=== PATIENT | female | born 1935 | race Caucasian/White ===

== ENCOUNTER → 2018-10-22 | Outpatient (CLI) | payer MEDICARE, BC ==
[2018-10-22 13:26] LABS: HCT 37.3 % (34.0-46.0); HGB 12.5 gm/dL (11.4-16.0); MCHC 33.6 g/dL (31.0-37.0); MCV 95.1 fL (80.0-100.0); Mean Platelet Volume 6.7; Platelet Count 203 k/uL (150-450); RBC 3.92 m/uL (3.80-5.40); WBC 6.9 k/uL (3.8-10.6)
[2018-10-22 13:37] LABS: ALT 19 U/L (9-52); AST 34 U/L (14-36); Albumin 4.6 g/dL (3.5-5.0); Alkaline Phosphatase 78 U/L (38-126); Anion Gap 6 mmol/L; Blood Urea Nitrogen 10 mg/dL (7-17); Calcium 9.9 mg/dL (8.4-10.2); Carbon Dioxide 32 mmol/L (22-30); Chloride 100 mmol/L (98-107); Cholesterol 166 mg/dL (<200); Creatine Kinase 56 U/L (30-135); Glucose 96 mg/dL (74-99); HDL Cholesterol 90 mg/dL (40-60); LDL Cholesterol,Calculated 54 mg/dL (0-99); Magnesium 1.9 mg/dL (1.6-2.3); Potassium 4.3 mmol/L (3.5-5.1); Sodium 138 mmol/L (137-145); Total Bilirubin 0.6 mg/dL (0.2-1.3); Total Protein 7.7 g/dL (6.3-8.2); Triglycerides 112 mg/dL (<150)
--- NOTE | 2018-10-22 15:09 | CT ---
EXAMINATION TYPE: CT abdomen pelvis wo con DATE OF EXAM: 10/22/2018 COMPARISON: None HISTORY: flank pain CT DLP: 291.9 mGycm Examination of the solid and hollow viscera is limited given the lack of contrast. FINDINGS: LUNG BASES: No evidence for nodule. No evidence for infiltrate. LIVER/GB: The gallbladder is unremarkable. No space-occupying hepatic lesion. PANCREAS: No pancreatic mass identified. No inflammatory process seen. SPLEEN: No evidence for splenomegaly. No intrasplenic lesions seen. ADRENALS: No adrenal nodules identified. No evidence for thickening. KIDNEYS: Low-lying right kidney. No evidence for renal mass. No nephrolithiasis. No hydronephrosis. BOWEL: The appendix is poorly visualized. No evidence of bowel obstruction. No inflammatory process. Sigmoid diverticulosis without diverticulitis. Small hiatal hernia. Lymph nodes: No evidence for adenopathy greater than 1 cm. Abdominal aorta: Atheromatous changes seen. No evidence for aneurysm. Genital organs: No significant abnormality. Other: Severe compression fracture involving L1 with bony retropulsion noted measuring 6 mm. There is a moderate compression fracture involving T10. No retropulsion is identified at this level. Paraspin al hematoma suggest acute process. Right inguinal hernia which contains a segment of small bowel. No evidence for incarceration or obstr uction. IMPRESSION: 1. Compression fractures of L1 and T10 with paraspinal hematoma suggesting acute component. Retropuls ion noted at L1. Consider dedicated evaluation of the thoracolumbar spine. 2. Sigmoid diverticulosis without diverticulitis. 3. Low-lying right kidney. No trever hydronephrosis or obstructing nephrolithiasis.
[2018-10-22 19:07] LABS: Vitamin D 25 Hydroxy 42.5 ng/mL (30.0-100.0)
[2018-10-22 19:11] LABS: Folate, Serum 22.5 ng/mL
== END | disposition home or self-care (01) ==
LOC: RADCTMAIN 12:34
PROVIDERS: ATTEND Family Medicine
DX: K57.30 Diverticulosis of large intestine without perforation or abscess without bleeding (principal); N28.89 Other specified disorders of kidney and ureter; R10.9 Unspecified abdominal pain; M81.0 Age-related osteoporosis without current pathological fracture; N39.0 Urinary tract infection, site not specified; R20.2 Paresthesia of skin; Z79.899 Other long term (current) drug therapy
CPT/HCPCS: 74176; 80053; 80061; 82306; 82550; 82607; 82746; 83735; 84436; 84443; 85027; 87086

== ENCOUNTER → 2018-12-03 | Outpatient (CLI) | payer MEDICARE, BC ==
--- NOTE | 2018-12-04 11:19 | BD ---
EXAMINATION TYPE: Axial Bone Density DATE OF EXAM: 12/03/2018 COMPARISON: DEXA bone scan January 30, 2016 CLINICAL HISTORY: Age-related osteoporosis per order. Height: 61 Weight: 121.0 FRAX RISK QUESTIONS: Alcohol (3 or more units per day): no Family History (Parent hip fracture): no Glucocorticoids (More than 3mos): no (Ex: prednisone, prednisolone, methylprednisolone, dexamethasone, and hydrocortisone). History of Fracture in Adulthood: yes Secondary Osteoporosis: 1. Type 1 Diabetes: no 2. Hyperthyroidism: no 3. Menopause before 45: no 4. Malnutrition: no 5. Chronic liver disease: no Rheumatoid Arthritis: no Current Tobacco Use: no RISK FACTORS HISTORY OF: Hip Fracture (Right/Left): right When: 2016 Spine Fracture: l-1 When: 2018 Surgery to Spine/Hip(right/left)/Wrist (right/left): right hip/ 2016 Family History of Osteoporosis: yes Active: sometimes Diet low in dairy products/other sources of calcium: no Lost more than 2 inches in height since high school: yes MEDICATIONS: Osteoporosis Medications: fosamax How Long: off and on for a few years Additional History: EXAM MEASUREMENTS: Bone mineral densitometry was performed using the [employer]wic[employer] System. Bone mineral density about the L hip (g/cm2): 0.595 T Score values are as follows: -----L Neck: -3.2 -----L Total: -3.2 Bone mineral density has: decreased -10.4 % since study of: 3.7.2015 Bone mineral density about the L Wrist (g/cm2): 0.295 T Score values are as follows: -----Dist. R+U: -6.2 -----Prox. R+U: -5.1 -----Radius total: -6.3 Bone mineral density : baseline IMPRESSION: Osteoporosis (T Score less than -2.5) redemonstrated. There remains increased fracture risk and therapy is usually indicated based on age. Re-Screen 1-2 years. NOTE: T-SCORE=SD OF THE YOUNG ADULT MEAN.
--- NOTE | 2018-12-07 12:41 | MM ---
Reason for exam: screening (asymptomatic). Last mammogram was performed 2 years and 10 months ago. History: Patient is postmenopausal. Family history of breast cancer in aunt at age 80 and breast cancer in grandmother at age 80. MG 3D Screening Mammo W/Cad Bilateral CC and MLO view(s) were taken. Prior study comparison: January 30, 2016, bilateral MG screening mammo w CAD. July 28, 2014, bilateral MG screening mammo w CAD. The breast tissue is heterogeneously dense. This may lower the sensitivity of mammography. No significant changes when compared with prior studies. ASSESSMENT: Negative, BI-RAD 1 RECOMMENDATION: Routine screening mammogram of both breasts in 1 year.
== END | disposition home or self-care (01) ==
LOC: RADMAMWWP 14:49
PROVIDERS: ATTEND Family Medicine
DX: Z12.31 Encounter for screening mammogram for malignant neoplasm of breast (principal); M81.0 Age-related osteoporosis without current pathological fracture
CPT/HCPCS: 77063; 77067; 77080

== ENCOUNTER → 2019-09-02 | Outpatient (CLI) | payer MEDICARE, BC ==
[2019-09-02 12:27] LABS: HCT 37.8 % (34.0-46.0); HGB 12.6 gm/dL (11.4-16.0); MCH 32.2 pg (25.0-35.0); MCHC 33.2 g/dL (31.0-37.0); MCV 96.9 fL (80.0-100.0); Mean Platelet Volume 5.8; Platelet Count 200 k/uL (150-450); RDW 12.7 % (11.5-15.5); WBC 6.3 k/uL (3.8-10.6)
--- NOTE | 2019-09-02 14:55 | XR ---
Thoracic spine and lumbar spine HISTORY: Chronic pain, osteoporosis 3 views of the thoracic spine and 5 views of the lumbosacral spine correlated to CT 10/22/2018 There is a scoliotic curvature present. Bone mineralization is reduced. There is a compression deform ity at L1 with loss of height of approximately 75%. Minimal retrolisthesis grade 1 at T12-L1, L1-L2. Mild superior endplate loss of height at L3, L2. There is multilevel spondylosis. Loss of disc height at intervertebral levels especially at L3-4, L4-5 and L5-S1. Sclerosis in the posterior elements is compatible with facet arthropathy. Is multilevel spondylosis. T10 also shows loss of vertebral body height of approximately 50%. Multilevel thoracic spondylosis is present. Degenerative disc changes are also noted in the visualized cervical spine. Thoracic vertebr al bodies show preserved alignment. IMPRESSION: Osteoporotic compression fractures at L1, T10. Degenerative disc disease, facet arthropat hy, scoliosis, low bone mineralization.
--- NOTE | 2019-09-02 14:57 | XR ---
EXAMINATION TYPE: XR chest 2V DATE OF EXAM: 09/02/2019 COMPARISON: Prior chest x-ray 01/30/2016 HISTORY: Wheezing, abnormal breath sounds, chronic pain TECHNIQUE: Frontal and lateral views of the chest are obtained. FINDINGS: There is no focal air space opacity, pleural effusion, or pneumothorax seen. The cardiac silhouette size is stable and within normal limits. The osseous structures are markedly for scoliot ic curvature, compression fractures T10 and L1. Prominent lung volumes are compatible with underlying COPD.. IMPRESSION: No acute cardiopulmonary process.
[2019-09-02 19:41] LABS: African American GFR (CKD) 95.7 (60.0-200.0); Albumin 4.8 g/dL (3.80-4.90); Anion Gap 7.4 mmol/L (4.00-12.00); Calcium 9.8 mg/dL (8.7-10.3); Carbon Dioxide 28.6 mmol/L (21.6-31.8); Chol/HDL Ratio 2.03; Globulin 2.4 g/dL (1.6-3.3); Potassium 4.4 mmol/L (3.5-5.5); Total Bilirubin 0.6 mg/dL (0.3-1.2); Total Protein 7.2 g/dL (6.2-8.2)
[2019-09-02 21:55] LABS: Hemoglobin A1C 5.6 % (4.0-6.0)
== END | disposition home or self-care (01) ==
LOC: LABWHC1 11:09
PROVIDERS: ATTEND Family Medicine
DX: M51.36 Other intervertebral disc degeneration, lumbar region (principal); R06.2 Wheezing; M80.08XA Age-related osteoporosis with current pathological fracture, vertebra(e), initial encounter for fracture; M46.96 Unspecified inflammatory spondylopathy, lumbar region; M41.86 Other forms of scoliosis, lumbar region; E78.5 Hyperlipidemia, unspecified; Z79.899 Other long term (current) drug therapy
CPT/HCPCS: 36415; 71046; 72070; 72110; 80053; 80061; 82306; 83036; 83735; 84443; 85027

== ENCOUNTER 2019-11-05 13:44 | Emergency (ER) | payer MEDICARE, BC ==
[2019-11-05 15:04] LABS: Basophils % (A) 0 %; Eosinophils # (A) 0.1 k/uL (0-0.7); Eosinophils % (A) 1 %; HCT 37.1 % (34.0-46.0); HGB 12.3 gm/dL (11.4-16.0); Lymphocytes # (A) 0.8 k/uL (1.0-4.8); Lymphocytes % (A) 12 %; MCHC 33.2 g/dL (31.0-37.0); MCV 93.4 fL (80.0-100.0); Mean Platelet Volume 7.4; Monocytes # (A) 0.4 k/uL (0-1.0); Monocytes % (A) 6 %; Neutrophils # (A) 5.2 k/uL (1.3-7.7); Neutrophils % (A) 79 %; Platelet Count 244 k/uL (150-450); RBC 3.97 m/uL (3.80-5.40); RDW 12.5 % (11.5-15.5); WBC 6.6 k/uL (3.8-10.6)
--- NOTE | 2019-11-05 15:05 | XR ---
EXAMINATION TYPE: XR KUB DATE OF EXAM: 11/05/2019 COMPARISON: NONE HISTORY: Pain TECHNIQUE: Single supine KUB image of the abdomen is obtained FINDINGS: Small bowel demonstrates no evidence for dilatation or air fluid levels. Gas and fecal material is seen in non-distended colon. No convincing evidence for pneumoperitoneum. No unusual calcifications. The lung bases are clear. The osseous structures are intact. IMPRESSION: 1. Overall nonobstructive bowel gas pattern.
[2019-11-05] MEDS: SODIUM CHLORIDE 0.9% 500 ML 500 ML IV STA (15:07)
--- NOTE | 2019-11-05 15:09 | ED ---
General Adult HPI - General Chief complaint: Weakness Stated complaint: weakness Time Seen by Provider: 11/05/19 13:50 Source: family, RN notes reviewed, old records reviewed Mode of arrival: ambulatory Limitations: no limitations - History of Present Illness Initial comments: This is a 84-year-old female presents emergency Department complaining of right upper quadrant abdominal pain this morning at 5:30 it lasted for 2 hours and since it is been resolved. Patient states she was recently diagnosed with a L3 compression fracture and put on tramadol. Patient states since she's been tramadol also been very constipated and only recently and she started have some bowel movements. Patient states she has not been eating or drinking well either. Patient denies any fever chills per patient denies any symptoms currently. Patient denies any chest pain difficulty breathing or shortness of breath. Patient denies any dysuria hematuria urinary frequency. - Related Data Home Medications Medication Instructions Recorded Confirmed Alfredo/D3/Mag11/Zinc/Canning Machine Operator/Randolph/Bor 1 tab PO DAILY 09/05/16 09/05/16 [Caltrate 600+D Plus Tablet] Glucosam/Patricio-Msm1/C/Randolph/Bosw 1 tab PO DAILY 09/05/16 09/05/16 [Glucosamine-Chondroitin Tablet] Multivitamins, Thera [Multivitamin 1 tab PO DAILY 09/05/16 09/05/16 (formulary)] Simvastatin 40 mg PO HS 09/05/16 09/05/16 Previous Rx's Medication Instructions Recorded Aspirin 325 mg PO BID #60 tab 09/10/16 Docusate [Colace] 100 mg PO BID #60 capsule 09/10/16 Ferrous Sulfate [Feosol] 325 mg PO BID #60 tab 09/10/16 HYDROcodone/APAP 5-325MG [Ecru 1 tab PO Q4HR PRN #60 tab 09/10/16 5-325] Allergies Allergy/AdvReac Type Severity Reaction Status Date / Time Sulfa (Sulfonamide Allergy Swelling Verified 11/05/19 13:49 Antibiotics) venom-honey bee Allergy Anaphylaxis Verified 11/05/19 13:49 [bee venom (honey bee)] Review of Systems ROS Statement: Those systems with pertinent positive or pertinent negative responses have been documented in the HPI. ROS Other: All systems not noted in ROS Statement are negative. Past Medical History Past Medical History: Hyperlipidemia Additional Past Medical History / Comment(s): Rheumatic fever age 10. History of Any Multi-Drug Resistant Organisms: None Reported Past Surgical History: Hysterectomy, Tonsillectomy Past Psychological History: No Psychological Hx Reported Smoking Status: Never smoker Past Alcohol Use History: Occasional Past Drug Use History: None Reported - Past Family History Mother Family Medical History: Myocardial Infarction ([place]) General Exam - General Exam Comments Initial Comments: GENERAL: Patient is well-developed and well-nourished. Patient is nontoxic and well- hydrated and is in no acute distress. ENT: Neck is soft and supple. No significant lymphadenopathy is noted. Oropharynx is clear. Moist mucous membranes. Neck has full range of motion without eliciting any pain. EYES: The sclera were anicteric and conjunctiva were pink and moist. Extraocular movements were intact and pupils were equal round and reactive to light. Eyelids were unremarkable. PULMONARY: Unlabored respirations. Good breath sounds bilaterally. No audible rales rhonchi or wheezing was noted. CARDIOVASCULAR: There is a regular rate and rhythm without any murmurs gallops or rubs. ABDOMEN: Soft and nontender with normal bowel sounds. No palpable organomegaly was noted. There is no palpable pulsatile mass. SKIN: Skin is clear with no lesions or rashes and otherwise unremarkable. NEUROLOGIC: Patient is alert and oriented x3. Cranial nerves II through XII are grossly intact. Motor and sensory are also intact. Normal speech, volume and content. Symmetrical smile. MUSCULOSKELETAL: Normal extremities with adequate strength and full range of motion. LYMPHATICS: No significant lymphadenopathy is noted PSYCHIATRIC: Normal psychiatric evaluation. Limitations: no limitations Course Vital Signs 11/05/19 11/05/19 13:46 15:00 Temperature 97.4 F L 98.0 F Pulse Rate 87 80 Respiratory 20 19 Rate Blood Pressure 190/92 167/91 O2 Sat by Pulse 94 L 97 Oximetry Medical Decision Making - Medical Decision Making EKG shows normal sinus rhythm at 82 bpm VA interval and 58 QRS is 78 QT interval 380 QTC is 443. Patient's EKG shows no ST segment elevation or depression. KUB shows no acute abnormality. I went back into the room and reevaluated the patient. Patient was feeling much better and felt as though she could go home. - Lab Data Result diagrams: 11/05/19 14:15 11/05/19 14:15 Lab Results 11/05/19 11/05/19 11/05/19 Range/Units 14:15 14:15 14:15 WBC 6.6 (3.8-10.6) k/uL RBC 3.97 (3.80-5.40) m/uL Hgb 12.3 (11.4-16.0) gm/dL Hct 37.1 (34.0-46.0) % MCV 93.4 (80.0-100.0) fL MCH 31.0 (25.0-35.0) pg MCHC 33.2 (31.0-37.0) g/dL RDW 12.5 (11.5-15.5) % Plt Count 244 (150-450) k/uL Neutrophils % 79 % Lymphocytes % 12 % Monocytes % 6 % Eosinophils % 1 % Basophils % 0 % Neutrophils # 5.2 (1.3-7.7) k/uL Lymphocytes # 0.8 L (1.0-4.8) k/uL Monocytes # 0.4 (0-1.0) k/uL Eosinophils # 0.1 (0-0.7) k/uL Basophils # 0.0 (0-0.2) k/uL PT (9.0-12.0) sec INR (<1.2) APTT (22.0-30.0) sec Sodium 134 L (137-145) mmol/L Potassium 4.3 (3.5-5.1) mmol/L Chloride 96 L (98-107) mmol/L Carbon Dioxide 29 (22-30) mmol/L Anion Gap 9 mmol/L BUN 8 (7-17) mg/dL Creatinine 0.48 L (0.52-1.04) mg/dL Est GFR (CKD-EPI)AfAm >90 (>60 ml/min/1.73 sqM) Est GFR (CKD-EPI)NonAf 89 (>60 ml/min/1.73 sqM) Glucose 110 H (74-99) mg/dL Plasma Lactic Acid [place] 1.0 (0.7-2.0) mmol/L Calcium 10.0 (8.4-10.2) mg/dL Magnesium 2.0 (1.6-2.3) mg/dL Total Bilirubin 0.5 (0.2-1.3) mg/dL AST 32 (14-36) U/L ALT 10 (4-34) U/L Alkaline Phosphatase 94 (38-126) U/L Troponin I (0.000-0.034) ng/mL Total Protein 7.7 (6.3-8.2) g/dL Albumin 4.6 (3.5-5.0) g/dL Urine Color Urine Appearance (Clear) Urine pH (5.0-8.0) Ur Specific [place] (1.001-1.035) Urine Protein (Negative) Urine Glucose (UA) (Negative) Urine Ketones (Negative) Urine Blood (Negative) Urine Nitrite (Negative) Urine Bilirubin (Negative) Urine Urobilinogen (<2.0) mg/dL Ur Leukocyte Esterase (Negative) Urine RBC (0-5) /hpf Urine WBC (0-5) /hpf 11/05/19 11/05/19 11/05/19 Range/Units 14:15 14:15 15:00 WBC (3.8-10.6) k/uL RBC (3.80-5.40) m/uL Hgb (11.4-16.0) gm/dL Hct (34.0-46.0) % MCV (80.0-100.0) fL MCH (25.0-35.0) pg MCHC (31.0-37.0) g/dL RDW (11.5-15.5) % Plt Count (150-450) k/uL Neutrophils % % Lymphocytes % % Monocytes % % Eosinophils % % Basophils % % Neutrophils # (1.3-7.7) k/uL Lymphocytes # (1.0-4.8) k/uL Monocytes # (0-1.0) k/uL Eosinophils # (0-0.7) k/uL Basophils # (0-0.2) k/uL PT 10.5 (9.0-12.0) sec INR 1.0 (<1.2) APTT 25.8 (22.0-30.0) sec Sodium (137-145) mmol/L Potassium (3.5-5.1) mmol/L Chloride (98-107) mmol/L Carbon Dioxide (22-30) mmol/L Anion Gap mmol/L BUN (7-17) mg/dL Creatinine (0.52-1.04) mg/dL Est GFR (CKD-EPI)AfAm (>60 ml/min/1.73 sqM) Est GFR (CKD-EPI)NonAf (>60 ml/min/1.73 sqM) Glucose (74-99) mg/dL Plasma Lactic Acid [place] (0.7-2.0) mmol/L Calcium (8.4-10.2) mg/dL Magnesium (1.6-2.3) mg/dL Total Bilirubin (0.2-1.3) mg/dL AST (14-36) U/L ALT (4-34) U/L Alkaline Phosphatase (38-126) U/L Troponin I <0.012 (0.000-0.034) ng/mL Total Protein (6.3-8.2) g/dL Albumin (3.5-5.0) g/dL Urine Color Colorless Urine Appearance Clear (Clear) Urine pH 7.5 (5.0-8.0) Ur Specific [place] 1.003 (1.001-1.035) Urine Protein Negative (Negative) Urine Glucose (UA) Negative (Negative) Urine Ketones Negative (Negative) Urine Blood Trace H (Negative) Urine Nitrite Negative (Negative) Urine Bilirubin Negative (Negative) Urine Urobilinogen <2.0 (<2.0) mg/dL Ur Leukocyte Esterase Negative (Negative) Urine RBC <1 (0-5) /hpf Urine WBC <1 (0-5) /hpf Disposition Clinical Impression: Abdominal pain Disposition: HOME SELF-CARE Condition: Good Instructions (If sedation given, give patient instructions): Abdominal Pain (ED) Is patient prescribed a controlled substance at d/c from ED?: No Referrals: Ann Seymour MD [Primary Care Provider] - 1-2 days Time of Disposition: 16:20
[2019-11-05 15:13] LABS: ALT 10 U/L (4-34); AST 32 U/L (14-36); African American GFR (CKD) >90 (>60 ml/min/1.73 sqM); Albumin 4.6 g/dL (3.5-5.0); Alkaline Phosphatase 94 U/L (38-126); Anion Gap 9 mmol/L; Blood Urea Nitrogen 8 mg/dL (7-17); Carbon Dioxide 29 mmol/L (22-30); Chloride 96 mmol/L (98-107); Glucose 110 mg/dL (74-99); Non-African American GFR(CKD) 89 (>60 ml/min/1.73 sqM); Potassium 4.3 mmol/L (3.5-5.1); Sodium 134 mmol/L (137-145); Total Bilirubin 0.5 mg/dL (0.2-1.3); Total Protein 7.7 g/dL (6.3-8.2)
[2019-11-05 15:20] LABS: Appearance,Urine Clear (Clear); Bilirubin,Urine Negative (Negative); Blood,Urine Trace (Negative); Color,Urine Colorless; Glucose,Urine (UA) Negative (Negative); Ketones,Urine Negative (Negative); Leukocyte Esterase,Urine Negative (Negative); Nitrite,Urine Negative (Negative); PH, Urine 7.5 (5.0-8.0); Protein,Urine Negative (Negative); RBC,Urine <1 /hpf (0-5); Specific Gravity,Urine 1.003 (1.001-1.035); Urobilinogen,Urine <2.0 mg/dL (<2.0)
[2019-11-05 15:28] LABS: Partial Thromboplastin Time 25.8 sec (22.0-30.0); Prothrombin Time 10.5 sec (9.0-12.0)
[2019-11-05] MEDS: KETOROLAC 30 MG/ML 1 ML VIAL IVP STA (15:58)
[2019-11-05] MEDS: ACETAMINOPHEN TAB 500 MG TAB PO STA (15:59)
[2019-11-05 17:28] VITALS: BP 143/71; PULSE 79; RESP 18; TEMP 97.5
== END 2019-11-05 17:29 | disposition home or self-care (01) ==
LOC: EC 13:44
DX: R10.11 Right upper quadrant pain (principal); M48.56XA Collapsed vertebra, not elsewhere classified, lumbar region, initial encounter for fracture; K59.00 Constipation, unspecified; E78.5 Hyperlipidemia, unspecified; Z88.2 Allergy status to sulfonamides; Z91.030 Bee allergy status; Z79.891 Long term (current) use of opiate analgesic; Z79.899 Other long term (current) drug therapy
CPT/HCPCS: 36415; 93005; 80053; 83605; 83735; 84484; 85025; 85610; 85730; 81001; 74018; 99285; 96374; 96361; J1885

== ENCOUNTER → 2019-11-05 | Outpatient (CLI) | payer MEDICARE, BC ==
--- NOTE | 2019-11-05 14:08 | US ---
EXAMINATION TYPE: US kidneys/renal and bladder DATE OF EXAM: 11/05/2019 COMPARISON: NONE CLINICAL HISTORY: N23 renal pain, R10.9 abd pain. Recent UTI, bilateral flank pain EXAM MEASUREMENTS: Right Kidney: 10.0 x 4.0 x 4.7 cm Left Kidney: 10.2 x 4.4 x 3.2 cm Right Kidney: dilated renal pelvis extending into calyces Left Kidney: dilated renal pelvis extending into calyces Bladder: wnl Bilateral Jets seen: no No nephrolithiasis is seen. No masses are identified. The urinary bladder is anechoic. Bilateral ureteral jets are seen. IMPRESSION: Bilateral hydronephrosis mild in degree.
== END | disposition home or self-care (01) ==
LOC: RADUSWWP 12:55
PROVIDERS: ATTEND Nurse Practitioner Family
DX: N13.30 Unspecified hydronephrosis (principal); N23 Unspecified renal colic
CPT/HCPCS: 76770

== ENCOUNTER 2019-11-09 15:42 | Inpatient (IN) | payer MEDICARE, BC ==
[2019-11-09] MEDS ORDERED: SODIUM CHLORIDE 0.9% 500 ML 500 ML IV STA (16:33)
[2019-11-09] MEDS ORDERED: SODIUM CHLORIDE 0.9% 1,000 ML IV STA (16:33)
--- NOTE | 2019-11-09 16:35 | ED ---
GI Bleed HPI - General Chief complaint: GI Bleed Stated complaint: GI bleed Time Seen by Provider: 11/09/19 15:53 Source: patient, RN notes reviewed, old records reviewed Mode of arrival: wheelchair Limitations: no limitations - History of Present Illness Initial comments: This is an 78 sexual female ER for evaluation of weakness decreased appetite and weight loss and inability family. All problems of stem from a hip surgery about 2 months ago. ER visit O week ago for abdominal pain. Patient wishes at least maybe some blood in her stool as of late with no nausea vomiting or diarrhea mild bowel pain currently no fevers. This increasing weakness decreased appetite with no recent change in medications. MD complaint: melena -: days(s) Radiation: none Severity scale (1-10): 3 Quality: painless Consistency: constant Improves with: none Worsens with: none Context: history of GI bleed Associated Symptoms: denies other symptoms - Related Data Home Medications Medication Instructions Recorded Confirmed Alfredo/D3/Mag11/Zinc/Cornice Upholsterer/Randolph/Bor 2 tab PO DAILY 09/05/16 11/09/19 [Caltrate 600+D Plus Tablet] Glucosam/Patricio-Msm1/C/Randolph/Bosw 2 tab PO DAILY 09/05/16 11/09/19 [Glucosamine-Chondroitin Tablet] Multivitamins, Thera [Multivitamin 1 tab PO DAILY 09/05/16 11/09/19 (formulary)] Simvastatin 40 mg PO HS 09/05/16 11/09/19 Acetaminophen Tab [Tylenol Tab] 325 mg PO Q4H PRN 11/09/19 11/09/19 Ascorbic Acid [Vitamin C] 500 mg PO DAILY 11/09/19 11/09/19 Aspirin EC [Ecotrin Low Dose] 81 mg PO DAILY 11/09/19 11/09/19 L.acidoph,Paracasei, B.lactis 1 cap PO DAILY 11/09/19 11/09/19 [Probiotic] Loratadine [Claritin] 10 mg PO DAILY 11/09/19 11/09/19 Montelukast [Singulair] 10 mg PO HS 11/09/19 11/09/19 Allergies Allergy/AdvReac Type Severity Reaction Status Date / Time Sulfa (Sulfonamide Allergy Swelling Verified 11/09/19 17:21 Antibiotics) venom-honey bee Allergy Anaphylaxis Verified 11/09/19 17:21 [bee venom (honey bee)] tramadol AdvReac Unknown Verified 11/09/19 17:21 Review of Systems ROS Statement: Those systems with pertinent positive or pertinent negative responses have been documented in the HPI. ROS Other: All systems not noted in ROS Statement are negative. Past Medical History Past Medical History: Hyperlipidemia Additional Past Medical History / Comment(s): Rheumatic fever age 10, osteoporosis, back fractures History of Any Multi-Drug Resistant Organisms: None Reported Past Surgical History: Hysterectomy, Orthopedic Surgery, Tonsillectomy Additional Past Surgical History / Comment(s): hip Past Psychological History: No Psychological Hx Reported Smoking Status: Never smoker Past Alcohol Use History: Occasional Past Drug Use History: None Reported - Past Family History Mother Family Medical History: Myocardial Infarction ([place]) General Exam Limitations: no limitations General appearance: alert, in no apparent distress, lethargic, cachectic Head exam: Present: atraumatic, normocephalic, normal inspection Eye exam: Present: normal appearance, PERRL, EOMI. Absent: scleral icterus, conjunctival injection, periorbital swelling ENT exam: Present: normal exam, mucous membranes moist Neck exam: Present: normal inspection. Absent: tenderness, meningismus, lymphadenopathy Respiratory exam: Present: normal lung sounds bilaterally. Absent: respiratory distress, wheezes, rales, rhonchi, stridor Cardiovascular Exam: Present: regular rate, normal rhythm, normal heart sounds. Absent: systolic murmur, diastolic murmur, rubs, gallop, clicks GI/Abdominal exam: Present: soft, normal bowel sounds. Absent: distended, tenderness, guarding, rebound, rigid Extremities exam: Present: normal inspection, full ROM, normal capillary refill. Absent: tenderness, pedal edema, joint swelling, calf tenderness Back exam: Present: normal inspection Neurological exam: Present: alert, oriented X3, CN II-XII intact Psychiatric exam: Present: normal affect, normal mood Skin exam: Present: warm, dry, intact, normal color. Absent: rash Course Vital Signs 11/09/19 11/09/19 11/09/19 16:01 16:18 17:03 Temperature 98.2 F 98.2 F 98.7 F Pulse Rate 85 83 78 Respiratory 18 16 17 Rate Blood Pressure 179/91 160/80 170/87 O2 Sat by Pulse 97 96 93 L Oximetry 11/09/19 18:00 Temperature 98.7 F Pulse Rate 73 Respiratory 18 Rate Blood Pressure 168/71 O2 Sat by Pulse 97 Oximetry - Reevaluation(s) Reevaluation #1: 11/09/19 19:25 Patient still very weak medical record is reviewed including prior ER visit Reevaluation #2: 11/09/19 19:25 With difficulty and waiting here in the ER Medical Decision Making - Medical Decision Making 84 female to evaluation weakness positive urinary tract infection we will admit this patient for IV antibiotics and PTOT - Lab Data Result diagrams: 11/09/19 16:20 11/09/19 16:20 Lab Results 11/09/19 11/09/19 11/09/19 Range/Units 16:20 16:20 16:20 WBC 5.8 (3.8-10.6) k/uL RBC 3.96 (3.80-5.40) m/uL Hgb 12.3 (11.4-16.0) gm/dL Hct 37.0 (34.0-46.0) % MCV 93.6 (80.0-100.0) fL MCH 31.1 (25.0-35.0) pg MCHC 33.2 (31.0-37.0) g/dL RDW 12.7 (11.5-15.5) % Plt Count 262 (150-450) k/uL Neutrophils % 70 % Lymphocytes % 19 % Monocytes % 7 % Eosinophils % 2 % Basophils % 0 % Neutrophils # 4.1 (1.3-7.7) k/uL Lymphocytes # 1.1 (1.0-4.8) k/uL Monocytes # 0.4 (0-1.0) k/uL Eosinophils # 0.1 (0-0.7) k/uL Basophils # 0.0 (0-0.2) k/uL PT 10.3 (9.0-12.0) sec INR 1.0 (<1.2) APTT 24.6 (22.0-30.0) sec Sodium 133 L (137-145) mmol/L Potassium 3.5 (3.5-5.1) mmol/L Chloride 96 L (98-107) mmol/L Carbon Dioxide 29 (22-30) mmol/L Anion Gap 8 mmol/L BUN 10 (7-17) mg/dL Creatinine 0.48 L (0.52-1.04) mg/dL Est GFR (CKD-EPI)AfAm >90 (>60 ml/min/1.73 sqM) Est GFR (CKD-EPI)NonAf 89 (>60 ml/min/1.73 sqM) Glucose 104 H (74-99) mg/dL Calcium 9.8 (8.4-10.2) mg/dL Magnesium 1.8 (1.6-2.3) mg/dL Total Bilirubin 0.6 (0.2-1.3) mg/dL AST 35 (14-36) U/L ALT 11 (4-34) U/L Alkaline Phosphatase 122 (38-126) U/L Troponin I (0.000-0.034) ng/mL Total Protein 7.6 (6.3-8.2) g/dL Albumin 4.4 (3.5-5.0) g/dL Urine Color Urine Appearance (Clear) Urine pH (5.0-8.0) Ur Specific [place] (1.001-1.035) Urine Protein (Negative) Urine Glucose (UA) (Negative) Urine Ketones (Negative) Urine Blood (Negative) Urine Nitrite (Negative) Urine Bilirubin (Negative) Urine Urobilinogen (<2.0) mg/dL Ur Leukocyte Esterase (Negative) Urine RBC (0-5) /hpf Urine WBC (0-5) /hpf Urine WBC Clumps (None) /hpf Ur Squamous Epith Cells (0-4) /hpf Calcium Oxalate Crystal (None) /hpf Amorphous Sediment (None) /hpf Urine Bacteria (None) /hpf Hyaline Casts (0-2) /lpf Urine Mucus (None) /hpf Stool Occult Blood (Negative) Blood Type Blood Type Recheck Bld Type Recheck Status Antibody Screen Spec Expiration Date 11/09/19 11/09/19 11/09/19 Range/Units 16:20 16:20 16:20 WBC (3.8-10.6) k/uL RBC (3.80-5.40) m/uL Hgb (11.4-16.0) gm/dL Hct (34.0-46.0) % MCV (80.0-100.0) fL MCH (25.0-35.0) pg MCHC (31.0-37.0) g/dL RDW (11.5-15.5) % Plt Count (150-450) k/uL Neutrophils % % Lymphocytes % % Monocytes % % Eosinophils % % Basophils % % Neutrophils # (1.3-7.7) k/uL Lymphocytes # (1.0-4.8) k/uL Monocytes # (0-1.0) k/uL Eosinophils # (0-0.7) k/uL Basophils # (0-0.2) k/uL PT (9.0-12.0) sec INR (<1.2) APTT (22.0-30.0) sec Sodium (137-145) mmol/L Potassium (3.5-5.1) mmol/L Chloride (98-107) mmol/L Carbon Dioxide (22-30) mmol/L Anion Gap mmol/L BUN (7-17) mg/dL Creatinine (0.52-1.04) mg/dL Est GFR (CKD-EPI)AfAm (>60 ml/min/1.73 sqM) Est GFR (CKD-EPI)NonAf (>60 ml/min/1.73 sqM) Glucose (74-99) mg/dL Calcium (8.4-10.2) mg/dL Magnesium (1.6-2.3) mg/dL Total Bilirubin (0.2-1.3) mg/dL AST (14-36) U/L ALT (4-34) U/L Alkaline Phosphatase (38-126) U/L Troponin I <0.012 (0.000-0.034) ng/mL Total Protein (6.3-8.2) g/dL Albumin (3.5-5.0) g/dL Urine Color Yellow Urine Appearance Cloudy H (Clear) Urine pH 5.5 (5.0-8.0) Ur Specific [place] 1.017 (1.001-1.035) Urine Protein Trace H (Negative) Urine Glucose (UA) Negative (Negative) Urine Ketones Negative (Negative) Urine Blood Small H (Negative) Urine Nitrite Positive H (Negative) Urine Bilirubin Negative (Negative) Urine Urobilinogen <2.0 (<2.0) mg/dL Ur Leukocyte Esterase Large H (Negative) Urine RBC 3 (0-5) /hpf Urine WBC 98 H (0-5) /hpf Urine WBC Clumps Many H (None) /hpf Ur Squamous Epith Cells <1 (0-4) /hpf Calcium Oxalate Crystal Moderate H (None) /hpf Amorphous Sediment Occasional H (None) /hpf Urine Bacteria Many H (None) /hpf Hyaline Casts 21 H (0-2) /lpf Urine Mucus Many H (None) /hpf Stool Occult Blood (Negative) Blood Type O Positive Blood Type Recheck O Pos Bld Type Recheck Status No Antibody Screen NEGATIVE Spec Expiration Date 11/12/2019231911/09/19 Range/Units 18:34 WBC (3.8-10.6) k/uL RBC (3.80-5.40) m/uL Hgb (11.4-16.0) gm/dL Hct (34.0-46.0) % MCV (80.0-100.0) fL MCH (25.0-35.0) pg MCHC (31.0-37.0) g/dL RDW (11.5-15.5) % Plt Count (150-450) k/uL Neutrophils % % Lymphocytes % % Monocytes % % Eosinophils % % Basophils % % Neutrophils # (1.3-7.7) k/uL Lymphocytes # (1.0-4.8) k/uL Monocytes # (0-1.0) k/uL Eosinophils # (0-0.7) k/uL Basophils # (0-0.2) k/uL PT (9.0-12.0) sec INR (<1.2) APTT (22.0-30.0) sec Sodium (137-145) mmol/L Potassium (3.5-5.1) mmol/L Chloride (98-107) mmol/L Carbon Dioxide (22-30) mmol/L Anion Gap mmol/L BUN (7-17) mg/dL Creatinine (0.52-1.04) mg/dL Est GFR (CKD-EPI)AfAm (>60 ml/min/1.73 sqM) Est GFR (CKD-EPI)NonAf (>60 ml/min/1.73 sqM) Glucose (74-99) mg/dL Calcium (8.4-10.2) mg/dL Magnesium (1.6-2.3) mg/dL Total Bilirubin (0.2-1.3) mg/dL AST (14-36) U/L ALT (4-34) U/L Alkaline Phosphatase (38-126) U/L Troponin I (0.000-0.034) ng/mL Total Protein (6.3-8.2) g/dL Albumin (3.5-5.0) g/dL Urine Color Urine Appearance (Clear) Urine pH (5.0-8.0) Ur Specific [place] (1.001-1.035) Urine Protein (Negative) Urine Glucose (UA) (Negative) Urine Ketones (Negative) Urine Blood (Negative) Urine Nitrite (Negative) Urine Bilirubin (Negative) Urine Urobilinogen (<2.0) mg/dL Ur Leukocyte Esterase (Negative) Urine RBC (0-5) /hpf Urine WBC (0-5) /hpf Urine WBC Clumps (None) /hpf Ur Squamous Epith Cells (0-4) /hpf Calcium Oxalate Crystal (None) /hpf Amorphous Sediment (None) /hpf Urine Bacteria (None) /hpf Hyaline Casts (0-2) /lpf Urine Mucus (None) /hpf Stool Occult Blood Negative (Negative) Blood Type Blood Type Recheck Bld Type Recheck Status Antibody Screen Spec Expiration Date - EKG Data -: EKG Interpreted by Me (EKG shows sinus rhythm rate of 76, NE 184, QRS 88, QTC 432) Disposition Clinical Impression: Abdominal pain, Weakness, UTI (urinary tract infection) Disposition: ADMITTED IP TO THIS [facility] Condition: Fair Is patient prescribed a controlled substance at d/c from ED?: No Referrals: Ann Seymour MD [Primary Care Provider] - 1-2 days
[2019-11-09 16:47] LABS: Basophils % (A) 0 %; Eosinophils # (A) 0.1 k/uL (0-0.7); Eosinophils % (A) 2 %; HGB 12.3 gm/dL (11.4-16.0); Lymphocytes # (A) 1.1 k/uL (1.0-4.8); Lymphocytes % (A) 19 %; MCH 31.1 pg (25.0-35.0); MCHC 33.2 g/dL (31.0-37.0); MCV 93.6 fL (80.0-100.0); Mean Platelet Volume 6.8; Monocytes # (A) 0.4 k/uL (0-1.0); Monocytes % (A) 7 %; Neutrophils # (A) 4.1 k/uL (1.3-7.7); Neutrophils % (A) 70 %; Platelet Count 262 k/uL (150-450); RBC 3.96 m/uL (3.80-5.40); RDW 12.7 % (11.5-15.5); WBC 5.8 k/uL (3.8-10.6)
[2019-11-09 16:58] LABS: ALT 11 U/L (4-34); AST 35 U/L (14-36); African American GFR (CKD) >90 (>60 ml/min/1.73 sqM); Albumin 4.4 g/dL (3.5-5.0); Alkaline Phosphatase 122 U/L (38-126); Anion Gap 8 mmol/L; Blood Urea Nitrogen 10 mg/dL (7-17); Calcium 9.8 mg/dL (8.4-10.2); Carbon Dioxide 29 mmol/L (22-30); Chloride 96 mmol/L (98-107); Glucose 104 mg/dL (74-99); Magnesium 1.8 mg/dL (1.6-2.3); Non-African American GFR(CKD) 89 (>60 ml/min/1.73 sqM); Potassium 3.5 mmol/L (3.5-5.1); Sodium 133 mmol/L (137-145); Total Bilirubin 0.6 mg/dL (0.2-1.3); Total Protein 7.6 g/dL (6.3-8.2)
[2019-11-09 17:18] LABS: Partial Thromboplastin Time 24.6 sec (22.0-30.0); Prothrombin Time 10.3 sec (9.0-12.0)
[2019-11-09 18:50] LABS: Amorphous Sediment,Urine Occasional /hpf; Appearance,Urine Cloudy (Clear); Bacteria,Urine Many /hpf; Bilirubin,Urine Negative (Negative); Blood,Urine Small (Negative); Calcium Oxalate Crystals,Urine Moderate /hpf; Color,Urine Yellow; Glucose,Urine (UA) Negative (Negative); Hyaline Casts,Urine 21 /lpf (0-2); Ketones,Urine Negative (Negative); Leukocyte Esterase,Urine Large (Negative); Mucus,Urine Many /hpf; Nitrite,Urine Positive (Negative); PH, Urine 5.5 (5.0-8.0); Protein,Urine Trace (Negative); RBC,Urine 3 /hpf (0-5); Specific Gravity,Urine 1.017 (1.001-1.035); Squamous Epithelial Cell,Urine <1 /hpf (0-4); Urobilinogen,Urine <2.0 mg/dL (<2.0); WBC,Urine 98 /hpf (0-5)
[2019-11-09] MEDS: ACETAMINOPHEN TAB 325 MG TAB PO PRN (21:53)
[2019-11-09] MEDS: MONTELUKAST 10 MG TAB PO SCH (21:53)
[2019-11-09] MEDS: ATORVASTATIN 20 MG TAB PO SCH (21:53)
[2019-11-09] MEDS: HEPARIN SODIUM,PORCINE 5,000 UNIT/ML 1 ML VIAL SQ SCH (21:53)
[2019-11-10] MEDS ORDERED: cloNIDine HCL 0.2 MG TAB PO PRN (01:51)
--- NOTE | 2019-11-10 02:42 | P.HPIM ---
History of Present Illness H&P Date: 11/09/19 Chief Complaint: generalized weakness, decreased apetite. 84-year-old female with history of hyperlipidemia Age and comes into the hospital due to generalized weakness and decreased appetite not feeling well. She reports that she was taking oral antibiotics for UTI as an outpatient finished a course a week ago. And then she also reported 2-3 week history of back pain due to compression fraction of L3 for which she was started on tramadol resulted in some constipation for which she started taking MiraLAX and then since the weekend she's been having diarrhea and decreased appetite she also reported episodes of black stool however in the ED her hemoglobin was normal and fecal occult blood test was negative. She also reports recurrence of her urinary symptoms with dysuria and frequency, denies any abdominal pain. She reports no fevers or chills no nausea or vomiti ng. She is alternating between diarrhea and constipation. Denies any chest pain or trouble breathing. In the ED blood work was unremarkable, urine analysis was positive. Blood pressure was elevated. An EKG showed no acute changes compared to before. Patient currently living with her daughter for the past 3 weeks and her daughter insisted on bringing her to the hospital today patient otherwise lives alone at baseline and independent living Review of Systems Pertinent positives as noted in HPI. All other systems were reviewed and are negative Past Medical History Past Medical History: Hyperlipidemia Additional Past Medical History / Comment(s): Rheumatic fever age 10, osteoporosis, back fractures History of Any Multi-Drug Resistant Organisms: None Reported Past Surgical History: Hysterectomy, Orthopedic Surgery, Tonsillectomy Additional Past Surgical History / Comment(s): hip Past Psychological History: No Psychological Hx Reported Smoking Status: Never smoker Past Alcohol Use History: Occasional Past Drug Use History: None Reported - Past Family History Mother Family Medical History: Myocardial Infarction ([place]) Medications and Allergies Home Medications Medication Instructions Recorded Confirmed Type Alfredo/D3/Mag11/Zinc/Tray Casting Machine Operator/Randolph/Bor 2 tab PO DAILY 09/05/16 11/09/19 History [Caltrate 600+D Plus Tablet] Glucosam/Patricio-Msm1/C/Randolph/Bosw 2 tab PO DAILY 09/05/16 11/09/19 History [Glucosamine-Chondroitin Tablet] Multivitamins, Thera [Multivitamin 1 tab PO DAILY 09/05/16 11/09/19 History (formulary)] Simvastatin 40 mg PO HS 09/05/16 11/09/19 History Acetaminophen Tab [Tylenol Tab] 325 mg PO Q4H PRN 11/09/19 11/09/19 History Ascorbic Acid [Vitamin C] 500 mg PO DAILY 11/09/19 11/09/19 History Aspirin EC [Ecotrin Low Dose] 81 mg PO DAILY 11/09/19 11/09/19 History L.acidoph,Paracasei, B.lactis 1 cap PO DAILY 11/09/19 11/09/19 History [Probiotic] Loratadine [Claritin] 10 mg PO DAILY 11/09/19 11/09/19 History Montelukast [Singulair] 10 mg PO HS 11/09/19 11/09/19 History Allergies Allergy/AdvReac Type Severity Reaction Status Date / Time Sulfa (Sulfonamide Allergy Swelling Verified 11/09/19 17:21 Antibiotics) venom-honey bee Allergy Anaphylaxis Verified 11/09/19 17:21 [bee venom (honey bee)] tramadol AdvReac Unknown Verified 11/09/19 17:21 Physical Exam Vitals: Vital Signs Temp Pulse Resp BP Pulse Ox 11/09/19 19:50 98.6 F 89 17 149/69 95 11/09/19 18:00 98.7 F 73 18 168/71 97 11/09/19 17:03 98.7 F 78 17 170/87 93 L 11/09/19 16:18 98.2 F 83 16 160/80 96 11/09/19 16:01 98.2 F 85 18 179/91 97 Intake and Output 11/09/19 11/09/19 11/09/19 06:59 14:59 22:59 Intake Total 1020 Balance 1020 Intake: IV 20 Invasive Line 1 20 Amount of Fluid Infused ( 1000 ml) Other: Weight 54.431 kg Constitutional: No acute distress, conversant, pleasant Eyes: Anicteric sclerae, moist conjunctiva, no lid-lag Pupils equal round reactive to light ENMT: NC/AT Oropharynx clear, no erythema, exudates Neck: Supple, FROM, no masses, or JVD No carotid bruits No thyromegaly Lungs: Clear to auscultation Clear to percussion Normal respiratory effort, no accessory muscle use Cardiovascular: Heart regular in rate and rhythm, No murmurs, gallops, or rubs No peripheral edema Abdominal: Soft Nontender, no guarding, rebound or rigidity Abdomen moving with respiration Normoactive bowel sounds No hepatomegaly, No splenomegaly No palpable mass No abdominal wall hernia noted Skin: Normal temperature, tone, texture, turgor No induration No subcutaneous nodules No rash, lesions No ulcers Extremities: No digital cyanosis No clubbing Pedal pulses intact and symmetrical Radial pulses intact and symmetrical No calf tenderness Psychiatric: Alert and oriented to person, place and time Appropriate affect fair judgment Neuro Muscles Strength 4/5 in all 4 extremities Sensation to light touch grossly present throughout Cranial nerves II-XII grossly intact No focal sensory deficits Lymphatics: no palpable cervical or supraclavicular , or inguinal lymph nodes Results CBC & Chem 7: 11/09/19 16:20 11/09/19 16:20 Labs: Abnormal Lab Results - Last 24 Hours (Table) 11/09/19 11/09/19 Range/Units 16:20 16:20 Sodium 133 L (137-145) mmol/L Chloride 96 L (98-107) mmol/L Creatinine 0.48 L (0.52-1.04) mg/dL Glucose 104 H (74-99) mg/dL Urine Appearance Cloudy H (Clear) Urine Protein Trace H (Negative) Urine Blood Small H (Negative) Urine Nitrite Positive H (Negative) Ur Leukocyte Esterase Large H (Negative) Urine WBC 98 H (0-5) /hpf Urine WBC Clumps Many H (None) /hpf Calcium Oxalate Crystal Moderate H (None) /hpf Amorphous Sediment Occasional H (None) /hpf Urine Bacteria Many H (None) /hpf Hyaline Casts 21 H (0-2) /lpf Urine Mucus Many H (None) /hpf Assessment and Plan Assessment: 84-year-old female with history of hyperlipidemia Patient comes in today with weakness and decreased appetite found to have urinary tract infection admitted as inpatient with anticipated length of stay more than 2 midnights Plan: acute UTI generalized weakness follow up cultures rocephine monitor vital signs monitor urine output PT/OT High blood pressure , without history of hypertension clonidine PRN for SBP>180 chronic conditions hyperlipidemia resume home meds CODE STATUS:full code DVT prophylaxis: heparin sc Discussed with: Patient, ER, RN Anticipated length of stay > than [address]: pending clinical course A total of 60 minutes was spent on the care of this complex patient more than 50% of the time was spent in counseling and care coordination.
[2019-11-10 07:59] LABS: Basophils % (A) 0 %; Eosinophils # (A) 0.2 k/uL (0-0.7); Eosinophils % (A) 3 %; HCT 35.8 % (34.0-46.0); HGB 11.9 gm/dL (11.4-16.0); Lymphocytes % (A) 17 %; MCH 31.9 pg (25.0-35.0); MCHC 33.2 g/dL (31.0-37.0); MCV 96.2 fL (80.0-100.0); Mean Platelet Volume 6.8; Monocytes # (A) 0.3 k/uL (0-1.0); Monocytes % (A) 5 %; Neutrophils # (A) 4.2 k/uL (1.3-7.7); Neutrophils % (A) 72 %; Platelet Count 272 k/uL (150-450); RBC 3.72 m/uL (3.80-5.40); RDW 12.8 % (11.5-15.5); WBC 5.8 k/uL (3.8-10.6)
[2019-11-10 08:07] LABS: African American GFR (CKD) >90 (>60 ml/min/1.73 sqM); Anion Gap 6 mmol/L; Blood Urea Nitrogen 7 mg/dL (7-17); Calcium 8.6 mg/dL (8.4-10.2); Carbon Dioxide 26 mmol/L (22-30); Chloride 104 mmol/L (98-107); Glucose 94 mg/dL (74-99); Non-African American GFR(CKD) >90 (>60 ml/min/1.73 sqM); Potassium 3.5 mmol/L (3.5-5.1); Sodium 136 mmol/L (137-145)
[2019-11-10] MEDS: ACETAMINOPHEN TAB 325 MG TAB PO PRN ×3 (08:40→22:21)
--- NOTE | 2019-11-10 09:13 | XR ---
EXAMINATION TYPE: XR chest 2V DATE OF EXAM: 11/10/2019 COMPARISON: Chest x-ray September 02, 2019. HISTORY: Weakness and cough. TECHNIQUE: Frontal and lateral views of the chest are obtained. FINDINGS: There is background chronic emphysematous changes redemonstrated with new tiny bilateral pl eural effusions seen best on lateral chest x-ray. There is no new suspicious focal air space opacity or pneumothorax seen bilaterally. The cardiac silhouette size is stable and enlarged with atheroscl erotic and slightly ectatic aorta. The osseous structures remain demineralized. Underlying scoliosi s is again seen. IMPRESSION: Chronic parenchymal changes and cardiomegaly with new small to tiny left greater than ri ght pleural effusions.
--- NOTE | 2019-11-10 09:33 | P.PN ---
Subjective Progress Note Date: 11/10/19 patient seen and examined at bedside, discussed with daughter Lily via phone patient's symptoms. Patient with a history of osteoporotic lumbar fractureand is seen Dr. Golden in the outpatient setting with conservative management recommended and was taking tramadol which apparently caused some issues with constipation and abdominal pain. Daughter reports the patient was living independently at home and was able to ambulate with a walker up until a week ago, over the last week the patient is being, increasingly weak and fatigued. Also has had a productive cough over the last 4 days. no acute events overnight Objective - Vital Signs Vital signs: Vital Signs Temp 98.0 F 11/10/19 05:55 Pulse 87 11/10/19 05:55 Resp 15 11/10/19 05:55 BP 143/77 11/10/19 05:55 Pulse Ox 97 11/10/19 05:55 Intake & Output 11/09/19 11/10/19 11/10/19 18:59 06:59 18:59 Intake Total 2019 Balance 2019 Weight 54.431 kg 51 kg Intake: IV 20 Invasive Line 1 20 Amount of Fluid Infused ( 1000 ml) Intake, IV Titration 900 Amount Sodium Chloride 0.9% 1, 900 000 ml @ 100 mls/hr IV . Q10H STA Rx#:[id number] Oral 120 Other: Voiding Method Toilet # Voids 2 - Exam Constitutional: No acute distress, conversant, pleasant Eyes: Anicteric sclerae, moist conjunctiva, no lid-lag, PERRLA ENMT: NC/AT,Oropharynx clear, no erythema, exudates Neck:Supple, FROM, no masses, or JVD, No carotid bruits; No thyromegaly Lungs: Clear to auscultation, diminished in the bases unlabored on room air Cardiovascular: Heart regular in rate and rhythm, No murmurs, gallops, or rubs no peripheral edema Abdominal: Soft Nontender, mildly distended, no guarding, no rebound or rigidity, Normoactive bowel sounds No hepatomegaly, No splenomegaly, No palpable mass No abdominal wall hernia noted Skin: Normal temperature, tone, texture, turgor, No induration No subcutaneous nodules, No rash, lesions, No ulcers Extremities:No digital cyanosis No clubbing, Pedal pulses intact and symmetrical Radial pulses intact and symmetrical Psychiatric: Alert and oriented to person, place and time, Appropriate affect Intact judgement Neuro: Muscles Strength 5/5 in all 4 extremities, Sensation to light touch grossly present throughout, Cranial nerves II-XII grossly intact. No focal sensory deficits - Labs CBC & Chem 7: 11/10/19 07:37 11/10/19 07:37 Labs: Abnormal Lab Results - Last 24 Hours (Table) 11/09/19 11/09/19 11/10/19 Range/Units 16:20 16:20 07:37 RBC 3.72 L (3.80-5.40) m/uL Sodium 133 L (137-145) mmol/L Chloride 96 L (98-107) mmol/L Creatinine 0.48 L (0.52-1.04) mg/dL Glucose 104 H (74-99) mg/dL Urine Appearance Cloudy H (Clear) Urine Protein Trace H (Negative) Urine Blood Small H (Negative) Urine Nitrite Positive H (Negative) Ur Leukocyte Esterase Large H (Negative) Urine WBC 98 H (0-5) /hpf Urine WBC Clumps Many H (None) /hpf Calcium Oxalate Crystal Moderate H (None) /hpf Amorphous Sediment Occasional H (None) /hpf Urine Bacteria Many H (None) /hpf Hyaline Casts 21 H (0-2) /lpf Urine Mucus Many H (None) /hpf 11/10/19 Range/Units 07:37 RBC (3.80-5.40) m/uL Sodium 136 L (137-145) mmol/L Chloride (98-107) mmol/L Creatinine 0.37 L (0.52-1.04) mg/dL Glucose (74-99) mg/dL Urine Appearance (Clear) Urine Protein (Negative) Urine Blood (Negative) Urine Nitrite (Negative) Ur Leukocyte Esterase (Negative) Urine WBC (0-5) /hpf Urine WBC Clumps (None) /hpf Calcium Oxalate Crystal (None) /hpf Amorphous Sediment (None) /hpf Urine Bacteria (None) /hpf Hyaline Casts (0-2) /lpf Urine Mucus (None) /hpf Microbiology - Last 24 Hours (Table) 11/09/19 16:20 Urine Culture - Preliminary Urine,Voided Assessment and Plan Assessment: UTI * previously failed outpatient therapy * urine cultures pending * Continue empiric treatment with Rocephin Generalized weakness * physical therapy consulted for evaluation Acute bronchitis * we'll order chest x-ray Osteoporotic lumbar fracture * previously seen by Dr. Golden recommended conservative management Hyponatremia * improving with hydration abdominal pain * We'll order CT abdomen and pelvis disposition * Await urine culture follow-up imaging studies
[2019-11-10] MEDS: HEPARIN SODIUM,PORCINE 5,000 UNIT/ML 1 ML VIAL SQ SCH ×3 (09:40→23:33)
[2019-11-10] MEDS: PANTOPRAZOLE 40 MG TABLET PO SCH (09:40)
[2019-11-10] MEDS: LORATADINE 10 MG TAB PO SCH (09:44)
[2019-11-10] MEDS: ASPIRIN 81 MG PO SCH (09:44)
[2019-11-10] MEDS ORDERED: Acetaminophen-Codeine 300-30mg TAB PO STA (10:07)
--- NOTE | 2019-11-10 13:17 | CT ---
EXAMINATION TYPE: CT abdomen pelvis wo con DATE OF EXAM: 11/10/2019 HISTORY: AAA unspecified abdominal pain. CT DLP: 600 mGycm. Automated Exposure Control for Dose Reduction was Utilized. TECHNIQUE: CT scan of the abdomen and pelvis is performed without oral or IV contrast. COMPARISON: Renal ultrasound [address] abdomen and pelvis October 22, 2018 FINDINGS: Within the limitations of a non-contrast study, the following observations are made. LUNG BASES: Central and posterior bibasilar linear scarring and/or atelectasis. Calcification at leve l of the mitral valve redemonstrated. LIVER/GB: Gallbladder has distended margins without surrounding inflammatory change. Dependent densit y may reflect gallbladder sludge. PANCREAS: No significant abnormality is seen. SPLEEN: No significant abnormality is seen. ADRENALS: No significant abnormality is seen. KIDNEYS: There is persistent mild bilateral pyelocaliectasis without significant change from prior CT without hydroureter or obstructing ureteral calculi. Low-lying right kidney redemonstrated. BOWEL: Evaluation bowel suboptimal secondary to lack of enteric contrast. Stomach is poorly distended and thus suboptimally evaluated. Moderate wall thickening in the distal body and antrum is thought p resent. Some fluid-filled small bowel loops are slightly more prominent in the left abdomen with smal l bowel feces sign. Fecal material is seen in nondistended colon. Scattered colonic diverticula are p resent. Redemonstration of small fat-containing left inguinal hernia stable. Redemonstration of small to moderate size right inguinal hernia containing fat and portions of bowel without significant suazo ge from prior. GENITAL ORGANS: Uterus is surgically absent or markedly atrophic. Scattered pelvic phleboliths redemo nstrated. LYMPH NODES: No greater than 1cm abdominal or pelvic lymph nodes are appreciated. OSSEOUS STRUCTURES: Osseous structures are demineralized. Surgical changes right proximal femur is pa rtially imaged. Narrowing and spurring of pubic symphysis again seen. Severe compression fracture L1 level redemonstrated. New mild height loss T12 vertebra and along superior L3 endplate without linear lucency to suggest acute fractures. OTHER: There is mild to moderate calcified plaque of the abdominal aorta with ectatic course but not greater than 3 cm aneurysmal change. IMPRESSION: 1. No greater than 3.0 cm AAA. 2. Overall nonspecific felt to be nonobstructive bowel gas pattern. Small bowel feces sign is present . Few small bowel loops are slightly more prominent particularly left lower quadrant at site of small bowel feces sign. Bowel containing right inguinal hernia is stable not causing focal obstruction at this point. Colonic diverticulosis without CT evidence for acute diverticulitis.
[2019-11-10] MEDS: ATORVASTATIN 20 MG TAB PO SCH (20:18)
[2019-11-10 21:11] VITALS: RESP 16
[2019-11-11] MEDS: ASPIRIN 81 MG PO SCH (08:32)
[2019-11-11] MEDS: PANTOPRAZOLE 40 MG TABLET PO SCH (08:32)
[2019-11-11] MEDS: LORATADINE 10 MG TAB PO SCH (08:33)
[2019-11-11] MEDS: HEPARIN SODIUM,PORCINE 5,000 UNIT/ML 1 ML VIAL SQ SCH ×2 (08:33→16:22)
[2019-11-11] MEDS: ACETAMINOPHEN TAB 325 MG TAB PO PRN ×4 (08:39→21:30)
[2019-11-11] MEDS ORDERED: BENZONATATE 100 MG CAP PO PRN (11:44)
--- NOTE | 2019-11-11 11:45 | P.PN ---
Subjective Progress Note Date: 11/11/19 patient seen and examined at bedside, doing well sitting up in bed reported her back pain is mild, unable to ambulate with physical therapy yesterday but reports that she has been up walking around the room with her walker. Patient was able to complete CT of abdomen and pelvis yesterday. Discussed findings with the patient. A urine culture proven recurrent back with gram-negative bacilli. chest x-ray showed chronic parenchymal changes and cardiomegaly with small tiny left greater than right pleural effusion. no acute events overnight Objective - Vital Signs Vital signs: Vital Signs Temp 98.0 F 11/11/19 05:00 Pulse 74 11/11/19 05:00 Resp 16 11/11/19 05:00 BP 122/74 11/11/19 05:00 Pulse Ox 96 11/11/19 05:00 Intake & Output 11/10/19 11/11/19 11/11/19 18:59 06:59 18:59 Intake Total 800 700 Balance 800 700 Intake: Intake, IV Titration 800 110 Amount Sodium Chloride 0.9% 1, 800 60 000 ml @ 100 mls/hr IV . Q10H STA Rx#:[id number] cefTRIAXone 1 gm In 50 Sodium Chloride 0.9% 50 ml @ 100 mls/hr IVPB Q12HR FARNAZ Rx#:[id number] Oral 590 Other: Voiding Method Toilet Toilet # Voids 4 3 - Exam Constitutional: No acute distress, conversant, pleasant Eyes: Anicteric sclerae, moist conjunctiva, no lid-lag, PERRLA ENMT: NC/AT,Oropharynx clear, no erythema, exudates Neck:Supple, FROM, no masses, or JVD, No carotid bruits; No thyromegaly Lungs: Clear to auscultation, diminished in the bases unlabored on room air Cardiovascular: Heart regular in rate and rhythm, No murmurs, gallops, or rubs no peripheral edema Abdominal: Soft Nontender, mildly distended, no guarding, no rebound or rigidity, Normoactive bowel sounds No hepatomegaly, No splenomegaly, No palpable mass No abdominal wall hernia noted Skin: Normal temperature, tone, texture, turgor, No induration No subcutaneous nodules, No rash, lesions, No ulcers Extremities:No digital cyanosis No clubbing, Pedal pulses intact and symmetrical Radial pulses intact and symmetrical Psychiatric: Alert and oriented to person, place and time, Appropriate affect Intact judgement Neuro: Muscles Strength 5/5 in all 4 extremities, Sensation to light touch grossly present throughout, Cranial nerves II-XII grossly intact. No focal sensory deficits - Labs CBC & Chem 7: 11/10/19 07:37 11/10/19 07:37 Labs: Microbiology - Last 24 Hours (Table) 11/09/19 16:20 Urine Culture - Preliminary Urine,Voided Gram Neg Bacilli Assessment and Plan Assessment: gram-negative UTI * previously failed outpatient therapy * urine cultures pending * Continue empiric treatment with Rocephin Generalized weakness * awaiting PTs evaluation today Acute bronchitis * likely virally mediated * Supportive management, initiate Tessalon Perles prn cough Osteoporotic lumbar fracture * previously seen by Dr. Golden recommended conservative management Hyponatremia * improving with hydration AAA * Approximately 3 cm * minimal risk factors for worsening at this time abdominal pain * possibly secondary to constipation * Initiate MiraLAX when necessary constipation patient had a bowel movement today * CT abdomen and pelvis indicating diverticulosis without acute diverticulitis, also right inguinal hernia stable without any obstruction disposition * Await final cultures which are likely be back tomorrow * We'll discharge home tomorrow
--- NOTE | 2019-11-11 12:13 | P.GSCN ---
History of Present Illness Consult date: 11/11/19 Reason for Consult: Recurrent urinary tract infections History of present illness: the patient is an 84-year-old female admitted through the emergency room on 11/09 for evaluation of weakness and back pain. She was felt to have a urinary tract infection at the time of admission and has been started on Rocephin. I was asked to see the patient as she has apparently been treated for urinary tract infections several times this year. The patient has a history of on L3 compression fracture which occurred in 2016 and says that several months ago she apparently had another lumbar compression fracture secondary to osteoporosis. She says she was complaining of back pain in early October and was seen on 10/26. A urinalysis suggested a urinary tract infection and she was treated with antibiotics for 7 days. Culture at that time grew Klebsiella pneumonia. She said she actually had no dysuria or urinary frequency and her only complaint at that time was back pain. She said the back pain was not improved with antibiotic treatment. Follow-up urine culture on 11/03 showed no growth. She says that she had been treated with tramadol due to her back pain and this resulted in constipation. She developed diarrhea late last week and says that she was drinking large amounts of Gatorade and soda because of the diarrhea. At the time of admission she says that she was voiding more frequently but attributed this to her increased oral intake. She specifically denied any dysuria, hematuria or chills. She says she normally voids every 3 hours during the day and 0-2 times at night. She does have some urgency when she wakes in the morning and wears pull-ups overnight says that they're usually dry. According to the hospital records the patient had an E. coli urinary tract infection on 09/01 and Enterococcus faecalis infection on 09/16 of this year. She says on both occasions she did have some dysuria. I had previously seen the patient due to asymptomatic microscopic hematuria in 2014. No further evaluation was recommended at that time. Patient had a computed tomography scan of the abdomen and pelvis without IV contrast yesterday day that showed mild bilateral caliectasis which was unchanged from a previous computed tomography scan from 09/2018. Review of Systems - Constitutional Reports chronic pain, Reports fatigue, Denies chills, Denies fever - Gastrointestinal Denies abdominal pain - Genitourinary Genitourinary: Reports as per HPI Past Medical History Past Medical History: Hyperlipidemia Additional Past Medical History / Comment(s): Rheumatic fever age 10, osteoporosis, back fractures History of Any Multi-Drug Resistant Organisms: None Reported Past Surgical History: Hysterectomy, Orthopedic Surgery (right total hip arthroplasty 2016), Tonsillectomy Additional Past Surgical History / Comment(s): hip Past Anesthesia/Blood Transfusion Reactions: No Reported Reaction Past Psychological History: No Psychological Hx Reported Smoking Status: Never smoker Past Alcohol Use History: Occasional Past Drug Use History: None Reported - Past Family History Mother Family Medical History: Myocardial Infarction ([place]) Medications and Allergies Home Medications Medication Instructions Recorded Confirmed Type Alfredo/D3/Mag11/Zinc/Hydraulic Pile Hammer Operator/Randolph/Bor 2 tab PO DAILY 09/05/16 11/09/19 History [Caltrate 600+D Plus Tablet] Glucosam/Patricio-Msm1/C/Randolph/Bosw 2 tab PO DAILY 09/05/16 11/09/19 History [Glucosamine-Chondroitin Tablet] Multivitamins, Thera [Multivitamin 1 tab PO DAILY 09/05/16 11/09/19 History (formulary)] Simvastatin 40 mg PO HS 09/05/16 11/09/19 History Acetaminophen Tab [Tylenol Tab] 325 mg PO Q4H PRN 11/09/19 11/09/19 History Ascorbic Acid [Vitamin C] 500 mg PO DAILY 11/09/19 11/09/19 History Aspirin EC [Ecotrin Low Dose] 81 mg PO DAILY 11/09/19 11/09/19 History L.acidoph,Paracasei, B.lactis 1 cap PO DAILY 11/09/19 11/09/19 History [Probiotic] Loratadine [Claritin] 10 mg PO DAILY 11/09/19 11/09/19 History Montelukast [Singulair] 10 mg PO HS 11/09/19 11/09/19 History Allergies Allergy/AdvReac Type Severity Reaction Status Date / Time Sulfa (Sulfonamide Allergy Swelling Verified 11/09/19 17:21 Antibiotics) venom-honey bee Allergy Anaphylaxis Verified 11/09/19 17:21 [bee venom (honey bee)] tramadol AdvReac Unknown Verified 11/09/19 17:21 Surgical - Exam Vital Signs Temp Pulse Resp BP Pulse Ox 98.2 F 85 18 179/91 97 11/09/19 16:01 11/09/19 16:01 11/09/19 16:01 11/09/19 16:01 11/09/19 16:01 - General well developed, well nourished, no distress - ENT no hearing loss - Neck no masses, no lymphadectomy - Respiratory normal respiratory effort - Abdomen Abdomen: soft, non tender, no organomegaly Results - Labs 11/10/19 07:37 11/10/19 07:37 Microbiology - Last 24 Hours (Table) 11/09/19 16:20 Urine Culture - Preliminary Urine,Voided Gram Neg Bacilli Assessment and Plan (1) Asymptomatic bacteriuria Narrative/Plan: At the time of admission the patient had no symptoms of a urinary tract infection. She does have back pain which is located in the lumbar region but this is chronic and most likely related to her previous compression fractures. Her urinary frequency at the time of admission appeared to be related to increase oral fluids. Current recommendations are to not treat asymptomatic urinary tract infections and I'm not sure that the patient needs further antibiotic treatment at this point. In the future if she has symptomatic infection she should be treated for 3 days to reduce the likelihood of antibiotic resistance. I do not feel that any further urologic evaluation is necessary. Current Visit: Yes Status: Acute Code(s): R82.71 - BACTERIURIA SNOMED Code(s): 015905477
[2019-11-11] MEDS: MONTELUKAST 10 MG TAB PO SCH (21:30)
[2019-11-11] MEDS: ATORVASTATIN 20 MG TAB PO SCH (21:30)
[2019-11-12] MEDS: HEPARIN SODIUM,PORCINE 5,000 UNIT/ML 1 ML VIAL SQ SCH ×2 (03:27→08:50)
[2019-11-12] MEDS: ACETAMINOPHEN TAB 325 MG TAB PO PRN ×2 (03:52→08:54)
[2019-11-12 04:55] VITALS: BP 154/72; PULSE 77; TEMP 97.6
[2019-11-12] MEDS: PANTOPRAZOLE 40 MG TABLET PO SCH (08:50)
[2019-11-12] MEDS: ASPIRIN 81 MG PO SCH (08:50)
[2019-11-12] MEDS: LORATADINE 10 MG TAB PO SCH (08:50)
[2019-11-12] MEDS ORDERED: SIMETHICONE 80 MG CHEWABLE PO SCH (09:00)
[2019-11-12] MEDS ORDERED: POLYETHYLENE GLYCOL 3350 17 GM POWD.PACK PO SCH (09:00)
--- NOTE | 2019-11-12 15:01 | P.DS ---
Providers Date of admission: 11/10/19 09:33 Expected date of discharge: 11/12/19 Attending physician: Brodie Ray MD Consults: 11/11/19 08:14 Consult Physician Routine Consulting Provider: Brian De La Rosa Consult Reason/Comments: recurrent uti Do you want consulting provider notified?: Yes Primary care physician: Ann Seymour Hospital Course: discharge diagnosis Klebsiella pneumonia UTI Generalized weakness Viral bronchitis Hyponatremia Osteoporotic lumbar fracture AAA abdominal pain Constipation Hospital course The patient is a 84 her old female that was admitted with generalized weakness and found secondary to a Klebsiella pneumonia UTI after she presented here with her family. The patient's urinalysis was suggestive of a UTI and she was started on empiric IV antibiotics with Rocephin along with IV fluids. The patient had been having ongoing bouts of abdominal pain a CT abdomen and pelvis was ordered, was negative for any acute iintra-abdominal pathology, that showed a nonspecific bowel gas pattern and some small cc, there is a right inguinal hernia not causing focal obstruction, there was colonic diverticulosis without diverticulitis, there is a AAA no greater than 3 cm. with hydration the patient's hyponatremia corrected. She was treated supportively with Tessalon Perles for cough due to a viral bronchitis his chest x-ray was negative for any pneumonias or infiltrates. The patient appears to be seen in clinic by Dr. Goldenfor the osteoporotic lumbar fracture and his recommendations of conservative management were continued. The patient was seen by physical and occupational therapy and ambulated well. Given her history of recurrent UTIs urology was consulted appreciated recommendations by Dr. Camargo. 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 This discharge process took approximately 35 minutes Focused exam Abdomen: Soft nontender nondistended normoactive bowel sounds in all 4 quadrants, no tenderness or guarding nonacute abdomen Patient Condition at Discharge: Good Plan - Discharge Summary New Discharge Prescriptions: New Polyethylene Glycol 3350 [Miralax] 17 gm PO DAILY PRN #30 powd.pack PRN Reason: Constipation Simethicone Chew [Mylicon Chew] 80 mg PO QID PRN #60 chew PRN Reason: gas pains Benzonatate [Tessalon Perles] 100 mg PO TID PRN #15 capsule PRN Reason: Cough Continue Simvastatin 40 mg PO HS Multivitamins, Thera [Multivitamin (formulary)] 1 tab PO DAILY Glucosam/Patricio-Msm1/C/Randolph/Bosw [Glucosamine-Chondroitin Tablet] 2 tab PO DAILY Alfredo/D3/Mag11/Zinc/Aircraft Electrician/Randolph/Bor [Caltrate 600+D Plus Tablet] 2 tab PO DAILY Aspirin EC [Ecotrin Low Dose] 81 mg PO DAILY Loratadine [Claritin] 10 mg PO DAILY L.acidoph,Paracasei, B.lactis [Probiotic] 1 cap PO DAILY Ascorbic Acid [Vitamin C] 500 mg PO DAILY Acetaminophen Tab [Tylenol] 325 mg PO Q4H PRN PRN Reason: Pain Montelukast [Singulair] 10 mg PO HS Discharge Medication List Alfredo/D3/Mag11/Zinc/Aircraft Electrician/Randolph/Bor [Caltrate 600+D Plus Tablet] 2 tab PO DAILY 09/05/16 [History] Glucosam/Patricio-Msm1/C/Randolph/Bosw [Glucosamine-Chondroitin Tablet] 2 tab PO DAILY 09/05/16 [History] Multivitamins, Thera [Multivitamin (formulary)] 1 tab PO DAILY 09/05/16 [History] Simvastatin 40 mg PO HS 09/05/16 [History] Acetaminophen Tab [Tylenol] 325 mg PO Q4H PRN 11/09/19 [History] Ascorbic Acid [Vitamin C] 500 mg PO DAILY 11/09/19 [History] Aspirin EC [Ecotrin Low Dose] 81 mg PO DAILY 11/09/19 [History] L.acidoph,Paracasei, B.lactis [Probiotic] 1 cap PO DAILY 11/09/19 [History] Loratadine [Claritin] 10 mg PO DAILY 11/09/19 [History] Montelukast [Singulair] 10 mg PO HS 11/09/19 [History] Benzonatate [Tessalon Perles] 100 mg PO TID PRN #15 capsule 11/12/19 [Rx] Polyethylene Glycol 3350 [Miralax] 17 gm PO DAILY PRN #30 powd.pack 11/12/19 [Rx] Simethicone Chew [Mylicon Chew] 80 mg PO QID PRN #60 chew 11/12/19 [Rx] Follow up Appointment(s)/Referral(s): Ann Seymour MD [Primary Care Provider] - 11/19/19 11:00 am Activity/Diet/Wound Care/Special Instructions: [facility] care - Discharge Disposition: HOME WITH HOME HEALTH SERVICES
== END 2019-11-12 12:30 | disposition home health service (06) | DRG 690 ==
LOC: EC 15:42 → 5NMEDONC 19:23 → OBSVTOIN 11-10 09:33
PROVIDERS: ADMIT Internal Medicine; ATTEND Internal Medicine
DX: N39.0 Urinary tract infection, site not specified (principal); M80.08XA Age-related osteoporosis with current pathological fracture, vertebra(e), initial encounter for fracture; E87.1 Hypo-osmolality and hyponatremia; E78.5 Hyperlipidemia, unspecified; Z96.641 Presence of right artificial hip joint; I71.4 Abdominal aortic aneurysm, without rupture; K59.00 Constipation, unspecified; J20.8 Acute bronchitis due to other specified organisms; B96.1 Klebsiella pneumoniae [K. pneumoniae] as the cause of diseases classified elsewhere; I51.7 Cardiomegaly; K57.90 Diverticulosis of intestine, part unspecified, without perforation or abscess without bleeding; Z79.899 Other long term (current) drug therapy; Z79.82 Long term (current) use of aspirin; Z88.2 Allergy status to sulfonamides; Z88.6 Allergy status to analgesic agent; Z91.030 Bee allergy status; Z82.49 Family history of ischemic heart disease and other diseases of the circulatory system; Z90.710 Acquired absence of both cervix and uterus; Z90.89 Acquired absence of other organs; Z98.890 Other specified postprocedural states; Z87.440 Personal history of urinary (tract) infections
CPT/HCPCS: 36415; 71046; 74176; 80048; 80053; 81001; 82272; 83735; 84484; 85025; 85610; 85730; 86850; 86900; 86901; 87077; 87086; 87186; 93005; 96361; 96365; 99285

== ENCOUNTER 2020-04-01 04:08 | Inpatient (IN) | payer MEDICARE, BC ==
--- NOTE | 2020-04-01 04:09 | ED ---
Back Pain HPI <John Gabriel - Last Filed: 04/01/20 09:15> - General Source: RN notes reviewed, old records reviewed, Caregiver (Daughter is at bedside) Limitations: no limitations, physical limitation (Mildly limited by age) - History of Present Illness MD Complaint: back pain, other (Abdominal pain) -: days(s) Similar Symptoms Previously: Yes Place: home Radiation: abdomen, flank (Right) Severity: moderate Severity scale (1-10): 6 Quality: sharp, aching Consistency: constant Improves With: none Worsens With: none Associated Symptoms: abdominal pain, loss of appetite <John Melchor - Last Filed: 04/01/20 22:37> - General Stated Complaint: back pain Time Seen by Provider: 04/01/20 04:09 - History of Present Illness Initial Comments: This is an 84-year-old female DF for evaluation of abdominal pain and back pain. Complains of worsening pain throughout her entire body left sided right-sided epigastric, mild nausea no vomiting pain is significantly worse than it ever has been before for her. Patient taking care of herself under social distancing she was by herself and daughter is at bedside states patient been doing well but called last night for severe increase in pain. Patient missed a bowel movement this morning without difficulty no nausea and vomiting. Denying any fevers. She has had a hysterectomy but no other abdominal surgery. (John Melchor) - Related Data Home Medications Medication Instructions Recorded Confirmed Alfredo/D3/Mag11/Zinc/Cullet Washer/Randolph/Bor 2 tab PO DAILY 09/05/16 04/01/20 [Caltrate 600+D Plus Tablet] Glucosam/Patricio-Msm1/C/Randolph/Bosw 2 tab PO DAILY 09/05/16 04/01/20 [Glucosamine-Chondroitin Tablet] Multivitamins, Thera [Multivitamin 1 tab PO DAILY 09/05/16 04/01/20 (formulary)] Simvastatin 40 mg PO HS 09/05/16 04/01/20 Acetaminophen Tab [Tylenol] 325 mg PO Q4H PRN 11/09/19 04/01/20 Ascorbic Acid [Vitamin C] 500 mg PO DAILY 11/09/19 04/01/20 Aspirin EC [Ecotrin Low Dose] 81 mg PO DAILY 11/09/19 04/01/20 L.acidoph,Paracasei, B.lactis 1 cap PO DAILY 11/09/19 04/01/20 [Probiotic] Loratadine [Claritin] 10 mg PO DAILY 11/09/19 04/01/20 Previous Rx's Medication Instructions Recorded Simethicone Chew [Mylicon Chew] 80 mg PO QID PRN #60 chew 11/12/19 Allergies Allergy/AdvReac Type Severity Reaction Status Date / Time Sulfa (Sulfonamide Allergy Swelling Verified 04/01/20 10:02 Antibiotics) venom-honey bee Allergy Anaphylaxis Verified 04/01/20 10:02 [bee venom (honey bee)] tramadol AdvReac Unknown Verified 04/01/20 10:02 Review of Systems ROS Other: All systems not noted in ROS Statement are negative. <John Gabriel - Last Filed: 04/01/20 09:15> ROS Other: All systems not noted in ROS Statement are negative. <John Melchor - Last Filed: 04/01/20 22:37> ROS Statement: Those systems with pertinent positive or pertinent negative responses have been documented in the HPI. Past Medical History Past Medical History: Hyperlipidemia Additional Past Medical History / Comment(s): Rheumatic fever age 10, osteoporosis, back fractures History of Any Multi-Drug Resistant Organisms: None Reported Past Surgical History: Hysterectomy, Orthopedic Surgery (right total hip arthroplasty 2016), Tonsillectomy Additional Past Surgical History / Comment(s): hip Past Anesthesia/Blood Transfusion Reactions: No Reported Reaction Past Psychological History: No Psychological Hx Reported Smoking Status: Never smoker Past Alcohol Use History: Occasional Past Drug Use History: None Reported - Past Family History Mother Family Medical History: Myocardial Infarction ([place]) <John Melchor - Last Filed: 04/01/20 22:37> General Exam General appearance: alert, in no apparent distress Head exam: Present: atraumatic, normocephalic, normal inspection Eye exam: Present: normal appearance, PERRL, EOMI. Absent: scleral icterus, conjunctival injection, periorbital swelling ENT exam: Present: normal exam, mucous membranes moist Neck exam: Present: normal inspection. Absent: tenderness, meningismus, lymphadenopathy Respiratory exam: Present: normal lung sounds bilaterally. Absent: respiratory distress, wheezes, rales, rhonchi, stridor Cardiovascular Exam: Present: regular rate, normal rhythm, normal heart sounds. Absent: systolic murmur, diastolic murmur, rubs, gallop, clicks GI/Abdominal exam: Present: soft, tenderness (Right lower quadrant and periumbilical), normal bowel sounds. Absent: distended, guarding, rebound, rigid Extremities exam: Present: normal inspection, full ROM, normal capillary refill. Absent: tenderness, pedal edema, joint swelling, calf tenderness Back exam: Present: normal inspection Neurological exam: Present: alert, oriented X3, CN II-XII intact Psychiatric exam: Present: normal affect, normal mood Skin exam: Present: warm, dry, intact, normal color. Absent: rash <John Melchor - Last Filed: 04/01/20 22:37> Course <John Melchor - Last Filed: 04/01/20 22:37> Vital Signs 04/01/20 04/01/20 04/01/20 04:18 06:24 09:21 Temperature 98.6 F 98.3 F Pulse Rate 73 73 68 Respiratory 16 16 18 Rate Blood Pressure 152/62 161/71 153/72 O2 Sat by Pulse 96 97 96 Oximetry 04/01/20 11:26 Temperature Pulse Rate 62 Respiratory 16 Rate Blood Pressure 142/67 O2 Sat by Pulse 97 Oximetry - Reevaluation(s) Reevaluation #1: 04/01/20 06:17 Medical record is reviewed (John Melchor) Medical Decision Making - Lab Data Result diagrams: 04/01/20 05:08 04/01/20 05:08 <John Gabriel - Last Filed: 04/01/20 09:15> - Lab Data Result diagrams: 04/01/20 05:08 04/01/20 05:08 - Radiology Data Radiology results: report reviewed (CT abdomen and pelvis may be suggestive for cholecystitis, US shows likely Ac cholecystitis), image reviewed <John Melchor - Last Filed: 04/01/20 22:37> - Medical Decision Making Ultrasound shows probable acute cholecystitis. I spoke with Dr. Bryant and he agreed to admit the patient admitted the patient remaining orders. (John Gabriel) 84 female DF for evaluation of abdominal pain worsening of bowel pain and bloating, patient does have likely acute cholecystitis will admit for antibiotics IV fluids nothing by mouth and surgical evaluation (John Melchor) - Lab Data Lab Results 04/01/20 04/01/20 04/01/20 Range/Units 05:08 05:08 05:08 WBC 13.9 H (3.8-10.6) k/uL RBC 3.78 L (3.80-5.40) m/uL Hgb 12.6 (11.4-16.0) gm/dL Hct 37.1 (34.0-46.0) % MCV 97.9 (80.0-100.0) fL MCH 33.2 (25.0-35.0) pg MCHC 33.9 (31.0-37.0) g/dL RDW 12.5 (11.5-15.5) % Plt Count 197 (150-450) k/uL Neutrophils % 88 % Lymphocytes % 6 % Monocytes % 4 % Eosinophils % 1 % Basophils % 0 % Neutrophils # 12.3 H (1.3-7.7) k/uL Lymphocytes # 0.8 L (1.0-4.8) k/uL Monocytes # 0.5 (0-1.0) k/uL Eosinophils # 0.1 (0-0.7) k/uL Basophils # 0.0 (0-0.2) k/uL Sodium 130 L (137-145) mmol/L Potassium 4.6 (3.5-5.1) mmol/L Chloride 93 L (98-107) mmol/L Carbon Dioxide 28 (22-30) mmol/L Anion Gap 9 mmol/L BUN 17 (7-17) mg/dL Creatinine 0.48 L (0.52-1.04) mg/dL Est GFR (CKD-EPI)AfAm >90 (>60 ml/min/1.73 sqM) Est GFR (CKD-EPI)NonAf 89 (>60 ml/min/1.73 sqM) Glucose 164 H (74-99) mg/dL Calcium 10.2 (8.4-10.2) mg/dL Phosphorus 3.8 (2.5-4.5) mg/dL Magnesium 1.7 1.7 (1.6-2.3) mg/dL Total Bilirubin 0.7 (0.2-1.3) mg/dL AST 39 H (14-36) U/L ALT 12 (4-34) U/L Alkaline Phosphatase 66 (38-126) U/L Total Protein 8.3 H (6.3-8.2) g/dL Albumin 4.9 (3.5-5.0) g/dL Amylase 72 (30-110) U/L Lipase 147 (23-300) U/L Urine Color Urine Appearance (Clear) Urine pH (5.0-8.0) Ur Specific [place] (1.001-1.035) Urine Protein (Negative) Urine Glucose (UA) (Negative) Urine Ketones (Negative) Urine Blood (Negative) Urine Nitrite (Negative) Urine Bilirubin (Negative) Urine Urobilinogen (<2.0) mg/dL Ur Leukocyte Esterase (Negative) Coronavirus (PCR) (Not Detectd) 04/01/20 04/01/20 Range/Units 07:46 08:55 WBC (3.8-10.6) k/uL RBC (3.80-5.40) m/uL Hgb (11.4-16.0) gm/dL Hct (34.0-46.0) % MCV (80.0-100.0) fL MCH (25.0-35.0) pg MCHC (31.0-37.0) g/dL RDW (11.5-15.5) % Plt Count (150-450) k/uL Neutrophils % % Lymphocytes % % Monocytes % % Eosinophils % % Basophils % % Neutrophils # (1.3-7.7) k/uL Lymphocytes # (1.0-4.8) k/uL Monocytes # (0-1.0) k/uL Eosinophils # (0-0.7) k/uL Basophils # (0-0.2) k/uL Sodium (137-145) mmol/L Potassium (3.5-5.1) mmol/L Chloride (98-107) mmol/L Carbon Dioxide (22-30) mmol/L Anion Gap mmol/L BUN (7-17) mg/dL Creatinine (0.52-1.04) mg/dL Est GFR (CKD-EPI)AfAm (>60 ml/min/1.73 sqM) Est GFR (CKD-EPI)NonAf (>60 ml/min/1.73 sqM) Glucose (74-99) mg/dL Calcium (8.4-10.2) mg/dL Phosphorus (2.5-4.5) mg/dL Magnesium (1.6-2.3) mg/dL Total Bilirubin (0.2-1.3) mg/dL AST (14-36) U/L ALT (4-34) U/L Alkaline Phosphatase (38-126) U/L Total Protein (6.3-8.2) g/dL Albumin (3.5-5.0) g/dL Amylase (30-110) U/L Lipase (23-300) U/L Urine Color Light Yellow Urine Appearance Clear (Clear) Urine pH 6.5 (5.0-8.0) Ur Specific [place] 1.050 H (1.001-1.035) Urine Protein Negative (Negative) Urine Glucose (UA) Negative (Negative) Urine Ketones Negative (Negative) Urine Blood Negative (Negative) Urine Nitrite Negative (Negative) Urine Bilirubin Negative (Negative) Urine Urobilinogen <2.0 (<2.0) mg/dL Ur Leukocyte Esterase Negative (Negative) Coronavirus (PCR) Not Detected (Not Detectd) Disposition Time of Disposition: 09:16 <John Gabriel - Last Filed: 04/01/20 09:15> <John Melchor - Last Filed: 04/01/20 22:37> Clinical Impression: Acute cholecystitis Disposition: ADMITTED IP TO THIS HOSP
[2020-04-01] MEDS ORDERED: MORPHINE SULFATE 4 MG/ML SYRINGE IV STA (04:43)
[2020-04-01] MEDS ORDERED: SODIUM CHLORIDE 0.9% 1,000 ML IV STA (04:43)
[2020-04-01] MEDS ORDERED: ONDANSETRON 4 MG/2 ML VIAL IVP STA (05:03)
[2020-04-01 05:14] LABS: Basophils % (A) 0 %; Eosinophils # (A) 0.1 k/uL (0-0.7); Eosinophils % (A) 1 %; HCT 37.1 % (34.0-46.0); HGB 12.6 gm/dL (11.4-16.0); Lymphocytes # (A) 0.8 k/uL (1.0-4.8); Lymphocytes % (A) 6 %; MCH 33.2 pg (25.0-35.0); MCHC 33.9 g/dL (31.0-37.0); MCV 97.9 fL (80.0-100.0); Monocytes # (A) 0.5 k/uL (0-1.0); Monocytes % (A) 4 %; Neutrophils # (A) 12.3 k/uL (1.3-7.7); Neutrophils % (A) 88 %; Platelet Count 197 k/uL (150-450); RBC 3.78 m/uL (3.80-5.40); RDW 12.5 % (11.5-15.5); WBC 13.9 k/uL (3.8-10.6)
[2020-04-01 05:25] LABS: ALT 12 U/L (4-34); AST 39 U/L (14-36); African American GFR (CKD) >90 (>60 ml/min/1.73 sqM); Albumin 4.9 g/dL (3.5-5.0); Alkaline Phosphatase 66 U/L (38-126); Amylase 72 U/L (30-110); Anion Gap 9 mmol/L; Blood Urea Nitrogen 17 mg/dL (7-17); Calcium 10.2 mg/dL (8.4-10.2); Carbon Dioxide 28 mmol/L (22-30); Chloride 93 mmol/L (98-107); Glucose 164 mg/dL (74-99); Magnesium 1.7 mg/dL (1.6-2.3); Non-African American GFR(CKD) 89 (>60 ml/min/1.73 sqM); Phosphorus 3.8 mg/dL (2.5-4.5); Potassium 4.6 mmol/L (3.5-5.1); Sodium 130 mmol/L (137-145); Total Bilirubin 0.7 mg/dL (0.2-1.3); Total Protein 8.3 g/dL (6.3-8.2)
--- NOTE | 2020-04-01 06:05 | CT ---
EXAMINATION TYPE: CT abdomen pelvis w con DATE OF EXAM: 04/01/2020 COMPARISON: 11/10/2019 HISTORY: pain CT DLP: 598.9 mGycm Automated exposure control for dose reduction was used. CONTRAST: Performed with IV Contrast, patient injected with 100 mL of Isovue 300. There is mild subsegmental atelectasis at the lung bases. Heart is slightly enlarged. There is no per icardial effusion. There is no pleural effusion. Liver shows no focal defect. Spleen is intact. Stomach appears intact. There is no evidence of pancre atic mass. There is dilated gallbladder that measures 4.6 x 9 cm. There is minimal ectasia of the int rahepatic bile ducts. There is no adrenal mass. Kidneys show satisfactory contrast opacification. There is no hydronephrosi s. There are left-sided renal parapelvic cysts. Delayed images show normal renal excretion. Abdominal aorta is atheromatous. Ureters are not dilated. Bladder distends smoothly. There is right hip nailin g. The bony pelvis is intact. There is broad-based right-sided inguinal hernia containing bowel. No i ncarceration. There is no mesenteric edema. There is no ascites or free air. There is no sign of a mary wel obstruction. Appendix is not seen. There is no sign of thickened appendix. There is compression fracture of L1 and T12 vertebra up to 75%. There is T10 compression fracture 35% . IMPRESSION: Dilated gallbladder appears increased in size compared to old exam and suggestive of cholecystitis. M inimal ectasia of the biliary tree. Common bile duct not dilated. This is consistent with gallbladder dysfunction. Minimal atelectasis at the lung bases appears increased compared to old exam. Mild cardiomegaly. Right inguinal hernia without evidence of obstruction. Unchanged. Compression fractures unchanged.
[2020-04-01] MEDS ORDERED: MORPHINE SULFATE 4 MG/ML SYRINGE IVP PRN (06:21)
[2020-04-01] MEDS ORDERED: AMPICILLIN-SULBACTAM 3 GM in SODIUM CHLORIDE 0.9% 100 ML IVPB STA (06:21)
[2020-04-01] MEDS ORDERED: MORPHINE SULFATE 4 MG/ML SYRINGE IVP STA (06:26)
--- NOTE | 2020-04-01 07:48 | US ---
EXAMINATION TYPE: US gallbladder DATE OF EXAM: 04/01/2020 COMPARISON: CT 2019 CLINICAL HISTORY: pain. RUQ Pain EXAM MEASUREMENTS: Liver Length: 12.8 cm Gallbladder Wall: 1.7 cm CBD: 0.6 cm Right Kidney: 10.2 x 5.4 x 4.2 cm Pancreas: Heterogenous. Main pancreatic duct= 3.2 mm Liver: Appears coarse and slightly heterogenous. Gallbladder: Focal wall thickening = 1.7 cm. Irregularity of the gallbladder heredia with trace perich olecystic fluid. Evidence for sonographic Peterson's sign: neg CBD: wnl Right Kidney: lower pole cystic appearing lesion in renal sinus = 1.3 x 1.1 x 1.0 cm IMPRESSION: 1. Abnormal appearance of the gallbladder. Irregular wall thickening and pericholecystic fluid are se en. Acute cholecystitis is of primary concern although less likely, gallbladder neoplasm is possible given the eccentricity of the gallbladder wall thickening. If clinical evaluation is equivocal HIDA s can could be performed. 2. Coarsened and heterogenous hepatic echotexture. Correlate with liver function tests for hepatic st eatosis or other hepatocellular disease. Mild intrahepatic biliary ductal dilatation. 3. Minimally dilated main pancreatic duct nonemergent follow-up MRCP could be considered.
[2020-04-01 08:32] LABS: Appearance,Urine Clear (Clear); Bilirubin,Urine Negative (Negative); Blood,Urine Negative (Negative); Color,Urine Light Yellow; Glucose,Urine (UA) Negative (Negative); Ketones,Urine Negative (Negative); Leukocyte Esterase,Urine Negative (Negative); Nitrite,Urine Negative (Negative); PH, Urine 6.5 (5.0-8.0); Protein,Urine Negative (Negative); Urobilinogen,Urine <2.0 mg/dL (<2.0)
[2020-04-01] MEDS ORDERED: SODIUM CHLORIDE 0.9% 1,000 ML IV ONE (09:16)
[2020-04-01] MEDS: PANTOPRAZOLE 40 MG/10 ML VIAL IVP SCH (09:19)
[2020-04-01] MEDS ORDERED: HYDROmorphone 0.5 MG/0.5 ML SYRINGE IVP STA (09:24)
--- NOTE | 2020-04-01 12:48 | P.HPIM ---
History of Present Illness H&P Date: 04/01/20 Chief Complaint: Abdominal pain This is a 84-year-old female with past medical history significant for chronic arthritis and hyperlipidemia who presented to the emergency room with abdominal pain and nausea. Patient said that she always has chronic pain in her back and right hip. Over the past few days she is having progressive pain in addition to severe pain in her abdomen mostly in the right upper quadrant. This morning, patient was feeling very nauseated and sick to her stomach but did not vomit. She denies any fevers or chills. She said that she is having regular bowel movement. She was brought in to the emergency room she had extensive workup including computed tomography scan of the abdomen and pelvis as well as abdominal ultrasound showed evidence of acute cholecystitis. Patient is admitted to the hospital for further management. Patient said that her pain at worst was 10 out of 10 but she is feeling a lot more comfortable now after getting IV pain medication. She denies any nausea at this time. Review of Systems Review of system: 14 points review of systems were obtained and were negative except to what were mentioned in the HPI. Past Medical History Past Medical History: Hyperlipidemia Additional Past Medical History / Comment(s): Rheumatic fever age 10, osteoporosis, back fractures History of Any Multi-Drug Resistant Organisms: None Reported Past Surgical History: Hysterectomy, Orthopedic Surgery (right total hip arthroplasty 2016), Tonsillectomy Additional Past Surgical History / Comment(s): hip Past Anesthesia/Blood Transfusion Reactions: No Reported Reaction Past Psychological History: No Psychological Hx Reported Smoking Status: Never smoker Past Alcohol Use History: Occasional Past Drug Use History: None Reported - Past Family History Mother Family Medical History: Myocardial Infarction ([place]) Medications and Allergies Home Medications Medication Instructions Recorded Confirmed Type Alfredo/D3/Mag11/Zinc/Automation Software Engineer/Randolph/Bor 2 tab PO DAILY 09/05/16 04/01/20 History [Caltrate 600+D Plus Tablet] Glucosam/Patricio-Msm1/C/Randolph/Bosw 2 tab PO DAILY 09/05/16 04/01/20 History [Glucosamine-Chondroitin Tablet] Multivitamins, Thera [Multivitamin 1 tab PO DAILY 09/05/16 04/01/20 History (formulary)] Simvastatin 40 mg PO HS 09/05/16 04/01/20 History Acetaminophen Tab [Tylenol] 325 mg PO Q4H PRN 11/09/19 04/01/20 History Ascorbic Acid [Vitamin C] 500 mg PO DAILY 11/09/19 04/01/20 History Aspirin EC [Ecotrin Low Dose] 81 mg PO DAILY 11/09/19 04/01/20 History L.acidoph,Paracasei, B.lactis 1 cap PO DAILY 11/09/19 04/01/20 History [Probiotic] Loratadine [Claritin] 10 mg PO DAILY 11/09/19 04/01/20 History Simethicone Chew [Mylicon Chew] 80 mg PO QID PRN #60 chew 11/12/19 04/01/20 Rx Allergies Allergy/AdvReac Type Severity Reaction Status Date / Time Sulfa (Sulfonamide Allergy Swelling Verified 04/01/20 10:02 Antibiotics) venom-honey bee Allergy Anaphylaxis Verified 04/01/20 10:02 [bee venom (honey bee)] tramadol AdvReac Unknown Verified 04/01/20 10:02 Physical Exam Vitals: Vital Signs Temp Pulse Resp BP Pulse Ox 04/01/20 11:26 62 16 142/67 97 04/01/20 09:21 98.3 F 68 18 153/72 96 04/01/20 06:24 73 16 161/71 97 04/01/20 04:18 98.6 F 73 16 152/62 96 Intake and Output 03/31/20 04/01/20 04/01/20 22:59 06:59 14:59 Other: Weight 111 kg General: The patient is awake and alert, in no distress Eye: there is normal conjunctiva bilaterally. Neck: The neck is supple, there is no JVD. Cardiovascular: Normal S1-S2, no S3-S4, no murmurs. Respiratory: Lungs clear to auscultation bilaterally Gastrointestinal: Abdomen is soft, there is moderate to severe tenderness to palpation worse in the right upper quadrant Musculoskeletal: There is no pedal edema. Neurological:. Speech is normal. Skin: Skin is warm and dry Results CBC & Chem 7: 04/01/20 05:08 04/01/20 05:08 Labs: Abnormal Lab Results - Last 24 Hours (Table) 04/01/20 04/01/20 04/01/20 Range/Units 05:08 05:08 07:46 WBC 13.9 H (3.8-10.6) k/uL RBC 3.78 L (3.80-5.40) m/uL Neutrophils # 12.3 H (1.3-7.7) k/uL Lymphocytes # 0.8 L (1.0-4.8) k/uL Sodium 130 L (137-145) mmol/L Chloride 93 L (98-107) mmol/L Creatinine 0.48 L (0.52-1.04) mg/dL Glucose 164 H (74-99) mg/dL AST 39 H (14-36) U/L Total Protein 8.3 H (6.3-8.2) g/dL Ur Specific [place] 1.050 H (1.001-1.035) Assessment and Plan Assessment: 1. Acute cholecystitis, I will consult general surgery for further evaluation. Continue IV Unasyn. Nothing by mouth for now. IV fluid hydration with normal saline at 75 mL per hour. Pain control and antibiotic as needed. 2. Hypovolemic hyponatremia, we will continue IV fluid hydration and recheck BMP in the morning 3. Hyperlipidemia 4. DVT prophylaxis with subcu heparin
[2020-04-01] MEDS: AMPICILLIN-SULBACTAM 3 GM in SODIUM CHLORIDE 0.9% 100 ML IVPB SCH ×3 (14:21→23:57)
[2020-04-01] MEDS ORDERED: PIPERACILLIN-TAZOBACTAM 3.375 GM in SODIUM CHLORIDE 0.9% 100 ML IVPB SCH (16:00)
[2020-04-01] MEDS: MORPHINE SULFATE 2 MG/ML SYRINGE IVP PRN ×2 (17:16→21:13)
[2020-04-01] MEDS: HEPARIN SODIUM,PORCINE 5,000 UNIT/ML 1 ML VIAL SQ SCH (21:08)
[2020-04-02] MEDS: MORPHINE SULFATE 2 MG/ML SYRINGE IVP PRN ×5 (01:20→17:14)
[2020-04-02] MEDS: AMPICILLIN-SULBACTAM 3 GM in SODIUM CHLORIDE 0.9% 100 ML IVPB SCH ×4 (05:21→23:26)
[2020-04-02 08:23] LABS: African American GFR (CKD) >90 (>60 ml/min/1.73 sqM); Anion Gap 4 mmol/L; Blood Urea Nitrogen 10 mg/dL (7-17); Calcium 8.5 mg/dL (8.4-10.2); Carbon Dioxide 30 mmol/L (22-30); Chloride 100 mmol/L (98-107); Glucose 101 mg/dL (74-99); Non-African American GFR(CKD) >90 (>60 ml/min/1.73 sqM); Potassium 3.8 mmol/L (3.5-5.1); Sodium 134 mmol/L (137-145)
[2020-04-02 08:39] LABS: Basophils % (A) 0 %; Eosinophils % (A) 0 %; HCT 33.5 % (34.0-46.0); HGB 10.7 gm/dL (11.4-16.0); Lymphocytes # (A) 0.7 k/uL (1.0-4.8); Lymphocytes % (A) 7 %; MCH 32.2 pg (25.0-35.0); MCHC 32.1 g/dL (31.0-37.0); MCV 100.2 fL (80.0-100.0); Mean Platelet Volume 7.2; Monocytes # (A) 0.7 k/uL (0-1.0); Monocytes % (A) 8 %; Neutrophils # (A) 8.1 k/uL (1.3-7.7); Neutrophils % (A) 84 %; Platelet Count 142 k/uL (150-450); RBC 3.34 m/uL (3.80-5.40); RDW 12.7 % (11.5-15.5); WBC 9.6 k/uL (3.8-10.6)
[2020-04-02] MEDS: PANTOPRAZOLE 40 MG/10 ML VIAL IVP SCH (08:59)
[2020-04-02] MEDS: HEPARIN SODIUM,PORCINE 5,000 UNIT/ML 1 ML VIAL SQ SCH ×2 (08:59→23:26)
--- NOTE | 2020-04-02 10:25 | P.PN ---
Subjective Progress Note Date: 04/02/20 Principal diagnosis: Acute Cholecystitis Patient seen and examined at chair side. Patient continues to have right upper quadrant pain. General surgery has been consulted. Ultrasound of gallbladder revealed irregular wall thickening and pericholecystic fluid, cholecystitis is evident. Patient denies chest pain, shortness of breath, fever, or chills at this time. Leukocytosis has decreased from 13.9 to 9.6 . This is a 84-year-old female with past medical history significant for chronic arthritis and hyperlipidemia who presented to the emergency room with abdominal pain and nausea. Patient said that she always has chronic pain in her back and right hip. Over the past few days she is having progressive pain in addition to severe pain in her abdomen mostly in the right upper quadrant. This morning, patient was feeling very nauseated and sick to her stomach but did not vomit. She denies any fevers or chills. She said that she is having regular bowel movement. She was brought in to the emergency room she had extensive workup including computed tomography scan of the abdomen and pelvis as well as abdominal ultrasound showed evidence of acute cholecystitis. Patient is admitted to the hospital for further management. Objective - Vital Signs Vital signs: Vital Signs Temp 98.8 F 04/02/20 07:00 Pulse 94 04/02/20 07:35 Resp 15 04/02/20 07:35 BP 158/82 04/02/20 07:00 Pulse Ox 93 L 04/02/20 07:00 Intake & Output 04/01/20 04/02/20 04/02/20 18:59 06:59 18:59 Intake Total 325 600 Balance 325 600 Weight 111 kg Intake: Intake, IV Titration 325 600 Amount Ampicillin-Sulbactam 3 gm 100 In Sodium Chloride 0.9% 100 ml @ 200 mls/hr IVPB Q6HR [facility] Rx#:[id number] Sodium Chloride 0.9% 1, 225 600 000 ml @ 75 mls/hr IV . [id number] Rx#:[id number] Other: Voiding Method Bedside Commode Bedside Commode # Voids 2 1 - Exam General: [non toxic], [no distress], [appears at stated age] Derm: [warm], [dry] Head: [atraumatic], [normocephalic], [symmetric] Eyes: [EOMI], [no lid lag], [anicteric sclera] Mouth: [no lip lesion], [mucus membranes moist] Cardiovascular: [S1S2 reg], [no murmur], [positive posterior tibial pulse bilateral], Lungs: [CTA bilateral], [no rhonchi, no rales] , [no accessory muscle use] Abdominal: [soft], [ right upper quadrant tenderness with palpation positive rebound no guarding positive bowel sounds 4], [no guarding], [no appreciable organomegaly] Ext: [no gross muscle atrophy], [no edema], [no contractures] Neuro: [ CN II-XI grossly intact], [no focal neuro deficits] Psych: [Alert], [oriented], [appropriate affect] - Labs CBC & Chem 7: 04/02/20 07:32 04/02/20 07:32 Labs: Abnormal Lab Results - Last 24 Hours (Table) 04/02/20 04/02/20 Range/Units 07:32 07:32 RBC 3.34 L (3.80-5.40) m/uL Hgb 10.7 L (11.4-16.0) gm/dL Hct 33.5 L (34.0-46.0) % MCV 100.2 H (80.0-100.0) fL Plt Count 142 L (150-450) k/uL Neutrophils # 8.1 H (1.3-7.7) k/uL Lymphocytes # 0.7 L (1.0-4.8) k/uL Sodium 134 L (137-145) mmol/L Creatinine 0.42 L (0.52-1.04) mg/dL Glucose 101 H (74-99) mg/dL Assessment and Plan Assessment: 1. Acute cholecystitis, -general surgery recommendations appreciated. -Continue IV Unasyn. -Nothing by mouth for now. -IV fluid hydration with normal saline at 75 mL per hour. -Pain control and anti-emetics as needed. 2. Hypovolemic hyponatremia improving -we will continue IV fluid hydration 3. Macrocytic anemia -Check iron studies folic acid and vitamin B12 level -Monitor CBC 4. Hx of Hyperlipidemia 5. GI and DVT prophylaxis protonix and subcu heparin 30 minutes spent coordinating care and counseling patient.
--- NOTE | 2020-04-02 12:20 | P.GSCN ---
History of Present Illness Consult date: 04/02/20 Reason for Consult: Cholecystitis History of present illness: This is a 84-year-old female who is admitted to the hospital with complaints of right upper quadrant pain. Her ultrasound and CAT scan show evidence of acute cholecystitis with thickened gallbladder wall. Patient states that she has had several day history of pain. Past Medical History Past Medical History: Hyperlipidemia Additional Past Medical History / Comment(s): Rheumatic fever age 10, osteoporosis, back fractures History of Any Multi-Drug Resistant Organisms: None Reported Past Surgical History: Hysterectomy, Orthopedic Surgery (right total hip arthrop lasty 2015), Tonsillectomy Additional Past Surgical History / Comment(s): hip Past Anesthesia/Blood Transfusion Reactions: No Reported Reaction Past Psychological History: No Psychological Hx Reported Smoking Status: Never smoker Past Alcohol Use History: Occasional Past Drug Use History: None Reported - Past Family History Mother Family Medical History: Myocardial Infarction ([place]) Medications and Allergies Home Medications Medication Instructions Recorded Confirmed Type Alfredo/D3/Mag11/Zinc/Senior Outside Sales Representative/Randolph/Bor 2 tab PO DAILY 09/05/16 04/01/20 History [Caltrate 600+D Plus Tablet] Glucosam/Patricio-Msm1/C/Randolph/Bosw 2 tab PO DAILY 09/05/16 04/01/20 History [Glucosamine-Chondroitin Tablet] Multivitamins, Thera [Multivitamin 1 tab PO DAILY 09/05/16 04/01/20 History (formulary)] Simvastatin 40 mg PO HS 09/05/16 04/01/20 History Acetaminophen Tab [Tylenol] 325 mg PO Q4H PRN 11/09/19 04/01/20 History Ascorbic Acid [Vitamin C] 500 mg PO DAILY 11/09/19 04/01/20 History Aspirin EC [Ecotrin Low Dose] 81 mg PO DAILY 11/09/19 04/01/20 History L.acidoph,Paracasei, B.lactis 1 cap PO DAILY 11/09/19 04/01/20 History [Probiotic] Loratadine [Claritin] 10 mg PO DAILY 11/09/19 04/01/20 History Simethicone Chew [Mylicon Chew] 80 mg PO QID PRN #60 chew 11/12/19 04/01/20 Rx Allergies Allergy/AdvReac Type Severity Reaction Status Date / Time Sulfa (Sulfonamide Allergy Swelling Verified 04/01/20 10:02 Antibiotics) venom-honey bee Allergy Anaphylaxis Verified 04/01/20 10:02 [bee venom (honey bee)] tramadol AdvReac Unknown Verified 04/01/20 10:02 Surgical - Exam Vital Signs Temp Pulse Resp BP Pulse Ox 98.6 F 73 16 152/62 96 04/01/20 04:18 04/01/20 04:18 04/01/20 04:18 04/01/20 04:18 04/01/20 04:18 - General well developed, moderate distress - Eyes PERRL - Neck no masses - Cardiovascular Rhythm: regular - Abdomen Mild right upper quadrant pain Abdomen: soft Results - Labs 04/02/20 07:32 04/02/20 07:32 Abnormal Lab Results - Last 24 Hours (Table) 04/02/20 04/02/20 Range/Units 07:32 07:32 RBC 3.34 L (3.80-5.40) m/uL Hgb 10.7 L (11.4-16.0) gm/dL Hct 33.5 L (34.0-46.0) % MCV 100.2 H (80.0-100.0) fL Plt Count 142 L (150-450) k/uL Neutrophils # 8.1 H (1.3-7.7) k/uL Lymphocytes # 0.7 L (1.0-4.8) k/uL Sodium 134 L (137-145) mmol/L Creatinine 0.42 L (0.52-1.04) mg/dL Glucose 101 H (74-99) mg/dL Diabetes panel 04/02/20 Range/Units 07:32 Sodium 134 L (137-145) mmol/L Potassium 3.8 (3.5-5.1) mmol/L Chloride 100 (98-107) mmol/L Carbon Dioxide 30 (22-30) mmol/L BUN 10 (7-17) mg/dL Creatinine 0.42 L (0.52-1.04) mg/dL Glucose 101 H (74-99) mg/dL Calcium 8.5 (8.4-10.2) mg/dL Calcium panel 04/02/20 Range/Units 07:32 Calcium 8.5 (8.4-10.2) mg/dL Pituitary panel 04/02/20 Range/Units 07:32 Sodium 134 L (137-145) mmol/L Potassium 3.8 (3.5-5.1) mmol/L Chloride 100 (98-107) mmol/L Carbon Dioxide 30 (22-30) mmol/L BUN 10 (7-17) mg/dL Creatinine 0.42 L (0.52-1.04) mg/dL Glucose 101 H (74-99) mg/dL Calcium 8.5 (8.4-10.2) mg/dL Adrenal panel 04/02/20 Range/Units 07:32 Sodium 134 L (137-145) mmol/L Potassium 3.8 (3.5-5.1) mmol/L Chloride 100 (98-107) mmol/L Carbon Dioxide 30 (22-30) mmol/L BUN 10 (7-17) mg/dL Creatinine 0.42 L (0.52-1.04) mg/dL Glucose 101 H (74-99) mg/dL Calcium 8.5 (8.4-10.2) mg/dL - Imaging CT scan - abdomen: report reviewed (Dilated thickened gallbladder wall. Right inguinal hernia containing small bowel) Assessment and Plan Assessment: Acute cholecystitis. Patient will undergo laparoscopic ostectomy in the a.m. I discussed these findings with the patient's daughter.
--- NOTE | 2020-04-02 22:18 | P.CONS ---
History of Present Illness - Reason for Consult Consult date: 04/02/20 acute cholecystitis Requesting physician: Gerardo Whiting - Chief Complaint right upper abd pain x 1 week - History of Present Illness Patient is 84-year female presenting to the ER at [facility] day before yesterday with chief complaints of abdominal pain in this patient apparently did have a chronic pain to the right upper quadrant area however that has been progressively getting worse over the last 1 week patient describes the pain to be sharp almost 8-10 out of 10 in severity when present patient has pain radiating across the back has felt nauseated but no vomiting denies having any diarrhea did have some chills did not recall any fever at home with the symptom the patient presented to hospital on arrival to the ER the patient has been afebrile patient did have a white count of 13.[address] a [address] of abdominal pelvis which did show dilated gallbladder appears increased in size compared to old exam suggestive of cholecystitis and minimal ectasia of the biliary tree patient also have a gallbladder ultrasound which did shows evidence of apical wall thickening and pericholecystic fluid acute concern this is the primary concern patient was initially started on Zosyn that has been transitioned to Unasyn surgery has been consulted time for surgery was consulted for further management of antibiotic therapy. Review of Systems Positive point has been mentioned in HPI rest of the systems are negative Past Medical History Past Medical History: Hyperlipidemia Additional Past Medical History / Comment(s): Rheumatic fever age 10, osteo porosis, back fractures History of Any Multi-Drug Resistant Organisms: None Reported Past Surgical History: Hysterectomy, Orthopedic Surgery (right total hip arthroplasty 2016), Tonsillectomy Additional Past Surgical History / Comment(s): hip Past Anesthesia/Blood Transfusion Reactions: No Reported Reaction Past Psychological History: No Psychological Hx Reported Smoking Status: Never smoker Past Alcohol Use History: Occasional Past Drug Use History: None Reported - Past Family History Mother Family Medical History: Myocardial Infarction ([place]) Medications and Allergies Home Medications Medication Instructions Recorded Confirmed Type Alfredo/D3/Mag11/Zinc/Charge Account Identification Clerk/Randolph/Bor 2 tab PO DAILY 09/05/16 04/01/20 History [Caltrate 600+D Plus Tablet] Glucosam/Patricio-Msm1/C/Randolph/Bosw 2 tab PO DAILY 09/05/16 04/01/20 History [Glucosamine-Chondroitin Tablet] Multivitamins, Thera [Multivitamin 1 tab PO DAILY 09/05/16 04/01/20 History (formulary)] Simvastatin 40 mg PO HS 09/05/16 04/01/20 History Acetaminophen Tab [Tylenol] 325 mg PO Q4H PRN 11/09/19 04/01/20 History Ascorbic Acid [Vitamin C] 500 mg PO DAILY 11/09/19 04/01/20 History Aspirin EC [Ecotrin Low Dose] 81 mg PO DAILY 11/09/19 04/01/20 History L.acidoph,Paracasei, B.lactis 1 cap PO DAILY 11/09/19 04/01/20 History [Probiotic] Loratadine [Claritin] 10 mg PO DAILY 11/09/19 04/01/20 History Simethicone Chew [Mylicon Chew] 80 mg PO QID PRN #60 chew 11/12/19 04/01/20 Rx Allergies Allergy/AdvReac Type Severity Reaction Status Date / Time Sulfa (Sulfonamide Allergy Swelling Verified 04/01/20 10:02 Antibiotics) venom-honey bee Allergy Anaphylaxis Verified 04/01/20 10:02 [bee venom (honey bee)] tramadol AdvReac Unknown Verified 04/01/20 10:02 Physical Exam Vitals: Vital Signs Temp Pulse Resp BP Pulse Ox 04/02/20 15:00 98.0 F 91 16 167/73 92 L 04/02/20 07:35 94 15 04/02/20 07:00 98.8 F 95 14 158/82 93 L 04/02/20 03:10 14 04/02/20 02:29 98.2 F 94 16 150/79 92 L 04/01/20 23:43 14 04/01/20 19:42 98.2 F 96 18 157/70 94 L Intake and Output 04/02/20 04/02/20 04/02/20 06:59 14:59 22:59 Intake Total 600 Balance 600 Intake: Intake, IV Titration 600 Amount Sodium Chloride 0.9% 1, 600 000 ml @ 75 mls/hr IV . [id number] ONE Rx#:[id number] Other: Voiding Method Bedside Commode # Voids 2 5 GENERAL DESCRIPTION: Elderly female up in the chair, no distress. No tachypnea or accessory muscle of respiration use. HEENT: Shows Pallor , no scleral icterus. Oral mucous membrane is dry. NECK: Trachea central, no thyromegaly. LUNGS: Unlabored breathing. Clear to auscultation anteriorly. No wheeze or crackle. HEART: S1, S2, regular rate and rhythm. ABDOMEN: Soft, right upper quadrant tenderness , no guarding or rigidity EXTREMITIES: No edema of feet. SKIN: No rash, no masses palpable. NEUROLOGICAL: The patient is awake, alert, oriented x3, mood and affect normal. Results CBC & Chem 7: 04/02/20 07:32 04/02/20 07:32 Labs: Abnormal Lab Results - Last 24 Hours (Table) 04/02/20 04/02/20 Range/Units 07:32 07:32 RBC 3.34 L (3.80-5.40) m/uL Hgb 10.7 L (11.4-16.0) gm/dL Hct 33.5 L (34.0-46.0) % MCV 100.2 H (80.0-100.0) fL Plt Count 142 L (150-450) k/uL Neutrophils # 8.1 H (1.3-7.7) k/uL Lymphocytes # 0.7 L (1.0-4.8) k/uL Sodium 134 L (137-145) mmol/L Creatinine 0.42 L (0.52-1.04) mg/dL Glucose 101 H (74-99) mg/dL Assessment and Plan Assessment: -patient presented hospital with right upper quadrant pain nausea in this patient who did have elevated white count with evidence of right upper quadrant tenderness both CT and ultrasound has been suggestive of acute cholecystitis and will need to cover for enteric gram-negative both aerobes and anaerobes in this patient has not been on antibiotic in recent past could be sensitive pathogen such as E. coli (1) Acute cholecystitis Current Visit: Yes Status: Acute Code(s): K81.0 - ACUTE CHOLECYSTITIS SNOMED Code(s): 06006330 Plan: 1-patient is scheduled for cholecystectomy in a.m. per surgery if any evidence of gangrenous changes or perforation will request cultures 2-Unasyn 3 g every 6 hours We will follow on clinical condition and cultures to further adjust medication if needed Thank you for this consultation we will follow the patient along with you Time with Patient: Greater than 30
[2020-04-03] MEDS: AMPICILLIN-SULBACTAM 3 GM in SODIUM CHLORIDE 0.9% 100 ML IVPB SCH ×3 (05:19→18:55)
[2020-04-03] MEDS: MORPHINE SULFATE 2 MG/ML SYRINGE IVP PRN ×2 (05:22→20:33)
[2020-04-03 08:54] LABS: Basophils % (A) 0 %; Eosinophils # (A) 0.1 k/uL (0-0.7); Eosinophils % (A) 1 %; HCT 34.2 % (34.0-46.0); Lymphocytes # (A) 0.8 k/uL (1.0-4.8); Lymphocytes % (A) 7 %; MCH 32.1 pg (25.0-35.0); MCHC 32.1 g/dL (31.0-37.0); Mean Platelet Volume 7.2; Monocytes # (A) 0.7 k/uL (0-1.0); Monocytes % (A) 7 %; Neutrophils # (A) 9.4 k/uL (1.3-7.7); Neutrophils % (A) 83 %; Platelet Count 167 k/uL (150-450); RBC 3.42 m/uL (3.80-5.40); RDW 12.5 % (11.5-15.5); WBC 11.3 k/uL (3.8-10.6)
[2020-04-03 09:02] LABS: African American GFR (CKD) >90 (>60 ml/min/1.73 sqM); Anion Gap 8 mmol/L; Blood Urea Nitrogen 7 mg/dL (7-17); Calcium 8.3 mg/dL (8.4-10.2); Carbon Dioxide 26 mmol/L (22-30); Chloride 98 mmol/L (98-107); Glucose 89 mg/dL (74-99); Non-African American GFR(CKD) >90 (>60 ml/min/1.73 sqM); Potassium 3.3 mmol/L (3.5-5.1); Sodium 132 mmol/L (137-145)
[2020-04-03] MEDS ORDERED: IV FLUID CONTINUATION 1,000 ML IV ONE ×2 (09:27)
[2020-04-03] MEDS ORDERED: BUPIVACAIN-EPI 0.25%-1:200,000 30 ML VIAL SQ ONE ×2 (09:28→09:51)
[2020-04-03] MEDS ORDERED: LIDOCAINE 1% INJ 10MG/ML (20 ML MDV) ONE (09:29)
[2020-04-03] MEDS ORDERED: fentaNYL (PF) 50 MCG/ML 2 ML AMP ONE (09:29)
[2020-04-03] MEDS ORDERED: HEPARIN SODIUM,PORCINE 5,000 UNIT/ML 1 ML VIAL ONE (09:29)
[2020-04-03] MEDS ORDERED: PROPOFOL 10 MG/ML 20 ML VIAL IV ONE (09:29)
[2020-04-03] MEDS ORDERED: GLYCOPYRROLATE 0.2 MG/ML 2 ML VIAL ONE (09:29)
[2020-04-03] MEDS ORDERED: ROCURONIUM BROMIDE 10 MG/ML 5 ML VIAL IV ONE (09:29)
[2020-04-03] MEDS ORDERED: SUCCINYLCHOLINE CHLORIDE 100 MG/5 ML SYR IV ONE (09:29)
[2020-04-03] MEDS ORDERED: NEOSTIGMINE 1 MG/ML 10 ML VIAL ONE (09:29)
[2020-04-03] MEDS: PANTOPRAZOLE 40 MG/10 ML VIAL IVP SCH (09:42)
[2020-04-03] MEDS: HEPARIN SODIUM,PORCINE 5,000 UNIT/ML 1 ML VIAL SQ SCH ×2 (09:42→20:25)
--- NOTE | 2020-04-03 10:44 | P.OP ---
Date of Procedure: 04/03/20 Preoperative Diagnosis: Cholecystitis Postoperative Diagnosis: Acute gangrenous cholecystitis Procedure(s) Performed: Diagnostic laparoscopy Open cholecystectomy Anesthesia: DENIZ Surgeon: Messi España Estimated Blood Loss (ml): 10 Pathology: other (Gallbladder) Condition: stable Disposition: PACU Description of Procedure: The patient's placed on the operative table in the supine position. She received IV sedation and then general anesthesia. Her abdomen was prepped and d raped in sterile fashion. The patient was quite kyphotic from her chronic back fractures. An infraumbilical skin incision was made and then using careful clamps the fascia was grasped and the Veress needle was placed into the pleural cavity. Position of the Veress needle was confirmed with positive drop test. The abdomen was insufflated. After this was done a 5 mm optical trocar is placed in the right mid abdomen position. The laparoscope was placed into this position. The gallbladder is visualized and appeared to be black in color. It was obviously gangrenous. At this point the procedure was converted to an open procedure. The trochars withdrawn. A standard right subcostal skin incision was made and then using left cautery the abdominal wall was divided. A Bookwalter retractors placed a wound. The gallbladder was brought up in the wound. The gallbladder was quite enlarged thickened and appeared to have transmural necrosis of the gallbladder wall. The gallbladder was followed down to the level cystic duct. The cystic duct was then bluntly dissected. The cystic duct was then ligated next to the neck of the gallbladder. It was ligated with 2-0 silk ties. And then transected with cautery. Cystic artery was then ligated with 2-0 silk ties and then divided with left cautery. The gallbladder was removed liver bed using cautery. The gallbladder sent to pathology. Liver bed was inspected for hemostasis resolving seen. A ELTON drains placed in the gallbladder fossa and brought through a separate status post right abdomen. The abdomen was irrigated resolving seen. The fascia was closed with looped #1 PDS suture. Skin was closed adrianna. Patient top procedure well she was sent to the recovery room in stable condition
[2020-04-03] MEDS ORDERED: NALOXONE 0.4 MG/ML 1 ML VIAL IV PRN (10:45)
[2020-04-03] MEDS ORDERED: ACETAMINOPHEN TAB 325 MG TAB PO PRN (10:45)
[2020-04-03] MEDS ORDERED: LACTATED RINGERS 1,000 ML IV ONE ×2 (10:45→11:50)
[2020-04-03] MEDS ORDERED: HYDROmorphone 0.5 MG/0.5 ML SYRINGE IVP PRN (10:45)
[2020-04-03] MEDS: HYDROmorphone 0.5 MG/0.5 ML SYRINGE IVP ONE ×3 (10:50→11:40)
[2020-04-03] MEDS: HYDROmorphone 1 MG/ML 1 ML SYRINGE IVP ONE ×2 (11:00→11:05)
[2020-04-03] MEDS: fentaNYL (PF) 50 MCG/ML 2 ML AMP IVP ONE ×2 (11:07→11:10)
[2020-04-03] MEDS: ONDANSETRON 4 MG/2 ML VIAL IVP PRN ×2 (12:21→20:45)
[2020-04-03 12:36] LABS: Glucose,Whole Blood 103 mg/dL (75-99)
[2020-04-03 13:53] LABS: African American GFR (CKD) >90 (>60 ml/min/1.73 sqM); Anion Gap 7 mmol/L; Blood Urea Nitrogen 9 mg/dL (7-17); Calcium 7.8 mg/dL (8.4-10.2); Carbon Dioxide 25 mmol/L (22-30); Chloride 100 mmol/L (98-107); Glucose 102 mg/dL (74-99); Non-African American GFR(CKD) >90 (>60 ml/min/1.73 sqM); Potassium 3.3 mmol/L (3.5-5.1); Sodium 132 mmol/L (137-145)
[2020-04-03] MEDS ORDERED: Potassium Replacement Protocol 1 EACH MISC MISCELLANE PRN (14:39)
[2020-04-03] MEDS: POTASSIUM CHLORIDE 10 MEQ in WATER FOR INJECTION 1 100ML.BAG IVPB SCH ×4 (15:01→19:36)
--- NOTE | 2020-04-03 15:36 | P.PN ---
Subjective Progress Note Date: 04/03/20 Principal diagnosis: Acute Cholecystitis Patient seen and examined bedside. Patient is resting comfortably and is slightly drowsy after her surgical procedure. Patient underwent a diagnostic laparoscopy which turned into an open cholecystectomy. Acute gangrenous cholecystitis was identified. Patient is post-op day zero. Pain is well- controlled. Patient denies chest pain shortness of breath nausea vomiting fevers or chills. Hypokalemia with a potassium of 3.3 identified and laboratory data today. This will be replenished This is a 84-year-old female with past medical history significant for chronic arthritis and hyperlipidemia who presented to the emergency room with abdominal pain and nausea. Patient said that she always has chronic pain in her back and right hip. Over the past few days she is having progressive pain in addition to severe pain in her abdomen mostly in the right upper quadrant. This morning, patient was feeling very nauseated and sick to her stomach but did not vomit. She denies any fevers or chills. She said that she is having regular bowel movement. She was brought in to the emergency room she had extensive workup including computed tomography scan of the abdomen and pelvis as well as abdominal ultrasound showed evidence of acute cholecystitis. Patient is admitted to the hospital for further management. Objective - Vital Signs Vital signs: Vital Signs Temp 97.7 F 04/03/20 12:30 Pulse 80 04/03/20 15:00 Resp 13 04/03/20 15:00 BP 112/57 04/03/20 15:00 Pulse Ox 95 04/03/20 15:00 Intake & Output 04/02/20 04/03/20 04/03/20 18:59 06:59 18:59 Intake Total 1100 Output Total 400 20 Balance -400 1080 Intake: IV 1100 Lactated Ringers 1,000 ml 100 @ 100 mls/hr IV .Q10H ONE Rx#:[id number] Output: Urine 400 Estimated Blood Loss 20 Other: Voiding Method Bedside Commode Bedside Commode # Voids 5 - Exam General: [non toxic], [no distress], [appears at stated age] Derm: [warm], [dry] Head: [atraumatic], [normocephalic], [symmetric] Eyes: [EOMI], [no lid lag], [anicteric sclera] Mouth: [no lip lesion], [mucus membranes moist] Cardiovascular: [S1S2 reg], [no murmur], [positive posterior tibial pulse bilate ral], Lungs: [CTA bilateral], [no rhonchi, no rales] , [no accessory muscle use] Abdominal: [soft], [ tender to palpation, dressing present], [no guarding], [no appreciable organomegaly] Ext: [no gross muscle atrophy], [no edema], [no contractures] Neuro: [ CN II-XI grossly intact], [no focal neuro deficits] Psych: [Alert], [oriented], [appropriate affect] - Labs CBC & Chem 7: 04/03/20 08:05 04/03/20 13:22 Labs: Abnormal Lab Results - Last 24 Hours (Table) 04/03/20 04/03/20 04/03/20 Range/Units 08:05 08:05 12:34 WBC 11.3 H (3.8-10.6) k/uL RBC 3.42 L (3.80-5.40) m/uL Hgb 11.0 L (11.4-16.0) gm/dL Neutrophils # 9.4 H (1.3-7.7) k/uL Lymphocytes # 0.8 L (1.0-4.8) k/uL Sodium 132 L (137-145) mmol/L Potassium 3.3 L (3.5-5.1) mmol/L Creatinine 0.33 L (0.52-1.04) mg/dL Glucose (74-99) mg/dL POC Glucose (mg/dL) 103 H (75-99) mg/dL Calcium 8.3 L (8.4-10.2) mg/dL 04/03/20 Range/Units 13:22 WBC (3.8-10.6) k/uL RBC (3.80-5.40) m/uL Hgb (11.4-16.0) gm/dL Neutrophils # (1.3-7.7) k/uL Lymphocytes # (1.0-4.8) k/uL Sodium 132 L (137-145) mmol/L Potassium 3.3 L (3.5-5.1) mmol/L Creatinine 0.36 L (0.52-1.04) mg/dL Glucose 102 H (74-99) mg/dL POC Glucose (mg/dL) (75-99) mg/dL Calcium 7.8 L (8.4-10.2) mg/dL Assessment and Plan Assessment: 1. Status post cholecystectomy Postop day zero secondary to Acute gangrenous cholecystitis, -general surgery recommendations appreciated. -Continue IV Unasyn. -IV fluid hydration with normal saline at 75 mL per hour. -Pain control and anti-emetics as needed. 2. Hypovolemic hyponatremia stable -we will continue IV fluid hydration 3. Hypokalemia - KCl replacement provided 4. Macrocytic anemia -Check iron studies folic acid and vitamin B12 level -Monitor CBC 5. Hx of Hyperlipidemia 6. GI and DVT prophylaxis protonix and subcu heparin 7. Am labs 30 minutes spent coordinating care and counseling patient.
--- NOTE | 2020-04-03 15:37 | CONS ---
CONSULTATION PULMONARY/CRITICAL CARE CONSULTATION: REASON FOR CONSULTATION: ICU management, status post open cholecystectomy. This is a patient who apparently was admitted through the emergency department on April 01. The patient was taken to the operating room today for an open cholecystectomy by Dr. España. Initially, Dr. España thought the patient would come back on the ventilator. The patient was extubated in the recovery area. The patient has multiple comorbidities and is 84 [address] as well and Dr. España asked me if we could watch the patient in the ICU and of course I agreed. The patient is currently just out of the operating room. She is on 3 L nasal cannula and receiving lactated Ringer's at 100 mL an hour. She is awake and alert. She apparently presented to the emergency room with complaints of abdominal pain and back pain. I did ask the nurses to make sure that an incentive spirometer was put in the room. MEDICATIONS: Reviewed. She is on Caltrate with D, glucosamine/chondroitin, multivitamin, simvastatin, Tylenol, vitamin C, Ecotrin, lactobacillus acidophilus, Claritin, simethicone tablets. ALLERGIES: SULFA ANTIBIOTICS, HONEY BEE VENOM and TRAMADOL. MEDICAL HISTORY: Primarily hyperlipidemia. She also has a history of rheumatic fever at age 10, osteoporosis, and multiple back fractures. SURGICAL HISTORY: Includes hysterectomy, orthopedic surgeries including right total hip arthroplasty in 2016 and tonsillectomy. SOCIAL HISTORY: Negative for tobacco use. No illicit drug use. She drinks occasionally. FAMILY HISTORY: Positive for mother with myocardial infarction. REVIEW OF SYSTEMS: Review of systems is difficult to obtain from this patient as she is a bit sleepy. She appears to not have any major issues other than for pain at the surgical site. She denies other issues such as chest discomfort, shortness of breath, difficulty breathing, cough, wheezing, or phlegm production. PHYSICAL EXAMINATION: Current vital signs are reviewed. Her temperature is 100.8, heart rate 105, respiratory rate 16, blood pressure 145/68, saturations on 3 L of 100%. Appears in no acute distress. HEENT: Examination is grossly unremarkable. Nasal O2 noted. NECK: Supple. Full range of motion. No adenopathy, thyromegaly or neck vein distention. CARDIOVASCULAR: Examination reveals regular rhythm rate. Heart rate about 100 beats per minute. It appears to be sinus. No murmur. LUNGS: Relatively clear. Breath sounds equal. ABDOMEN is tender to touch. No bowel sounds. EXTREMITIES are intact. No cyanosis, clubbing, or edema. SKIN: Without rash. NEUROLOGIC: Examination is difficult to assess as she is still quite sleepy. She does move all 4 extremities. She does respond appropriately when verbalized to. LABS: Reviewed. White count 11.3, hemoglobin 11, hematocrit 34.2, platelet count 167,000. Sodium 132, potassium 3.3, chloride 98, CO2 is 26, anion gap is 8. BUN and creatinine were 7 and 0.33. Urine is negative. COVID testing was negative. The patient had an ultrasound of the gallbladder. It was done 2 days ago. It showed abnormal appearance of the gallbladder, with a regular wall thickening and pericholecystic fluid. Acute cholecystitis was a primary concern. An abdominal/pelvic CT scan was done. It showed dilated gallbladder appears increased in size compared to old exam and suggestive of cholecystitis. There was minimal ectasia of the biliary tree and common bile duct not dilated. ASSESSMENT: 1. Postoperative day #0, status post open cholecystectomy. 2. History of hyperlipidemia. 3. History of vertebral compression fractures. 4. Osteoporosis. PLAN: The patient is doing well. She is on lactated Ringer's at 100 mL an hour. She is on nasal O2 at 3 L. We will get an incentive spirometer in the room. Will ask her to do it every hour while awake. We will also recommend deep breathing, coughing and clearing of secretions. The nurses will call me if there are any issues. MMODL / IJN: [id number] /
[2020-04-03] MEDS: FAMOTIDINE 20 MG TAB PO SCH (20:25)
[2020-04-03] MEDS: DOCUSATE 100 MG CAP PO SCH (20:25)
--- NOTE | 2020-04-03 23:08 | PN ---
PROGRESS NOTE DATE OF SERVICE: 04/03/2020 REASON FOR FOLLOWUP: Acute gangrenous cholecystitis. INTERVAL HISTORY: The patient is currently afebrile. The patient was taken to the OR. The patient is status post open cholecystectomy for a gangrenous gallbladder. The patient subsequently has been transferred to the ICU for close monitoring. The patient is currently hemodynamically stable not on any pressor support per the RN. The patient denies having any chest pain or shortness of breath or cough. No nausea, vomiting, or abdominal pain. PHYSICAL EXAMINATION: Blood pressure 112/57, pulse of 80, temperature is 97.7, T-max 100.8. She is 95% on 3 L nasal cannula. General description is an elderly female lying in bed in no distress. RESPIRATORY SYSTEM: Unlabored breathing, clear to auscultation anteriorly. HEART: S1, S2. Regular rate and rhythm. ABDOMEN: Soft, mildly distended. No guarding or rigidity. LABS: White count 11.3 with a creatinine 0.36. Blood culture has not been done. DIAGNOSTIC IMPRESSION AND PLAN: Patient with acute gangrenous cholecystitis. The patient is status post open cholecystectomy. Keep the patient on Unasyn and monitor clinical course closely. Continue supportive care. MMODL / IJN: [id number] /
[2020-04-04] MEDS: AMPICILLIN-SULBACTAM 3 GM in SODIUM CHLORIDE 0.9% 100 ML IVPB SCH ×4 (00:39→17:06)
[2020-04-04] MEDS: MORPHINE SULFATE 2 MG/ML SYRINGE IVP PRN ×3 (03:55→14:25)
[2020-04-04 04:35] LABS: Basophils % (A) 0 %; Eosinophils # (A) 0.1 k/uL (0-0.7); Eosinophils % (A) 0 %; Lymphocytes # (A) 1.3 k/uL (1.0-4.8); Lymphocytes % (A) 9 %; MCH 33.4 pg (25.0-35.0); MCHC 33.2 g/dL (31.0-37.0); MCV 100.8 fL (80.0-100.0); Mean Platelet Volume 8.4; Monocytes # (A) 1.3 k/uL (0-1.0); Monocytes % (A) 9 %; Neutrophils # (A) 12.1 k/uL (1.3-7.7); Neutrophils % (A) 80 %; Platelet Count 192 k/uL (150-450); RBC 3.57 m/uL (3.80-5.40); RDW 12.8 % (11.5-15.5); WBC 15.2 k/uL (3.8-10.6)
[2020-04-04 04:46] LABS: ALT 12 U/L (4-34); AST 48 U/L (14-36); African American GFR (CKD) >90 (>60 ml/min/1.73 sqM); Albumin 2.8 g/dL (3.5-5.0); Alkaline Phosphatase 53 U/L (38-126); Anion Gap 13 mmol/L; Blood Urea Nitrogen 14 mg/dL (7-17); Calcium 8.2 mg/dL (8.4-10.2); Carbon Dioxide 18 mmol/L (22-30); Chloride 101 mmol/L (98-107); Glucose 82 mg/dL (74-99); Magnesium 1.7 mg/dL (1.6-2.3); Non-African American GFR(CKD) 81 (>60 ml/min/1.73 sqM); Potassium 4.3 mmol/L (3.5-5.1); Sodium 132 mmol/L (137-145); Total Bilirubin 0.8 mg/dL (0.2-1.3); Total Protein 5.5 g/dL (6.3-8.2)
[2020-04-04] MEDS ORDERED: Magnesium Replacement Protocol 1 EACH MISC MISCELLANE PRN (07:15)
[2020-04-04] MEDS ORDERED: DEXTROSE 5% IN WATER 1,000 ML with SODIUM BICARB (1 MEQ/ML) 150 ML IV ONE (07:37)
[2020-04-04] MEDS: HYDROcodone/APAP 5-325MG 1 EACH TAB PO PRN ×3 (08:42→21:21)
[2020-04-04] MEDS: FAMOTIDINE 20 MG TAB PO SCH ×2 (08:42→21:22)
[2020-04-04] MEDS: DOCUSATE 100 MG CAP PO SCH ×2 (08:43→21:22)
[2020-04-04] MEDS: HEPARIN SODIUM,PORCINE 5,000 UNIT/ML 1 ML VIAL SQ SCH ×2 (08:43→21:21)
[2020-04-04] MEDS: MAGNESIUM SULFATE-D5W PMX 1 GM in DEXTROSE/WATER 1 100ML.BAG IVPB SCH ×2 (08:43→09:58)
[2020-04-04 10:07] LABS: % Iron Saturation 3.99 (12.00-45.00); Iron 11 ug/dL (50-170); Total Iron Binding Capacity 276 ug/dL (228-460)
[2020-04-04 10:27] VITALS: BMI 23.8
--- NOTE | 2020-04-04 10:44 | P.PN ---
Subjective Progress Note Date: 04/04/20 CHIEF COMPLAINT: Cholecystitis HISTORY OF PRESENT ILLNESS: Patient is status post open cholecystectomy secondary to acute gangrenous cholecystitis. Postop day #1. Patient examined in the intensive care unit with Dr. España. Patient states her pain is tolerable at this time. She is tolerating clear liquid diet. Denies nausea or vomiting. WBC 15.2. PHYSICAL EXAM: VITAL SIGNS: Reviewed. GENERAL: Well-developed in no acute distress. HEENT: No sclera icterus. Extraocular movements grossly intact. Moist buccal mucosa. Head is atraumatic, normocephalic. ABDOMEN: Soft. Nondistended. Dressing clean dry and intact. ELTON drain se rosanguineous. NEUROLOGIC: Alert and oriented. Cranial nerves II through XII grossly intact. ASSESSMENT: 1. Acute gangrenous cholecystitis PLAN: -Continue clear liquid diet for today -Monitor ELTON drain output -Activity as tolerated -Incentive spirometer -Continue antibiotics. Monitor WBC -May transfer to general medical floor with tele Nurse practitioner note has been reviewed by physician. Signing provider agrees with the documented findings, assessment, and plan of care. Objective - Vital Signs Vital signs: Vital Signs Temp 98.5 F 04/04/20 04:00 Pulse 82 04/04/20 07:00 Resp 14 04/04/20 07:00 BP 139/59 04/04/20 07:00 Pulse Ox 99 04/04/20 07:00 Intake & Output 04/03/20 04/04/20 04/04/20 18:59 06:59 18:59 Intake Total 2100 1800 100 Output Total 170 600 100 Balance 1930 1200 0 Weight 64.8 kg 64.8 kg Intake: IV 1700 1500 100 Ampicillin-Sulbactam 3 gm 200 In Sodium Chloride 0.9% 100 ml @ 200 mls/hr IVPB Q6HR [facility] Rx#:[id number] Lactated Ringers 1,000 ml 700 1200 100 @ 100 mls/hr IV .Q10H ONE Rx#:[id number] Potassium Chloride 10 meq 100 In Water For Injection 1 100ml.bag @ 100 mls/hr IVPB Q1HR [facility] Rx#: [id number] Intake, IV Titration 400 100 Amount Ampicillin-Sulbactam 3 gm 100 100 In Sodium Chloride 0.9% 100 ml @ 200 mls/hr IVPB Q6HR [facility] Rx#:[id number] Potassium Chloride 10 meq 300 In Water For Injection 1 100ml.bag @ 100 mls/hr IVPB Q1HR [facility] Rx#: [id number] Oral 200 Output: Drainage 100 100 100 Abdomen 100 100 100 Urine 50 500 Estimated Blood Loss 20 Other: Voiding Method Bedside Commode Bedside Commode - Labs CBC & Chem 7: 04/04/20 03:42 04/04/20 03:42 Labs: Abnormal Lab Results - Last 24 Hours (Table) 04/03/20 04/03/20 04/03/20 Range/Units 08:05 12:34 13:22 WBC (3.8-10.6) k/uL RBC (3.80-5.40) m/uL MCV (80.0-100.0) fL Neutrophils # (1.3-7.7) k/uL Monocytes # (0-1.0) k/uL Sodium 132 L (137-145) mmol/L Potassium 3.3 L (3.5-5.1) mmol/L Carbon Dioxide (22-30) mmol/L Creatinine 0.36 L (0.52-1.04) mg/dL Glucose 102 H (74-99) mg/dL POC Glucose (mg/dL) 103 H (75-99) mg/dL Calcium 7.8 L (8.4-10.2) mg/dL Iron 11 L (50-170) ug/dL % Saturation 3.99 L (12.00-45.00) AST (14-36) U/L Total Protein (6.3-8.2) g/dL Albumin (3.5-5.0) g/dL Vitamin B12 1249.0 H (200.0-944.0) pg/mL 04/04/20 04/04/20 Range/Units 03:42 03:42 WBC 15.2 H (3.8-10.6) k/uL RBC 3.57 L (3.80-5.40) m/uL MCV 100.8 H (80.0-100.0) fL Neutrophils # 12.1 H (1.3-7.7) k/uL Monocytes # 1.3 H (0-1.0) k/uL Sodium 132 L (137-145) mmol/L Potassium (3.5-5.1) mmol/L Carbon Dioxide 18 L (22-30) mmol/L Creatinine (0.52-1.04) mg/dL Glucose (74-99) mg/dL POC Glucose (mg/dL) (75-99) mg/dL Calcium 8.2 L (8.4-10.2) mg/dL Iron (50-170) ug/dL % Saturation (12.00-45.00) AST 48 H (14-36) U/L Total Protein 5.5 L (6.3-8.2) g/dL Albumin 2.8 L (3.5-5.0) g/dL Vitamin B12 (200.0-944.0) pg/mL
--- NOTE | 2020-04-04 11:16 | P.PN ---
Subjective Progress Note Date: 04/04/20 This is an 84-year-old female patient admitted through emergency department on 04/01/2020 and the patient was taken to the operating room for an open cholecystectomy and this was done and completed and following that the patient was kept on a mechanical ventilator and was extubated in the recovery area. The patient came in to the ICU for further monitoring. Was seen in consultation yesterday. She has osteoporosis and compression fracture of the vertebral spine and history of hyperlipidemia. She was receiving lactated Ringer at the rate of 100 mL an hour and she was in oxygen at 3 L per minute nasal cannula. The patient is producing adequate amount of urine output. Pain is under adequate control for now. The white cell count was nonelevated. The liver function tests are all within normal limits. Amylase and lipase also within normal limits. The patient is currently receiving IV Unasyn as an empiric antibiotic coverage. On today's evaluation of 04/04/2020, the patient is calm and co mfortable and the patient has no specific complaints. She has an adequate reading at the rate of 100 mL an hour. ELTON drain has drained approximately 150 serosanguineous material. Incision is dry clean and intact. She is awake and alert and she is communicating. No other significant events overnight. Objective - Vital Signs Vital signs: Vital Signs Temp 99.4 F 04/04/20 08:00 Pulse 103 H 04/04/20 10:00 Resp 22 04/04/20 10:00 BP 136/71 04/04/20 10:00 Pulse Ox 95 04/04/20 10:00 Intake & Output 04/03/20 04/04/20 04/04/20 18:59 06:59 18:59 Intake Total 2100 1800 100 Output Total 170 600 100 Balance 1930 1200 0 Weight 64.8 kg 64.8 kg Intake: IV 1700 1500 100 Ampicillin-Sulbactam 3 gm 200 In Sodium Chloride 0.9% 100 ml @ 200 mls/hr IVPB Q6HR [facility] Rx#:[id number] Lactated Ringers 1,000 ml 700 1200 100 @ 100 mls/hr IV .Q10H [facility] Rx#:[id number] Potassium Chloride 10 meq 100 In Water For Injection 1 100ml.bag @ 100 mls/hr IVPB Q1HR [facility] Rx#: [id number] Intake, IV Titration 400 100 Amount Ampicillin-Sulbactam 3 gm 100 100 In Sodium Chloride 0.9% 100 ml @ 200 mls/hr IVPB Q6HR [facility] Rx#:[id number] Potassium Chloride 10 meq 300 In Water For Injection 1 100ml.bag @ 100 mls/hr IVPB Q1HR [facility] Rx#: [id number] Oral 200 Output: Drainage 100 100 100 Abdomen 100 100 100 Urine 50 500 Estimated Blood Loss 20 Other: Voiding Method Bedside Commode Bedside Commode Diaper - Exam The patient appeared well nourished and normally developed. Vital signs as documented. Head exam is unremarkable. No scleral icterus or corneal arcus noted. Neck is without jugular venous distension, thyromegaly, or carotid bruits. Carotid upstrokes are brisk bilaterally. Lungs are clear to auscultation and percussion. Cardiac exam reveals the PMI to be normally sized and situated. Rhythm is regular. First and second heart sounds normal. No murmurs, rubs or gallops. Abdominal exam reveals normal bowel sounds, no masses, no organomegaly and no aortic enlargement. Extremities are nonedematous and both femoral and pedal pulses are normal.Examination of the skin revealed no evidence of significant rashes, suspicious appearing nevi or other concerning lesions.euro logically the patient is awake and alert and there is no focal neurological deficit at this point in time. the patient was a bit sleepy and drowsy. No focal neurological deficits. Examination of the skinshows a intact dry surgical wound site in the right upper quadrant area. - Labs CBC & Chem 7: 04/04/20 03:42 04/04/20 03:42 Labs: Abnormal Lab Results - Last 24 Hours (Table) 04/03/20 04/03/20 04/03/20 Range/Units 08:05 12:34 13:22 WBC (3.8-10.6) k/uL RBC (3.80-5.40) m/uL MCV (80.0-100.0) fL Neutrophils # (1.3-7.7) k/uL Monocytes # (0-1.0) k/uL Sodium 132 L (137-145) mmol/L Potassium 3.3 L (3.5-5.1) mmol/L Carbon Dioxide (22-30) mmol/L Creatinine 0.36 L (0.52-1.04) mg/dL Glucose 102 H (74-99) mg/dL POC Glucose (mg/dL) 103 H (75-99) mg/dL Calcium 7.8 L (8.4-10.2) mg/dL Iron 11 L (50-170) ug/dL % Saturation 3.99 L (12.00-45.00) AST (14-36) U/L Total Protein (6.3-8.2) g/dL Albumin (3.5-5.0) g/dL Vitamin B12 1249.0 H (200.0-944.0) pg/mL 04/04/20 04/04/20 Range/Units 03:42 03:42 WBC 15.2 H (3.8-10.6) k/uL RBC 3.57 L (3.80-5.40) m/uL MCV 100.8 H (80.0-100.0) fL Neutrophils # 12.1 H (1.3-7.7) k/uL Monocytes # 1.3 H (0-1.0) k/uL Sodium 132 L (137-145) mmol/L Potassium (3.5-5.1) mmol/L Carbon Dioxide 18 L (22-30) mmol/L Creatinine (0.52-1.04) mg/dL Glucose (74-99) mg/dL POC Glucose (mg/dL) (75-99) mg/dL Calcium 8.2 L (8.4-10.2) mg/dL Iron (50-170) ug/dL % Saturation (12.00-45.00) AST 48 H (14-36) U/L Total Protein 5.5 L (6.3-8.2) g/dL Albumin 2.8 L (3.5-5.0) g/dL Vitamin B12 (200.0-944.0) pg/mL Assessment and Plan Plan: 1 acute gangrenous cholecystitis. The patient is post open cholecystectomy. Patient is postop day #3. Hemodynamically stable currently on IV Unasyn. 2 osteoporosis and previous history of compression fracture of the spine 3 chronic degenerative arthritis 4 remote history of rheumatic fever 5 hyperlipidemia 6 non-anion gap metabolic acidosis Plan Continue IV fluids, stop the lactated Ringer and switch this patient to D5 with 3 ampules of sodium bicarb at the rate of 75 mL an hour and monitor the serum bicarb level is Continue IV Unasyn Advance diet as tolerated dilaudid 0.5 mg every 3 hours for pain control in addition to Pitcher one tablet every 6 hours, when necessary IV Protonix Subcu heparin for DVT prophylaxis The patient can be transferred to a medical surgical floor. Repeat elective lites in a.m. Continue using incentive spirometer.
--- NOTE | 2020-04-04 14:27 | P.PN ---
Subjective Progress Note Date: 04/04/20 (delayed cahrting seen at 1045) Principal diagnosis: abdominal pain Patient is an 84 yo CF with HLD, osteoprosis, and back fractures who presented to the emergancy department [facility] abdominal pain and nausea. In the emergency department she underwent an extensive evaluation. She was found to have a wbd 13.9, sodium of 130, ast/alt were normal. She underwent a CT abdomen and pelvis which showed a dilated gallbladder consistent with cholecystitis. Gallbladder ultrasound showed abnormal appearance of the gallbladder and course hepatic echotexture with mildly dilated pancreatic duct. She was admitted for further monitoring. She was started on ABX, antiemetics, and pain medications. Surgery was consulted and she underwent a diagnostic laproscopy which was converted to an open maury with ELTON drain placement on 04/03/2020. She tolerated the procedure well. Infectious disease was consulted and recommended unasyn. Patient seen and examined at bedside. Still having some abdominal pain, worst with movement, no nuasea, vomiting, diarrhea, no chest pain or shortness of breath. Objective - Vital Signs Vital signs: Vital Signs Temp 99.4 F 04/04/20 08:00 Pulse 103 H 04/04/20 10:00 Resp 22 04/04/20 10:00 BP 136/71 04/04/20 10:00 Pulse Ox 95 04/04/20 10:00 Intake & Output 04/03/20 04/04/20 04/04/20 18:59 06:59 18:59 Intake Total 2100 1800 100 Output Total 170 600 100 Balance 1930 1200 0 Weight 64.8 kg 64.8 kg Intake: IV 1700 1500 100 Ampicillin-Sulbactam 3 gm 200 In Sodium Chloride 0.9% 100 ml @ 200 mls/hr IVPB Q6HR [facility] Rx#:[id number] Lactated Ringers 1,000 ml 700 1200 100 @ 100 mls/hr IV .Q10H [facility] Rx#:[id number] Potassium Chloride 10 meq 100 In Water For Injection 1 100ml.bag @ 100 mls/hr IVPB Q1HR [facility] Rx#: [id number] Intake, IV Titration 400 100 Amount Ampicillin-Sulbactam 3 gm 100 100 In Sodium Chloride 0.9% 100 ml @ 200 mls/hr IVPB Q6HR [facility] Rx#:[id number] Potassium Chloride 10 meq 300 In Water For Injection 1 100ml.bag @ 100 mls/hr IVPB Q1HR [facility] Rx#: [id number] Oral 200 Output: Drainage 100 100 100 Abdomen 100 100 100 Urine 50 500 Estimated Blood Loss 20 Other: Voiding Method Bedside Commode Bedside Commode Diaper - Exam General: ill appearing, mild distress due to pain, appears at stated age Derm: warm, dry Head: atraumatic, normocephalic, symmetric Eyes: EOMI, no lid lag, anicteric sclera Mouth: no lip lesion, mucus membranes dry Cardiovascular: S1S2 reg, no murmur, positive posterior tibial pulse bilateral, Lungs: Decreased bs bilateral, no rhonchi, no rales , no accessory muscle use Abdominal: soft, +tender to palpation diffusely, no guarding, no appreciable organomegaly, ELTON drain in place with serosangenous fluid Ext: no gross muscle atrophy, no edema, no contractures Neuro: CN II-XI grossly intact, no focal neuro deficits Psych: Alert, oriented, appropriate affect - Labs CBC & Chem 7: 04/04/20 03:42 04/04/20 03:42 Labs: Abnormal Lab Results - Last 24 Hours (Table) 04/03/20 04/04/20 04/04/20 Range/Units 08:05 03:42 03:42 WBC 15.2 H (3.8-10.6) k/uL RBC 3.57 L (3.80-5.40) m/uL MCV 100.8 H (80.0-100.0) fL Neutrophils # 12.1 H (1.3-7.7) k/uL Monocytes # 1.3 H (0-1.0) k/uL Sodium 132 L (137-145) mmol/L Carbon Dioxide 18 L (22-30) mmol/L Calcium 8.2 L (8.4-10.2) mg/dL Iron 11 L (50-170) ug/dL % Saturation 3.99 L (12.00-45.00) AST 48 H (14-36) U/L Total Protein 5.5 L (6.3-8.2) g/dL Albumin 2.8 L (3.5-5.0) g/dL Vitamin B12 1249.0 H (200.0-944.0) pg/mL Assessment and Plan Assessment: Acute cholecystitis s/p Open maury on 04/03/2020 - Unasyn - surgery recs - Clear liquid diet - ID recs - pain control - antiemetics Acidosis, suspect metabolic and non anion gap - Follow BMP - Transitioned from LR to D5W with 3 amps of bicarb Hyponatremia - likely hypovolemia - IVF fluids - repeat in AM Macrocytic anemia - B12 elevated - Folate pending - Follow CBC HLD - stain on hold - plan on resume on discharge Osteoprosis with hx of compression fractures - pain control Hypokalemia, resolved DVT prophylaxis: Heparin Discussed with: patient, nursing Anticipated discharge: 3-[address]: home health vs SNF A total of 35 minutes was spent on the care of this complex patient more than 50% of the time was spent in counseling and care coordination.
--- NOTE | 2020-04-04 17:48 | PN ---
PROGRESS NOTE DATE OF SERVICE: 04/04/2020 REASON FOR FOLLOWUP: Acute gangrenous cholecystitis. INTERVAL HISTORY: The patient is currently afebrile. She has been breathing comfortably. She has been complaining of pain to the right upper quadrant area. No chest pain or cough. PHYSICAL EXAMINATION: Blood pressure 156/71 with a pulse of 103, temperature 99.4. She is 95% on 2 L nasal cannula. General description is an elderly female up in the chair in no distress. RESPIRATORY SYSTEM: Unlabored breathing. Clear to auscultation anteriorly. HEART: S1, S2. Regular rate and rhythm. ABDOMEN: Soft. Mildly tender. No guarding or rigidity. LABS: Hemoglobin is 12 with a white count of 15.2, BUN of 14, creatinine 0.63. DIAGNOSTIC IMPRESSION AND PLAN: Patient with acute gangrenous cholecystitis in this patient who is status post cholecystectomy. The patient's white count slightly jumped up. That will be monitored closely. Currently on Unasyn; to continue and continue supportive care. MMODL / IJN: [id number] /
[2020-04-05] MEDS: AMPICILLIN-SULBACTAM 3 GM in SODIUM CHLORIDE 0.9% 100 ML IVPB SCH ×4 (00:20→17:22)
[2020-04-05] MEDS: HYDROcodone/APAP 5-325MG 1 EACH TAB PO PRN ×4 (04:10→21:19)
[2020-04-05] MEDS: MORPHINE SULFATE 2 MG/ML SYRINGE IVP PRN (05:44)
[2020-04-05 07:37] LABS: ALT 12 U/L (4-34); AST 39 U/L (14-36); African American GFR (CKD) >90 (>60 ml/min/1.73 sqM); Albumin 2.6 g/dL (3.5-5.0); Alkaline Phosphatase 58 U/L (38-126); Anion Gap 4 mmol/L; Blood Urea Nitrogen 9 mg/dL (7-17); Calcium 7.6 mg/dL (8.4-10.2); Carbon Dioxide 34 mmol/L (22-30); Chloride 93 mmol/L (98-107); Glucose 119 mg/dL (74-99); Magnesium 1.9 mg/dL (1.6-2.3); Non-African American GFR(CKD) >90 (>60 ml/min/1.73 sqM); Potassium 3.4 mmol/L (3.5-5.1); Sodium 131 mmol/L (137-145); Total Bilirubin 0.4 mg/dL (0.2-1.3); Total Protein 5.1 g/dL (6.3-8.2)
[2020-04-05 07:39] LABS: Basophils % (A) 0 %; Eosinophils # (A) 0.2 k/uL (0-0.7); Eosinophils % (A) 3 %; HCT 29.6 % (34.0-46.0); Lymphocytes # (A) 0.5 k/uL (1.0-4.8); Lymphocytes % (A) 6 %; MCH 31.7 pg (25.0-35.0); MCHC 31.9 g/dL (31.0-37.0); MCV 99.4 fL (80.0-100.0); Mean Platelet Volume 7.2; Monocytes # (A) 0.6 k/uL (0-1.0); Monocytes % (A) 8 %; Neutrophils # (A) 6.6 k/uL (1.3-7.7); Neutrophils % (A) 82 %; Platelet Count 235 k/uL (150-450); RBC 2.98 m/uL (3.80-5.40); RDW 12.6 % (11.5-15.5)
[2020-04-05 07:50] LABS: HGB 9.4 gm/dL (11.4-16.0)
[2020-04-05] MEDS: HEPARIN SODIUM,PORCINE 5,000 UNIT/ML 1 ML VIAL SQ SCH ×2 (07:58→21:13)
[2020-04-05] MEDS: DOCUSATE 100 MG CAP PO SCH ×2 (07:58→21:13)
[2020-04-05] MEDS: FAMOTIDINE 20 MG TAB PO SCH ×2 (07:58→21:13)
[2020-04-05] MEDS ORDERED: Potassium Replacement Protocol 1 EACH MISC MISCELLANE PRN (09:18)
[2020-04-05] MEDS: POTASSIUM CHLORIDE ER 20 MEQ TAB.ER PO SCH ×3 (09:29→16:08)
--- NOTE | 2020-04-05 13:44 | P.PN ---
Subjective Progress Note Date: 04/05/20 CHIEF COMPLAINT: Cholecystitis HISTORY OF PRESENT ILLNESS: Patient is status post open cholecystectomy secondary to acute gangrenous cholecystitis. Postop day #2. Patient examined at the bedside with Dr. España. Patient states her pain is tolerable at this time. She is tolerating clear liquid diet. Denies nausea or vomiting. WBC 8.0. PHYSICAL EXAM: VITAL SIGNS: Reviewed. GENERAL: Well-developed in no acute distress. HEENT: No sclera icterus. Extraocular movements grossly intact. Moist buccal mucosa. Head is atraumatic, normocephalic. ABDOMEN: Soft. Nondistended. Dressing clean dry and intact. ELTON drain serosanguineous. NEUROLOGIC: Alert and oriented. Cranial nerves II through XII grossly intact. ASSESSMENT: 1. Acute gangrenous cholecystitis PLAN: -Advance diet to full liquids -Monitor ELTON drain output -Activity as tolerated -Incentive spirometer -Continue antibiotics. Monitor WBC Nurse practitioner note has been reviewed by physician. Signing provider agrees with the documented findings, assessment, and plan of care. Objective - Vital Signs Vital signs: Vital Signs Temp 98.0 F 04/05/20 07:00 Pulse 97 04/05/20 07:00 Resp 18 04/05/20 07:00 BP 138/75 04/05/20 07:00 Pulse Ox 96 04/05/20 07:00 Intake & Output 04/04/20 04/05/20 04/05/20 18:59 06:59 18:59 Intake Total 2150 500 Output Total 400 450 50 Balance 1750 -450 450 Weight 64.8 kg Intake: IV 200 Lactated Ringers 1,000 ml 200 @ 100 mls/hr IV .Q10H [facility] Rx#:[id number] Intake, IV Titration 950 Amount Dextrose 5% in Water 1, 750 000 ml @ 75 mls/hr IV . [id number] [facility] with Sodium Bicarb (1 Meq/ml) 150 ml Rx#:[id number] Magnesium Sulfate-D5w Pmx 200 1 gm In Dextrose/Water 1 100ml.bag @ 100 mls/hr IVPB Q1H [facility] Rx#: [id number] Oral 1000 500 Output: Drainage 100 50 50 Abdomen 100 50 50 Urine 300 400 Other: Voiding Method Diaper Diaper # Voids 1 1 3 - Labs CBC & Chem 7: 04/05/20 06:50 04/05/20 06:50 Labs: Abnormal Lab Results - Last 24 Hours (Table) 04/03/20 04/05/20 04/05/20 Range/Units 08:05 06:50 06:50 RBC 2.98 L (3.80-5.40) m/uL Hgb 9.4 L D (11.4-16.0) gm/dL Hct 29.6 L (34.0-46.0) % Lymphocytes # 0.5 L (1.0-4.8) k/uL Sodium 131 L (137-145) mmol/L Potassium 3.4 L (3.5-5.1) mmol/L Chloride 93 L (98-107) mmol/L Carbon Dioxide 34 H (22-30) mmol/L Creatinine 0.36 L (0.52-1.04) mg/dL Glucose 119 H (74-99) mg/dL Calcium 7.6 L (8.4-10.2) mg/dL AST 39 H (14-36) U/L Total Protein 5.1 L (6.3-8.2) g/dL Albumin 2.6 L (3.5-5.0) g/dL RBC Folate 1,056 H (280 - 791) ng/mL
--- NOTE | 2020-04-05 14:23 | P.PN ---
Subjective Progress Note Date: 04/05/20 Principal diagnosis: Acute cholecystitis This is an 84-year-old female patient admitted through emergency department on 04/01/2020 and the patient was taken to the operating room for an open cholecystectomy and this was done and completed and following that the patient was kept on a mechanical ventilator and was extubated in the recovery area. The patient came in to the ICU for further monitoring. Was seen in consultation yesterday. She has osteoporosis and compression fracture of the vertebral spine and history of hyperlipidemia. She was receiving lactated Ringer at the rate of 100 mL an hour and she was in oxygen at 3 L per minute nasal cannula. The patient is producing adequate amount of urine output. Pain is under adequate control for now. The white cell count was nonelevated. The liver function tests are all within normal limits. Amylase and lipase also within normal limits. The patient is currently receiving IV Unasyn as an empiric antibiotic coverage. On today's evaluation of 04/04/2020, the patient is calm and comfortable and the patient has no specific complaints. She has an adequate reading at the rate of 100 mL an hour. ELTON drain has drained approximately 150 serosanguineous material. Incision is dry clean and intact. She is awake and alert and she is communicating. No other significant events overnight. The patient is seen today 04/05/2020 in follow-up on the regular medical floor. She is currently resting comfortably in bed. Awake and alert in no acute distress. She is maintaining O2 saturations in the 90s on 2 L/m per nasal cannula. She's been afebrile. Hemodynamically stable. White count 8.0. Hemoglobin 9.4. Sodium 131. Potassium 3.4. Creatinine 0.36. She remains on Unasyn. Heparin for DVT prophylaxis. Abdominal dressing dry and intact. ELTON drain remains in place. Tolerating her diet. Needs increased encouragement regarding the use of the incentive spirometer. Objective - Vital Signs Vital signs: Vital Signs Temp 98.0 F 04/05/20 07:00 Pulse 97 04/05/20 07:00 Resp 18 04/05/20 07:00 BP 138/75 04/05/20 07:00 Pulse Ox 96 04/05/20 07:00 Intake & Output 04/04/20 04/05/20 04/05/20 18:59 06:59 18:59 Intake Total 2150 500 Output Total 400 450 50 Balance 1750 -450 450 Weight 64.8 kg Intake: IV 200 Lactated Ringers 1,000 ml 200 @ 100 mls/hr IV .Q10H [facility] Rx#:[id number] Intake, IV Titration 950 Amount Dextrose 5% in Water 1, 750 000 ml @ 75 mls/hr IV . [id number] [facility] with Sodium Bicarb (1 Meq/ml) 150 ml Rx#:[id number] Magnesium Sulfate-D5w Pmx 200 1 gm In Dextrose/Water 1 100ml.bag @ 100 mls/hr IVPB Q1H [facility] Rx#: [id number] Oral 1000 500 Output: Drainage 100 50 50 Abdomen 100 50 50 Urine 300 400 Other: Voiding Method Diaper Diaper # Voids 1 1 3 - Exam The patient appeared well nourished and normally developed. Vital signs as documented. Head exam is unremarkable. No scleral icterus or corneal arcus noted. Neck is without jugular venous distension, thyromegaly, or carotid bruits. Carotid upstrokes are brisk bilaterally. Lungs are clear to auscultation and percussion. Cardiac exam reveals the PMI to be normally sized and situated. Rhythm is regular. First and second heart sounds normal. No murmurs, rubs or gallops. Abdominal exam reveals normal bowel sounds, no masses, no organomegaly and no aortic enlargement. Extremities are nonedematous and both femoral and pedal pulses are normal.Examination of the skin revealed no evidence of significant rashes, suspicious appearing nevi or other concerning lesions. Neurologically the patient is awake and alert and there is no focal neurological deficit at this point in time. Examination of the skin shows a intact dry surgical wound site, ELTON drain in place in the right upper quadrant area. - Labs CBC & Chem 7: 04/05/20 06:50 04/05/20 06:50 Labs: Abnormal Lab Results - Last 24 Hours (Table) 04/03/20 04/05/20 04/05/20 Range/Units 08:05 06:50 06:50 RBC 2.98 L (3.80-5.40) m/uL Hgb 9.4 L D (11.4-16.0) gm/dL Hct 29.6 L (34.0-46.0) % Lymphocytes # 0.5 L (1.0-4.8) k/uL Sodium 131 L (137-145) mmol/L Potassium 3.4 L (3.5-5.1) mmol/L Chloride 93 L (98-107) mmol/L Carbon Dioxide 34 H (22-30) mmol/L Creatinine 0.36 L (0.52-1.04) mg/dL Glucose 119 H (74-99) mg/dL Calcium 7.6 L (8.4-10.2) mg/dL AST 39 H (14-36) U/L Total Protein 5.1 L (6.3-8.2) g/dL Albumin 2.6 L (3.5-5.0) g/dL RBC Folate 1,056 H (280 - 791) ng/mL Assessment and Plan Assessment: 1 acute gangrenous cholecystitis. The patient is post open cholecystectomy. Patient is postop day #2. Hemodynamically stable currently on IV Unasyn. 2 osteoporosis and previous history of compression fracture of the spine 3 chronic degenerative arthritis 4 remote history of rheumatic fever 5 hyperlipidemia 6 non-anion gap metabolic acidosis Plan The patient was seen and evaluated by Dr. Guthrie She is currently stable from the pulmonary standpoint Encouraged regarding increased use the incentive spirometer and cough and deep breathing exercises Increase her activity as tolerated Remains on Unasyn We'll continue to follow I, the cosigning physician, performed a history & physical examination of the patient. Lungs sounds are clear. Maintaining good O2 saturations in the 90s on room air. I discussed the assessment and plan of care with my nurse practitioner, Tracy Moffett. I attest to the above note as dictated by her.
--- NOTE | 2020-04-05 15:50 | P.PN ---
Subjective Progress Note Date: 04/05/20 (delayed charting seen at 0930) Principal diagnosis: abdominal pain Patient is an 84 yo CF with HLD, osteoprosis, and back fractures who presented to the emergancy department wt abdominal pain and nausea. In the emergency department she underwent an extensive evaluation. She was found to have a wbd 13.9, sodium of 130, ast/alt were normal. She underwent a CT abdomen and pelvis which showed a dilated gallbladder consistent with cholecystitis. Gallbladder ultrasound showed abnormal appearance of the gallbladder and course hepatic echotexture with mildly dilated pancreatic duct. She was admitted for further monitoring. She was started on ABX, antiemetics, and pain medications. Surgery was consulted and she underwent a diagnostic laproscopy which was converted to an open maury with ELTON drain placement on 04/03/2020. She tolerated the procedure well. Infectious disease was consulted and recommended unasyn. She continued to progress well. She was passing flatus on 04/05. Patient seen and examined at bedside. She is complaining of back pain while sitting up in the chair. She denies any chest pain or shortness of breath. She isn't passing lots of gas today. She is tolerating her clear liquid diet that is sick of soups and ensure. She was able to work with therapy today and did fairly well. Objective - Vital Signs Vital signs: Vital Signs Temp 98.0 F 04/05/20 07:00 Pulse 97 04/05/20 07:00 Resp 18 04/05/20 07:00 BP 138/75 04/05/20 07:00 Pulse Ox 96 04/05/20 07:00 Intake & Output 04/04/20 04/05/20 04/05/20 18:59 06:59 18:59 Intake Total 2150 500 Output Total 400 450 50 Balance 1750 -450 450 Weight 64.8 kg Intake: IV 200 Lactated Ringers 1,000 ml 200 @ 100 mls/hr IV .Q10H ONE Rx#:[id number] Intake, IV Titration 950 Amount Dextrose 5% in Water 1, 750 000 ml @ 75 mls/hr IV . [id number] ONE with Sodium Bicarb (1 Meq/ml) 150 ml Rx#:[id number] Magnesium Sulfate-D5w Pmx 200 1 gm In Dextrose/Water 1 100ml.bag @ 100 mls/hr IVPB Q1H FARNAZ Rx#: [id number] Oral 1000 500 Output: Drainage 100 50 50 Abdomen 100 50 50 Urine 300 400 Other: Voiding Method Diaper Diaper # Voids 1 1 3 - Exam General: ill appearing, no distress, appears at stated age Derm: warm, dry Head: atraumatic, normocephalic, symmetric Eyes: EOMI, no lid lag, anicteric sclera Mouth: no lip lesion, mucus membranes moist Cardiovascular: S1S2 reg, no murmur, positive posterior tibial pulse bilateral, Lungs: Decreased bs bilateral, no rhonchi, no rales , no accessory muscle use Abdominal: soft, +tender to palpation diffusely, no guarding, no appreciable organomegaly, ELTON drain in place with serosangenous fluid Ext: no gross muscle atrophy, no edema, no contractures Neuro: CN II-XI grossly intact, no focal neuro deficits Psych: Alert, oriented, appropriate affect - Labs CBC & Chem 7: 04/05/20 06:50 04/05/20 06:50 Labs: Abnormal Lab Results - Last 24 Hours (Table) 04/05/20 04/05/20 Range/Units 06:50 06:50 RBC 2.98 L (3.80-5.40) m/uL Hgb 9.4 L D (11.4-16.0) gm/dL Hct 29.6 L (34.0-46.0) % Lymphocytes # 0.5 L (1.0-4.8) k/uL Sodium 131 L (137-145) mmol/L Potassium 3.4 L (3.5-5.1) mmol/L Chloride 93 L (98-107) mmol/L Carbon Dioxide 34 H (22-30) mmol/L Creatinine 0.36 L (0.52-1.04) mg/dL Glucose 119 H (74-99) mg/dL Calcium 7.6 L (8.4-10.2) mg/dL AST 39 H (14-36) U/L Total Protein 5.1 L (6.3-8.2) g/dL Albumin 2.6 L (3.5-5.0) g/dL Assessment and Plan Assessment: Acute cholecystitis s/p Open maury on 04/03/2020 - Unasyn - surgery recs -Advance to full liquid diet 04/05 - ID recs: Unasyn - pain control - antiemetics - Pathology with necrotic gallbladder Hyponatremia, stable and appears chronicwith baseline 133 - IVF fluids completed - repeat in AM Acute blood loss anemia - due to surgical procedure and anticipated - B12 elevated - Folate elevated - Follow CBC HLD - stain on hold - plan on resume on discharge Osteoprosis with hx of compression fractures - pain control Hypokalemia, resolved Acidosis, suspect metabolic and non anion gap, resolved Daughter updated over phone. DVT prophylaxis: Heparin Discussed with: patient, nursing Anticipated discharge: 2-[address]: home health A total of 35 minutes was spent on the care of this complex patient more than 50% of the time was spent in counseling and care coordination.
[2020-04-05] MEDS: ONDANSETRON 4 MG/2 ML VIAL IVP PRN (16:07)
--- NOTE | 2020-04-05 17:12 | PN ---
PROGRESS NOTE DATE OF SERVICE: 04/05/2020 REASON FOR FOLLOWUP: Acute gangrenous cholecystitis. INTERVAL HISTORY: The patient is currently afebrile. She has been transferred out of the ICU, complaining of pain to the upper abdominal area, but no nausea, vomiting. No chest pain or shortness of breath or cough. PHYSICAL EXAMINATION: Blood pressure 142/75 with a pulse of 94, temperature is 97.3. She is 96% on 2 L nasal cannula. General description is an elderly female, up in the chair in no distress. RESPIRATORY SYSTEM: Unlabored breathing, clear to auscultation anteriorly. HEART: S1, S2. Regular rate and rhythm. ABDOMEN: Soft. Mild tenderness. LABS: Hemoglobin 9.4, white count 8.0, BUN of 9, creatinine 0.36. DIAGNOSTIC IMPRESSION AND PLAN: Patient acute gangrenous cholecystitis in this patient who is status post open cholecystectomy because of venous changes. Patient is on Unasyn to continue and will monitor clinical course closely. MMODL / IJN: [id number] /
[2020-04-06] MEDS: ONDANSETRON 4 MG/2 ML VIAL IVP PRN ×4 (03:17→21:45)
[2020-04-06] MEDS: AMPICILLIN-SULBACTAM 3 GM in SODIUM CHLORIDE 0.9% 100 ML IVPB SCH ×6 (05:24→23:29)
[2020-04-06] MEDS: MORPHINE SULFATE 2 MG/ML SYRINGE IVP PRN ×4 (05:32→21:45)
[2020-04-06] MEDS: DOCUSATE 100 MG CAP PO SCH ×2 (07:41→20:16)
[2020-04-06] MEDS: FAMOTIDINE 20 MG TAB PO SCH ×2 (07:41→20:16)
[2020-04-06] MEDS ORDERED: METOCLOPRAMIDE 5 MG/ML 2 ML VIAL IVP PRN (07:54)
[2020-04-06] MEDS: HEPARIN SODIUM,PORCINE 5,000 UNIT/ML 1 ML VIAL SQ SCH ×2 (08:05→20:16)
[2020-04-06 08:39] LABS: HGB 10.5 gm/dL (11.4-16.0); MCH 32.2 pg (25.0-35.0); MCV 100.7 fL (80.0-100.0); Mean Platelet Volume 7.2; Platelet Count 263 k/uL (150-450); RBC 3.27 m/uL (3.80-5.40); RDW 12.4 % (11.5-15.5); WBC 8.8 k/uL (3.8-10.6)
[2020-04-06 08:52] LABS: ALT 13 U/L (4-34); AST 42 U/L (14-36); African American GFR (CKD) >90 (>60 ml/min/1.73 sqM); Alkaline Phosphatase 57 U/L (38-126); Anion Gap 6 mmol/L; Blood Urea Nitrogen 11 mg/dL (7-17); Calcium 8.3 mg/dL (8.4-10.2); Carbon Dioxide 34 mmol/L (22-30); Chloride 92 mmol/L (98-107); Glucose 117 mg/dL (74-99); Magnesium 1.9 mg/dL (1.6-2.3); Non-African American GFR(CKD) >90 (>60 ml/min/1.73 sqM); Potassium 4.1 mmol/L (3.5-5.1); Sodium 132 mmol/L (137-145); Total Bilirubin 0.5 mg/dL (0.2-1.3); Total Protein 5.8 g/dL (6.3-8.2)
--- NOTE | 2020-04-06 09:29 | P.PN ---
Subjective Progress Note Date: 04/06/20 Principal diagnosis: abdominal pain Patient is an 84 yo CF with HLD, osteoprosis, and back fractures who presented to the emergancy department [facility] abdominal pain and nausea. In the emergency department she underwent an extensive evaluation. She was found to have a wbd 13.9, sodium of 130, ast/alt were normal. She underwent a CT abdomen and pelvis which showed a dilated gallbladder consistent with cholecystitis. Gallbladder ultrasound showed abnormal appearance of the gallbladder and course hepatic echotexture with mildly dilated pancreatic duct. She was admitted for further monitoring. She was started on ABX, antiemetics, and pain medications. Surgery was consulted and she underwent a diagnostic laproscopy which was converted to an open maury with ELTON drain placement on 04/03/2020. She tolerated the procedure well. Infectious disease was consulted and recommended unasyn. She continued to progress well. She was passing flatus on 04/05. On the morning of 04/06 her flatus had decreased and she was having nausea and vomiting. She was started on reglan and her diet was decreased to ice chips. Patient seen and examined at bedside. She is feeling very nauseated today. No longer passing gas, abdominal pain is controlled, not hungry, no chest pain or shortness of breath, no dizziness. Objective - Vital Signs Vital signs: Vital Signs Temp 97.9 F 04/06/20 07:00 Pulse 99 04/06/20 07:00 Resp 17 04/06/20 07:00 BP 178/101 04/06/20 07:00 Pulse Ox 93 L 04/06/20 07:00 Intake & Output 04/05/20 04/06/20 04/06/20 18:59 06:59 18:59 Intake Total 500 50 100 Output Total 50 175 70 Balance 450 -125 30 Intake: Oral 500 50 100 Output: Drainage 50 95 70 Abdomen 50 95 70 Emesis 80 Other: Voiding Method Diaper # Voids 3 1 # Emeses 2 - Exam General: ill appearing, mild distress due to nausea, appears at stated age Derm: warm, dry Head: atraumatic, normocephalic, symmetric Eyes: EOMI, no lid lag, anicteric sclera Mouth: no lip lesion, mucus membranes moist Cardiovascular: S1S2 tachy, no murmur, positive posterior tibial pulse bilateral, Lungs: Decreased bs bilateral, no rhonchi, no rales , no accessory muscle use Abdominal: soft, +tender to palpation diffusely, no guarding, no appreciable organomegaly, ELTON drain in place with serous fluid Ext: no gross muscle atrophy, no edema, no contractures Neuro: CN II-XI grossly intact, no focal neuro deficits Psych: Alert, oriented, appropriate affect - Labs CBC & Chem 7: 04/06/20 08:21 04/06/20 08:19 Labs: Abnormal Lab Results - Last 24 Hours (Table) 04/06/20 04/06/20 Range/Units 08:19 08:21 RBC 3.27 L (3.80-5.40) m/uL Hgb 10.5 L (11.4-16.0) gm/dL Hct 33.0 L (34.0-46.0) % MCV 100.7 H (80.0-100.0) fL Sodium 132 L (137-145) mmol/L Chloride 92 L (98-107) mmol/L Carbon Dioxide 34 H (22-30) mmol/L Creatinine 0.38 L (0.52-1.04) mg/dL Glucose 117 H (74-99) mg/dL Calcium 8.3 L (8.4-10.2) mg/dL AST 42 H (14-36) U/L Total Protein 5.8 L (6.3-8.2) g/dL Albumin 3.0 L (3.5-5.0) g/dL Assessment and Plan Assessment: Acute cholecystitis s/p Open maury on 04/03/2020 - Unasyn - surgery recs - back to ice chips on 04/06 - ID recs: Unasyn - pain control - antiemetics, regaln started 04/06 - Pathology with necrotic gallbladder Intractable nausea and vomiting - resume NS at 125 - back on ice chips - zofran and reglan started - consider acute abdominal series if no improvement with reglan. Hyponatremia, stable and appears chronicwith baseline 133 - IVF fluids - repeat in AM Acute blood loss anemia - due to surgical procedure and anticipated - B12 elevated - Folate elevated - Follow CBC HLD - stain on hold - plan on resume on discharge Osteoprosis with hx of compression fractures - pain control Hypokalemia, resolved Acidosis, suspect metabolic and non anion gap, resolved Daughter updated over phone. DVT prophylaxis: Heparin Discussed with: patient, nursing Anticipated discharge: 2-[address]: home health A total of 35 minutes was spent on the care of this complex patient more than 50% of the time was spent in counseling and care coordination.
[2020-04-06] MEDS: SODIUM CHLORIDE 0.9% 1,000 ML IV SCH ×2 (09:36→15:14)
--- NOTE | 2020-04-06 10:59 | XR ---
EXAMINATION TYPE: XR abdomen 1V DATE OF EXAM: 04/06/2020 COMPARISON: 11/05/2019 HISTORY: Pain TECHNIQUE: Single supine KUB image of the abdomen is obtained FINDINGS: Distended small bowel with air-fluid level seen may reflect postoperative ileus. Correlate clinically and progress studies are advised. Right upper quadrant surgical drain and skin adrianna noted. Gas and fecal material is seen in non-distended colon. No convincing evidence for pneumoperitoneum. No unusual calcifications. The lung bases are clear. The osseous structures are intact. IMPRESSION: 1. Distended small bowel with air-fluid level seen may reflect postoperative ileus. Correlate clinic ally and progress studies are advised.
[2020-04-06] MEDS ORDERED: METOCLOPRAMIDE 5 MG/ML 2 ML VIAL IVP SCH (12:00)
[2020-04-06] MEDS: METOCLOPRAMIDE 5 MG/ML 2 ML VIAL IVP SCH ×3 (12:45→23:30)
--- NOTE | 2020-04-06 13:27 | P.PN ---
Subjective Progress Note Date: 04/06/20 CHIEF COMPLAINT: Cholecystitis HISTORY OF PRESENT ILLNESS: Patient is status post open cholecystectomy secondary to acute gangrenous cholecystitis. Postop day #3. Patient examined at the bedside with Dr. España. Patient states her pain is tolerable at this time. Patient with nausea and a couple episodes of bilious emesis today. PHYSICAL EXAM: VITAL SIGNS: Reviewed. GENERAL: Well-developed in no acute distress. HEENT: No sclera icterus. Extraocular movements grossly intact. Moist buccal mucosa. Head is atraumatic, normocephalic. ABDOMEN: Soft. Nondistended. Dressing clean dry and intact. ELTON drain serosanguineous. NEUROLOGIC: Alert and oriented. Cranial nerves II through XII grossly intact. ASSESSMENT: 1. Acute gangrenous cholecystitis 2. Postoperative ileus PLAN: -Monitor ELTON drain output -Activity as tolerated -Incentive spirometer -Continue antibiotics. Monitor WBC -Downgrade diet to ice chips, popsicles, and sips of clear liquids -Begin Reglan 10mg IV Q6 hours -No NG tube at this time Nurse practitioner note has been reviewed by physician. Signing provider agrees with the documented findings, assessment, and plan of care. Objective - Vital Signs Vital signs: Vital Signs Temp 97.9 F 04/06/20 07:00 Pulse 99 04/06/20 07:00 Resp 17 04/06/20 07:00 BP 178/101 04/06/20 07:00 Pulse Ox 93 L 04/06/20 07:00 Intake & Output 04/05/20 04/06/20 04/06/20 18:59 06:59 18:59 Intake Total 500 50 100 Output Total 50 175 100 Balance 450 -125 0 Weight 64.8 kg Intake: Oral 500 50 100 Output: Drainage 50 95 100 Abdomen 50 95 100 Emesis 80 Other: Voiding Method Diaper # Voids 3 3 # Emeses 2 - Labs CBC & Chem 7: 04/06/20 08:21 04/06/20 08:19 Labs: Abnormal Lab Results - Last 24 Hours (Table) 04/06/20 04/06/20 Range/Units 08:19 08:21 RBC 3.27 L (3.80-5.40) m/uL Hgb 10.5 L (11.4-16.0) gm/dL Hct 33.0 L (34.0-46.0) % MCV 100.7 H (80.0-100.0) fL Sodium 132 L (137-145) mmol/L Chloride 92 L (98-107) mmol/L Carbon Dioxide 34 H (22-30) mmol/L Creatinine 0.38 L (0.52-1.04) mg/dL Glucose 117 H (74-99) mg/dL Calcium 8.3 L (8.4-10.2) mg/dL AST 42 H (14-36) U/L Total Protein 5.8 L (6.3-8.2) g/dL Albumin 3.0 L (3.5-5.0) g/dL
--- NOTE | 2020-04-06 13:52 | P.PN ---
Subjective Progress Note Date: 04/06/20 Principal diagnosis: Acute cholecystitis This is an 84-year-old female patient admitted through emergency department on 04/01/2020 and the patient was taken to the operating room for an open cholecystectomy and this was done and completed and following that the patient was kept on a mechanical ventilator and was extubated in the recovery area. The patient came in to the ICU for further monitoring. Was seen in consultation yesterday. She has osteoporosis and compression fracture of the vertebral spine and history of hyperlipidemia. She was receiving lactated Ringer at the rate of 100 mL an hour and she was in oxygen at 3 L per minute nasal cannula. The patient is producing adequate amount of urine output. Pain is under adequate control for now. The white cell count was nonelevated. The liver function tests are all within normal limits. Amylase and lipase also within normal limits. The patient is currently receiving IV Unasyn as an empiric antibiotic coverage. On today's evaluation of 04/04/2020, the patient is calm and comfortable and the patient has no specific complaints. She has an adequate reading at the rate of 100 mL an hour. ELTON drain has drained approximately 150 serosanguineous material. Incision is dry clean and intact. She is awake and alert and she is communicating. No other significant events overnight. The patient is seen today 04/05/2020 in follow-up on the regular medical floor. She is currently resting comfortably in bed. Awake and alert in no acute distress. She is maintaining O2 saturations in the 90s on 2 L/m per nasal cannula. She's been afebrile. Hemodynamically stable. White count 8.0. Hemoglobin 9.4. Sodium 131. Potassium 3.4. Creatinine 0.36. She remains on Unasyn. Heparin for DVT prophylaxis. Abdominal dressing dry and intact. ELTON drain remains in place. Tolerating her diet. Needs increased encouragement regarding the use of the incentive spirometer. On 04/06/2020 patient is seen in follow-up on general medical floor. She is sitting up in the chair, has an emesis basin in her lab, she has been nauseous and she has vomited a few times. Her abdomen is slightly more distended on today's exam, it is soft, nontender but hypoactive bowel sounds are present. Incisions are clean dry and intact, ELTON drain with small amount of serous output, no fever or chills, denies any pulmonary complaints, no shortness of breath, lung sounds are clear, she has been receiving ice chips only. We obtained a KUB of the abdomen, which showed distended small bowel with air-fluid levels seen which may reflect postoperative ileus. We ordered the NG tube to be inserted to low intermittent suction. Maintain nothing by mouth status for now. Services are following, patient is on Reglan. Has not passed any gas yet. Objective - Vital Signs Vital signs: Vital Signs Temp 97.9 F 04/06/20 07:00 Pulse 99 04/06/20 07:00 Resp 17 04/06/20 07:00 BP 178/101 04/06/20 07:00 Pulse Ox 93 L 04/06/20 07:00 Intake & Output 04/05/20 04/06/20 04/06/20 18:59 06:59 18:59 Intake Total 500 50 100 Output Total 50 175 100 Balance 450 -125 0 Weight 64.8 kg Intake: Oral 500 50 100 Output: Drainage 50 95 100 Abdomen 50 95 100 Emesis 80 Other: Voiding Method Diaper # Voids 3 3 # Emeses 2 - Exam GENERAL EXAM: Alert, very pleasant, 84-year-old white female on 2 L of oxygen with a pulse ox of 93-96%, sitting up in the recliner, in mild to moderate amount of distress from nausea and vomiting, patient has a emesis basin in her l ap comfortable in no apparent distress. HEAD: Normocephalic/atraumatic. EYES: Normal reaction of pupils, equal size. Conjunctiva pink, sclera white. NOSE: Clear with pink turbinates. THROAT: No erythema or exudates. NECK: No masses, no JVD, no thyroid enlargement, no adenopathy. CHEST: No chest wall deformity. Symmetrical expansion. LUNGS: Equal air entry with no crackles, wheeze, rhonchi or dullness. CVS: Regular rate and rhythm, normal S1 and S2, no gallops, no murmurs, no rubs ABDOMEN: Soft, somewhat distended but nontender. No hepatosplenomegaly, no guarding or rigidity. Hypoactive bowel sounds present. Abdominal incisions are clean dry and intact, covered with surgical dressings, right abdominal ELTON drain is compressed and draining with small amount of serous drainage EXTREMITIES: No clubbing, no edema, no cyanosis, 2+ pulses and upper and lower extremities. MUSCULOSKELETAL: Muscle strength and tone normal. SPINE: No scoliosis or deformity SKIN: No rashes CENTRAL NERVOUS SYSTEM: Alert and oriented -3. No focal deficits, tone is normal in all 4 extremities. PSYCHIATRIC: Alert and oriented -3. Appropriate affect. Intact judgment and insight. - Labs CBC & Chem 7: 04/06/20 08:21 04/06/20 08:19 Labs: Abnormal Lab Results - Last 24 Hours (Table) 04/06/20 04/06/20 Range/Units 08:19 08:21 RBC 3.27 L (3.80-5.40) m/uL Hgb 10.5 L (11.4-16.0) gm/dL Hct 33.0 L (34.0-46.0) % MCV 100.7 H (80.0-100.0) fL Sodium 132 L (137-145) mmol/L Chloride 92 L (98-107) mmol/L Carbon Dioxide 34 H (22-30) mmol/L Creatinine 0.38 L (0.52-1.04) mg/dL Glucose 117 H (74-99) mg/dL Calcium 8.3 L (8.4-10.2) mg/dL AST 42 H (14-36) U/L Total Protein 5.8 L (6.3-8.2) g/dL Albumin 3.0 L (3.5-5.0) g/dL Assessment and Plan Plan: Assessment: #1. Acute gangrenous cholecystitis, status post open cholecystectomy, postoperative day 3 #2. Nausea and vomiting, related to acute ileus #3. Mild hyponatremia, likely hypovolemic #4. Chronic degenerative arthritis #5. History of osteoporosis Plan: KUB of the abdomen has been reviewed, NG tube will be inserted to low intermittent suction. Encourage deep breathing and coughing, maintain pain control, we'll continue to follow along with surgical services, no worsening dyspnea, encourage incentive spirometry use. We'll continue to follow I performed a history & physical examination of the patient and discussed their management with my nurse practitioner, Geetha Wheatley. I reviewed the nurse practitioner's note and agree with the documented findings and plan of care. Lung sounds are positive for clear breath sounds. The findings and the impression was discussed with the patient. I attest to the documentation by the nurse practitioner. Time with Patient: Less than 30
--- NOTE | 2020-04-06 17:03 | PN ---
PROGRESS NOTE DATE OF SERVICE: 04/06/2020 REASON FOR FOLLOWUP VISIT: Acute cholecystitis gangrene. INTERVAL HISTORY: The patient is currently afebrile, she is breathing comfortably. She is complaining of pain in the right upper quadrant area, but no worsening. No nausea, no vomiting. He has been tolerating her diet. No chest pain, shortness of breath or cough. PHYSICAL EXAMINATION: On examination, her blood pressure is 157/77, pulse of 97, temperature 97.8. She is 93% on 2 L nasal cannula. General description is an elderly female, up in the bed in no distress. RESPIRATORY SYSTEM: Unlabored breathing, clear to auscultation anteriorly. HEART: S1, S2. Regular rate and rhythm. ABDOMEN: Soft, mildly distended. No guarding or rigidity. LABS: Hemoglobin is 10.5, white count 8.8. BUN of 11, creatinine 0.38. DIAGNOSTIC IMPRESSION AND PLAN: Patient with acute gangrenous cholecystitis status post open cholecystectomy. Abdominal x-ray with distended small bowel and ileus. Patient to continue with Zosyn, Unasyn until the ileus resolves before switching to p.o. Continue supportive care. MMODL / IJN: [id number] /
[2020-04-07] MEDS: SODIUM CHLORIDE 0.9% 1,000 ML IV SCH ×3 (01:58→17:11)
[2020-04-07] MEDS: METOCLOPRAMIDE 5 MG/ML 2 ML VIAL IVP SCH ×4 (05:58→23:36)
[2020-04-07] MEDS: AMPICILLIN-SULBACTAM 3 GM in SODIUM CHLORIDE 0.9% 100 ML IVPB SCH ×4 (05:58→23:35)
[2020-04-07] MEDS: FAMOTIDINE 20 MG TAB PO SCH ×2 (08:08→20:05)
[2020-04-07] MEDS: DOCUSATE 100 MG CAP PO SCH ×2 (08:08→20:05)
[2020-04-07] MEDS: HEPARIN SODIUM,PORCINE 5,000 UNIT/ML 1 ML VIAL SQ SCH ×2 (08:08→20:04)
[2020-04-07 09:11] LABS: HCT 32.2 % (34.0-46.0); HGB 10.3 gm/dL (11.4-16.0); Hypochromasia Slight; MCH 32.3 pg (25.0-35.0); MCHC 32.2 g/dL (31.0-37.0); MCV 100.6 fL (80.0-100.0); Mean Platelet Volume 7.1; Platelet Count 330 k/uL (150-450); RDW 12.4 % (11.5-15.5); WBC 7.8 k/uL (3.8-10.6)
[2020-04-07 09:18] LABS: ALT 14 U/L (4-34); AST 44 U/L (14-36); African American GFR (CKD) >90 (>60 ml/min/1.73 sqM); Albumin 2.8 g/dL (3.5-5.0); Alkaline Phosphatase 60 U/L (38-126); Anion Gap 6 mmol/L; Blood Urea Nitrogen 8 mg/dL (7-17); Calcium 7.9 mg/dL (8.4-10.2); Carbon Dioxide 30 mmol/L (22-30); Chloride 96 mmol/L (98-107); Glucose 86 mg/dL (74-99); Non-African American GFR(CKD) >90 (>60 ml/min/1.73 sqM); Potassium 3.9 mmol/L (3.5-5.1); Sodium 132 mmol/L (137-145); Total Bilirubin 0.5 mg/dL (0.2-1.3); Total Protein 5.6 g/dL (6.3-8.2)
[2020-04-07] MEDS: MORPHINE SULFATE 2 MG/ML SYRINGE IVP PRN (09:23)
[2020-04-07] MEDS: LORATADINE 10 MG TAB PO SCH (10:56)
--- NOTE | 2020-04-07 11:30 | P.PN ---
Subjective Progress Note Date: 04/07/20 (delayed charting seen at 0930) Principal diagnosis: abdominal pain Patient is an 84 yo CF with HLD, osteoprosis, and back fractures who presented to the emergancy department [facility] abdominal pain and nausea. In the emergency department she underwent an extensive evaluation. She was found to have a wbd 13.9, sodium of 130, ast/alt were normal. She underwent a CT abdomen and pelvis which showed a dilated gallbladder consistent with cholecystitis. Gallbladder ultrasound showed abnormal appearance of the gallbladder and course hepatic echotexture with mildly dilated pancreatic duct. She was admitted for further monitoring. She was started on ABX, antiemetics, and pain medications. Surgery was consulted and she underwent a diagnostic laproscopy which was converted to an open maury with ELTON drain placement on 04/03/2020. She tolerated the procedure well. Infectious disease was consulted and recommended unasyn. She continued to progress well. She was passing flatus on 04/05. On the morning of 04/06 her flatus had decreased and she was having nausea and vomiting. She was started on reglan and her diet was decreased to ice chips. x-ray confirmed post-op ileus. Patient seen and examined at bedside. Coughing more today and able to cough of dark colored sputum, was having some nausea with coughing but none at baseline, no additional vomiting overnight. Abdominal pain is well controlled but she is complaining of some pain on her left side. She is still not passing any gas and has not had a bowel movement. We will stop her external catheter today, I have encouraged her to get up to go to the bathroom continue to move to help with her ileus. She does not want to get out of bed. I told her that if she wants to go home with home health and not to rehab she will need to work with therapy and get out of bed multiple times a day. Objective - Vital Signs Vital signs: Vital Signs Temp 97.9 F 04/07/20 07:05 Pulse 101 H 04/07/20 07:05 Resp 16 04/07/20 07:05 BP 166/80 04/07/20 07:05 Pulse Ox 95 04/07/20 07:05 Intake & Output 04/06/20 04/07/20 04/07/20 18:59 06:59 18:59 Intake Total 100 450 Output Total 100 400 330 Balance 0 50 -330 Weight 64.8 kg Intake: Intake, IV Titration 250 Amount Sodium Chloride 0.9% 1, 250 000 ml @ 125 mls/hr IV . Q8H [facility] Rx#:[id number] Oral 100 200 Output: Drainage 100 50 30 Abdomen 100 50 30 Urine 350 300 Other: Voiding Method Diaper # Voids 3 1 # Emeses 2 - Exam General: ill appearing, mild distress due to nausea, appears at stated age Derm: warm, dry Head: atraumatic, normocephalic, symmetric Eyes: EOMI, no lid lag, anicteric sclera Mouth: lips crusted and dry, mucus membranes dry Cardiovascular: S1S2 tachy, no murmur, positive posterior tibial pulse bilateral, Lungs: Decreased bs bilateral, no rhonchi, no rales , no accessory muscle use Abdominal: soft, +tender to palpation diffusely, no guarding, no appreciable organomegaly Ext: no gross muscle atrophy, no edema, no contractures Neuro: CN II-XI grossly intact, no focal neuro deficits Psych: Alert, oriented, appropriate affect - Labs CBC & Chem 7: 04/07/20 08:15 04/07/20 08:15 Labs: Abnormal Lab Results - Last 24 Hours (Table) 04/07/20 04/07/20 Range/Units 08:15 08:15 RBC 3.20 L (3.80-5.40) m/uL Hgb 10.3 L (11.4-16.0) gm/dL Hct 32.2 L (34.0-46.0) % MCV 100.6 H (80.0-100.0) fL Sodium 132 L (137-145) mmol/L Chloride 96 L (98-107) mmol/L Creatinine 0.36 L (0.52-1.04) mg/dL Calcium 7.9 L (8.4-10.2) mg/dL AST 44 H (14-36) U/L Total Protein 5.6 L (6.3-8.2) g/dL Albumin 2.8 L (3.5-5.0) g/dL Assessment and Plan Assessment: Acute gangrenous cholecystitis s/p Open maury on 04/03/2020 - Unasyn - surgery recs appreciated - back to ice chips on 04/06 - ID recs: Unasyn, orals once ileus resolved - pain control - antiemetics, reglan started 04/06 - Pathology with necrotic gallbladder Post op ileus - patient with hx of chronic constipation - NS at 125 - ice chips - zofran and reglan Hyponatremia, stable and appears chronicwith baseline 133, improved - IVF fluids - repeat in AM Acute blood loss anemia - due to surgical procedure and anticipated - now improving - will no longer follow unless clinical change - B12 and folate elevated HLD - stain on hold - plan on resume on discharge Osteoprosis with hx of compression fractures - pain control Hypokalemia, resolved Acidosis, suspect metabolic and non anion gap, resolved DVT prophylaxis: Heparin Discussed with: patient, nursing Anticipated discharge: 2-[address]: home health A total of 25 minutes was spent on the care of this complex patient more than 50% of the time was spent in counseling and care coordination.
[2020-04-07] MEDS: HYDROcodone/APAP 5-325MG 1 EACH TAB PO PRN ×3 (12:47→21:19)
--- NOTE | 2020-04-07 12:58 | P.PN ---
Subjective Progress Note Date: 04/07/20 Principal diagnosis: Acute cholecystitis This is an 84-year-old female patient admitted through emergency department on 04/01/2020 and the patient was taken to the operating room for an open cholecystectomy and this was done and completed and following that the patient was kept on a mechanical ventilator and was extubated in the recovery area. The patient came in to the ICU for further monitoring. Was seen in consultation yesterday. She has osteoporosis and compression fracture of the vertebral spine and history of hyperlipidemia. She was receiving lactated Ringer at the rate of 100 mL an hour and she was in oxygen at 3 L per minute nasal cannula. The patient is producing adequate amount of urine output. Pain is under adequate control for now. The white cell count was nonelevated. The liver function tests are all within normal limits. Amylase and lipase also within normal limits. The patient is currently receiving IV Unasyn as an empiric antibiotic coverage. On today's evaluation of 04/04/2020, the patient is calm and comfortable and the patient has no specific complaints. She has an adequate reading at the rate of 100 mL an hour. ELTON drain has drained approximately 150 serosanguineous material. Incision is dry clean and intact. She is awake and alert and she is communicating. No other significant events overnight. The patient is seen today 04/05/2020 in follow-up on the regular medical floor. She is currently resting comfortably in bed. Awake and alert in no acute distress. She is maintaining O2 saturations in the 90s on 2 L/m per nasal cannula. She's been afebrile. Hemodynamically stable. White count 8.0. Hemoglobin 9.4. Sodium 131. Potassium 3.4. Creatinine 0.36. She remains on Unasyn. Heparin for DVT prophylaxis. Abdominal dressing dry and intact. ELTON drain remains in place. Tolerating her diet. Needs increased encouragement regarding the use of the incentive spirometer. On 04/06/2020 patient is seen in follow-up on general medical floor. She is sitting up in the chair, has an emesis basin in her lab, she has been nauseous and she has vomited a few times. Her abdomen is slightly more distended on today's exam, it is soft, nontender but hypoactive bowel sounds are present. Incisions are clean dry and intact, ELTON drain with small amount of serous output, no fever or chills, denies any pulmonary complaints, no shortness of breath, lung sounds are clear, she has been receiving ice chips only. We obtained a KUB of the abdomen, which showed distended small bowel with air-fluid levels seen which may reflect postoperative ileus. We ordered the NG tube to be inserted to low intermittent suction. Maintain nothing by mouth status for now. Services are following, patient is on Reglan. Has not passed any gas yet. On 04/07/2020 patient is seen on general medical floor, she is sitting up in the chair, she never required NG tube placement yesterday as her nausea did improve with IV Reglan, today she states she has not passed any gas, but her bowel sounds are more active on today's exam, her abdomen is nontender, surgical incisions clean dry and intact, ELTON drain on the right side of the abdomen is but not minimal amount of seros output. Patient remains on ice chips and popsicles only at this time. Denies any difficulty breathing, lung sounds are clear to auscultation, she is trying to work with her incentive spirometer. Overall patient is generally weak, and possibly will require rehab placement after discharge. Objective - Vital Signs Vital signs: Vital Signs Temp 97.9 F 04/07/20 07:05 Pulse 101 H 04/07/20 07:05 Resp 16 04/07/20 07:05 BP 166/80 04/07/20 07:05 Pulse Ox 95 04/07/20 07:05 Intake & Output 04/06/20 04/07/20 04/07/20 18:59 06:59 18:59 Intake Total 100 450 Output Total 100 400 330 Balance 0 50 -330 Weight 64.8 kg Intake: Intake, IV Titration 250 Amount Sodium Chloride 0.9% 1, 250 000 ml @ 125 mls/hr IV . Q8H [facility] Rx#:[id number] Oral 100 200 Output: Drainage 100 50 30 Abdomen 100 50 30 Urine 350 300 Other: Voiding Method Diaper # Voids 3 1 # Emeses 2 - Exam GENERAL EXAM: Alert, very pleasant, 84-year-old white female on 2 L of oxygen with a pulse ox of 93-96%, sitting up in the recliner, denies any nausea or vomiting on today's exam comfortable in no apparent distress. HEAD: Normocephalic/atraumatic. EYES: Normal reaction of pupils, equal size. Conjunctiva pink, sclera white. NOSE: Clear with pink turbinates. THROAT: No erythema or exudates. NECK: No masses, no JVD, no thyroid enlargement, no adenopathy. CHEST: No chest wall deformity. Symmetrical expansion. LUNGS: Equal air entry with no crackles, wheeze, rhonchi or dullness. CVS: Regular rate and rhythm, normal S1 and S2, no gallops, no murmurs, no rubs ABDOMEN: Soft, somewhat distended but nontender. No hepatosplenomegaly, no guarding or rigidity. More active bowel sounds present on today's exam. Abdominal incisions are clean dry and intact, covered with surgical dressings, right abdominal ELTON drain is compressed and draining with small amount of serous drainage EXTREMITIES: No clubbing, no edema, no cyanosis, 2+ pulses and upper and lower extremities. MUSCULOSKELETAL: Muscle strength and tone normal. SPINE: No scoliosis or deformity SKIN: No rashes CENTRAL NERVOUS SYSTEM: Alert and oriented -3. No focal deficits, tone is normal in all 4 extremities. PSYCHIATRIC: Alert and oriented -3. Appropriate affect. Intact judgment and insight. - Labs CBC & Chem 7: 04/07/20 08:15 04/07/20 08:15 Labs: Abnormal Lab Results - Last 24 Hours (Table) 04/07/20 04/07/20 Range/Units 08:15 08:15 RBC 3.20 L (3.80-5.40) m/uL Hgb 10.3 L (11.4-16.0) gm/dL Hct 32.2 L (34.0-46.0) % MCV 100.6 H (80.0-100.0) fL Sodium 132 L (137-145) mmol/L Chloride 96 L (98-107) mmol/L Creatinine 0.36 L (0.52-1.04) mg/dL Calcium 7.9 L (8.4-10.2) mg/dL AST 44 H (14-36) U/L Total Protein 5.6 L (6.3-8.2) g/dL Albumin 2.8 L (3.5-5.0) g/dL Assessment and Plan Plan: Assessment: #1. Acute gangrenous cholecystitis, status post open cholecystectomy, postoperative day 4 #2. Nausea and vomiting, related to acute ileus, improved with conservative treatment, IV Reglan, patient did not require NG tube placement #3. Mild hyponatremia, likely hypovolemic #4. Chronic degenerative arthritis #5. History of osteoporosis Plan: Continue current medical treatment, nausea and vomiting have improved, no difficulty breathing, encouraging deep breathing and coughing, surgery recommendations for diet. Vital signs are stable, no acute events overnight. I performed a history & physical examination of the patient and discussed their management with my nurse practitioner, Geetha Wheatley. I reviewed the nurse practitioner's note and agree with the documented findings and plan of care. Lung sounds are positive for clear breath sounds. The findings and the impression was discussed with the patient. I attest to the documentation by the nurse practitioner. Time with Patient: Less than 30
[2020-04-07] MEDS ORDERED: NA PHOS,M-B/NA PHOS,DI-BA 133 ML ENEMA RECTAL STA (13:14)
--- NOTE | 2020-04-07 15:08 | P.PN ---
Subjective Progress Note Date: 04/07/20 CHIEF COMPLAINT: Cholecystitis HISTORY OF PRESENT ILLNESS: Patient is status post open cholecystectomy secondary to acute gangrenous cholecystitis. Postop day #4. Patient examined at the bedside with Dr. España. Patient states her pain is tolerable at this time. Patient without nausea today or further episodes of vomiting. She denies passing flatus. PHYSICAL EXAM: VITAL SIGNS: Reviewed. GENERAL: Well-developed in no acute distress. HEENT: No sclera icterus. Extraocular movements grossly intact. Moist buccal mucosa. Head is atraumatic, normocephalic. ABDOMEN: Soft. Nondistended. Dressing clean dry and intact. ELTON drain s erosanguineous. NEUROLOGIC: Alert and oriented. Cranial nerves II through XII grossly intact. ASSESSMENT: 1. Acute gangrenous cholecystitis 2. Postoperative ileus PLAN: -Monitor ELTON drain output -Activity as tolerated -Incentive spirometer -Continue antibiotics. Monitor WBC -Begin clear liquid diet. Await bowel function before advancing diet further. -Continue Reglan -Dr. España reports patient had moderate stool burden noted in OR. Fleets enema x 1 now Nurse practitioner note has been reviewed by physician. Signing provider agrees with the documented findings, assessment, and plan of care. Objective - Vital Signs Vital signs: Vital Signs Temp 97.9 F 04/07/20 07:05 Pulse 101 H 04/07/20 07:05 Resp 16 04/07/20 07:05 BP 166/80 04/07/20 07:05 Pulse Ox 95 04/07/20 07:05 Intake & Output 04/06/20 04/07/20 04/07/20 18:59 06:59 18:59 Intake Total 100 450 Output Total 100 400 330 Balance 0 50 -330 Weight 64.8 kg Intake: Intake, IV Titration 250 Amount Sodium Chloride 0.9% 1, 250 000 ml @ 125 mls/hr IV . Q8H [facility] Rx#:[id number] Oral 100 200 Output: Drainage 100 50 30 Abdomen 100 50 30 Urine 350 300 Other: Voiding Method Diaper # Voids 3 1 # Emeses 2 - Labs CBC & Chem 7: 04/07/20 08:15 04/07/20 08:15 Labs: Abnormal Lab Results - Last 24 Hours (Table) 04/07/20 04/07/20 Range/Units 08:15 08:15 RBC 3.20 L (3.80-5.40) m/uL Hgb 10.3 L (11.4-16.0) gm/dL Hct 32.2 L (34.0-46.0) % MCV 100.6 H (80.0-100.0) fL Sodium 132 L (137-145) mmol/L Chloride 96 L (98-107) mmol/L Creatinine 0.36 L (0.52-1.04) mg/dL Calcium 7.9 L (8.4-10.2) mg/dL AST 44 H (14-36) U/L Total Protein 5.6 L (6.3-8.2) g/dL Albumin 2.8 L (3.5-5.0) g/dL
--- NOTE | 2020-04-07 16:28 | CDI ---
Documentation Clarification Form Date: 04/07/2020 03:47:06 PM From: Mariann Griffin RN CCDS Admit Date: 04/01/2020 09:16:00 AM Patient Name: Tonja Greenberg Visit Number: [id number] Discharge Date: ATTENTION: The Clinical Documentation Specialists (CDI) and [facility] Coding Staff appreciate your assistance in clarifying documentation. Please respond to the clarification below the line at the bottom and electronically sign. The CDI & [facility] Coding staff will review the response and follow-up if needed. Please note: Queries are made part of the Legal Health Record. If you have any questions, please contact the author of this message via ITS. Dr. Messi España Postoperative Ileus is documented in the Surgical Progress Note 04/06 Patients Admitting Diagnosis: Cholecystitis Post-Operative Diagnosis: Acute gangrenous cholecystitis Procedure performed: Diagnostic Laparoscopy converted to open Cholecystectomy. History/Risk Factors:84-year-old female presents to the ED with abdominal and back pain. Medical History HLD, Back fractures, Clinical Indicators: Surgical Progress Note: 04/06 Patient with nausea and a couple episodes of bilious emesis today. Abd Pelvis 04/06: Distended small bowel with air-fluid level seen may reflect postoperative ileus. Treatment: 04/06 downgrade diet to ice chips, popsicles, and sips of clear liquids, Reglan Iv Q 6 hours. In order to accurately reflect this patients severity of illness, please clarify if the Ileus: -is a complication of surgical procedure -is an expected outcome of the surgical procedure -is related to co-morbid condition(s) of -Other please specify -Unable to determine (Last Revision: December 2019) MTDD
--- NOTE | 2020-04-07 18:01 | PN ---
PROGRESS NOTE DATE OF SERVICE: 04/07/2020 REASON FOR FOLLOWUP: Acute gangrenous cholecystitis. INTERVAL HISTORY: The patient is currently afebrile. The patient is breathing comfortably. Still complaining of some discomfort in the right upper quadrant area, but no worsening. No chest pain, shortness of breath or cough. PHYSICAL EXAMINATION: Blood pressure 115/70 with a pulse 100, temperature 98.3. She is 94% on 2 L nasal cannula. General description is an elderly female up in the chair in no distress. RESPIRATORY SYSTEM: Unlabored breathing. Clear to auscultation anteriorly. HEART: S1, S2. Regular rate and rhythm. ABDOMEN: Soft. Mildly distended. No guarding or rigidity. LABS: Hemoglobin is 10.3, white count 7.8, creatinine 0.36. DIAGNOSTIC IMPRESSION AND PLAN: Patient with acute gangrenous cholecystitis, status post open cholecystectomy. Patient is covered with Unasyn; to continue. Finish therapy with oral Augmentin on discharge. Continue with supportive care. MMODL / IJN: [id number] /
[2020-04-08] MEDS: HYDROcodone/APAP 5-325MG 1 EACH TAB PO PRN ×5 (02:20→21:49)
[2020-04-08] MEDS: METOCLOPRAMIDE 5 MG/ML 2 ML VIAL IVP SCH ×3 (05:43→17:21)
[2020-04-08] MEDS: AMPICILLIN-SULBACTAM 3 GM in SODIUM CHLORIDE 0.9% 100 ML IVPB SCH ×3 (05:43→17:21)
[2020-04-08] MEDS: SODIUM CHLORIDE 0.9% 1,000 ML IV SCH ×3 (05:56→20:27)
[2020-04-08] MEDS: FAMOTIDINE 20 MG TAB PO SCH ×2 (08:21→20:24)
[2020-04-08] MEDS: DOCUSATE 100 MG CAP PO SCH ×2 (08:21→20:24)
[2020-04-08] MEDS: HEPARIN SODIUM,PORCINE 5,000 UNIT/ML 1 ML VIAL SQ SCH ×2 (08:21→20:24)
[2020-04-08] MEDS: LORATADINE 10 MG TAB PO SCH (08:21)
[2020-04-08 09:54] LABS: African American GFR (CKD) >90 (>60 ml/min/1.73 sqM); Anion Gap 6 mmol/L; Blood Urea Nitrogen 4 mg/dL (7-17); Carbon Dioxide 30 mmol/L (22-30); Chloride 98 mmol/L (98-107); Glucose 123 mg/dL (74-99); Non-African American GFR(CKD) >90 (>60 ml/min/1.73 sqM); Potassium 3.5 mmol/L (3.5-5.1); Sodium 134 mmol/L (137-145)
--- NOTE | 2020-04-08 11:34 | P.PN ---
Subjective Progress Note Date: 04/08/20 Principal diagnosis: Acute cholecystitis This is an 84-year-old female patient admitted through emergency department on 04/01/2020 and the patient was taken to the operating room for an open cholecystectomy and this was done and completed and following that the patient was kept on a mechanical ventilator and was extubated in the recovery area. The patient came in to the ICU for further monitoring. Was seen in consultation yesterday. She has osteoporosis and compression fracture of the vertebral spine and history of hyperlipidemia. She was receiving lactated Ringer at the rate of 100 mL an hour and she was in oxygen at 3 L per minute nasal cannula. The patient is producing adequate amount of urine output. Pain is under adequate control for now. The white cell count was nonelevated. The liver function tests are all within normal limits. Amylase and lipase also within normal limits. The patient is currently receiving IV Unasyn as an empiric antibiotic coverage. On today's evaluation of 04/04/2020, the patient is calm and comfortable and the patient has no specific complaints. She has an adequate reading at the rate of 100 mL an hour. ELTON drain has drained approximately 150 serosanguineous material. Incision is dry clean and intact. She is awake and alert and she is communicating. No other significant events overnight. The patient is seen today 04/05/2020 in follow-up on the regular medical floor. She is currently resting comfortably in bed. Awake and alert in no acute distress. She is maintaining O2 saturations in the 90s on 2 L/m per nasal cannula. She's been afebrile. Hemodynamically stable. White count 8.0. Hemoglobin 9.4. Sodium 131. Potassium 3.4. Creatinine 0.36. She remains on Unasyn. Heparin for DVT prophylaxis. Abdominal dressing dry and intact. ELTON drain remains in place. Tolerating her diet. Needs increased encouragement regarding the use of the incentive spirometer. On 04/06/2020 patient is seen in follow-up on general medical floor. She is sitting up in the chair, has an emesis basin in her lab, she has been nauseous and she has vomited a few times. Her abdomen is slightly more distended on today's exam, it is soft, nontender but hypoactive bowel sounds are present. Incisions are clean dry and intact, ELTON drain with small amount of serous output, no fever or chills, denies any pulmonary complaints, no shortness of breath, lung sounds are clear, she has been receiving ice chips only. We obtained a KUB of the abdomen, which showed distended small bowel with air-fluid levels seen which may reflect postoperative ileus. We ordered the NG tube to be inserted to low intermittent suction. Maintain nothing by mouth status for now. Services are following, patient is on Reglan. Has not passed any gas yet. On 04/07/2020 patient is seen on general medical floor, she is sitting up in the chair, she never required NG tube placement yesterday as her nausea did improve with IV Reglan, today she states she has not passed any gas, but her bowel sounds are more active on today's exam, her abdomen is nontender, surgical incisions clean dry and intact, ELTON drain on the right side of the abdomen is but not minimal amount of seros output. Patient remains on ice chips and popsicles only at this time. Denies any difficulty breathing, lung sounds are clear to auscultation, she is trying to work with her incentive spirometer. Overall patient is generally weak, and possibly will require rehab placement after discharge. The patient is seen today 04/08/2020 in follow-up on the regular medical floor. She is currently sitting up in a chair at the bedside. Awake and alert in no acute distress. Maintaining good O2 saturation in the mid 90s on 2 L/m per nasal cannula. She's been afebrile. Sodium 134. Potassium 3.5. Chloride 98. Bicarb 30. Creatinine 0.32. She remains on Unasyn. Continued on Reglan. She did have a bowel movement. Surgical site rover tender. ELTON drain remains in place. Dressing dry and intact. Remains on a clear liquid diet. Objective - Vital Signs Vital signs: Vital Signs Temp 98.3 F 04/08/20 07:00 Pulse 101 H 04/08/20 08:00 Resp 18 04/08/20 08:00 BP 151/77 04/08/20 07:00 Pulse Ox 95 04/08/20 07:00 Intake & Output 04/07/20 04/08/20 04/08/20 18:59 06:59 18:59 Intake Total 100 Output Total 370 360 410 Balance -370 -360 -310 Intake: Oral 100 Output: Drainage 70 60 110 Abdomen 70 60 110 Urine 300 300 300 Other: Voiding Method Diaper Diaper # Voids 1 3 1 # Bowel Movements 1 1 - Exam Very pleasant 84-year-old female patient, on 2 L nasal cannula, appeared well nourished and normally developed. Vital signs as documented. Head exam is unremarkable. No scleral icterus or corneal arcus noted. Neck is without jugular venous distension, thyromegaly, or carotid bruits. Carotid upstrokes are brisk bilaterally. Lungs are clear to auscultation and percussion. Cardiac exam reveals the PMI to be normally sized and situated. Rhythm is regular. First and second heart sounds normal. No murmurs, rubs or gallops. Abdominal exam reveals normal bowel sounds, no masses, no organomegaly and no aortic enlargement. Examination of the skin shows a intact dry surgical wound site, ELTON drain in place in the right upper quadrant area. Extremities are nonedematous and both femoral and pedal pulses are normal.Examination of the skin revealed no evidence of significant rashes, suspicious appearing nevi or other concerning lesions. Neurologically the patient is awake and alert and there is no focal neurological deficit at this point in time. - Labs CBC & Chem 7: 04/07/20 08:15 04/08/20 08:38 Labs: Abnormal Lab Results - Last 24 Hours (Table) 04/08/20 Range/Units 08:38 Sodium 134 L (137-145) mmol/L BUN 4 L (7-17) mg/dL Creatinine 0.32 L (0.52-1.04) mg/dL Glucose 123 H (74-99) mg/dL Calcium 8.0 L (8.4-10.2) mg/dL Assessment and Plan Assessment: 1 acute gangrenous cholecystitis. The patient is post open cholecystectomy. H emodynamically stable, currently on IV Unasyn. ELTON drain remains in place. 2 osteoporosis and previous history of compression fracture of the spine 3 chronic degenerative arthritis 4 remote history of rheumatic fever 5 hyperlipidemia 6 non-anion gap metabolic acidosis Plan The patient was seen and evaluated by Dr. Guthrie Encouraged regarding increased use the incentive spirometer and cough and deep breathing exercises Increase her activity as tolerated Tolerating a clear liquid diet Remains on Unasyn We'll continue to follow I, the cosigning physician, performed a history & physical examination of the patient. Lungs sounds are clear. Maintaining good O2 saturations in the 90s on 2 L/m per nasal cannula. I discussed the assessment and plan of care with my nurse practitioner, Tracy Moffett. I attest to the above note as dictated by her.
--- NOTE | 2020-04-08 13:19 | P.PN ---
Subjective Progress Note Date: 04/08/20 Principal diagnosis: Gangrenous cholecystitis postcholecystectomy Patient was seen and examined. No acute events overnight. Tolerating clear liquid diet well. She denies any nausea. She does complain of chronic lower back pain, attributes that to sitting in a chair for prolonged period of time. She denies any chest pain, shortness of breath or palpitations. No fever or c hills. Abdominal pain well-controlled. ELTON drain output 75 mL serosanguineous fluid. Patient reports bowel movements yesterday after enema, passing gas currently, small bowel movement this morning. Objective - Vital Signs Vital signs: Vital Signs Temp 98.3 F 04/08/20 07:00 Pulse 101 H 04/08/20 08:00 Resp 18 04/08/20 08:00 BP 151/77 04/08/20 07:00 Pulse Ox 95 04/08/20 07:00 Intake & Output 04/07/20 04/08/20 04/08/20 18:59 06:59 18:59 Intake Total 200 Output Total 370 360 410 Balance -370 -360 -210 Intake: Oral 200 Output: Drainage 70 60 110 Abdomen 70 60 110 Urine 300 300 300 Other: Voiding Method Diaper Diaper # Voids 1 3 1 # Bowel Movements 1 1 - Exam General: [Ill-appearing], [no distress], [appears at stated age] Derm: [warm], [dry] Head: [atraumatic], [normocephalic], [symmetric] Eyes: [EOMI], [no lid lag], [anicteric sclera] Mouth: [no lip lesion], [mucus membranes moist] Cardiovascular: [S1S2 reg], [no murmur], [positive posterior tibial pulse bilateral], Lungs: [Decreased breath sounds bilateral], [no rhonchi, no rales] , [no accessory muscle use] Abdominal: [soft], [mild tenderness to palpation without rebound in all 4 quadrants], [no guarding], [no appreciable organomegaly], [ELTON drain intact with abdominal binder] Ext: [no gross muscle atrophy], [no edema], [no contractures] Neuro: [no focal neuro deficits] Psych: [Alert], [oriented], [appropriate affect] - Labs CBC & Chem 7: 04/07/20 08:15 04/08/20 08:38 Labs: Abnormal Lab Results - Last 24 Hours (Table) 04/08/20 Range/Units 08:38 Sodium 134 L (137-145) mmol/L BUN 4 L (7-17) mg/dL Creatinine 0.32 L (0.52-1.04) mg/dL Glucose 123 H (74-99) mg/dL Calcium 8.0 L (8.4-10.2) mg/dL Assessment and Plan Assessment: Acute gangrenous cholecystitis s/p Open maury on 04/03/2020 - Unasyn - surgery recs appreciated - Tolerating CLD on 04/08, plans to transition to full liquid diet tonight, discussed with surgery team - ID recs: Unasyn, orals once ileus resolved - pain control - antiemetics, reglan started 04/06 - Pathology with necrotic gallbladder Post op ileus - patient with hx of chronic constipation - NS at 125 - ice chips - zofran and reglan Hyponatremia, stable and appears chronicwith baseline 133, improved - IVF fluids - repeat in AM Acute blood loss anemia - due to surgical procedure and anticipated - now improving - will no longer follow unless clinical change - B12 and folate elevated HLD - stain on hold - plan on resume on discharge Osteoprosis with hx of compression fractures - pain control Hypokalemia, resolved Acidosis, suspect metabolic and non anion gap, resolved [She is POD 5. Passing gas now. No more vomiting. Pain better controlled. Plans to transition from clear liquid to full liquid diet. Discussed with surgery, continue to monitor progression, plans for DC Saturday or Saturday.]
--- NOTE | 2020-04-08 14:20 | P.PN ---
Subjective Progress Note Date: 04/08/20 CHIEF COMPLAINT: Cholecystitis HISTORY OF PRESENT ILLNESS: Patient is status post open cholecystectomy secondary to acute gangrenous cholecystitis. Postop day #5. Patient examined at the bedside with Dr. España. Patient states her pain is tolerable at this time. Patient is tolerating clear liquid diet. Denies nausea or vomiting. She is passing flatus reports a small bowel movement. PHYSICAL EXAM: VITAL SIGNS: Reviewed. GENERAL: Well-developed in no acute distress. HEENT: No sclera icterus. Extraocular movements grossly intact. Moist buccal mucosa. Head is atraumatic, normocephalic. ABDOMEN: Soft. Nondistended. Dressing clean dry and intact. ELTON drain serosanguineous. NEUROLOGIC: Alert and oriented. Cranial nerves II through XII grossly intact. ASSESSMENT: 1. Acute gangrenous cholecystitis 2. Postoperative ileus, resolving PLAN: -Monitor ELTON drain output -Activity as tolerated -Incentive spirometer -Continue antibiotics. Monitor WBC -Advance diet to full liquids -Continue Reglan Nurse practitioner note has been reviewed by physician. Signing provider agrees with the documented findings, assessment, and plan of care. Objective - Vital Signs Vital signs: Vital Signs Temp 98.3 F 04/08/20 07:00 Pulse 101 H 04/08/20 08:00 Resp 18 04/08/20 08:00 BP 151/77 04/08/20 07:00 Pulse Ox 95 04/08/20 07:00 Intake & Output 04/07/20 04/08/20 04/08/20 18:59 06:59 18:59 Intake Total 200 Output Total 370 360 410 Balance -370 -360 -210 Weight 64.8 kg Intake: Oral 200 Output: Drainage 70 60 110 Abdomen 70 60 110 Urine 300 300 300 Other: Voiding Method Diaper Diaper # Voids 1 3 1 # Bowel Movements 1 1 - Labs CBC & Chem 7: 04/07/20 08:15 04/08/20 08:38 Labs: Abnormal Lab Results - Last 24 Hours (Table) 04/08/20 Range/Units 08:38 Sodium 134 L (137-145) mmol/L BUN 4 L (7-17) mg/dL Creatinine 0.32 L (0.52-1.04) mg/dL Glucose 123 H (74-99) mg/dL Calcium 8.0 L (8.4-10.2) mg/dL
[2020-04-08] MEDS: POTASSIUM CHLORIDE ER 20 MEQ TAB.ER PO SCH ×2 (15:42→16:48)
--- NOTE | 2020-04-08 23:12 | PN ---
PROGRESS NOTE DATE OF SERVICE: 04/08/2020 REASON FOR FOLLOWUP: Acute gangrenous cholecystitis. INTERVAL HISTORY: The patient is currently afebrile, breathing comfortably. Denies having any chest pain or shortness of breath or cough. Right upper quadrant pain is improved. Tolerating her diet. No vomiting and no diarrhea. PHYSICAL EXAMINATION: Blood pressure is 133/75 with a pulse of 90, temperature of 98.2. She is 97% on 2 L nasal cannula. General description is an elderly female lying in bed in no distress. RESPIRATORY SYSTEM: Unlabored breathing. Clear to auscultation anteriorly. HEART: S1, S2. Regular rate and rhythm. ABDOMEN: Soft. No tenderness. LABS: BUN of 4, creatinine 0.32. DIAGNOSTIC IMPRESSION AND PLAN: Patient with acute gangrenous cholecystitis. Patient is covered with Unasyn; to continue and monitor clinical course closely. Finish therapy with oral antibiotics. Continue supportive care. MMODL / IJN: [id number] /
[2020-04-09] MEDS: AMPICILLIN-SULBACTAM 3 GM in SODIUM CHLORIDE 0.9% 100 ML IVPB SCH ×4 (00:12→17:21)
[2020-04-09] MEDS: METOCLOPRAMIDE 5 MG/ML 2 ML VIAL IVP SCH ×4 (00:13→16:43)
[2020-04-09] MEDS: POTASSIUM CHLORIDE ER 20 MEQ TAB.ER PO SCH ×2 (03:20→04:40)
[2020-04-09] MEDS: SODIUM CHLORIDE 0.9% 1,000 ML IV SCH (05:48)
[2020-04-09 08:14] LABS: Basophils % (A) 0 %; Eosinophils # (A) 0.2 k/uL (0-0.7); Eosinophils % (A) 3 %; HCT 30.2 % (34.0-46.0); HGB 9.4 gm/dL (11.4-16.0); Lymphocytes # (A) 0.8 k/uL (1.0-4.8); Lymphocytes % (A) 11 %; MCH 31.4 pg (25.0-35.0); MCHC 31.1 g/dL (31.0-37.0); MCV 100.9 fL (80.0-100.0); Mean Platelet Volume 6.9; Monocytes # (A) 0.6 k/uL (0-1.0); Monocytes % (A) 8 %; Neutrophils # (A) 5.5 k/uL (1.3-7.7); Neutrophils % (A) 76 %; Platelet Count 304 k/uL (150-450); RBC 2.99 m/uL (3.80-5.40); RDW 12.7 % (11.5-15.5); WBC 7.2 k/uL (3.8-10.6)
[2020-04-09 08:41] LABS: ALT 18 U/L (4-34); AST 52 U/L (14-36); African American GFR (CKD) >90 (>60 ml/min/1.73 sqM); Albumin 2.4 g/dL (3.5-5.0); Alkaline Phosphatase 49 U/L (38-126); Anion Gap 4 mmol/L; Blood Urea Nitrogen 4 mg/dL (7-17); Calcium 7.8 mg/dL (8.4-10.2); Carbon Dioxide 32 mmol/L (22-30); Chloride 98 mmol/L (98-107); Glucose 81 mg/dL (74-99); Non-African American GFR(CKD) >90 (>60 ml/min/1.73 sqM); Sodium 134 mmol/L (137-145); Total Bilirubin 0.3 mg/dL (0.2-1.3); Total Protein 4.7 g/dL (6.3-8.2)
[2020-04-09] MEDS: LORATADINE 10 MG TAB PO SCH (08:46)
[2020-04-09] MEDS: DOCUSATE 100 MG CAP PO SCH ×2 (08:46→21:36)
[2020-04-09] MEDS: HEPARIN SODIUM,PORCINE 5,000 UNIT/ML 1 ML VIAL SQ SCH ×2 (08:46→21:36)
[2020-04-09] MEDS: FAMOTIDINE 20 MG TAB PO SCH ×2 (08:46→21:36)
[2020-04-09] MEDS: HYDROcodone/APAP 5-325MG 1 EACH TAB PO PRN ×4 (08:47→22:48)
--- NOTE | 2020-04-09 10:59 | P.PN ---
Subjective Progress Note Date: 04/09/20 Principal diagnosis: Acute cholecystitis This is an 84-year-old female patient admitted through emergency department on 04/01/2020 and the patient was taken to the operating room for an open cholecystectomy and this was done and completed and following that the patient was kept on a mechanical ventilator and was extubated in the recovery area. The patient came in to the ICU for further monitoring. Was seen in consultation yesterday. She has osteoporosis and compression fracture of the vertebral spine and history of hyperlipidemia. She was receiving lactated Ringer at the rate of 100 mL an hour and she was in oxygen at 3 L per minute nasal cannula. The patient is producing adequate amount of urine output. Pain is under adequate control for now. The white cell count was nonelevated. The liver function tests are all within normal limits. Amylase and lipase also within normal limits. The patient is currently receiving IV Unasyn as an empiric antibiotic coverage. On today's evaluation of 04/04/2020, the patient is calm and comfortable and the patient has no specific complaints. She has an adequate reading at the rate of 100 mL an hour. ELTON drain has drained approximately 150 serosanguineous material. Incision is dry clean and intact. She is awake and alert and she is communicating. No other significant events overnight. The patient is seen today 04/05/2020 in follow-up on the regular medical floor. She is currently resting comfortably in bed. Awake and alert in no acute distress. She is maintaining O2 saturations in the 90s on 2 L/m per nasal cannula. She's been afebrile. Hemodynamically stable. White count 8.0. Hemoglobin 9.4. Sodium 131. Potassium 3.4. Creatinine 0.36. She remains on Unasyn. Heparin for DVT prophylaxis. Abdominal dressing dry and intact. ELTON drain remains in place. Tolerating her diet. Needs increased encouragement regarding the use of the incentive spirometer. On 04/06/2020 patient is seen in follow-up on general medical floor. She is sitting up in the chair, has an emesis basin in her lab, she has been nauseous and she has vomited a few times. Her abdomen is slightly more distended on today's exam, it is soft, nontender but hypoactive bowel sounds are present. Incisions are clean dry and intact, ELTON drain with small amount of serous output, no fever or chills, denies any pulmonary complaints, no shortness of breath, lung sounds are clear, she has been receiving ice chips only. We obtained a KUB of the abdomen, which showed distended small bowel with air-fluid levels seen which may reflect postoperative ileus. We ordered the NG tube to be inserted to low intermittent suction. Maintain nothing by mouth status for now. Services are following, patient is on Reglan. Has not passed any gas yet. On 04/07/2020 patient is seen on general medical floor, she is sitting up in the chair, she never required NG tube placement yesterday as her nausea did improve with IV Reglan, today she states she has not passed any gas, but her bowel sounds are more active on today's exam, her abdomen is nontender, surgical incisions clean dry and intact, ELTON drain on the right side of the abdomen is but not minimal amount of seros output. Patient remains on ice chips and popsicles only at this time. Denies any difficulty breathing, lung sounds are clear to auscultation, she is trying to work with her incentive spirometer. Overall patient is generally weak, and possibly will require rehab placement after discharge. The patient is seen today 04/08/2020 in follow-up on the regular medical floor. She is currently sitting up in a chair at the bedside. Awake and alert in no acute distress. Maintaining good O2 saturation in the mid 90s on 2 L/m per nasal cannula. She's been afebrile. Sodium 134. Potassium 3.5. Chloride 98. Bicarb 30. Creatinine 0.32. She remains on Unasyn. Continued on Reglan. She did have a bowel movement. 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 ELTON drain remains in place. Dressing dry and intact. Remains on a clear liquid diet. The patient is seen today 04/09/2020 in follow-up on the regular medical floor. She is currently sitting up in bed. Awake and alert in no acute distress. Maintaining O2 saturations in the 90s on 2 L/m per nasal cannula. She's been afebrile. Tolerating her diet. Abdominal discomfort improving. ELTON drain remains. Dressing dry and intact. White count 7.2. Hemoglobin 9.4. Sodium 134. Potassium 4.0. Creatinine 0.36. She remains on Unasyn. Objective - Vital Signs Vital signs: Vital Signs Temp 98.3 F 04/09/20 07:30 Pulse 99 04/09/20 07:30 Resp 16 04/09/20 07:30 BP 173/95 04/09/20 07:30 Pulse Ox 93 L 04/09/20 07:30 Intake & Output 04/08/20 04/09/20 04/09/20 18:59 06:59 18:59 Intake Total 200 1000 Output Total 410 280 Balance -210 720 Weight 64.8 kg Intake: IV 200 Ampicillin-Sulbactam 3 gm 200 In Sodium Chloride 0.9% 100 ml @ 200 mls/hr IVPB Q6HR [facility] Rx#:[id number] Intake, IV Titration 600 Amount Sodium Chloride 0.9% 1, 600 000 ml @ 75 mls/hr IV . [id number] [facility] Rx#:[id number] Oral 200 200 Output: Drainage 110 280 Abdomen 110 280 Urine 300 Stool 0 Other: Voiding Method Diaper # Voids 3 0 # Bowel Movements 1 0 - Exam Very pleasant 84-year-old female patient, on 2 L nasal cannula, appeared well nourished and normally developed. Vital signs as documented. Head exam is unremarkable. No scleral icterus or corneal arcus noted. Neck is without jugular venous distension, thyromegaly, or carotid bruits. Carotid upstrokes are brisk bilaterally. Lungs are clear to auscultation and percussion. Cardiac exam reveals the PMI to be normally sized and situated. Rhythm is regular. First and second heart sounds normal. No murmurs, rubs or gallops. Abdominal exam reveals normal bowel sounds, no masses, no organomegaly and no aortic enlargement. Examination of the skin shows a intact dry surgical wound site, ELTON drain in place in the right upper quadrant area. Extremities are nonedematous and both femoral and pedal pulses are normal.Examination of the skin revealed no evidence of significant rashes, suspicious appearing nevi or other concerning lesions. Neurologically the patient is awake and alert and there is no focal neurological deficit at this point in time. - Labs CBC & Chem 7: 04/09/20 08:05 04/09/20 07:30 Labs: Abnormal Lab Results - Last 24 Hours (Table) 04/08/20 04/09/20 04/09/20 Range/Units 19:03 07:30 08:05 RBC 2.99 L (3.80-5.40) m/uL Hgb 9.4 L (11.4-16.0) gm/dL Hct 30.2 L (34.0-46.0) % MCV 100.9 H (80.0-100.0) fL Lymphocytes # 0.8 L (1.0-4.8) k/uL Sodium 134 L (137-145) mmol/L Potassium 3.3 L (3.5-5.1) mmol/L Carbon Dioxide 32 H (22-30) mmol/L BUN 4 L (7-17) mg/dL Creatinine 0.36 L (0.52-1.04) mg/dL Calcium 7.8 L (8.4-10.2) mg/dL AST 52 H (14-36) U/L Total Protein 4.7 L (6.3-8.2) g/dL Albumin 2.4 L (3.5-5.0) g/dL Assessment and Plan Assessment: 1 acute gangrenous cholecystitis. The patient is status post open cholecystectomy. Currently on IV Unasyn. ELTON drain remains in place. 2 osteoporosis and previous history of compression fracture of the spine 3 chronic degenerative arthritis 4 remote history of rheumatic fever 5 hyperlipidemia 6 non-anion gap metabolic acidosis Plan The patient was seen and evaluated by Dr. Guthrie Increase her activity as tolerated Advance diet per surgical services Remains on Unasyn Continue incentive spirometer hourly while awake We'll continue to follow I, the cosigning physician, performed a history & physical examination of the patient. Lungs sounds are clear. Maintaining good O2 saturations in the 90s on 2 L/m per nasal cannula. I discussed the assessment and plan of care with my nurse practitioner, Tracy Moffett. I attest to the above note as dictated by her.
[2020-04-09] MEDS ORDERED: POTASSIUM CHLORIDE ER 10 MEQ TAB.ER.PRT PO ONE (12:09)
--- NOTE | 2020-04-09 12:22 | P.PN ---
Subjective Progress Note Date: 04/09/20 CHIEF COMPLAINT: Acute cholecystitis HISTORY OF PRESENT ILLNESS: The patient is a 84-year-old female status post cholecystectomy. She is tolerating diet. She complains mostly of back pain as she is sitting up in the chair. No nausea or vomiting. She is tolerating liquid diet. She is pending physical therapy. No bowel movement today. ROS: No reports of nausea and vomiting. No bowel movements. No fevers or chills. No new chest pain. No productive sputum PHYSICAL EXAM: VITAL SIGNS: Reviewed CONSTITUTIONAL: Well developed and in no acute distress. EYES: Conjuctivae without sclera icterus. Extraocular movements grossly intact. HEAD, EARS, NOSE, THROAT: Moist buccal mucosa. Head is atraumatic, normocephalic. Hears conversational speech. No nasal drainage. NECK: Supple. No thyroidomegaly. RESPIRATORY: Non-labored respirations and equal bilateral excursions. CARDIOVASCULAR: Palpable 2+ radial pulses. ABDOMEN: Incisions clean dry and intact. Soft. No peritonitis. MUSCULOSKELETAL: No gross deformity of the lower extremities noted. No clubbing. No cyanosis. SKIN: Good skin turgor. Well perfused. NEUROLOGIC: Cranial nerves II through XII grossly intact. No focal or later alizing signs. PSYCH: Appropriate affect. Alert and oriented to person, place and time. CLINICAL LABS: White blood cell count normal, 7.2. Hgb down from 10.3 to 9.4. Total bilirubin normal 0.3. ASSESSMENT: 1. Acute cholecystitis PLAN: 1. Physical therapy assessment recommended. 2. May need rehab 3. May need bowel regimen Objective - Vital Signs Vital signs: Vital Signs Temp 98.3 F 04/09/20 07:30 Pulse 99 04/09/20 07:30 Resp 18 04/09/20 08:00 BP 173/95 04/09/20 07:30 Pulse Ox 93 L 04/09/20 07:30 Intake & Output 04/08/20 04/09/20 04/09/20 18:59 06:59 18:59 Intake Total 200 1000 Output Total 410 280 30 Balance -210 720 -30 Weight 64.8 kg Intake: IV 200 Ampicillin-Sulbactam 3 gm 200 In Sodium Chloride 0.9% 100 ml @ 200 mls/hr IVPB Q6HR [facility] Rx#:[id number] Intake, IV Titration 600 Amount Sodium Chloride 0.9% 1, 600 000 ml @ 75 mls/hr IV . [id number] [facility] Rx#:[id number] Oral 200 200 Output: Drainage 110 280 30 Abdomen 110 280 30 Urine 300 Stool 0 Other: Voiding Method Diaper Bedside Commode # Voids 3 0 # Bowel Movements 1 0 - Labs CBC & Chem 7: 04/09/20 08:05 04/09/20 07:30 Labs: Abnormal Lab Results - Last 24 Hours (Table) 04/08/20 04/09/20 04/09/20 Range/Units 19:03 07:30 08:05 RBC 2.99 L (3.80-5.40) m/uL Hgb 9.4 L (11.4-16.0) gm/dL Hct 30.2 L (34.0-46.0) % MCV 100.9 H (80.0-100.0) fL Lymphocytes # 0.8 L (1.0-4.8) k/uL Sodium 134 L (137-145) mmol/L Potassium 3.3 L (3.5-5.1) mmol/L Carbon Dioxide 32 H (22-30) mmol/L BUN 4 L (7-17) mg/dL Creatinine 0.36 L (0.52-1.04) mg/dL Calcium 7.8 L (8.4-10.2) mg/dL AST 52 H (14-36) U/L Total Protein 4.7 L (6.3-8.2) g/dL Albumin 2.4 L (3.5-5.0) g/dL Assessment and Plan (1) Acute cholecystitis Current Visit: Yes Status: Acute Code(s): K81.0 - ACUTE CHOLECYSTITIS SNOMED Code(s): 83368790
[2020-04-09] MEDS ORDERED: POTASSIUM CHLORIDE ER 20 MEQ TAB.ER PO STA (15:29)
--- NOTE | 2020-04-09 15:30 | P.PN ---
Subjective Progress Note Date: 04/09/20 Principal diagnosis: Gangrenous cholecystitis postcholecystectomy Patient was seen and examined. No acute events overnight. Tolerating full liquid diet well. She denies any nausea. She does complain of chronic lower back pain, attributes that to sitting in a chair for prolonged period of time, requesting to be moved around. She denies any chest pain, shortness of breath o r palpitations. No fever or chills. Abdominal pain well-controlled as compared to the last couple of days. ELTON drain output 75 mL serosanguineous fluid. Patient reports passing gas. Objective - Vital Signs Vital signs: Vital Signs Temp 98.3 F 04/09/20 07:30 Pulse 99 04/09/20 07:30 Resp 18 04/09/20 08:00 BP 173/95 04/09/20 07:30 Pulse Ox 93 L 04/09/20 07:30 Intake & Output 04/08/20 04/09/20 04/09/20 18:59 06:59 18:59 Intake Total 200 1000 Output Total 410 280 60 Balance -210 720 -60 Weight 64.8 kg Intake: IV 200 Ampicillin-Sulbactam 3 gm 200 In Sodium Chloride 0.9% 100 ml @ 200 mls/hr IVPB Q6HR [facility] Rx#:[id number] Intake, IV Titration 600 Amount Sodium Chloride 0.9% 1, 600 000 ml @ 75 mls/hr IV . [id number] [facility] Rx#:[id number] Oral 200 200 Output: Drainage 110 280 60 Abdomen 110 280 60 Urine 300 Stool 0 Other: Voiding Method Diaper Bedside Commode # Voids 3 0 2 # Bowel Movements 1 0 - Exam General: [Ill-appearing], [no distress], [appears at stated age] Derm: [warm], [dry] Head: [atraumatic], [normocephalic], [symmetric] Eyes: [EOMI], [no lid lag], [anicteric sclera] Mouth: [no lip lesion], [mucus membranes moist] Cardiovascular: [S1S2 reg], [no murmur], [positive posterior tibial pulse bilate ral], Lungs: [Decreased breath sounds bilateral], [no rhonchi, no rales] , [no accessory muscle use] Abdominal: [soft], [mild tenderness to palpation without rebound in all 4 quadrants], [no guarding], [no appreciable organomegaly], [ELTON drain intact with abdominal binder] Ext: [no gross muscle atrophy], [no edema], [no contractures] Neuro: [no focal neuro deficits] Psych: [Alert], [oriented], [appropriate affect] - Labs CBC & Chem 7: 04/09/20 08:05 04/09/20 07:30 Labs: Abnormal Lab Results - Last 24 Hours (Table) 04/08/20 04/09/20 04/09/20 Range/Units 19:03 07:30 08:05 RBC 2.99 L (3.80-5.40) m/uL Hgb 9.4 L (11.4-16.0) gm/dL Hct 30.2 L (34.0-46.0) % MCV 100.9 H (80.0-100.0) fL Lymphocytes # 0.8 L (1.0-4.8) k/uL Sodium 134 L (137-145) mmol/L Potassium 3.3 L (3.5-5.1) mmol/L Carbon Dioxide 32 H (22-30) mmol/L BUN 4 L (7-17) mg/dL Creatinine 0.36 L (0.52-1.04) mg/dL Calcium 7.8 L (8.4-10.2) mg/dL AST 52 H (14-36) U/L Total Protein 4.7 L (6.3-8.2) g/dL Albumin 2.4 L (3.5-5.0) g/dL Assessment and Plan Assessment: Acute gangrenous cholecystitis s/p Open [facility]ury on 04/03/2020 - Unasyn - surgery recs appreciated - Tolerating full liquid diet on 04/09 - ID recs: Unasyn, orals once ileus resolved - pain control - antiemetics, reglan started 04/06 - Pathology with necrotic gallbladder Post op ileus - Resolving with enema - Decrease NS to 75 cc/h - ice chips - zofran and reglan Hyponatremia, stable and appears chronicwith baseline 133, improved - IVF fluids - repeat in AM Acute blood loss anemia - due to surgical procedure and anticipated - now improving - will no longer follow unless clinical change - B12 and folate elevated HLD - stain on hold - plan on resume on discharge Osteoprosis with hx of compression fractures - pain control Hypokalemia, resolved Acidosis, suspect metabolic and non anion gap, resolved [She is POD 6. Passing gas now. No more vomiting. Pain better controlled. Plans to continue full liquid diet. Plans for DC Saturday or Saturday. Will Discuss with daughter Lily.]
--- NOTE | 2020-04-09 21:19 | PN ---
PROGRESS NOTE DATE OF SERVICE: 04/09/2020 REASON FOR FOLLOWUP: Acute gangrenous cholecystitis. INTERVAL HISTORY: The patient is currently afebrile. The patient is breathing comfortably. The patient denies having any chest pain. No shortness of breath or cough. Tolerating her diet. Some discomfort right upper quadrant but improved. PHYSICAL EXAMINATION: Blood pressure 119/59 with a pulse of 87, temperature 98.3. She is 95% on 2 L nasal cannula. GENERAL DESCRIPTION: Elderly female up in the bed in no distress. RESPIRATORY SYSTEM: Unlabored breathing, clear to auscultation anteriorly. HEART S1, S2. Regular rate and rhythm. ABDOMEN: Soft, mildly tender in right upper quadrant area. LABS: White count 7.2. DIAGNOSTIC IMPRESSION AND PLAN: Patient with acute gangrenous cholecystitis. Patient is covered with Unasyn to be continued, transition to oral Augmentin on discharge for a short course once stable from surgical standpoint. Continue supportive care. MMODL / IJN: [id number] /
[2020-04-10] MEDS: AMPICILLIN-SULBACTAM 3 GM in SODIUM CHLORIDE 0.9% 100 ML IVPB SCH ×4 (00:41→17:33)
[2020-04-10] MEDS: METOCLOPRAMIDE 5 MG/ML 2 ML VIAL IVP SCH ×4 (00:43→17:34)
[2020-04-10] MEDS: SODIUM CHLORIDE 0.9% 1,000 ML IV SCH ×2 (00:43→10:09)
[2020-04-10] MEDS: HYDROcodone/APAP 5-325MG 1 EACH TAB PO PRN ×5 (02:51→21:32)
[2020-04-10] MEDS: ONDANSETRON 4 MG/2 ML VIAL IVP PRN (08:03)
[2020-04-10] MEDS: LORATADINE 10 MG TAB PO SCH (08:03)
[2020-04-10] MEDS: HEPARIN SODIUM,PORCINE 5,000 UNIT/ML 1 ML VIAL SQ SCH ×2 (08:03→21:32)
[2020-04-10] MEDS: FAMOTIDINE 20 MG TAB PO SCH ×2 (08:03→21:32)
[2020-04-10] MEDS: DOCUSATE 100 MG CAP PO SCH ×2 (08:03→21:32)
--- NOTE | 2020-04-10 11:14 | P.PN ---
Subjective Progress Note Date: 04/10/20 Principal diagnosis: Acute cholecystitis This is an 84-year-old female patient admitted through emergency department on 04/01/2020 and the patient was taken to the operating room for an open cholecystectomy and this was done and completed and following that the patient was kept on a mechanical ventilator and was extubated in the recovery area. The patient came in to the ICU for further monitoring. Was seen in consultation yesterday. She has osteoporosis and compression fracture of the vertebral spine and history of hyperlipidemia. She was receiving lactated Ringer at the rate of 100 mL an hour and she was in oxygen at 3 L per minute nasal cannula. The patient is producing adequate amount of urine output. Pain is under adequate control for now. The white cell count was nonelevated. The liver function tests are all within normal limits. Amylase and lipase also within normal limits. The patient is currently receiving IV Unasyn as an empiric antibiotic coverage. On today's evaluation of 04/04/2020, the patient is calm and comfortable and the patient has no specific complaints. She has an adequate reading at the rate of 100 mL an hour. ELTON drain has drained approximately 150 serosanguineous material. Incision is dry clean and intact. She is awake and alert and she is communicating. No other significant events overnight. The patient is seen today 04/05/2020 in follow-up on the regular medical floor. She is currently resting comfortably in bed. Awake and alert in no acute distress. She is maintaining O2 saturations in the 90s on 2 L/m per nasal cannula. She's been afebrile. Hemodynamically stable. White count 8.0. Hemoglobin 9.4. Sodium 131. Potassium 3.4. Creatinine 0.36. She remains on Unasyn. Heparin for DVT prophylaxis. Abdominal dressing dry and intact. ELTON drain remains in place. Tolerating her diet. Needs increased encouragement regarding the use of the incentive spirometer. On 04/06/2020 patient is seen in follow-up on general medical floor. She is sitting up in the chair, has an emesis basin in her lab, she has been nauseous and she has vomited a few times. Her abdomen is slightly more distended on today's exam, it is soft, nontender but hypoactive bowel sounds are present. Incisions are clean dry and intact, ELTON drain with small amount of serous output, no fever or chills, denies any pulmonary complaints, no shortness of breath, lung sounds are clear, she has been receiving ice chips only. We obtained a KUB of the abdomen, which showed distended small bowel with air-fluid levels seen which may reflect postoperative ileus. We ordered the NG tube to be inserted to low intermittent suction. Maintain nothing by mouth status for now. Services are following, patient is on Reglan. Has not passed any gas yet. On 04/07/2020 patient is seen on general medical floor, she is sitting up in the chair, she never required NG tube placement yesterday as her nausea did improve with IV Reglan, today she states she has not passed any gas, but her bowel sounds are more active on today's exam, her abdomen is nontender, surgical incisions clean dry and intact, ELTON drain on the right side of the abdomen is but not minimal amount of seros output. Patient remains on ice chips and popsicles only at this time. Denies any difficulty breathing, lung sounds are clear to auscultation, she is trying to work with her incentive spirometer. Overall patient is generally weak, and possibly will require rehab placement after discharge. The patient is seen today 04/08/2020 in follow-up on the regular medical floor. She is currently sitting up in a chair at the bedside. Awake and alert in no acute distress. Maintaining good O2 saturation in the mid 90s on 2 L/m per nasal cannula. She's been afebrile. Sodium 134. Potassium 3.5. Chloride 98. Bicarb 30. Creatinine 0.32. She remains on Unasyn. Continued on Reglan. She did have a bowel movement. 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 ELTON drain remains in place. Dressing dry and intact. Remains on a clear liquid diet. The patient is seen today 04/09/2020 in follow-up on the regular medical floor. She is currently sitting up in bed. Awake and alert in no acute distress. Maintaining O2 saturations in the 90s on 2 L/m per nasal cannula. She's been afebrile. Tolerating her diet. Abdominal discomfort improving. ELTON drain remains. Dressing dry and intact. White count 7.2. Hemoglobin 9.4. Sodium 134. Potassium 4.0. Creatinine 0.36. She remains on Unasyn. The patient is seen today 04/10/2020 in follow-up on the regular medical floor. She is currently resting comfortably in bed. Awake and alert in no acute distress. She is maintaining O2 saturations in the 90s on room air. She's been afebrile. Slightly hypertensive. Needs increased encouragement regarding use of the incentive spirometer and cough and deep breathing exercises. Abdominal incision is clean dry well approximated. ELTON drain remains in place with serosanguineous drainage. Potassium level 4.3. Currently on Unasyn. Heparin for DVT prophylaxis. 0.9 normal saline at 75 mL per hour. Appetite fair. Objective - Vital Signs Vital signs: Vital Signs Temp 98.1 F 04/10/20 07:00 Pulse 94 04/10/20 07:00 Resp 16 04/10/20 07:00 BP 167/92 04/10/20 07:00 Pulse Ox 91 L 04/10/20 07:00 Intake & Output 04/09/20 04/10/20 04/10/20 18:59 06:59 18:59 Output Total 120 140 Balance -120 -140 Output: Drainage 120 140 Abdomen 120 140 Stool 0 Other: Voiding Method Bedside Commode Bedside Commode # Voids 2 0 # Bowel Movements 0 - Exam Very pleasant 84-year-old female patient, on room air with O2 saturation of 91%, appeared well nourished and normally developed. Vital signs as documented. Head exam is unremarkable. No scleral icterus or corneal arcus noted. Neck is without jugular venous distension, thyromegaly, or carotid bruits. Carotid upstrokes are brisk bilaterally. Lungs are clear to auscultation and percussion. Cardiac exam reveals the PMI to be normally sized and situated. Rhythm is regular. First and second heart sounds normal. No murmurs, rubs or gallops. Abdominal exam reveals normal bowel sounds, no masses, no organomegaly and no aortic enlargement. Examination of the skin shows a intact dry surgical wound site, ELTON drain in place in the right upper quadrant area. Extremities are nonedematous and both femoral and pedal pulses are normal.Examination of the skin revealed no evidence of significant rashes, suspicious appearing nevi or other concerning lesions. Neurologically the patient is awake and alert and there is no focal neurological deficit at this point in time. - Labs CBC & Chem 7: 04/09/20 08:05 04/10/20 07:37 Assessment and Plan Assessment: 1 acute gangrenous cholecystitis. The patient is status post open cholecystectomy. Currently on IV Unasyn. ELTON drain remains in place. 2 osteoporosis and previous history of compression fracture of the spine 3 chronic degenerative arthritis 4 remote history of rheumatic fever 5 hyperlipidemia 6 non-anion gap metabolic acidosis Plan The patient was seen and evaluated by Dr. Guthrie Remains on Unasyn, to be transitioned to Augmentin prior to discharge Continue to encourage the increased use of the incentive spirometer hourly while awake Obtain a chest x-ray Increase her activity as tolerated We'll continue to follow I, the cosigning physician, performed a history & physical examination of the patient. Lungs sounds are clear. Maintaining good O2 saturations in the 90s on room air. I discussed the assessment and plan of care with my nurse practitioner, Tracy Moffett. I attest to the above note as dictated by her.
--- NOTE | 2020-04-10 12:32 | XR ---
EXAMINATION TYPE: XR chest 1V portable DATE OF EXAM: 04/10/2020 HISTORY: Hypoxemia. REFERENCE: Previous study dated 11/10/2019. FINDINGS: Lung volumes are prominent. The heart is enlarged. There are bilateral effusions. There is bilateral airspace disease. IMPRESSION: 1. COPD. 2. MILD CARDIOMEGALY. 3. BILATERAL EFFUSIONS. 4. BIBASILAR AIRSPACE DISEASE.
--- NOTE | 2020-04-10 12:32 | P.PN ---
Subjective Progress Note Date: 04/10/20 CHIEF COMPLAINT: Acute cholecystitis HISTORY OF PRESENT ILLNESS: The patient is a 84-year-old female status post cholecystectomy. She is on liquid diet and having mulitple bowel movements. No reports of abdominal pain. ROS: No reports of nausea and vomiting. Has bowel movements. No fevers or chills. No new chest pain. No productive sputum PHYSICAL EXAM: VITAL SIGNS: Reviewed CONSTITUTIONAL: Well developed and in no acute distress. EYES: Conjuctivae without sclera icterus. Extraocular movements grossly intact. HEAD, EARS, NOSE, THROAT: Moist buccal mucosa. Head is atraumatic, normocep halic. Hears conversational speech. No nasal drainage. NECK: Supple. No thyroidomegaly. RESPIRATORY: Non-labored respirations and equal bilateral excursions. CARDIOVASCULAR: Palpable 2+ radial pulses. ABDOMEN: Incisions clean dry and intact. Soft. No peritonitis. ELTON serosanguinos MUSCULOSKELETAL: No gross deformity of the lower extremities noted. No clubbing. No cyanosis. SKIN: Good skin turgor. Well perfused. NEUROLOGIC: Cranial nerves II through XII grossly intact. No focal or lat eralizing signs. PSYCH: Appropriate affect. Alert and oriented to person, place and time. CLINICAL LABS: No new labs. ASSESSMENT: 1. Acute cholecystitis PLAN: 1. Advance diet to regular 2. Continue to physical therapy Objective - Vital Signs Vital signs: Vital Signs Temp 98.1 F 04/10/20 07:00 Pulse 94 04/10/20 07:00 Resp 16 04/10/20 07:00 BP 167/92 04/10/20 07:00 Pulse Ox 91 L 04/10/20 07:00 Intake & Output 04/09/20 04/10/20 04/10/20 18:59 06:59 18:59 Intake Total 800 Output Total 120 140 102 Balance -120 -140 698 Intake: IV 200 Ampicillin-Sulbactam 3 gm 200 In Sodium Chloride 0.9% 100 ml @ 200 mls/hr IVPB Q6HR FARNAZ Rx#:[id number] Intake, IV Titration 600 Amount Sodium Chloride 0.9% 1, 600 000 ml @ 75 mls/hr IV . [id number] FARNAZ Rx#:[id number] Output: Drainage 120 140 100 Abdomen 120 140 100 Stool 0 Urine/Stool Mix 2 Other: Voiding Method Bedside Commode Bedside Commode # Voids 2 0 # Bowel Movements 0 2 - Labs CBC & Chem 7: 04/09/20 08:05 04/10/20 07:37 Assessment and Plan (1) Acute cholecystitis Current Visit: Yes Status: Acute Code(s): K81.0 - ACUTE CHOLECYSTITIS SNOMED Code(s): 49310305
[2020-04-10] MEDS ORDERED: FUROSEMIDE 10 MG/ML 4 ML VIAL IV STA (12:56)
--- NOTE | 2020-04-10 13:24 | P.PN ---
Subjective Progress Note Date: 04/10/20 Principal diagnosis: Gangrenous cholecystitis postcholecystectomy Patient was seen and examined. No acute events overnight. Tolerating full liquid diet well. She denies any nausea. She reports some mild abdominal discomfort that resolved after bowel movement today. She denies any chest pain, shortness of breath or palpitations. No fever or chills. ELTON drain output total 100 mL serosanguineous fluid. Objective - Vital Signs Vital signs: Vital Signs Temp 98.1 F 04/10/20 07:00 Pulse 94 04/10/20 07:00 Resp 16 04/10/20 07:00 BP 167/92 04/10/20 07:00 Pulse Ox 91 L 04/10/20 07:00 Intake & Output 04/09/20 04/10/20 04/10/20 18:59 06:59 18:59 Intake Total 800 Output Total 120 140 102 Balance -120 -140 698 Intake: IV 200 Ampicillin-Sulbactam 3 gm 200 In Sodium Chloride 0.9% 100 ml @ 200 mls/hr IVPB Q6HR FARNAZ Rx#:[id number] Intake, IV Titration 600 Amount Sodium Chloride 0.9% 1, 600 000 ml @ 75 mls/hr IV . [id number] FARNAZ Rx#:[id number] Output: Drainage 120 140 100 Abdomen 120 140 100 Stool 0 Urine/Stool Mix 2 Other: Voiding Method Bedside Commode Bedside Commode # Voids 2 0 # Bowel Movements 0 2 - Exam General: [Ill-appearing], [no distress], [appears at stated age] Derm: [warm], [dry] Head: [atraumatic], [normocephalic], [symmetric] Eyes: [EOMI], [no lid lag], [anicteric sclera] Mouth: [no lip lesion], [mucus membranes moist] Cardiovascular: [S1S2 reg], [tachycardia], [positive posterior tibial pulse bilateral], Lungs: [Decreased breath sounds bilateral], [no rhonchi, no rales] , [no accessory muscle use] Abdominal: [soft], [mild tenderness to palpation without rebound in all 4 quadrants], [no guarding], [no appreciable organomegaly], [ELTON drain intact with abdominal binder] Ext: [no gross muscle atrophy], [no edema], [no contractures] Neuro: [no focal neuro deficits] Psych: [Alert], [oriented], [appropriate affect] - Labs CBC & Chem 7: 04/09/20 08:05 04/10/20 07:37 Assessment and Plan Assessment: Acute gangrenous cholecystitis s/p Open maury on 04/03/2020 - Unasyn - surgery recs appreciated -Transitioned to regular diet today. - ID recs: Unasyn, orals once ileus resolved - pain control - antiemetics, reglan started 04/06 - Pathology with necrotic gallbladder Pleural effusion -Likely from surgery and infused IVF -As seen on chest x-ray -1 dose of Lasix 40 mg IV -Maintain O2 saturation greater than 92%. Post op ileus - Resolving with enema - Encourage hydration by mouth - ice chips - zofran and reglan Hyponatremia, stable and appears chronicwith baseline 133, improved - IVF fluids - repeat in AM Acute blood loss anemia - due to surgical procedure and anticipated - now improving - will no longer follow unless clinical change - B12 and folate elevated HLD - stain on hold - plan on resume on discharge Osteoprosis with hx of compression fractures - pain control Hypokalemia, resolved Acidosis, suspect metabolic and non anion gap, resolved [She is POD 7. Plans to transition to regular diet today. Plans for DC Saturday if patient continues to progress well. Discussed the case with her daughter Lily.]
[2020-04-11] MEDS: METOCLOPRAMIDE 5 MG/ML 2 ML VIAL IVP SCH ×4 (01:56→18:11)
[2020-04-11] MEDS: HYDROcodone/APAP 5-325MG 1 EACH TAB PO PRN ×2 (01:56→18:13)
[2020-04-11] MEDS: AMPICILLIN-SULBACTAM 3 GM in SODIUM CHLORIDE 0.9% 100 ML IVPB SCH ×3 (01:56→12:58)
--- NOTE | 2020-04-11 02:39 | PN ---
PROGRESS NOTE DATE OF SERVICE: 04/10/2020 REASON FOR FOLLOWUP: Acute gangrenous cholecystitis. INTERVAL HISTORY: The patient is currently afebrile. The patient is breathing comfortably. Denies having any chest pain. No shortness of breath or cough. Mild discomfort to the right upper quadrant area. No nausea, vomiting or diarrhea. PHYSICAL EXAMINATION: Blood pressure 150/78 with a pulse of 94, temperature 98.5. She is 93% on room air. General description is an elderly female lying in bed in no distress. RESPIRATORY SYSTEM: Unlabored breathing, clear to auscultation anteriorly. HEART: S1, S2. Regular rate and rhythm. ABDOMEN: Soft, no tenderness. LABS: Hemoglobin 9.4, white count 7.2, BUN of 4, creatinine 0.36. DIAGNOSTIC IMPRESSION AND PLAN: Patient with acute gangrenous cholecystitis, status post cholecystectomy. The patient is covered with Unasyn. Will give a short course of oral Augmentin on discharge. Continue with supportive care. MMODL / IJN: [id number] /
--- NOTE | 2020-04-11 08:11 | CDI ---
Documentation Clarification Form Date: 04/07/2020 03:47:06 PM From: Mariann Griffin RN CCDS Admit Date: 04/01/2020 09:16:00 AM Patient Name: Tonja Greenberg Visit Number: [id number] Discharge Date: ATTENTION: The Clinical Documentation Specialists (CDI) and [facility] Coding Staff appreciate your assistance in clarifying documentation. Please respond to the clarification below the line at the bottom and electronically sign. The CDI & [facility] Coding staff will review the response and follow-up if needed. Please note: Queries are made part of the Legal Health Record. If you have any questions, please contact the author of this message via ITS. Dr. Messi España Postoperative Ileus is documented in the Surgical Progress Note 04/06 Patients Admitting Diagnosis: Cholecystitis Post-Operative Diagnosis: Acute gangrenous cholecystitis Procedure performed: Diagnostic Laparoscopy converted to open Cholecystectomy. History/Risk Factors:84-year-old female presents to the ED with abdominal and back pain. Medical History HLD, Back fractures, Clinical Indicators: Surgical Progress Note: 04/06 Patient with nausea and a couple episodes of bilious emesis today. Abd Pelvis 04/06: Distended small bowel with air-fluid level seen may reflect postoperative ileus. Treatment: 04/06 downgrade diet to ice chips, popsicles, and sips of clear liquids, Reglan Iv Q 6 hours. In order to accurately reflect this patients severity of illness, please clarify if the Ileus: -is a complication of surgical procedure -is an expected outcome of the surgical procedure -is related to co-morbid condition(s) of -Other please specify -Unable to determine (Last Revision: December 2019) Expected outcome of comorbidity conditions MTDD
[2020-04-11] MEDS: LORATADINE 10 MG TAB PO SCH (08:21)
[2020-04-11] MEDS: FAMOTIDINE 20 MG TAB PO SCH ×2 (08:21→22:14)
[2020-04-11] MEDS: DOCUSATE 100 MG CAP PO SCH ×2 (08:21→22:14)
[2020-04-11] MEDS: HEPARIN SODIUM,PORCINE 5,000 UNIT/ML 1 ML VIAL SQ SCH ×2 (08:21→22:13)
[2020-04-11 08:50] LABS: ALT 22 U/L (4-34); AST 54 U/L (14-36); African American GFR (CKD) >90 (>60 ml/min/1.73 sqM); Albumin 2.8 g/dL (3.5-5.0); Alkaline Phosphatase 60 U/L (38-126); Anion Gap 7 mmol/L; Blood Urea Nitrogen 7 mg/dL (7-17); Calcium 8.3 mg/dL (8.4-10.2); Carbon Dioxide 34 mmol/L (22-30); Chloride 94 mmol/L (98-107); Glucose 101 mg/dL (74-99); Non-African American GFR(CKD) >90 (>60 ml/min/1.73 sqM); Potassium 3.8 mmol/L (3.5-5.1); Sodium 135 mmol/L (137-145); Total Bilirubin 0.3 mg/dL (0.2-1.3); Total Protein 5.6 g/dL (6.3-8.2)
[2020-04-11 08:52] LABS: Basophils % (A) 0 %; Eosinophils # (A) 0.1 k/uL (0-0.7); Eosinophils % (A) 2 %; HCT 32.6 % (34.0-46.0); HGB 10.1 gm/dL (11.4-16.0); Hypochromasia Slight; Lymphocytes # (A) 0.8 k/uL (1.0-4.8); Lymphocytes % (A) 10 %; MCHC 31.1 g/dL (31.0-37.0); MCV 99.5 fL (80.0-100.0); Mean Platelet Volume 6.9; Monocytes # (A) 0.5 k/uL (0-1.0); Monocytes % (A) 6 %; Neutrophils # (A) 6.3 k/uL (1.3-7.7); Neutrophils % (A) 81 %; Platelet Count 416 k/uL (150-450); RBC 3.27 m/uL (3.80-5.40); RDW 12.9 % (11.5-15.5); WBC 7.8 k/uL (3.8-10.6)
[2020-04-11] MEDS: MORPHINE SULFATE 2 MG/ML SYRINGE IVP PRN (09:58)
[2020-04-11] MEDS: ONDANSETRON 4 MG/2 ML VIAL IVP PRN (10:02)
[2020-04-11] MEDS ORDERED: FUROSEMIDE 10 MG/ML 4 ML VIAL IV STA (10:20)
--- NOTE | 2020-04-11 11:10 | XR ---
EXAMINATION TYPE: XR KUB portable DATE OF EXAM: 04/11/2020 10:59 AM CLINICAL HISTORY: Recent gallbladder removal, nausea, vomiting, surgical drain in place, constipatio n. TECHNIQUE: Single supine image of the abdomen is obtained. COMPARISON: 11/05/2019. FINDINGS: Surgical adrianna overlie the right upper quadrant and right mid abdomen. There are dilated loops of small bowel stacking upon one another in the left mid abdomen and left lower quadrant measur ing up to 4.3 cm. Trace bilateral pleural effusions are seen. Evaluation for pneumoperitoneum is angel edly limited by the supine only projection. S-shaped scoliosis of the thoracic spine and multilevel c ompression deformities with severe degenerative disc disease and osseous demineralization are redemon strated. Postsurgical change of the right hip. Surgical drain across the abdomen terminates in the le ft mid abdomen laterally. IMPRESSION: Multiple loops of dilated small bowel are likely on the basis of postoperative ileus give n the recent surgical intervention. Short-term follow-up progress exams are recommended.
--- NOTE | 2020-04-11 11:37 | P.PN ---
Subjective Progress Note Date: 04/11/20 CHIEF COMPLAINT: Cholecystitis HISTORY OF PRESENT ILLNESS: Patient is status post open cholecystectomy secondary to acute gangrenous cholecystitis. Patient examined at the bedside with Dr. España. Patient was tolerating regular diet over the weekend and had a bowel movement yesterday. However patient had 2 episodes of emesis this morning. PHYSICAL EXAM: VITAL SIGNS: Reviewed. GENERAL: Well-developed in no acute distress. HEENT: No sclera icterus. Extraocular movements grossly intact. Moist buccal mucosa. Head is atraumatic, normocephalic. ABDOMEN: Soft. Nondistended. Dressing clean dry and intact. ELTON drain with serous drainage. NEUROLOGIC: Alert and oriented. Cranial nerves II through XII grossly intact. ASSESSMENT: 1. Acute gangrenous cholecystitis 2. Postoperative ileus PLAN: -Monitor ELTON drain output -Activity as tolerated -Incentive spirometer -Continue antibiotics. Monitor WBC -Downgrade diet to clear liquids -Continue Reglan Nurse practitioner note has been reviewed by physician. Signing provider agrees with the documented findings, assessment, and plan of care. Objective - Vital Signs Vital signs: Vital Signs Temp 98.3 F 04/11/20 07:00 Pulse 104 H 04/11/20 07:00 Resp 16 04/11/20 07:00 BP 173/90 04/11/20 07:00 Pulse Ox 92 L 04/11/20 07:00 Intake & Output 04/10/20 04/11/20 04/11/20 18:59 06:59 18:59 Intake Total 800 Output Total 102 1092 Balance 698 -1092 Intake: IV 200 Ampicillin-Sulbactam 3 gm 200 In Sodium Chloride 0.9% 100 ml @ 200 mls/hr IVPB Q6HR FARNAZ Rx#:[id number] Intake, IV Titration 600 Amount Sodium Chloride 0.9% 1, 600 000 ml @ 75 mls/hr IV . [id number] FARNAZ Rx#:[id number] Output: Drainage 100 140 Abdomen 100 140 Urine 900 Stool 0 Urine/Stool Mix 2 Emesis 52 Other: # Voids 4 2 # Bowel Movements 2 2 1 # Emeses 2 - Labs CBC & Chem 7: 04/11/20 07:36 04/11/20 07:36 Labs: Abnormal Lab Results - Last 24 Hours (Table) 05/18/20 05/18/20 Range/Units 07:36 07:36 RBC 3.27 L (3.80-5.40) m/uL Hgb 10.1 L (11.4-16.0) gm/dL Hct 32.6 L (34.0-46.0) % Lymphocytes # 0.8 L (1.0-4.8) k/uL Sodium 135 L (137-145) mmol/L Chloride 94 L (98-107) mmol/L Carbon Dioxide 34 H (22-30) mmol/L Creatinine 0.41 L (0.52-1.04) mg/dL Glucose 101 H (74-99) mg/dL Calcium 8.3 L (8.4-10.2) mg/dL AST 54 H (14-36) U/L Total Protein 5.6 L (6.3-8.2) g/dL Albumin 2.8 L (3.5-5.0) g/dL
--- NOTE | 2020-04-11 14:29 | P.PN ---
Subjective Progress Note Date: 04/11/20 Principal diagnosis: Acute cholecystitis This is an 84-year-old female patient admitted through emergency department on 04/01/2020 and the patient was taken to the operating room for an open cholecystectomy and this was done and completed and following that the patient was kept on a mechanical ventilator and was extubated in the recovery area. The patient came in to the ICU for further monitoring. Was seen in consultation yesterday. She has osteoporosis and compression fracture of the vertebral spine and history of hyperlipidemia. She was receiving lactated Ringer at the rate of 100 mL an hour and she was in oxygen at 3 L per minute nasal cannula. The patient is producing adequate amount of urine output. Pain is under adequate control for now. The white cell count was nonelevated. The liver function tests are all within normal limits. Amylase and lipase also within normal limits. The patient is currently receiving IV Unasyn as an empiric antibiotic coverage. On today's evaluation of 04/04/2020, the patient is calm and comfortable and the patient has no specific complaints. She has an adequate reading at the rate of 100 mL an hour. ELTON drain has drained approximately 150 serosanguineous material. Incision is dry clean and intact. She is awake and alert and she is communicating. No other significant events overnight. The patient is seen today 04/05/2020 in follow-up on the regular medical floor. She is currently resting comfortably in bed. Awake and alert in no acute distress. She is maintaining O2 saturations in the 90s on 2 L/m per nasal cannula. She's been afebrile. Hemodynamically stable. White count 8.0. Hemoglobin 9.4. Sodium 131. Potassium 3.4. Creatinine 0.36. She remains on Unasyn. Heparin for DVT prophylaxis. Abdominal dressing dry and intact. ELTON drain remains in place. Tolerating her diet. Needs increased encouragement regarding the use of the incentive spirometer. On 04/06/2020 patient is seen in follow-up on general medical floor. She is sitting up in the chair, has an emesis basin in her lab, she has been nauseous and she has vomited a few times. Her abdomen is slightly more distended on today's exam, it is soft, nontender but hypoactive bowel sounds are present. Incisions are clean dry and intact, ELTON drain with small amount of serous output, no fever or chills, denies any pulmonary complaints, no shortness of breath, lung sounds are clear, she has been receiving ice chips only. We obtained a KUB of the abdomen, which showed distended small bowel with air-fluid levels seen which may reflect postoperative ileus. We ordered the NG tube to be inserted to low intermittent suction. Maintain nothing by mouth status for now. Services are following, patient is on Reglan. Has not passed any gas yet. On 04/07/2020 patient is seen on general medical floor, she is sitting up in the chair, she never required NG tube placement yesterday as her nausea did improve with IV Reglan, today she states she has not passed any gas, but her bowel sounds are more active on today's exam, her abdomen is nontender, surgical incisions clean dry and intact, ELTON drain on the right side of the abdomen is but not minimal amount of seros output. Patient remains on ice chips and popsicles only at this time. Denies any difficulty breathing, lung sounds are clear to auscultation, she is trying to work with her incentive spirometer. Overall patient is generally weak, and possibly will require rehab placement after discharge. The patient is seen today 04/08/2020 in follow-up on the regular medical floor. She is currently sitting up in a chair at the bedside. Awake and alert in no acute distress. Maintaining good O2 saturation in the mid 90s on 2 L/m per nasal cannula. She's been afebrile. Sodium 134. Potassium 3.5. Chloride 98. Bicarb 30. Creatinine 0.32. She remains on Unasyn. Continued on Reglan. She did have a bowel movement. Surgical site granulator tender. ELTON drain remains in place. Dressing dry and intact. Remains on a clear liquid diet. The patient is seen today 04/09/2020 in follow-up on the regular medical floor. She is currently sitting up in bed. Awake and alert in no acute distress. Maintaining O2 saturations in the 90s on 2 L/m per nasal cannula. She's been afebrile. Tolerating her diet. Abdominal discomfort improving. ELTON drain remains. Dressing dry and intact. White count 7.2. Hemoglobin 9.4. Sodium 134. Potassium 4.0. Creatinine 0.36. She remains on Unasyn. The patient is seen today 04/10/2020 in follow-up on the regular medical floor. She is currently resting comfortably in bed. Awake and alert in no acute distress. She is maintaining O2 saturations in the 90s on room air. She's been afebrile. Slightly hypertensive. Needs increased encouragement regarding use of the incentive spirometer and cough and deep breathing exercises. Abdominal incision is clean dry well approximated. ELTON drain remains in place with serosanguineous drainage. Potassium level 4.3. Currently on Unasyn. Heparin for DVT prophylaxis. 0.9 normal saline at 75 mL per hour. Appetite fair. Patient is seen today 04/11/2020 in follow-up on the regular medical floor. She is currently sitting up in a chair at the bedside. Awake and alert in no acute distress. She denies any worsening shortness of breath, cough or congestion. Chest x-ray reveals evidence of chronic obstructive pulmonary disease, mild cardiomegaly and mild small bilateral effusions, bibasilar airspace disease. She needs increased encouragement regarding use the incentive spirometer and cough and deep breathing exercises. She is maintaining O2 saturations in the 90s on room air. She's been afebrile. She had been tolerating a regular diet over the weekend however this morning she developed episodes of nausea and emesis 2. She had 1 bowel movement yesterday. Abdominal x-ray reveals multiple loops of dilated small bowel likely on the basis of postoperative ileus. Diet was downgraded to clear liquids for now per surgical services. White count 7.8. Hemoglobin 10.1. Sodium 135. Potassium 3.8. Creatinine 0.41. Objective - Vital Signs Vital signs: Vital Signs Temp 98.3 F 04/11/20 07:00 Pulse 104 H 04/11/20 07:00 Resp 16 04/11/20 07:00 BP 173/90 04/11/20 07:00 Pulse Ox 92 L 04/11/20 07:00 Intake & Output 04/10/20 04/11/20 04/11/20 18:59 06:59 18:59 Intake Total 800 Output Total 102 1092 50 Balance 698 -1092 -50 Weight 64.8 kg Intake: IV 200 Ampicillin-Sulbactam 3 gm 200 In Sodium Chloride 0.9% 100 ml @ 200 mls/hr IVPB Q6HR [facility] Rx#:[id number] Intake, IV Titration 600 Amount Sodium Chloride 0.9% 1, 600 000 ml @ 75 mls/hr IV . [id number] [facility] Rx#:[id number] Output: Drainage 100 140 50 Abdomen 100 140 50 Urine 900 Stool 0 Urine/Stool Mix 2 Emesis 52 Other: Voiding Method Toilet Bedside Commode # Voids 4 2 # Bowel Movements 2 2 1 # Emeses 2 - Exam Very pleasant 84-year-old female patient, on room air with O2 saturation of 92%, appeared well nourished and normally developed. Vital signs as documented. Head exam is unremarkable. No scleral icterus or corneal arcus noted. Neck is without jugular venous distension, thyromegaly, or carotid bruits. Carotid upstrokes are brisk bilaterally. Lungs faint crackles in the posterior bases. Cardiac exam reveals the PMI to be normally sized and situated. Rhythm is regular. First and second heart sounds normal. No murmurs, rubs or gallops. Abdominal exam reveals normal bowel sounds, no masses, no organomegaly and no aortic enlargement. Examination of the skin shows a intact dry surgical wound site, ELTON drain in place in the right upper quadrant area. Extremities are slightly edematous, pedal pulses are normal.Examination of the skin revealed no evidence of significant rashes, suspicious appearing nevi or other concerning lesions. Neurologically the patient is awake and alert and there is no focal neurological deficit at this point in time. - Labs CBC & Chem 7: 04/11/20 07:36 04/11/20 07:36 Labs: Abnormal Lab Results - Last 24 Hours (Table) 04/11/20 04/11/20 Range/Units 07:36 07:36 RBC 3.27 L (3.80-5.40) m/uL Hgb 10.1 L (11.4-16.0) gm/dL Hct 32.6 L (34.0-46.0) % Lymphocytes # 0.8 L (1.0-4.8) k/uL Sodium 135 L (137-145) mmol/L Chloride 94 L (98-107) mmol/L Carbon Dioxide 34 H (22-30) mmol/L Creatinine 0.41 L (0.52-1.04) mg/dL Glucose 101 H (74-99) mg/dL Calcium 8.3 L (8.4-10.2) mg/dL AST 54 H (14-36) U/L Total Protein 5.6 L (6.3-8.2) g/dL Albumin 2.8 L (3.5-5.0) g/dL Assessment and Plan Assessment: 1 acute gangrenous cholecystitis. The patient is status post open cholecystectomy. Currently on IV Unasyn. ELTON drain remains in place. On 04/11/2020 the patient developed episodes of nausea with emesis 2. Abdominal x-ray reveals multiple loops of dilated small bowel likely on the basis of postoperative ileus. Diet downgraded to clear liquids. 2 small bilateral effusions with areas of atelectasis as an expected outcome of abdominal surgery 3 osteoporosis and previous history of compression fracture of the spine 4 chronic degenerative arthritis 5 remote history of rheumatic fever 6 hyperlipidemia 7 non-anion gap metabolic acidosis Plan The patient was seen and evaluated by Dr. Cortez Chest x-ray, abdominal x-ray and labs reviewed Diet downgraded to clear liquids per surgical services Lasix 40 mg IVP 1 today Remains on Unasyn, to be transitioned to Augmentin prior to discharge Continue to encourage the increased use of the incentive spirometer hourly while awake Increase her activity as tolerated We'll continue to follow I, the cosigning physician, performed a history & physical examination of the patient. Lungs sounds with faint crackles in the bilateral bases. Maintaining good O2 saturations in the 90s on room air. I discussed the assessment and plan of care with my nurse practitioner, Tracy Moffett. I attest to the above note as dictated by her.
--- NOTE | 2020-04-11 17:27 | P.PN ---
Subjective Progress Note Date: 04/11/20 Principal diagnosis: Gangrenous cholecystitis postcholecystectomy Patient was seen and examined. No acute events overnight. Transitioned to regular diet yesterday. Patient reports feeling nauseous and throwing up after eating dinner. She reports increased discomfort in her right-sided abdomen. She denies any chest pain, shortness of breath or palpitations. No fever or ch ills. ELTON drain 25 mL serosanguineous fluid overnight. Patient continues to pass gas and is having regular bowel movements. Objective - Vital Signs Vital signs: Vital Signs Temp 98.7 F 04/11/20 14:52 Pulse 96 04/11/20 14:52 Resp 16 04/11/20 14:52 BP 148/82 04/11/20 14:52 Pulse Ox 93 L 04/11/20 14:52 Intake & Output 04/10/20 04/11/20 04/11/20 18:59 06:59 18:59 Intake Total 800 Output Total 102 1092 50 Balance 698 -1092 -50 Weight 64.8 kg Intake: IV 200 Ampicillin-Sulbactam 3 gm 200 In Sodium Chloride 0.9% 100 ml @ 200 mls/hr IVPB Q6HR [facility] Rx#:[id number] Intake, IV Titration 600 Amount Sodium Chloride 0.9% 1, 600 000 ml @ 75 mls/hr IV . [id number] [facility] Rx#:[id number] Output: Drainage 100 140 50 Abdomen 100 140 50 Urine 900 Stool 0 Urine/Stool Mix 2 Emesis 52 Other: Voiding Method Toilet Bedside Commode # Voids 4 2 # Bowel Movements 2 2 1 # Emeses 2 - Exam General: [Ill-appearing], [no distress], [appears at stated age] Derm: [warm], [dry] Head: [atraumatic], [normocephalic], [symmetric] Eyes: [EOMI], [no lid lag], [anicteric sclera] Mouth: [no lip lesion], [mucus membranes moist] Cardiovascular: [S1S2 reg], [tachycardia], [positive posterior tibial pulse bilateral], Lungs: [Decreased breath sounds bilateral], [no rhonchi, no rales] , [no accessory muscle use] Abdominal: [soft], [mild tenderness to palpation without rebound in all 4 quadrants], [no guarding], [no appreciable organomegaly], [ELTON drain intact with abdominal binder] Ext: [no gross muscle atrophy], [no edema], [no contractures] Neuro: [no focal neuro deficits] Psych: [Alert], [oriented], [appropriate affect] - Labs CBC & Chem 7: 04/11/20 07:36 04/11/20 07:36 Labs: Abnormal Lab Results - Last 24 Hours (Table) 04/11/20 04/11/20 Range/Units 07:36 07:36 RBC 3.27 L (3.80-5.40) m/uL Hgb 10.1 L (11.4-16.0) gm/dL Hct 32.6 L (34.0-46.0) % Lymphocytes # 0.8 L (1.0-4.8) k/uL Sodium 135 L (137-145) mmol/L Chloride 94 L (98-107) mmol/L Carbon Dioxide 34 H (22-30) mmol/L Creatinine 0.41 L (0.52-1.04) mg/dL Glucose 101 H (74-99) mg/dL Calcium 8.3 L (8.4-10.2) mg/dL AST 54 H (14-36) U/L Total Protein 5.6 L (6.3-8.2) g/dL Albumin 2.8 L (3.5-5.0) g/dL Assessment and Plan Assessment: Acute gangrenous cholecystitis s/p Open maury on 04/03/2020 - Unasyn - surgery recs appreciated -Unable to tolerate regular diet, transitioned to clear liquid - ID recs: Unasyn, orals once ileus resolved - pain control - antiemetics, reglan started 04/06 - Pathology with necrotic gallbladder Pleural effusion -Likely from surgery and infused IVF -As seen on chest x-ray -Maintain O2 saturation greater than 92%. Post op ileus -Repeat KUB suggests postoperative ileus - Encourage hydration by mouth - ice chips - zofran and reglan Hyponatremia, stable and appears chronic with baseline 133, improved - IVF fluids - repeat in AM Acute blood loss anemia - due to surgical procedure and anticipated - now improving - will no longer follow unless clinical change - B12 and folate elevated HLD - stain on hold - plan on resume on discharge Osteoprosis with hx of compression fractures - pain control Hypokalemia, resolved Acidosis, suspect metabolic and non anion gap, resolved [She is POD 8. Worsening abdominal pain and nausea and vomiting with regular diet. Downgraded to clear liquid diet. Discussed the case with her daughter iLly.]
--- NOTE | 2020-04-11 19:38 | PN ---
PROGRESS NOTE DATE OF SERVICE: 04/11/2020 REASON FOR FOLLOWUP: Acute gangrenous cholecystitis. INTERVAL HISTORY: The patient is currently afebrile. Apparently the patient did have a problem with vomiting this morning and some discomfort in the right upper quadrant area, but no worsening. No chest pain or shortness of breath or cough. PHYSICAL EXAMINATION: Blood pressure is 148/82 with a pulse of 93. Temperature 98.7. She is 93% on room air. General description is an elderly female lying in bed in no distress. RESPIRATORY SYSTEM: Unlabored breathing. Clear to auscultation anteriorly. HEART: S1, S2. Regular rate and rhythm. ABDOMEN: Soft. Mildly distended. No guarding or rigidity. LABS: Hemoglobin is 10.1, white count 7.8. BUN of 7, creatinine 0.41. DIAGNOSTIC IMPRESSION AND PLAN: Patient with acute gangrenous cholecystitis, status post cholecystectomy, now with a problem of ileus and some vomiting resumption of GI activity before switching to oral antibiotics. Continue supportive care. MMODL / IJN: [id number] /
[2020-04-12] MEDS: METOCLOPRAMIDE 5 MG/ML 2 ML VIAL IVP SCH ×5 (00:26→23:52)
[2020-04-12] MEDS: HYDROcodone/APAP 5-325MG 1 EACH TAB PO PRN ×5 (00:26→23:52)
[2020-04-12] MEDS ORDERED: FUROSEMIDE 10 MG/ML 2 ML VIAL IV ONE (09:55)
[2020-04-12] MEDS: FAMOTIDINE 20 MG TAB PO SCH ×2 (10:22→20:50)
[2020-04-12] MEDS: DOCUSATE 100 MG CAP PO SCH ×2 (10:22→20:50)
[2020-04-12] MEDS: HEPARIN SODIUM,PORCINE 5,000 UNIT/ML 1 ML VIAL SQ SCH ×2 (10:22→20:50)
[2020-04-12] MEDS: LORATADINE 10 MG TAB PO SCH (10:22)
--- NOTE | 2020-04-12 11:31 | US ---
EXAMINATION TYPE: US venous doppler duplex LE DATE OF EXAM: 04/12/2020 11:05 AM COMPARISON: NONE CLINICAL HISTORY: swelling. SIDE PERFORMED: Bilateral TECHNIQUE: The lower extremity deep venous system is examined utilizing real time linear array sonog patience with graded compression, doppler sonography and color-flow sonography. VESSELS IMAGED: External Iliac Vein (EIV) Common Femoral Vein Deep Femoral Vein Greater Saphenous Vein * Femoral Vein Popliteal Vein Small Saphenous Vein * Proximal Calf Veins (* superficial vessels) Bilateral edematous tissue. Right Leg: Negative for DVT Left Leg: Negative for DVT IMPRESSION: 1. Bilateral lower extremity ultrasound negative for deep venous thrombosis.
--- NOTE | 2020-04-12 12:27 | P.PN ---
Subjective Progress Note Date: 04/12/20 Principal diagnosis: Acute cholecystitis This is an 84-year-old female patient admitted through emergency department on 04/01/2020 and the patient was taken to the operating room for an open cholecystectomy and this was done and completed and following that the patient was kept on a mechanical ventilator and was extubated in the recovery area. The patient came in to the ICU for further monitoring. Was seen in consultation yesterday. She has osteoporosis and compression fracture of the vertebral spine and history of hyperlipidemia. She was receiving lactated Ringer at the rate of 100 mL an hour and she was in oxygen at 3 L per minute nasal cannula. The patient is producing adequate amount of urine output. Pain is under adequate control for now. The white cell count was nonelevated. The liver function tests are all within normal limits. Amylase and lipase also within normal limits. The patient is currently receiving IV Unasyn as an empiric antibiotic coverage. On today's evaluation of 04/04/2020, the patient is calm and comfortable and the patient has no specific complaints. She has an adequate reading at the rate of 100 mL an hour. ELTON drain has drained approximately 150 serosanguineous material. Incision is dry clean and intact. She is awake and alert and she is communicating. No other significant events overnight. The patient is seen today 04/05/2020 in follow-up on the regular medical floor. She is currently resting comfortably in bed. Awake and alert in no acute distress. She is maintaining O2 saturations in the 90s on 2 L/m per nasal cannula. She's been afebrile. Hemodynamically stable. White count 8.0. Hemoglobin 9.4. Sodium 131. Potassium 3.4. Creatinine 0.36. She remains on Unasyn. Heparin for DVT prophylaxis. Abdominal dressing dry and intact. ELTON drain remains in place. Tolerating her diet. Needs increased encouragement regarding the use of the incentive spirometer. On 04/06/2020 patient is seen in follow-up on general medical floor. She is sitting up in the chair, has an emesis basin in her lab, she has been nauseous and she has vomited a few times. Her abdomen is slightly more distended on today's exam, it is soft, nontender but hypoactive bowel sounds are present. Incisions are clean dry and intact, ELTON drain with small amount of serous output, no fever or chills, denies any pulmonary complaints, no shortness of breath, lung sounds are clear, she has been receiving ice chips only. We obtained a KUB of the abdomen, which showed distended small bowel with air-fluid levels seen which may reflect postoperative ileus. We ordered the NG tube to be inserted to low intermittent suction. Maintain nothing by mouth status for now. Services are following, patient is on Reglan. Has not passed any gas yet. On 04/07/2020 patient is seen on general medical floor, she is sitting up in the chair, she never required NG tube placement yesterday as her nausea did improve with IV Reglan, today she states she has not passed any gas, but her bowel sounds are more active on today's exam, her abdomen is nontender, surgical incisions clean dry and intact, ELTON drain on the right side of the abdomen is but not minimal amount of seros output. Patient remains on ice chips and popsicles only at this time. Denies any difficulty breathing, lung sounds are clear to auscultation, she is trying to work with her incentive spirometer. Overall patient is generally weak, and possibly will require rehab placement after discharge. The patient is seen today 04/08/2020 in follow-up on the regular medical floor. She is currently sitting up in a chair at the bedside. Awake and alert in no acute distress. Maintaining good O2 saturation in the mid 90s on 2 L/m per nasal cannula. She's been afebrile. Sodium 134. Potassium 3.5. Chloride 98. Bicarb 30. Creatinine 0.32. She remains on Unasyn. Continued on Reglan. She did have a bowel movement. 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 ELTON drain remains in place. Dressing dry and intact. Remains on a clear liquid diet. The patient is seen today 04/09/2020 in follow-up on the regular medical floor. She is currently sitting up in bed. Awake and alert in no acute distress. Maintaining O2 saturations in the 90s on 2 L/m per nasal cannula. She's been afebrile. Tolerating her diet. Abdominal discomfort improving. ELTON drain remains. Dressing dry and intact. White count 7.2. Hemoglobin 9.4. Sodium 134. Potassium 4.0. Creatinine 0.36. She remains on Unasyn. The patient is seen today 04/10/2020 in follow-up on the regular medical floor. She is currently resting comfortably in bed. Awake and alert in no acute distress. She is maintaining O2 saturations in the 90s on room air. She's been afebrile. Slightly hypertensive. Needs increased encouragement regarding use of the incentive spirometer and cough and deep breathing exercises. Abdominal incision is clean dry well approximated. ELTON drain remains in place with serosanguineous drainage. Potassium level 4.3. Currently on Unasyn. Heparin for DVT prophylaxis. 0.9 normal saline at 75 mL per hour. Appetite fair. Patient is seen today 04/11/2020 in follow-up on the regular medical floor. She is currently sitting up in a chair at the bedside. Awake and alert in no acute distress. She denies any worsening shortness of breath, cough or congestion. Chest x-ray reveals evidence of chronic obstructive pulmonary disease, mild cardiomegaly and mild small bilateral effusions, bibasilar airspace disease. She needs increased encouragement regarding use the incentive spirometer and cough and deep breathing exercises. She is maintaining O2 saturations in the 90s on room air. She's been afebrile. She had been tolerating a regular diet over the weekend however this morning she developed episodes of nausea and emesis 2. She had 1 bowel movement yesterday. Abdominal x-ray reveals multiple loops of dilated small bowel likely on the basis of postoperative ileus. Diet was downgraded to clear liquids for now per surgical services. White count 7.8. Hemoglobin 10.1. Sodium 135. Potassium 3.8. Creatinine 0.41. The patient is seen today 04/12/2020 in follow-up on the regular medical floor. She is currently sitting up in bed. Awake and alert in no acute distress. She continues to maintain good O2 saturations in the 90s on room air. Yesterday's abdominal x-ray revealed multiple loops of dilated small bowel likely on the basis of postoperative ileus. Her diet was back down to clear liquids. She is tolerating that. No further emesis today. Passing flatus. Some right lower extremity/calf pain, Dopplers of the lower extremities negative for DVT and she has been up ambulating with assistance. Objective - Vital Signs Vital signs: Vital Signs Temp 98.5 F 04/12/20 07:00 Pulse 83 04/12/20 07:00 Resp 16 04/12/20 07:00 BP 152/77 04/12/20 07:00 Pulse Ox 93 L 04/12/20 07:00 Intake & Output 04/11/20 04/12/20 04/12/20 18:59 06:59 18:59 Intake Total 377 850 Output Total 100 620 30 Balance 277 230 -30 Weight 64.8 kg Intake: Oral 377 850 Output: Drainage 100 120 30 Abdomen 100 120 30 Urine 500 Other: Voiding Method Toilet Toilet Bedside Commode Bedside Commode # Voids 2 1 1 # Bowel Movements 1 - Exam Very pleasant 84-year-old female patient, on room air with O2 saturation of 92%, appeared well nourished and normally developed. Vital signs as documented. Head exam is unremarkable. No scleral icterus or corneal arcus noted. Neck is without jugular venous distension, thyromegaly, or carotid bruits. Carotid upstrokes are brisk bilaterally. Lungs faint crackles in the posterior bases. Cardiac exam reveals the PMI to be normally sized and situated. Rhythm is regular. First and second heart sounds normal. No murmurs, rubs or gallops. Abdominal exam reveals normal bowel sounds, no masses, no organomegaly and no aortic enlargement. Examination of the skin shows a intact dry surgical wound site, ELTON drain in place in the right upper quadrant area. Extremities are slightly edematous, pedal pulses are normal.Examination of the skin revealed no evidence of significant rashes, suspicious appearing nevi or other concerning lesions. Neurologically the patient is awake and alert and there is no focal neurological deficit at this point in time. - Labs CBC & Chem 7: 04/11/20 07:36 04/11/20 07:36 Assessment and Plan Assessment: 1 acute gangrenous cholecystitis. The patient is status post open cholecystectomy. Currently on IV Unasyn. ELTON drain remains in place. On 04/11/2020 the patient developed episodes of nausea with emesis 2. Abdominal x-ray reveals multiple loops of dilated small bowel likely on the basis of postoperative ileus. Diet downgraded to clear liquids. 2 small bilateral effusions with areas of atelectasis as an expected outcome of abdominal surgery 3 osteoporosis and previous history of compression fracture of the spine 4 chronic degenerative arthritis 5 remote history of rheumatic fever 6 hyperlipidemia 7 non-anion gap metabolic acidosis Plan The patient was seen and evaluated by Dr. Cortez Continues with some crackles in the posterior bases Lasix 20 mg IVP 1 today Received 10 days of Unasyn Continue to encourage the increased use of the incentive spirometer hourly while awake Increase her activity as tolerated Advance diet per surgical services We'll continue to follow I, the cosigning physician, performed a history & physical examination of the patient. Lungs sounds with faint crackles in the bilateral bases. Maintaining good O2 saturations in the 90s on room air. I discussed the assessment and plan of care with my nurse practitioner, Tracy Moffett. I attest to the above note as dictated by her.
--- NOTE | 2020-04-12 13:03 | P.PN ---
Subjective Progress Note Date: 04/12/20 CHIEF COMPLAINT: Cholecystitis HISTORY OF PRESENT ILLNESS: Patient is status post open cholecystectomy secondary to acute gangrenous cholecystitis. Patient examined at the bedside. Patient with episodes of emesis yesterday. Her diet was downgraded to clear liq uids. Patient is tolerating clear liquid diet this morning. However she reports decreased intake. Denies nausea or vomiting. She is passing flatus. Denies having a bowel movement today. PHYSICAL EXAM: VITAL SIGNS: Reviewed. GENERAL: Well-developed in no acute distress. HEENT: No sclera icterus. Extraocular movements grossly intact. Moist buccal mucosa. Head is atraumatic, normocephalic. ABDOMEN: Soft. Nondistended. Dressing clean dry and intact. ELTON drain with serous drainage. NEUROLOGIC: Alert and oriented. Cranial nerves II through XII grossly intact. ASSESSMENT: 1. Acute gangrenous cholecystitis 2. Postoperative ileus PLAN: -Monitor ELTON drain output -Activity as tolerated -Incentive spirometer -Continue antibiotics. Monitor WBC -Advance diet to full liquids -Continue Reglan Nurse practitioner note has been reviewed by physician. Signing provider agrees with the documented findings, assessment, and plan of care. Objective - Vital Signs Vital signs: Vital Signs Temp 98.5 F 04/12/20 07:00 Pulse 83 04/12/20 07:00 Resp 16 04/12/20 07:00 BP 152/77 04/12/20 07:00 Pulse Ox 93 L 04/12/20 07:00 Intake & Output 04/11/20 04/12/20 04/12/20 18:59 06:59 18:59 Intake Total 377 850 Output Total 100 620 Balance 277 230 Weight 64.8 kg Intake: Oral 377 850 Output: Drainage 100 120 Abdomen 100 120 Urine 500 Other: Voiding Method Toilet Bedside Commode # Voids 2 1 1 # Bowel Movements 1 - Labs CBC & Chem 7: 04/11/20 07:36 04/11/20 07:36
--- NOTE | 2020-04-12 16:03 | P.PN ---
Subjective Progress Note Date: 04/12/20 Principal diagnosis: Gangrenous cholecystitis postcholecystectomy Patient was seen and examined. No acute events overnight. Patient with improvement in symptoms after starting clear liquid diet. No more nausea or vomiting. Minimal abdominal pain at the site of incision. She denies any chest pain, shortness of breath or palpitations. No fever or chills. ELTON draining serosanguineous fluid overnight. Patient continues to pass gas and is having regular bowel movements. Objective - Vital Signs Vital signs: Vital Signs Temp 98.4 F 04/12/20 14:50 Pulse 95 04/12/20 14:50 Resp 18 04/12/20 14:50 BP 168/84 04/12/20 14:50 Pulse Ox 93 L 04/12/20 14:50 Intake & Output 04/11/20 04/12/20 04/12/20 18:59 06:59 18:59 Intake Total 377 850 118 Output Total 100 620 30 Balance 277 230 88 Weight 64.8 kg Intake: Oral 377 850 118 Output: Drainage 100 120 30 Abdomen 100 120 30 Urine 500 Other: Voiding Method Toilet Toilet Bedside Commode Bedside Commode # Voids 2 1 4 # Bowel Movements 1 - Exam General: [Ill-appearing], [no distress], [appears at stated age] Derm: [warm], [dry] Head: [atraumatic], [normocephalic], [symmetric] Eyes: [EOMI], [no lid lag], [anicteric sclera] Mouth: [no lip lesion], [mucus membranes moist] Cardiovascular: [S1S2 reg], [no murmur], [positive DP pulse bilateral], Lungs: [Decreased breath sounds bilateral], [no rhonchi, no rales] , [no accessory muscle use] Abdominal: [soft], [mild tenderness to palpation without rebound in all 4 quad rants], [no guarding], [no appreciable organomegaly], [ELTON drain intact with abdominal binder] Ext: [no gross muscle atrophy], [no edema], [no contractures] Neuro: [no focal neuro deficits] Psych: [Alert], [oriented], [appropriate affect] - Labs CBC & Chem 7: 04/11/20 07:36 04/11/20 07:36 Assessment and Plan Assessment: Acute gangrenous cholecystitis s/p Open maury on 04/03/2020 - Unasyn - surgery recs appreciated -Tolerating clear liquid diet, transition to full liquid diet today - ID recs: Unasyn, orals once ileus resolved - pain control - antiemetics, reglan started 04/06 - Pathology with necrotic gallbladder Pleural effusion -Likely from surgery and infused IVF -As seen on chest x-ray -Intermittent dose of Lasix IV given today and yesterday -Maintain O2 saturation greater than 92%. Post op ileus -Repeat KUB suggests postoperative ileus - Encourage hydration by mouth - ice chips - zofran and reglan Hyponatremia, stable and appears chronic with baseline 133, improved - IVF fluids - repeat in AM Acute blood loss anemia - due to surgical procedure and anticipated - now improving - will no longer follow unless clinical change - B12 and folate elevated HLD - stain on hold - plan on resume on discharge Osteoprosis with hx of compression fractures - pain control Hypokalemia, resolved Acidosis, suspect metabolic and non anion gap, resolved [She is POD 9. Tolerating clear liquid diet. Transition to full liquid diet. Likely DC in 1-2 days of tolerating.]
--- NOTE | 2020-04-12 22:42 | PN ---
PROGRESS NOTE DATE OF SERVICE: 04/12/2020 REASON FOR FOLLOWUP: Acute gangrenous cholecystitis. INTERVAL HISTORY: The patient is currently afebrile. She is breathing comfortably, feeling better compared to yesterday. No further vomiting, chest pain or shortness of breath or cough. No abdominal discomfort. PHYSICAL EXAMINATION: Blood pressure 168/84 with a pulse of 95, temperature 98.4. She is 93% on room air. General description is an elderly female up in the bed in no distress. RESPIRATORY SYSTEM: Unlabored breathing. Clear to auscultation anteriorly. HEART: S1, S2. Regular rate and rhythm. ABDOMEN: Soft. No tenderness. LABS: Hemoglobin is 10.1, white count of 7.9, BUN of 7, creatinine 0.41. DIAGNOSTIC IMPRESSION AND PLAN: Patient with acute gangrenous cholecystitis, status post cholecystectomy, though also seemed to have problem with an ileus, though her symptoms are improved compared to yesterday. She is currently covered with Unasyn; to continue and monitor her clinical course closely. Continue with supportive care. MMODL / IJN: [id number] /
[2020-04-12] MEDS: AMPICILLIN-SULBACTAM 3 GM in SODIUM CHLORIDE 0.9% 100 ML IVPB SCH (23:52)
[2020-04-13] MEDS: METOCLOPRAMIDE 5 MG/ML 2 ML VIAL IVP SCH ×4 (05:28→23:11)
[2020-04-13] MEDS: FAMOTIDINE 20 MG TAB PO SCH ×2 (07:07→21:00)
[2020-04-13] MEDS: HEPARIN SODIUM,PORCINE 5,000 UNIT/ML 1 ML VIAL SQ SCH ×2 (07:07→21:00)
[2020-04-13] MEDS: DOCUSATE 100 MG CAP PO SCH ×2 (07:07→21:00)
[2020-04-13] MEDS: AMPICILLIN-SULBACTAM 3 GM in SODIUM CHLORIDE 0.9% 100 ML IVPB SCH ×3 (07:08→23:11)
[2020-04-13] MEDS: LORATADINE 10 MG TAB PO SCH (07:08)
[2020-04-13] MEDS: HYDROcodone/APAP 5-325MG 1 EACH TAB PO PRN ×4 (07:10→21:06)
[2020-04-13] MEDS ORDERED: BISACODYL 10 MG SUPP RECTAL STA (10:57)
--- NOTE | 2020-04-13 11:21 | P.PN ---
Subjective Progress Note Date: 04/13/20 CHIEF COMPLAINT: Cholecystitis HISTORY OF PRESENT ILLNESS: Patient is status post open cholecystectomy secondary to acute gangrenous cholecystitis. Patient examined at the bedside. Patient is tolerating full liquid diet. She denies nausea or vomiting. Patient is passing flatus. She states that she feels she is to have a bowel movement but has been unable to do so today. PHYSICAL EXAM: VITAL SIGNS: Reviewed. GENERAL: Well-developed in no acute distress. HEENT: No sclera icterus. Extraocular movements grossly intact. Moist buccal mucosa. Head is atraumatic, normocephalic. ABDOMEN: Soft. Nondistended. Dressing clean dry and intact. ELTON drain with serous drainage. NEUROLOGIC: Alert and oriented. Cranial nerves II through XII grossly intact. ASSESSMENT: 1. Acute gangrenous cholecystitis 2. Postoperative ileus PLAN: -Activity as tolerated -Incentive spirometer -Advance diet to regular -Continue Reglan -Dulcolax suppository 1 -Discontinue IV fluids -Discontinue ELTON drain -Anticipate discharge home tomorrow if patient is able to tolerate regular diet Nurse practitioner note has been reviewed by physician. Signing provider agrees with the documented findings, assessment, and plan of care. Objective - Vital Signs Vital signs: Vital Signs Temp 98.7 F 04/13/20 06:58 Pulse 87 04/13/20 06:58 Resp 16 04/13/20 06:58 BP 148/73 04/13/20 06:58 Pulse Ox 94 L 04/13/20 06:58 Intake & Output 04/12/20 04/13/20 04/13/20 18:59 06:59 18:59 Intake Total 118 250 250 Output Total 75 100 Balance 43 150 250 Intake: Oral 118 250 250 Output: Drainage 75 100 Abdomen 75 100 Other: Voiding Method Toilet Bedside Commode # Voids 4 1 - Labs CBC & Chem 7: 04/11/20 07:36 04/11/20 07:36
--- NOTE | 2020-04-13 12:24 | P.PN ---
Subjective Progress Note Date: 04/13/20 Principal diagnosis: Gangrenous cholecystitis postcholecystectomy Patient was seen and examined. No acute events overnight. Tolerating full liquid diet. No more nausea or vomiting. Minimal abdominal pain at the site of incision. She denies any chest pain, shortness of breath or palpitations. No fever or chills. ELTON draining serosanguineous fluid overnight. Patient shady nues to pass gas and is having regular bowel movements. Objective - Vital Signs Vital signs: Vital Signs Temp 98.7 F 04/13/20 06:58 Pulse 87 04/13/20 06:58 Resp 16 04/13/20 06:58 BP 148/73 04/13/20 06:58 Pulse Ox 94 L 04/13/20 06:58 Intake & Output 04/12/20 04/13/20 04/13/20 18:59 06:59 18:59 Intake Total 118 250 250 Output Total 75 100 Balance 43 150 250 Intake: Oral 118 250 250 Output: Drainage 75 100 Abdomen 75 100 Other: Voiding Method Toilet Bedside Commode # Voids 4 1 - Exam General: [Ill-appearing], [no distress], [appears at stated age] Derm: [warm], [dry] Head: [atraumatic], [normocephalic], [symmetric] Eyes: [EOMI], [no lid lag], [anicteric sclera] Mouth: [no lip lesion], [mucus membranes moist] Cardiovascular: [S1S2 reg], [no murmur], [positive DP pulse bilateral], Lungs: [Decreased breath sounds bilateral], [no rhonchi, no rales] , [no accessory muscle use] Abdominal: [soft], [mild tenderness to palpation without rebound in all 4 quadrants], [no guarding], [no appreciable organomegaly], [ELTON drain intact with abdominal binder] Ext: [no gross muscle atrophy], [no edema], [no contractures] Neuro: [no focal neuro deficits] Psych: [Alert], [oriented], [appropriate affect] - Labs CBC & Chem 7: 04/11/20 07:36 04/11/20 07:36 Assessment and Plan Assessment: Acute gangrenous cholecystitis s/p Open maury on 04/03/2020 - Unasyn - surgery recs appreciated -Continue full liquid diet - ID recs: Unasyn, orals once ileus resolved - pain control - antiemetics, reglan started 04/06 - Pathology with necrotic gallbladder Pleural effusion -Likely from surgery and infused IVF -As seen on chest x-ray -Maintain O2 saturation greater than 92%. Post op ileus -Repeat KUB suggests postoperative ileus - Encourage hydration by mouth - ice chips - zofran and reglan Hyponatremia, stable and appears chronic with baseline 133, improved - IVF fluids - repeat in AM Acute blood loss anemia - due to surgical procedure and anticipated - now improving - will no longer follow unless clinical change - B12 and folate elevated HLD - stain on hold - plan on resume on discharge Osteoprosis with hx of compression fractures - pain control Hypokalemia, resolved Acidosis, suspect metabolic and non anion gap, resolved [She is POD 10. Tolerating full liquid diet. Likely DC tomorrow if patient continues to tolerate diet.]
--- NOTE | 2020-04-13 13:13 | P.PN ---
Subjective Progress Note Date: 04/13/20 Principal diagnosis: Acute cholecystitis This is an 84-year-old female patient admitted through emergency department on 04/01/2020 and the patient was taken to the operating room for an open cholecystectomy and this was done and completed and following that the patient was kept on a mechanical ventilator and was extubated in the recovery area. The patient came in to the ICU for further monitoring. Was seen in consultation yesterday. She has osteoporosis and compression fracture of the vertebral spine and history of hyperlipidemia. She was receiving lactated Ringer at the rate of 100 mL an hour and she was in oxygen at 3 L per minute nasal cannula. The patient is producing adequate amount of urine output. Pain is under adequate control for now. The white cell count was nonelevated. The liver function tests are all within normal limits. Amylase and lipase also within normal limits. The patient is currently receiving IV Unasyn as an empiric antibiotic coverage. On today's evaluation of 04/04/2020, the patient is calm and comfortable and the patient has no specific complaints. She has an adequate reading at the rate of 100 mL an hour. ELTON drain has drained approximately 150 serosanguineous material. Incision is dry clean and intact. She is awake and alert and she is communicating. No other significant events overnight. The patient is seen today 04/05/2020 in follow-up on the regular medical floor. She is currently resting comfortably in bed. Awake and alert in no acute distress. She is maintaining O2 saturations in the 90s on 2 L/m per nasal cannula. She's been afebrile. Hemodynamically stable. White count 8.0. Hemoglobin 9.4. Sodium 131. Potassium 3.4. Creatinine 0.36. She remains on Unasyn. Heparin for DVT prophylaxis. Abdominal dressing dry and intact. ELTON drain remains in place. Tolerating her diet. Needs increased encouragement regarding the use of the incentive spirometer. On 04/06/2020 patient is seen in follow-up on general medical floor. She is sitting up in the chair, has an emesis basin in her lab, she has been nauseous and she has vomited a few times. Her abdomen is slightly more distended on today's exam, it is soft, nontender but hypoactive bowel sounds are present. Incisions are clean dry and intact, ELTON drain with small amount of serous output, no fever or chills, denies any pulmonary complaints, no shortness of breath, lung sounds are clear, she has been receiving ice chips only. We obtained a KUB of the abdomen, which showed distended small bowel with air-fluid levels seen which may reflect postoperative ileus. We ordered the NG tube to be inserted to low intermittent suction. Maintain nothing by mouth status for now. Services are following, patient is on Reglan. Has not passed any gas yet. On 04/07/2020 patient is seen on general medical floor, she is sitting up in the chair, she never required NG tube placement yesterday as her nausea did improve with IV Reglan, today she states she has not passed any gas, but her bowel sounds are more active on today's exam, her abdomen is nontender, surgical incisions clean dry and intact, ELTON drain on the right side of the abdomen is but not minimal amount of seros output. Patient remains on ice chips and popsicles only at this time. Denies any difficulty breathing, lung sounds are clear to auscultation, she is trying to work with her incentive spirometer. Overall patient is generally weak, and possibly will require rehab placement after discharge. On 04/13/2020 patient seen in follow-up on general medical floor. She is awake and alert, oriented 3, no acute distress, no worsening dyspnea, she is on room air today, with a pulse ox of 94%, afebrile, hemodynamically stable. We will give the patient additional dose of IV Lasix yesterday, difficult to estimate the fluid balance. We'll obtain follow-up chest x-ray today. She is working on incentive spirometer, her breathing is comfortable, no complaint of chest pain. She is passing flatus, he is tolerating full liquid diet, she is trying to have a bowel movement, but has been unable to do so. Surgery is following, and patient will receive a dose of Dulcolax suppository. Today's blood work has been reviewed showing white blood cell, 7.8, hemoglobin at 10.1, serum sodium is 135, potassium is 3.8, chloride is 94, CO2 34, BUN 7 creatinine 0.41 Objective - Vital Signs Vital signs: Vital Signs Temp 98.7 F 04/13/20 06:58 Pulse 87 04/13/20 06:58 Resp 16 04/13/20 06:58 BP 148/73 05/20/20 06:58 Pulse Ox 94 L 04/13/20 06:58 Intake & Output 04/12/20 04/13/20 04/13/20 18:59 06:59 18:59 Intake Total 118 250 250 Output Total 75 100 Balance 43 150 250 Intake: Oral 118 250 250 Output: Drainage 75 100 Abdomen 75 100 Other: Voiding Method Toilet Bedside Commode # Voids 4 1 - Exam GENERAL EXAM: Alert, very pleasant, 84-year-old white female on room air, with a pulse ox of 94% sitting up in the recliner, denies any nausea or vomiting on today's exam comfortable in no apparent distress. HEAD: Normocephalic/atraumatic. EYES: Normal reaction of pupils, equal size. Conjunctiva pink, sclera white. NOSE: Clear with pink turbinates. THROAT: No erythema or exudates. NECK: No masses, no JVD, no thyroid enlargement, no adenopathy. CHEST: No chest wall deformity. Symmetrical expansion. LUNGS: Equal air entry with no crackles, wheeze, rhonchi or dullness. CVS: Regular rate and rhythm, normal S1 and S2, no gallops, no murmurs, no rubs ABDOMEN: Soft, somewhat distended but nontender. No hepatosplenomegaly, no guarding or rigidity. More active bowel sounds present on today's exam. Abdominal incisions are clean dry and intact, covered with surgical dressings, right abdominal ELTON drain is compressed and draining with small amount of serous drainage EXTREMITIES: No clubbing, no edema, no cyanosis, 2+ pulses and upper and lower extremities. MUSCULOSKELETAL: Muscle strength and tone normal. SPINE: No scoliosis or deformity SKIN: No rashes CENTRAL NERVOUS SYSTEM: Alert and oriented -3. No focal deficits, tone is normal in all 4 extremities. PSYCHIATRIC: Alert and oriented -3. Appropriate affect. Intact judgment and insight. - Labs CBC & Chem 7: 04/11/20 07:36 04/11/20 07:36 Assessment and Plan Plan: Assessment: #1. Acute gangrenous cholecystitis, status post open cholecystectomy, postoperative day 10 #2. Nausea and vomiting, related to acute ileus, improved with conservative treatment, IV Reglan, patient did not require NG tube placement #3. Mild hyponatremia, likely hypovolemic, improved #4. Bilateral pleural effusions, patient has been given intermittent doses of diuretics, will obtain follow-up chest x-ray today #5. History of hyperlipidemia #6. Chronic degenerative arthritis #7. History of osteoporosis Plan: Continue current medical treatment, may consider an additional dose of IV Lasix, we'll obtain follow-up chest x-ray today, no worsening dyspnea, patient is on room air, continue encouraging deep breathing and coughing, ambulation. No nausea or vomiting, patient is passing flatus, tolerating diet, will continue to follow I performed a history & physical examination of the patient and discussed their management with my nurse practitioner, Geetha Wheatley. I reviewed the nurse practitioner's note and agree with the documented findings and plan of care. Lung sounds are positive for clear breath sounds. The findings and the im pression was discussed with the patient. I attest to the documentation by the nurse practitioner. Time with Patient: Less than 30
--- NOTE | 2020-04-13 13:41 | XR ---
EXAMINATION TYPE: XR chest 1V DATE OF EXAM: 04/13/2020 CLINICAL HISTORY: Difficulty breathing and pleural effusions progress study. TECHNIQUE: Single AP portable upright view of the chest is obtained. COMPARISON: Chest x-ray from 3 days earlier FINDINGS: Persistent cardiomegaly with small sized bilateral pleural effusions and associated bibasi lar atelectasis and/or infiltrate on background chronic parenchymal change. Upper lungs remain clear without pneumothorax. Osseous structures remain demineralized. Horizontal adrianna overlie the right u pper to mid abdomen similar to prior. IMPRESSION: Overall stable findings, suspect CHF exacerbation as there is cardiomegaly with small b ilateral pleural effusions and associated bibasilar acute atelectasis and/or infiltrate are all redem onstrated.
--- NOTE | 2020-04-13 18:13 | PN ---
PROGRESS NOTE DATE OF SERVICE: 04/13/2020 REASON FOR FOLLOWUP: Acute gangrenous cholecystitis. INTERVAL HISTORY: The patient is currently afebrile. Patient is breathing comfortably. Currently some discomfort in the right upper quadrant area. No further vomiting, chest pain, shortness of breath or cough. PHYSICAL EXAMINATION: Blood pressure 133/70, pulse of 97, temperature 98.5. She is 94% on room air. GENERAL DESCRIPTION: The patient is a an elderly female bed in no distress. RESPIRATORY SYSTEM: Unlabored breathing. Clear to auscultation. HEART: S1, S2. Regular rate and rhythm. ABDOMEN: Soft, no distention or tenderness. LABS: Hemoglobin is 10.1, white count 7.9, creatinine 0.41. DIAGNOSTIC IMPRESSION AND PLAN: Patient with acute gangrenous cholecystitis status post cholecystectomy. The patient seems to have shown overall clinical improvement. Currently on Unasyn to transition to a short course of oral Augmentin on discharge. Continue supportive care. MMODL / IJN: [id number] /
[2020-04-14] MEDS: METOCLOPRAMIDE 5 MG/ML 2 ML VIAL IVP SCH ×2 (05:36→12:58)
[2020-04-14] MEDS: LORATADINE 10 MG TAB PO SCH (08:08)
[2020-04-14] MEDS: DOCUSATE 100 MG CAP PO SCH (08:08)
[2020-04-14] MEDS: FAMOTIDINE 20 MG TAB PO SCH (08:08)
[2020-04-14] MEDS: HEPARIN SODIUM,PORCINE 5,000 UNIT/ML 1 ML VIAL SQ SCH (08:09)
[2020-04-14] MEDS: AMPICILLIN-SULBACTAM 3 GM in SODIUM CHLORIDE 0.9% 100 ML IVPB SCH (08:09)
[2020-04-14] MEDS: HYDROcodone/APAP 5-325MG 1 EACH TAB PO PRN ×3 (08:15→15:24)
[2020-04-14] MEDS ORDERED: FUROSEMIDE 10 MG/ML 4 ML VIAL IV STA (09:37)
--- NOTE | 2020-04-14 11:52 | P.DS ---
Providers Date of admission: 04/01/20 09:16 Expected date of discharge: 04/14/20 Attending physician: Orlando Flynn MD Consults: 04/01/20 12:42 Consult Physician Urgent Consulting Provider: Messi España Consult Reason/Comments: Acute cholecystitis Do you want consulting provider notified?: Yes 04/02/20 10:11 Consult Physician Routine Consulting Provider: Wenceslao Encarnacion Consult Reason/Comments: cholecystitis Do you want consulting provider notified?: Yes 04/03/20 10:47 Consult Physician Routine Consulting Provider: Elvin Palma Consult Reason/Comments: Medical management Do you want consulting provider notified?: Yes Primary care physician: Ann Seymour - Discharge Diagnosis(es) (1) Acute cholecystitis Current Visit: Yes Status: Acute Hospital Course: Patient is a 84-year-old female who presented to the emergency room on April 01 complaining of abdominal pain right upper quadrant which has worsened over one week. In the emergency room patient was afebrile Harleys she had a leukocytosis of 13.9 gallbladder ultrasound showed evidence of apical wall thickening and per icholecystic fluid patient was started on IV Zosyn. Patient underwent cholecystectomy on April 03 which showed gangrenous gallbladder and crisis and was changed to IV Unasyn and she was admitted to the intensive care unit after surgery. 112 patient was transitioned to the general medical floor she was able to slowly progress. The ELTON drain was discontinued on patient diet was slowly advanced. Today patient was seen by me she is tolerating a regular diet. Her pain is controlled with 5 mg of [place]. Patient is stable for discharge discharge home with home care. Patient has completed a course of Unasyn 10 days days on [place] one tablet every 4 when necessary for pain. Patient is afebrile postsurgical instructions per general surgery. This should continue a soft diet with activity as tolerated Patient is postoperative day number Chip C Baseline her pain is controlled she'll be discharged home with outpatient follow-up Time spent on the day of discharge was 32 minutes Patient Condition at Discharge: Fair Plan - Discharge Summary Discharge Rx Participant: No New Discharge Prescriptions: New Hydrocodone/Acetaminophen [[place] 5-325] 1 tab PO Q6HR PRN #10 tab PRN Reason: Pain Levofloxacin [Levaquin] 500 mg PO DAILY 7 Days #7 tab No Action Simvastatin 40 mg PO HS Multivitamins, Thera [Multivitamin (formulary)] 1 tab PO DAILY Glucosam/Patricio-Msm1/C/Randolph/Bosw [Glucosamine-Chondroitin Tablet] 2 tab PO DAILY Alfredo/D3/Mag11/Zinc/Bull Driver/Randolph/Bor [Caltrate 600+D Plus Tablet] 2 tab PO DAILY Aspirin EC [Ecotrin Low Dose] 81 mg PO DAILY Loratadine [Claritin] 10 mg PO DAILY L.acidoph,Paracasei, B.lactis [Probiotic] 1 cap PO DAILY Ascorbic Acid [Vitamin C] 500 mg PO DAILY Acetaminophen Tab [Tylenol] 325 mg PO Q4H PRN PRN Reason: Pain Simethicone Chew [Mylicon Chew] 80 mg PO QID PRN #60 chew PRN Reason: gas pains Discharge Medication List Alfredo/D3/Mag11/Zinc/Bull Driver/Randolph/Bor [Caltrate 600+D Plus Tablet] 2 tab PO DAILY 09/05/16 [History] Glucosam/Patricio-Msm1/C/Randolph/Bosw [Glucosamine-Chondroitin Tablet] 2 tab PO DAILY 09/05/16 [History] Multivitamins, Thera [Multivitamin (formulary)] 1 tab PO DAILY 09/05/16 [History] Simvastatin 40 mg PO HS 09/05/16 [History] Acetaminophen Tab [Tylenol] 325 mg PO Q4H PRN 11/09/19 [History] Ascorbic Acid [Vitamin C] 500 mg PO DAILY 11/09/19 [History] Aspirin EC [Ecotrin Low Dose] 81 mg PO DAILY 11/09/19 [History] L.acidoph,Paracasei, B.lactis [Probiotic] 1 cap PO DAILY 11/09/19 [History] Loratadine [Claritin] 10 mg PO DAILY 11/09/19 [History] Simethicone Chew [Mylicon Chew] 80 mg PO QID PRN #60 chew 11/12/19 [Rx] Hydrocodone/Acetaminophen [[place] 5-325] 1 tab PO Q6HR PRN #10 tab 04/04/20 [Rx] Levofloxacin [Levaquin] 500 mg PO DAILY 7 Days #7 tab 04/12/20 [Rx] Follow up Appointment(s)/Referral(s): Jose F Cortez MD [STAFF PHYSICIAN] - 04/28/20 3:00 pm (With Tracy ramirez) [facility], [REFERRING] - 1-2 Days Ann Seymour MD [Primary Care Provider] - 04/20/20 11:00 am Messi España MD [STAFF PHYSICIAN] - 04/21/20 3:00 pm Patient Instructions/Handouts: Open Cholecystectomy (DC) Activity/Diet/Wound Care/Special Instructions: No driving while taking [place] No lifting over 10 pounds You may shower. No soaking or tub baths Very light activity until you are reevaluated at your follow up appointment with your surgeon
--- NOTE | 2020-04-14 12:09 | P.PN ---
Subjective Progress Note Date: 04/14/20 Principal diagnosis: Acute cholecystitis This is an 84-year-old female patient admitted through emergency department on 04/01/2020 and the patient was taken to the operating room for an open cholecystectomy and this was done and completed and following that the patient was kept on a mechanical ventilator and was extubated in the recovery area. The patient came in to the ICU for further monitoring. Was seen in consultation yesterday. She has osteoporosis and compression fracture of the vertebral spine and history of hyperlipidemia. She was receiving lactated Ringer at the rate of 100 mL an hour and she was in oxygen at 3 L per minute nasal cannula. The patient is producing adequate amount of urine output. Pain is under adequate control for now. The white cell count was nonelevated. The liver function tests are all within normal limits. Amylase and lipase also within normal limits. The patient is currently receiving IV Unasyn as an empiric antibiotic coverage. On today's evaluation of 04/04/2020, the patient is calm and comfortable and the patient has no specific complaints. She has an adequate reading at the rate of 100 mL an hour. ELTON drain has drained approximately 150 serosanguineous material. Incision is dry clean and intact. She is awake and alert and she is communicating. No other significant events overnight. The patient is seen today 04/05/2020 in follow-up on the regular medical floor. She is currently resting comfortably in bed. Awake and alert in no acute distress. She is maintaining O2 saturations in the 90s on 2 L/m per nasal cannula. She's been afebrile. Hemodynamically stable. White count 8.0. Hemoglobin 9.4. Sodium 131. Potassium 3.4. Creatinine 0.36. She remains on Unasyn. Heparin for DVT prophylaxis. Abdominal dressing dry and intact. ELTON drain remains in place. Tolerating her diet. Needs increased encouragement regarding the use of the incentive spirometer. On 04/06/2020 patient is seen in follow-up on general medical floor. She is sitting up in the chair, has an emesis basin in her lab, she has been nauseous and she has vomited a few times. Her abdomen is slightly more distended on today's exam, it is soft, nontender but hypoactive bowel sounds are present. Incisions are clean dry and intact, ELTON drain with small amount of serous output, no fever or chills, denies any pulmonary complaints, no shortness of breath, lung sounds are clear, she has been receiving ice chips only. We obtained a KUB of the abdomen, which showed distended small bowel with air-fluid levels seen which may reflect postoperative ileus. We ordered the NG tube to be inserted to low intermittent suction. Maintain nothing by mouth status for now. Services are following, patient is on Reglan. Has not passed any gas yet. On 04/07/2020 patient is seen on general medical floor, she is sitting up in the chair, she never required NG tube placement yesterday as her nausea did improve with IV Reglan, today she states she has not passed any gas, but her bowel sounds are more active on today's exam, her abdomen is nontender, surgical incisions clean dry and intact, ELTON drain on the right side of the abdomen is but not minimal amount of seros output. Patient remains on ice chips and popsicles only at this time. Denies any difficulty breathing, lung sounds are clear to auscultation, she is trying to work with her incentive spirometer. Overall patient is generally weak, and possibly will require rehab placement after discharge. On 04/13/2020 patient seen in follow-up on general medical floor. She is awake and alert, oriented 3, no acute distress, no worsening dyspnea, she is on room air today, with a pulse ox of 94%, afebrile, hemodynamically stable. We will give the patient additional dose of IV Lasix yesterday, difficult to estimate the fluid balance. We'll obtain follow-up chest x-ray today. She is working on incentive spirometer, her breathing is comfortable, no complaint of chest pain. She is passing flatus, he is tolerating full liquid diet, she is trying to have a bowel movement, but has been unable to do so. Surgery is following, and patient will receive a dose of Dulcolax suppository. Today's blood work has been reviewed showing white blood cell, 7.8, hemoglobin at 10.1, serum sodium is 135, potassium is 3.8, chloride is 94, CO2 34, BUN 7 creatinine 0.41 On 04/14/2020 patient seen in follow-up on general medical floor. No complaints of shortness of breath, room air pulse ox is 93%, patient is working on the incentive spirometry, she's been afebrile, hemodynamically stable, she is tolerating regular diet, no nausea or vomiting, she received Dulcolax supposito ry and she was able to have a bowel movement this morning. She is tolerating ambulation, her incisional pain is well controlled, we gave the patient a dose of IV Lasix yesterday, she has diuresed, lower extremity edema has improved with some residual pedal edema. Yesterday's follow-up chest x-ray showed small bilateral pleural effusions and associated bibasilar atelectasis, and we'll give the patient and additional dose of Lasix today Objective - Vital Signs Vital signs: Vital Signs Temp 98.6 F 04/14/20 07:00 Pulse 83 04/14/20 07:00 Resp 16 04/14/20 08:15 BP 156/71 04/14/20 07:00 Pulse Ox 93 L 04/14/20 07:00 Intake & Output 04/13/20 04/14/20 04/14/20 18:59 06:59 18:59 Intake Total 500 160 Output Total 60 90 300 Balance 440 70 -300 Weight 64.8 kg Intake: Intake, IV Titration 160 Amount IV Fluid Continuation 1, 160 000 ml @ 0 mls/hr IV .[facility] -[facility] Rx#:[id number] Oral 500 Output: Drainage 60 90 Abdomen 60 90 Urine 300 Stool 0 Other: Voiding Method Toilet Toilet Bedside Commode Bedside Commode # Voids 2 1 1 # Bowel Movements 1 1 - Exam GENERAL EXAM: Alert, very pleasant, 84-year-old white female on room air, with a pulse ox of 93% sitting up in the recliner, denies any nausea or vomiting on today's exam comfortable in no apparent distress. HEAD: Normocephalic/atraumatic. EYES: Normal reaction of pupils, equal size. Conjunctiva pink, sclera white. NOSE: Clear with pink turbinates. THROAT: No erythema or exudates. NECK: No masses, no JVD, no thyroid enlargement, no adenopathy. CHEST: No chest wall deformity. Symmetrical expansion. LUNGS: Equal air entry with no crackles, wheeze, rhonchi or dullness. CVS: Regular rate and rhythm, normal S1 and S2, no gallops, no murmurs, no rubs ABDOMEN: Soft, somewhat distended but nontender. No hepatosplenomegaly, no guarding or rigidity. More active bowel sounds present on today's exam. Abdominal incisions are clean dry and intact, covered with surgical dressings, right abdominal ELTON drain is compressed and draining with small amount of serous drainage EXTREMITIES: No clubbing, no edema, no cyanosis, 2+ pulses and upper and lower extremities. MUSCULOSKELETAL: Muscle strength and tone normal. SPINE: No scoliosis or deformity SKIN: No rashes CENTRAL NERVOUS SYSTEM: Alert and oriented -3. No focal deficits, tone is normal in all 4 extremities. PSYCHIATRIC: Alert and oriented -3. Appropriate affect. Intact judgment and insight. - Labs CBC & Chem 7: 04/11/20 07:36 04/11/20 07:36 Assessment and Plan Plan: Assessment: #1. Acute gangrenous cholecystitis, status post open cholecystectomy, postoperative day 11 #2. Nausea and vomiting, related to acute ileus, improved with conservative treatment, IV Reglan, patient did not require NG tube placement #3. Mild hyponatremia, likely hypovolemic, improved #4. Bilateral pleural effusions, patient has been given intermittent doses of diuretics, will obtain follow-up chest x-ray today #5. History of hyperlipidemia #6. Chronic degenerative arthritis #7. History of osteoporosis Plan: Yesterday chest x-ray has been reviewed showing small bilateral pleural effusions and bibasilar atelectasis, we'll give the patient additional dose of IV Lasix, and we will put her on a maintenance dose of oral Lasix 20 mg daily starting tomorrow, no acute issues overnight, continue encouraging deep breathing and coughing, no nausea vomiting, tolerating oral diet, passing bowel movements. From pulmonary perspective she is stable for discharge home today on maintenance dose of oral Lasix at 20 mg, she will need outpatient follow-up with Dr. Helms in the office next week and we can do follow-up chest x-ray in the office I performed a history & physical examination of the patient and discussed their management with my nurse practitioner, Geetha Wheatley. I reviewed the nurse practitioner's note and agree with the documented findings and plan of care. Lung sounds are positive for clear breath sounds. The findings and the impressi on was discussed with the patient. I attest to the documentation by the nurse practitioner. Time with Patient: Less than 30
--- NOTE | 2020-04-14 13:40 | P.PN ---
Subjective Progress Note Date: 04/14/20 CHIEF COMPLAINT: Cholecystitis HISTORY OF PRESENT ILLNESS: Patient is status post open cholecystectomy secondary to acute gangrenous cholecystitis. Patient examined at the bedside. Patient is tolerating regular diet. She denies nausea or vomiting. PHYSICAL EXAM: VITAL SIGNS: Reviewed. GENERAL: Well-developed in no acute distress. HEENT: No sclera icterus. Extraocular movements grossly intact. Moist buccal mucosa. Head is atraumatic, normocephalic. ABDOMEN: Soft. Nondistended. Dressing clean dry and intact. ELTON drain with s erous drainage. NEUROLOGIC: Alert and oriented. Cranial nerves II through XII grossly intact. ASSESSMENT: 1. Acute gangrenous cholecystitis 2. Postoperative ileus PLAN: -Activity as tolerated -Incentive spirometer -Continue diet as tolerated -Discontinue ELTON drain -Stable for discharge home from a surgical standpoint when cleared by internal medicine Nurse practitioner note has been reviewed by physician. Signing provider agrees with the documented findings, assessment, and plan of care. Objective - Vital Signs Vital signs: Vital Signs Temp 98.6 F 04/14/20 07:00 Pulse 83 04/14/20 07:00 Resp 16 04/14/20 08:15 BP 156/71 04/14/20 07:00 Pulse Ox 93 L 04/14/20 07:00 Intake & Output 04/13/20 04/14/20 04/14/20 18:59 06:59 18:59 Intake Total 500 160 Output Total 60 90 300 Balance 440 70 -300 Weight 64.8 kg Intake: Intake, IV Titration 160 Amount IV Fluid Continuation 1, 160 000 ml @ 0 mls/hr IV .[facility] Rx#:[id number] Oral 500 Output: Drainage 60 90 Abdomen 60 90 Urine 300 Stool 0 Other: Voiding Method Toilet Toilet Bedside Commode Bedside Commode # Voids 2 1 1 # Bowel Movements 1 1 - Labs CBC & Chem 7: 04/11/20 07:36 04/11/20 07:36
[2020-04-14 15:38] VITALS: BP 173/85; RESP 20; TEMP 97.9
[2020-04-14 16:30] VITALS: PULSE 83
--- NOTE | 2020-04-14 20:22 | PN ---
PROGRESS NOTE DATE OF SERVICE: 04/14/2020 REASON FOR FOLLOWUP: Acute gangrenous cholecystitis. INTERVAL HISTORY: The patient is currently afebrile. She is breathing comfortably. Some discomfort right upper quadrant, but no worsening. No nausea. No vomiting or diarrhea. PHYSICAL EXAMINATION: Blood pressure 133/85 with a pulse of 96, temperature 98.9. She is 95% on room air. General description is an elderly female in the bed in no distress. Respiratory system: Unlabored breathing, clear to auscultation anteriorly. Heart S1, S2. Regular rate and rhythm. ABDOMEN: Soft. Mildly tender. No guarding. No rigidity. LABS: Hemoglobin is 10.8, white count 7.8. BUN of 10, creatinine 0.41. DIAGNOSTIC IMPRESSION AND PLAN: Patient with acute gangrenous cholecystitis status post open cholecystectomy. Patient covered on Unasyn. Finish therapy with a short course of oral Augmentin and monitor clinical course closely. MMODL / IJN: [id number] /
[2020-04-15] MEDS ORDERED: FUROSEMIDE 20 MG TAB PO SCH (09:00)
== END 2020-04-14 16:37 | disposition home health service (06) | DRG 415 ==
LOC: EC 04:08 → 4SSUR 09:16 → 2SICU 04-03 11:58 → 4SSUR 04-04 18:47
PROVIDERS: ADMIT Family Medicine; ATTEND Family Medicine
PROC: 0FJ44ZZ Inspection of Gallbladder, Percutaneous Endoscopic Approach (ICD-10-PCS; principal; 2020-04-03 09:00)
PROC: 0FT40ZZ Resection of Gallbladder, Open Approach (ICD-10-PCS; principal; 2020-04-03 09:00)
DX: K81.0 Acute cholecystitis (principal); K56.7 Ileus, unspecified; E87.2 Acidosis; J90 Pleural effusion, not elsewhere classified; E87.1 Hypo-osmolality and hyponatremia; D62 Acute posthemorrhagic anemia; J98.11 Atelectasis; K82.A1 Gangrene of gallbladder in cholecystitis; J44.9 Chronic obstructive pulmonary disease, unspecified; K86.89 Other specified diseases of pancreas; Z11.59 Encounter for screening for other viral diseases; E86.1 Hypovolemia; E78.5 Hyperlipidemia, unspecified; E87.6 Hypokalemia; K59.09 Other constipation; D53.9 Nutritional anemia, unspecified; Z53.31 Laparoscopic surgical procedure converted to open procedure; G89.29 Other chronic pain; M54.5 Low back pain; M80.88XS Other osteoporosis with current pathological fracture, vertebra(e), sequela; M19.90 Unspecified osteoarthritis, unspecified site; M79.661 Pain in right lower leg; Z79.82 Long term (current) use of aspirin; Z79.899 Other long term (current) drug therapy; Z90.710 Acquired absence of both cervix and uterus; Z86.19 Personal history of other infectious and parasitic diseases; Z96.641 Presence of right artificial hip joint; Z98.890 Other specified postprocedural states; Z88.5 Allergy status to narcotic agent; Z88.2 Allergy status to sulfonamides; Z91.030 Bee allergy status; Z82.49 Family history of ischemic heart disease and other diseases of the circulatory system
CPT/HCPCS: 36415; 71045; 74018; 74177; 76705; 80048; 80053; 81003; 82150; 82607; 82747; 83540; 83550; 83690; 83735; 84100; 84132; 85025; 85027; 87635; 88304; 93970; 94760; 96361; 96365; 96375; 96376; 99285

== ENCOUNTER 2022-08-21 15:52 | Inpatient (IN) | payer MEDICARE, BC ==
--- NOTE | 2022-08-21 17:40 | XR ---
EXAMINATION TYPE: XR KUB DATE OF EXAM: 08/21/2022 COMPARISON: 04/11/2020 HISTORY: Abdominal pain TECHNIQUE: Single view upright FINDINGS: There are multiple small bowel fluid levels. There is gas in the large bowel down to the re ctum. No sign of free air. Lung bases are clear of consolidation. No definite pleural fluid. IMPRESSION: There is clearing of the pleural fluid compared to the old exam. There is intestinal flui d levels that could relate to ileus. No free air.
[2022-08-21 19:13] LABS: Basophils % (A) 0 %; Eosinophils % (A) 0 %; HCT 38.3 % (34.0-46.0); HGB 12.5 gm/dL (11.4-16.0); Lymphocytes % (A) 8 %; MCHC 32.6 g/dL (31.0-37.0); MCV 98.1 fL (80.0-100.0); Mean Platelet Volume 9.1; Monocytes # (A) 0.5 k/uL (0-1.0); Monocytes % (A) 4 %; Neutrophils # (A) 11.3 k/uL (1.3-7.7); Neutrophils % (A) 86 %; Platelet Count 152 k/uL (150-450); RBC 3.91 m/uL (3.80-5.40); RDW 13.6 % (11.5-15.5); WBC 13.1 k/uL (3.8-10.6)
[2022-08-21 19:43] LABS: ALT 12 U/L (4-34); AST 50 U/L (14-36); African American GFR (CKD) >90 (>60 ml/min/1.73 sqM); Albumin 5.2 g/dL (3.5-5.0); Alkaline Phosphatase 63 U/L (38-126); Amylase 63 U/L (30-110); Anion Gap 16 mmol/L; Blood Urea Nitrogen 28 mg/dL (7-17); Calcium 9.8 mg/dL (8.4-10.2); Carbon Dioxide 30 mmol/L (22-30); Chloride 86 mmol/L (98-107); Glucose 130 mg/dL (74-99); Lipase 77 U/L (23-300); Non-African American GFR(CKD) 82 (>60 ml/min/1.73 sqM); Potassium 5.1 mmol/L (3.5-5.1); Sodium 132 mmol/L (137-145); Total Bilirubin 1.3 mg/dL (0.2-1.3); Total Protein 8.8 g/dL (6.3-8.2)
[2022-08-21] MEDS ORDERED: SODIUM CHLORIDE 0.9% 1,000 ML IV STA (20:57)
[2022-08-21] MEDS ORDERED: PANTOPRAZOLE 40 MG/10 ML VIAL IVP STA (20:57)
[2022-08-21] MEDS ORDERED: ONDANSETRON 4 MG/2 ML VIAL IVP STA (20:57)
--- NOTE | 2022-08-21 21:47 | XR ---
EXAMINATION TYPE: XR chest 2V DATE OF EXAM: 08/21/2022 COMPARISON: 04/28/2020 HISTORY: Cough TECHNIQUE: FINDINGS: Heart is normal. Lungs are clear of infiltrate. Thoracic aorta is atheromatous. No pleural effusion. There is osteopenia. There is 25% wedging of T11. IMPRESSION: No active cardiopulmonary disease. Normal heart. No change.
--- NOTE | 2022-08-21 22:25 | CT ---
EXAMINATION TYPE: CT abdomen pelvis w con DATE OF EXAM: 08/21/2022 COMPARISON: 04/01/2020 HISTORY: n/v/abd pain CT DLP: 725.8 mGycm Automated exposure control for dose reduction was used. CONTRAST: Performed with IV Contrast, patient injected with 100ml mL of Isovue 300. Images obtained from the diaphragm to the floor the pelvis with the IV contrast. There is some mild interstitial increased density right lung base. Heart size is top normal. No peric ardial effusion. No pleural effusion. Liver and spleen are intact. Stomach is intact. The bile ducts are not dilated. No evidence of pancreatic mass. There is no adrenal mass. Kidneys show satisfactory contrast opacification. Delayed images show norm al renal excretion. There is left and right renal parapelvic cysts. No sign of renal obstruction. No retroperitoneal adenopathy. There are multiple dilated fluid-filled small bowel loops in the abdomen. Small bowel dilated up to 4 cm. Large bowel not dilated. Transition point not seen. The lumbar vertebra and thoracic lumbar spine show multiple compression fractures of the 75%. No suazo ge. There is osteopenia. The bony pelvis is intact. No pelvic fracture. There is intramedullary tommy a nd transverse screw fixing the proximal right femur. IMPRESSION: Dilated small bowel suggestive of mechanical small bowel obstruction and is a change compared to old exam. Transition point not seen. Multiple renal parapelvic cysts. No renal obstruction. Mild fibrotic changes and interstitial density at the right lung base.
[2022-08-21] MEDS ORDERED: NALOXONE 0.4 MG/ML 1 ML VIAL IV PRN (23:11)
--- NOTE | 2022-08-21 23:18 | ED ---
General Adult HPI - General Chief complaint: Nausea/Vomiting/Diarrhea Stated complaint: Vomiting Time Seen by Provider: 08/21/22 20:36 Source: patient, RN notes reviewed, old records reviewed Mode of arrival: ambulatory Limitations: no limitations - History of Present Illness Initial comments: Patient is an 87-year-old female with past medical history remarkable for hyperlipidemia, prior cholecystectomy who presents emergency Department complaining of a three-day history of bilious vomitus. Believe she did have a normal bowel movement yesterday. But has noticed abdominal distention, as well as poor oral intake. Has had multiple episodes of greenish emesis over the last day. Patient started becoming concerned and brought her in for further ev aluation. Denies any chest pain, shortness of breath. Denies any urinary complaints. Does have history of abdominal surgeries. Endorses abdominal distention and discomfort. No other acute complaints at this time. Workup was started in triage. I evaluated her when she was placed. Denies fevers, chills, sick contacts. - Related Data Home Medications Medication Instructions Recorded Confirmed Alfredo/D3/Mag11/Zinc/Cap Sizer/Randolph/Bor 2 tab PO DAILY 09/05/16 04/01/20 [Caltrate 600+D Plus Tablet] Glucosam/Patricio-Msm1/C/Randolph/Bosw 2 tab PO DAILY 09/05/16 04/01/20 [Glucosamine-Chondroitin Tablet] Multivitamins, Thera [Multivitamin 1 tab PO DAILY 09/05/16 04/01/20 (formulary)] Simvastatin 40 mg PO HS 09/05/16 04/01/20 Acetaminophen Tab [Tylenol] 325 mg PO Q4H PRN 11/09/19 04/01/20 Ascorbic Acid [Vitamin C] 500 mg PO DAILY 11/09/19 04/01/20 Aspirin EC [Ecotrin Low Dose] 81 mg PO DAILY 11/09/19 04/01/20 L.acidoph,Paracasei, B.lactis 1 cap PO DAILY 11/09/19 04/01/20 [Probiotic] Loratadine [Claritin] 10 mg PO DAILY 11/09/19 04/01/20 Previous Rx's Medication Instructions Recorded Simethicone Chew [Mylicon Chew] 80 mg PO QID PRN #60 chew 11/12/19 Hydrocodone/Acetaminophen [[place] 1 tab PO Q6HR PRN #10 tab 04/04/20 5-325] levoFLOXacin [Levaquin] 500 mg PO DAILY 7 Days #7 tab 04/12/20 Allergies Allergy/AdvReac Type Severity Reaction Status Date / Time Sulfa (Sulfonamide Allergy Swelling Verified 08/21/22 17:24 Antibiotics) venom-honey bee Allergy Anaphylaxis Verified 08/21/22 17:24 [bee venom (honey bee)] tramadol AdvReac Unknown Verified 08/21/22 17:24 Review of Systems ROS Statement: Those systems with pertinent positive or pertinent negative responses have been documented in the HPI. Review of Systems: CONST: Denies fever EYES: Denies blurry vision ENT: Endorses nasal congestion C/V: Denies Chest pain RESP: Denies shortness of breath GI: Endorses abdominal pain : Denies dysuria SKIN: Denies rash. MSK: Denies joint pain. NEURO: Denies headache ROS Other: All systems not noted in ROS Statement are negative. Past Medical History Past Medical History: Hyperlipidemia Additional Past Medical History / Comment(s): Rheumatic fever age 10, osteoporosis, back fractures History of Any Multi-Drug Resistant Organisms: None Reported Past Surgical History: Cholecystectomy, Hysterectomy, Orthopedic Surgery, Tonsillectomy Additional Past Surgical History / Comment(s): hip Past Anesthesia/Blood Transfusion Reactions: No Reported Reaction Past Psychological History: No Psychological Hx Reported Smoking Status: Never smoker Past Alcohol Use History: Rare Past Drug Use History: None Reported - Past Family History Mother Family Medical History: Myocardial Infarction ([place]) General Exam - General Exam Comments Initial Comments: General: Appears in no acute distress. HEAD: Normal with no signs of head trauma. EYES: PERRLA, EOMI, conjunctiva normal, no discharge. ENT: Hearing grossly intact, normal oropharynx. RESPIRATORY: Clear breath sounds bilaterally. No wheezes, rales, or rhonchi. C/V: Regular rate and rhythm. S1 and S2 auscultated, no edema, peripheral pulses 2+ and intact throughout ABD: Abdomen is somewhat distended. Nonspecifically tender. No rebound tenderness. No guarding. EXT: Normal range of motion, no obvious deformity SKIN: No rashes or lesions observed on exposed skin. NEURO: Alert and oriented x 4. Cranial nerves II-XII intact. No focal sensory or strength deficits. Limitations: no limitations Course Vital Signs 08/21/22 17:20 Temperature 98.2 F Pulse Rate 92 Respiratory 20 Rate Blood Pressure 146/89 O2 Sat by Pulse 96 Oximetry Medical Decision Making - Medical Decision Making Based on the patient's presentation and physical exam, I'm concerned for possible intra-abdominal process for the patient. Cannot rule out atypical ACS presentation. We will obtain abdominal laboratory studies which were started in triage. I will add on cardiac labs. CT and pelvis will be obtained. The patient was in agreement this plan. Vital signs within normal limits. I did discuss with her symptomatic treatment which except including IV fluids and analgesia. EKG shows no signs of acute ischemia. Laboratory studies are remarkable for mild leukocytosis of 13. Lactic acid is within normal limits. Troponin is indeterminate. Covid influenza negative. Urinalysis is pending. Abdominal x- ray shows intestinal fluid levels that could relate to an ileus. Chest x-ray shows no acute cardio pulmonary process. CT abdomen and pelvis is concerning for a mechanical small bowel obstruction. Transition point not seen. Also fibrotic changes and interstitial to the right lung base. On reevaluation, I discussed results of the patient. I believe she requires admission hospital. Patient has seen Dr. España in the past. There were no agreement this plan. I did speak with Dr. España who accepted the patient. Requested the patient be made nothing by mouth, start her on antibiotics, place an NG tube. This was all ordered. NG tube will be placed. Patient was in agreement this plan. She'll be admitted to Dr. España in serious condition. Patient will be admitted to the hospital. She was in agreement this plan. - Lab Data Result diagrams: 08/21/22 18:12 08/21/22 18:12 Lab Results 08/21/22 08/21/22 08/21/22 Range/Units 18:12 18:12 21:39 WBC 13.1 H (3.8-10.6) k/uL RBC 3.91 (3.80-5.40) m/uL Hgb 12.5 (11.4-16.0) gm/dL Hct 38.3 (34.0-46.0) % MCV 98.1 (80.0-100.0) fL MCH 32.0 (25.0-35.0) pg MCHC 32.6 (31.0-37.0) g/dL RDW 13.6 (11.5-15.5) % Plt Count 152 (150-450) k/uL MPV 9.1 Neutrophils % 86 % Lymphocytes % 8 % Monocytes % 4 % Eosinophils % 0 % Basophils % 0 % Neutrophils # 11.3 H (1.3-7.7) k/uL Lymphocytes # 1.0 (1.0-4.8) k/uL Monocytes # 0.5 (0-1.0) k/uL Eosinophils # 0.0 (0-0.7) k/uL Basophils # 0.0 (0-0.2) k/uL Sodium 132 L (137-145) mmol/L Potassium 5.1 (3.5-5.1) mmol/L Chloride 86 L (98-107) mmol/L Carbon Dioxide 30 (22-30) mmol/L Anion Gap 16 mmol/L BUN 28 H (7-17) mg/dL Creatinine 0.59 (0.52-1.04) mg/dL Est GFR (CKD-EPI)AfAm >90 (>60 ml/min/1.73 sqM) Est GFR (CKD-EPI)NonAf 82 (>60 ml/min/1.73 sqM) Glucose 130 H (74-99) mg/dL Plasma Lactic Acid [place] (0.7-2.0) mmol/L Calcium 9.8 (8.4-10.2) mg/dL Total Bilirubin 1.3 (0.2-1.3) mg/dL AST 50 H (14-36) U/L ALT 12 (4-34) U/L Alkaline Phosphatase 63 (38-126) U/L Troponin I (0.000-0.034) ng/mL Total Protein 8.8 H (6.3-8.2) g/dL Albumin 5.2 H (3.5-5.0) g/dL Amylase 63 (30-110) U/L Lipase 77 (23-300) U/L Coronavirus (PCR) (Not Detectd) Influenza Type A RNA Not Detected (Not Detectd) Influenza Type B (PCR) Not Detected (Not Detectd) 08/21/22 08/21/22 08/21/22 Range/Units 21:39 21:39 21:39 WBC (3.8-10.6) k/uL RBC (3.80-5.40) m/uL Hgb (11.4-16.0) gm/dL Hct (34.0-46.0) % MCV (80.0-100.0) fL MCH (25.0-35.0) pg MCHC (31.0-37.0) g/dL RDW (11.5-15.5) % Plt Count (150-450) k/uL MPV Neutrophils % % Lymphocytes % % Monocytes % % Eosinophils % % Basophils % % Neutrophils # (1.3-7.7) k/uL Lymphocytes # (1.0-4.8) k/uL Monocytes # (0-1.0) k/uL Eosinophils # (0-0.7) k/uL Basophils # (0-0.2) k/uL Sodium (137-145) mmol/L Potassium (3.5-5.1) mmol/L Chloride (98-107) mmol/L Carbon Dioxide (22-30) mmol/L Anion Gap mmol/L BUN (7-17) mg/dL Creatinine (0.52-1.04) mg/dL Est GFR (CKD-EPI)AfAm (>60 ml/min/1.73 sqM) Est GFR (CKD-EPI)NonAf (>60 ml/min/1.73 sqM) Glucose (74-99) mg/dL Plasma Lactic Acid [place] 1.7 (0.7-2.0) mmol/L Calcium (8.4-10.2) mg/dL Total Bilirubin (0.2-1.3) mg/dL AST (14-36) U/L ALT (4-34) U/L Alkaline Phosphatase (38-126) U/L Troponin I 0.020 (0.000-0.034) ng/mL Total Protein (6.3-8.2) g/dL Albumin (3.5-5.0) g/dL Amylase (30-110) U/L Lipase (23-300) U/L Coronavirus (PCR) Not Detected (Not Detectd) Influenza Type A RNA (Not Detectd) Influenza Type B (PCR) (Not Detectd) - EKG Data -: EKG Interpreted by Me EKG Comments: 12-lead Electrocardiogram Interpretation Note EKG was reviewed and interpreted by myself. 12-lead ECG performed at 1812 is interpreted by me as revealing normal sinus rhythm with first-degree AV block at a rate of 97 beats per minute. Dale is leftward deviated. [place] interval is 257 ms, QRS duration is 92 ms, QTc is 416 ms.. There were no ST or T wave abn ormalities to suggest myocardial ischemia or injury. R wave progression across the precordium was satisfactory. By my interpretation this EKG is non-diagnostic for acute ischemia. Disposition Clinical Impression: Small bowel obstruction, Nausea and vomiting Disposition: ADMITTED IP TO THIS HOSP Condition: Serious Time of Disposition: 23:00
--- NOTE | 2022-08-22 00:16 | XR ---
EXAMINATION TYPE: XR chest 1V DATE OF EXAM: 08/22/2022 COMPARISON: Yesterday HISTORY: Tube placement TECHNIQUE: Single view FINDINGS: There is nasogastric tube with the tip over the gastric fundus. Lungs are clear of consolid ation. No heart failure. Thoracic aorta is atheromatous. No pleural effusion. IMPRESSION: NG tube has tip in the stomach in the gastric fundus. No sign of acute lung disease.
[2022-08-22] MEDS: MORPHINE SULFATE 4 MG/ML SYRINGE IV PRN (04:33)
[2022-08-22] MEDS: ONDANSETRON 4 MG/2 ML VIAL IVP PRN (04:33)
[2022-08-22] MEDS: PIPERACILLIN-TAZOBACTAM 3.375 GM in SODIUM CHLORIDE 0.9% 100 ML IVPB SCH ×3 (04:34→16:17)
[2022-08-22] MEDS: SODIUM CHLORIDE 0.9% 1,000 ML IV SCH ×3 (04:34→20:21)
[2022-08-22] MEDS: ACETAMINOPHEN IV (For NPO) 1,000 MG in EMPTY BAG 1 BAG IVPB PRN ×3 (04:47→20:21)
[2022-08-22] MEDS ORDERED: ACETAMINOPHEN IV (For NPO) 1,000 MG in EMPTY BAG 1 BAG IVPB SCH (06:00)
--- NOTE | 2022-08-22 06:03 | XR ---
EXAMINATION TYPE: XR chest 1V portable DATE OF EXAM: 08/22/2022 CLINICAL HISTORY: NG tube placement. TECHNIQUE: Single AP portable semiupright view of the chest is obtained. COMPARISON: Chest x-ray from one day earlier FINDINGS: Chronic parenchymal changes bilaterally redemonstrated. No new focal airspace opacity, ple ural effusion, or pneumothorax is present. Nasogastric tube removed in the interval. Cardiac silhouet te size stable and mildly enlarged. Demineralization is redemonstrated with underlying scoliosis. IMPRESSION: Interval removal of nasogastric tube otherwise no significant change from prior study.
--- NOTE | 2022-08-22 06:05 | XR ---
EXAMINATION TYPE: XR chest 1V portable DATE OF EXAM: 08/22/2022 CLINICAL HISTORY: NG tube placement. TECHNIQUE: Single AP portable upright view of the chest is obtained. COMPARISON: Chest x-ray from earlier today FINDINGS: There is a new nasogastric tube coiled within stomach below diaphragm. Chronic emphysematous change without suspicious focal airspace opacity, pleural effusion, or pneumoth orax is redemonstrated. Stable mild cardiomegaly. Demineralization with scoliosis redemonstrated. IMPRESSION: There is new nasogastric tube satisfactory in position. Mild cardiomegaly and chronic emp hysematous change without acute pulmonary process is redemonstrated.
[2022-08-22 06:31] LABS: Amorphous Sediment,Urine Few /hpf; Appearance,Urine Clear (Clear); Bacteria,Urine Rare /hpf; Bilirubin,Urine Negative (Negative); Blood,Urine Small (Negative); Color,Urine Yellow; Glucose,Urine (UA) Negative (Negative); Ketones,Urine 1+ (Negative); Leukocyte Esterase,Urine Small (Negative); Mucus,Urine Rare /hpf; Nitrite,Urine Negative (Negative); Protein,Urine 1+ (Negative); RBC,Urine 29 /hpf (0-5); Squamous Epithelial Cell,Urine 1 /hpf (0-4); Urobilinogen,Urine <2.0 mg/dL (<2.0); WBC,Urine 7 /hpf (0-5)
[2022-08-22 06:38] LABS: Basophils % (A) 0 %; Eosinophils % (A) 0 %; HGB 11.1 gm/dL (11.4-16.0); Lymphocytes # (A) 0.9 k/uL (1.0-4.8); Lymphocytes % (A) 10 %; MCH 32.7 pg (25.0-35.0); MCHC 32.6 g/dL (31.0-37.0); MCV 100.3 fL (80.0-100.0); Mean Platelet Volume 8.2; Monocytes # (A) 0.5 k/uL (0-1.0); Monocytes % (A) 5 %; Neutrophils # (A) 7.8 k/uL (1.3-7.7); Neutrophils % (A) 82 %; Platelet Count 147 k/uL (150-450); RBC 3.39 m/uL (3.80-5.40); RDW 13.8 % (11.5-15.5); WBC 9.5 k/uL (3.8-10.6)
[2022-08-22 06:39] LABS: Specific Gravity,Urine >1.050 (1.001-1.035)
[2022-08-22 06:58] LABS: Calcium 9.4 mg/dL (8.4-10.2); Potassium 3.7 mmol/L (3.5-5.1)
[2022-08-22] MEDS: HEPARIN SODIUM,PORCINE/PF 5,000 UNIT/0.5 ML SYRINGE SQ SCH ×2 (08:18→20:27)
[2022-08-22] MEDS ORDERED: PANTOPRAZOLE 40 MG/10 ML VIAL IV SCH (09:00)
--- NOTE | 2022-08-22 11:22 | P.GSHP ---
History of Present Illness H&P Date: 08/22/22 CHIEF COMPLAINT: Abdominal pain HISTORY OF PRESENT ILLNESS: This is a 87-year-old female who presented to the hospital with complaints of abdominal pain with nausea and vomiting. Patient had abdominal distention and poor oral intake yesterday. Her emesis yesterday was mostly bile in color. She did reportedly normal bowel movement yesterday. Her past abdominal surgeries include cholecystectomy and hysterectomy. Patient had computed tomography scan abdomen bowel list completed and found to have evidence of mechanical small bowel obstruction. Patient had NG tube placed in the ER. Patient reports since NG tube placement improvement in her abdominal pain. She denies any fevers chills or sweats. Patient seen and examined with Dr. España PAST MEDICAL HISTORY: Hyperlipidemia, rheumatic fever age 10, history of back fractures PAST SURGICAL HISTORY: Cholecystectomy, Hysterectomy, Orthopedic Surgery, Tonsillectomy MEDICATIONS: See list. ALLERGIES: See list. SOCIAL HISTORY: No illicit drug use. REVIEW OF SYSTEMS: CONSTITUTIONAL: Denies fever or chills. HEENT: Denies blurred vision, vision changes, or eye pain. Denies hemoptysis CARDIOVASCULAR: Denies chest pain or pressure. RESPIRATORY: No shortness of breath. GASTROINTESTINAL: See HPI for pertinent findings HEMATOLOGIC: Denies bleeding disorders. GENITOURINARY: Denies any blood in urine or increased urinary frequency. SKIN: Denies pruitis. Denies rash. PHYSICAL EXAM: VITAL SIGNS: Reviewed GENERAL: Well-developed in no acute distress. HEENT: No sclera icterus. Extraocular movements grossly intact. Moist buccal mucosa. Head is atraumatic, normocephalic. No nasal drainage. ABDOMEN: Soft. Mild distention. Nontender patient has NG tube in place with dark brownish output NEUROLOGIC: Alert and oriented. Cranial nerves II through XII grossly intact. LABORATORY DATA: WBC 13.1 down to 9.5 hemoglobin 11.1 platelets 147 Sodium 133 potassium 3.7 creatinine 0.76 IMAGING: Chest x-ray NG tube in satisfactory position. Mild cardiomegaly and chronic emphysematous changes without acute pulmonary process redemonstrated. Computed tomography scan abdomen and pelvis showing dilated small bowel suggest ford of mechanical small bowel extraction and is a change compared to old exam. Transition point not seen. Multiple renal peripelvic cysts. No renal obstruction. Mild fibrotic changes and interstitial density at the right lung base. ASSESSMENT: 1. Mechanical small bowel obstruction 2. Prior history of abdominal surgeries PLAN: -Continue conservative management -Continue NG tube for decompression -Keep patient nothing by mouth -Continue IV fluids -Continue IV antibiotics -Continue pain medication -Consult medicine for medical management -GI prophylaxis Protonix and DVT prophylaxis subcu heparin Physician Produce Service Team Member note has been reviewed by physician. Signing provider agrees with the documented findings, assessment, and plan of care. Past Medical History Past Medical History: Hyperlipidemia Additional Past Medical History / Comment(s): Rheumatic fever age 10, osteoporosis, back fractures. pt states she fell in 2018 and had a back fracture. History of Any Multi-Drug Resistant Organisms: None Reported Past Surgical History: Cholecystectomy, Hysterectomy, Orthopedic Surgery, Tonsillectomy Additional Past Surgical History / Comment(s): hip Past Anesthesia/Blood Transfusion Reactions: No Reported Reaction Past Psychological History: No Psychological Hx Reported Additional Psychological History / Comment(s): patient is a , lives home alone and family lives aroud corner from patient. Smoking Status: Never smoker Past Alcohol Use History: Rare Past Drug Use History: None Reported - Past Family History Mother Family Medical History: Myocardial Infarction ([place]) Medications and Allergies Home Medications Medication Instructions Recorded Confirmed Type Alfredo/D3/Mag11/Zinc/Termite Treater/Randolph/Bor 2 tab PO DAILY 09/05/16 08/22/22 History [Caltrate 600+D Plus Tablet] Glucosam/Patricio-Msm1/C/Randolph/Bosw 2 tab PO DAILY 09/05/16 08/22/22 History [Glucosamine-Chondroitin Tablet] Multivitamins, Thera [Multivitamin 1 tab PO DAILY 09/05/16 08/22/22 History (formulary)] Acetaminophen Tab [Tylenol] 325 mg PO Q4H PRN 11/09/19 08/22/22 History Ascorbic Acid [Vitamin C] 500 mg PO DAILY 11/09/19 08/22/22 History Aspirin EC [Ecotrin Low Dose] 81 mg PO DAILY 11/09/19 08/22/22 History L.acidoph,Paracasei, B.lactis 1 cap PO DAILY 11/09/19 08/22/22 History [Probiotic] Loratadine [Claritin] 10 mg PO DAILY 11/09/19 08/22/22 History Simethicone Chew [Mylicon Chew] 80 mg PO QID PRN #60 chew 11/12/19 08/22/22 Rx Allergies Allergy/AdvReac Type Severity Reaction Status Date / Time Sulfa (Sulfonamide Allergy Swelling Verified 08/21/22 17:24 Antibiotics) venom-honey bee Allergy Anaphylaxis Verified 08/21/22 17:24 [bee venom (honey bee)] tramadol AdvReac Unknown Verified 08/21/22 17:24 Surgical - Exam Vital Signs Temp Pulse Resp BP Pulse Ox 98.2 F 92 20 146/89 96 08/21/22 17:20 08/21/22 17:20 08/21/22 17:20 08/21/22 17:20 08/21/22 17:20 Results - Labs 08/22/22 05:51 08/22/22 05:48 Abnormal Lab Results - Last 24 Hours (Table) 08/21/22 08/21/22 08/22/22 Range/Units 18:12 18:12 05:40 WBC 13.1 H (3.8-10.6) k/uL RBC (3.80-5.40) m/uL Hgb (11.4-16.0) gm/dL MCV (80.0-100.0) fL Plt Count (150-450) k/uL Neutrophils # 11.3 H (1.3-7.7) k/uL Lymphocytes # (1.0-4.8) k/uL Sodium 132 L (137-145) mmol/L Chloride 86 L (98-107) mmol/L Carbon Dioxide (22-30) mmol/L BUN 28 H (7-17) mg/dL Glucose 130 H (74-99) mg/dL AST 50 H (14-36) U/L Total Protein 8.8 H (6.3-8.2) g/dL Albumin 5.2 H (3.5-5.0) g/dL Ur Specific [place] >1.050 H (1.001-1.035) Urine Protein 1+ H (Negative) Urine Ketones 1+ H (Negative) Urine Blood Small H (Negative) Ur Leukocyte Esterase Small H (Negative) Urine RBC 29 H (0-5) /hpf Urine WBC 7 H (0-5) /hpf Amorphous Sediment Few H (None) /hpf Urine Bacteria Rare H (None) /hpf Urine Mucus Rare H (None) /hpf 08/22/22 08/22/22 Range/Units 05:48 05:51 WBC (3.8-10.6) k/uL RBC 3.39 L (3.80-5.40) m/uL Hgb 11.1 L (11.4-16.0) gm/dL MCV 100.3 H (80.0-100.0) fL Plt Count 147 L (150-450) k/uL Neutrophils # 7.8 H (1.3-7.7) k/uL Lymphocytes # 0.9 L (1.0-4.8) k/uL Sodium 133 L (137-145) mmol/L Chloride 88 L (98-107) mmol/L Carbon Dioxide 32 H (22-30) mmol/L BUN 31 H (7-17) mg/dL Glucose 106 H (74-99) mg/dL AST (14-36) U/L Total Protein (6.3-8.2) g/dL Albumin (3.5-5.0) g/dL Ur Specific [place] (1.001-1.035) Urine Protein (Negative) Urine Ketones (Negative) Urine Blood (Negative) Ur Leukocyte Esterase (Negative) Urine RBC (0-5) /hpf Urine WBC (0-5) /hpf Amorphous Sediment (None) /hpf Urine Bacteria (None) /hpf Urine Mucus (None) /hpf Diabetes panel 08/21/22 08/22/22 Range/Units 18:12 05:48 Sodium 132 L 133 L (137-145) mmol/L Potassium 5.1 3.7 (3.5-5.1) mmol/L Chloride 86 L 88 L (98-107) mmol/L Carbon Dioxide 30 32 H (22-30) mmol/L BUN 28 H 31 H (7-17) mg/dL Creatinine 0.59 0.76 (0.52-1.04) mg/dL Glucose 130 H 106 H (74-99) mg/dL Calcium 9.8 9.4 (8.4-10.2) mg/dL AST 50 H (14-36) U/L ALT 12 (4-34) U/L Alkaline Phosphatase 63 (38-126) U/L Total Protein 8.8 H (6.3-8.2) g/dL Albumin 5.2 H (3.5-5.0) g/dL Calcium panel 08/21/22 08/22/22 Range/Units 18:12 05:48 Calcium 9.8 9.4 (8.4-10.2) mg/dL Albumin 5.2 H (3.5-5.0) g/dL Pituitary panel 08/21/22 08/22/22 Range/Units 18:12 05:48 Sodium 132 L 133 L (137-145) mmol/L Potassium 5.1 3.7 (3.5-5.1) mmol/L Chloride 86 L 88 L (98-107) mmol/L Carbon Dioxide 30 32 H (22-30) mmol/L BUN 28 H 31 H (7-17) mg/dL Creatinine 0.59 0.76 (0.52-1.04) mg/dL Glucose 130 H 106 H (74-99) mg/dL Calcium 9.8 9.4 (8.4-10.2) mg/dL Adrenal panel 08/21/22 08/22/22 Range/Units 18:12 05:48 Sodium 132 L 133 L (137-145) mmol/L Potassium 5.1 3.7 (3.5-5.1) mmol/L Chloride 86 L 88 L (98-107) mmol/L Carbon Dioxide 30 32 H (22-30) mmol/L BUN 28 H 31 H (7-17) mg/dL Creatinine 0.59 0.76 (0.52-1.04) mg/dL Glucose 130 H 106 H (74-99) mg/dL Calcium 9.8 9.4 (8.4-10.2) mg/dL Total Bilirubin 1.3 (0.2-1.3) mg/dL AST 50 H (14-36) U/L ALT 12 (4-34) U/L Alkaline Phosphatase 63 (38-126) U/L Total Protein 8.8 H (6.3-8.2) g/dL Albumin 5.2 H (3.5-5.0) g/dL
[2022-08-22 14:17] VITALS: BMI 17.9
[2022-08-22] MEDS: PANTOPRAZOLE 40 MG/10 ML VIAL IV SCH (20:27)
--- NOTE | 2022-08-22 23:06 | HP ---
HISTORY AND PHYSICAL CHIEF COMPLAINT: Vomiting. HISTORY OF PRESENT ILLNESS: This is an 87-year-old woman with a past medical history of hyperlipidemia and rheumatic fever, was complaining of bilious vomiting for 3 days. The patient has some abdominal distention and some discomfort. The patient came to [facility] and was found to have possibly mechanical small-bowel obstruction and the patient was admitted for evaluation. NG tube initiated. There is no history of fever, rigors, or chills at this time. PAST MEDICAL HISTORY: Reviewed include hyperlipidemia, previous bowel surgeries. MEDICATIONS: Home medications reviewed include Claritin, dose and rest of medication noted. ALLERGIES: Reviewed, include sulfa. FAMILY HISTORY: Myocardial infarction. SOCIAL HISTORY: No history of smoking, or alcohol. REVIEW OF SYSTEMS: A 14-point review of systems is negative except as mentioned earlier. PHYSICAL EXAMINATION: VITAL SIGNS: Pulse is 58, blood pressure 117/60, respirations 17. HEENT: Conjunctivae normal. NECK: No JVD. CARDIOVASCULAR: S1, S2 muffled. RESPIRATIONS: Breath sounds diminished at the bases. No rhonchi. No crackles. ABDOMEN: Soft, mild diffuse distention. Nontender. No mass palpable. Bowel sounds diminished. LEGS: No edema. No swelling. NERVOUS SYSTEM: No focal deficits. SKIN: No ulcer, rash, bleeding. JOINTS: No active deforming arthropathy. NG tube in situ draining some bloody discharge. LABS: WBC 9.5. The rest of the labs are noted. ASSESSMENT: 1. Acute partial small bowel obstruction. 2. Hyperlipidemia. 3. History of previous abdominal surgeries. RECOMMENDATIONS AND DISCUSSION: This is an 87-year-old woman who presented with multiple complex medical issues. At this time, I would recommend continue the current medications, follow closely with Surgery. Resume the home medications, otherwise monitor closely. Repeat labs. DVT prophylaxis, broad-spectrum IV antibiotics initiated and further recommendation to follow. We will follow the patient closely. MMODL / IJN: [id number] /
[2022-08-23] MEDS: PIPERACILLIN-TAZOBACTAM 3.375 GM in SODIUM CHLORIDE 0.9% 100 ML IVPB SCH ×3 (02:22→15:17)
[2022-08-23] MEDS: HEPARIN SODIUM,PORCINE/PF 5,000 UNIT/0.5 ML SYRINGE SQ SCH ×2 (07:57→20:14)
[2022-08-23] MEDS: PANTOPRAZOLE 40 MG/10 ML VIAL IV SCH ×2 (07:58→20:13)
[2022-08-23] MEDS: MORPHINE SULFATE 4 MG/ML SYRINGE IV PRN ×2 (07:58→14:26)
[2022-08-23] MEDS: SODIUM CHLORIDE 0.9% 1,000 ML IV SCH (08:00)
--- NOTE | 2022-08-23 12:15 | XR ---
EXAMINATION TYPE: XR abdomen 1V DATE OF EXAM: 08/23/2022 COMPARISON: 08/21/2022 HISTORY: Pain TECHNIQUE: Single supine KUB image of the abdomen is obtained FINDINGS: NG tube is seen coiled within the stomach. Persistent dilated loops of small bowel. No evidence for free air. No evidence for colonic dilatation . No unusual calcifications. The lung bases are clear. The osseous structures are intact. IMPRESSION: 1. Small bowel obstruction difficult to exclude. NG tube appropriately placed.
[2022-08-23] MEDS ORDERED: IOPAMIDOL CONTRAST (ORAL USE) VIAL PO PRN (13:05)
--- NOTE | 2022-08-23 13:47 | P.PN ---
Subjective Progress Note Date: 08/23/22 CHIEF COMPLAINT: Small bowel obstruction HISTORY OF PRESENT ILLNESS: Patient had increased abdominal distention and abdominal pain this morning. Apparently her NG tube was not suctioning appropriately. This was adjusted by nursing staff. They were able to pull off about 1 liter of ileus fluid this morning. Patient currently has about 400 mL bilious output and canister. Patient did require morphine this morning. It did help with her pain. She has had no flatus or bowel movement. She remains no thing by mouth. Afebrile. No new labs. Abdominal x-ray small bowel obstruction difficult to exclude. NG tube appropriately placed. Patient seen and examined with Dr. eduardo PHYSICAL EXAM: VITAL SIGNS: Reviewed. GENERAL: Well-developed in no acute distress. HEENT: No sclera icterus. Extraocular movements grossly intact. Moist buccal mucosa. Head is atraumatic, normocephalic. ABDOMEN: Soft. Distended with diffuse tenderness NEUROLOGIC: Alert and oriented. Cranial nerves II through XII grossly intact. ASSESSMENT: 1. Mechanical small bowel obstruction 2. Prior history of abdominal surgeries PLAN: -continue NG tube for decompression -Keep patient nothing by mouth except for ice chips -Continue IV fluids -Consult interventional radiology for PICC line placement for TPN -Consult dietitian to initiate TPN -Encouraged patient to increase activity and get up to bedside chair -Continue pain medication and antiemetics as needed -Continue antibiotics -Computed tomography scan abdomen and pelvis ordered for this Saturday for follow- up on SBO -GI prophylaxis Protonix and DVT prophylaxis subcu heparin Physician Internal Corrosion Specialist note has been reviewed by physician. Signing provider agrees with the documented findings, assessment, and plan of care. Objective - Vital Signs Vital signs: Vital Signs Temp 98.4 F 08/23/22 13:27 Pulse 93 08/23/22 13:19 Resp 16 08/23/22 13:19 BP 147/70 08/23/22 13:19 Pulse Ox 95 08/23/22 08:00 FiO2 Intake & Output 08/22/22 08/23/22 08/23/22 18:59 06:59 18:59 Intake Total 440 Output Total 500 200 Balance -60 -200 Weight 43.091 kg Intake: Intake, IV Titration 440 Amount ACETAMINOPHEN IV (For NPO 100 ) 1,000 mg In Empty Bag 1 bag @ 400 mls/hr IVPB Q6HR [facility] Rx#:[id number] Piperacillin-Tazobactam 3 100 .375 gm In Sodium Chloride 0.9% 100 ml @ 25 mls/hr IVPB Q8HR [facility] Rx# :[id number] Sodium Chloride 0.9% 1, 240 000 ml @ 60 mls/hr IV . [id number] [facility] Rx#:[id number] Output: Gastric Drainage 500 200 Other: Voiding Method Toilet # Voids 1 - Labs CBC & Chem 7: 08/22/22 05:51 08/22/22 05:48 Labs: Microbiology - Last 24 Hours (Table) 08/22/22 00:50 Blood Culture - Preliminary Blood No Growth after 24 hours 08/22/22 00:35 Blood Culture - Preliminary Blood No Growth after 24 hours
--- NOTE | 2022-08-23 14:43 | IR ---
PICC LINE PLACEMENT: HISTORY: TPN therapy PROCEDURE: Ultrasound and fluoroscopic guidance of PICC line placement. COMPLICATIONS: None ANESTHESIA: 1. 1% Lidocaine locally. FINDINGS/TECHNIQUE: The procedure was explained to the patient. The risks, complications, benefits and alternatives were discussed and any questions were answered. Informed consent was obtained. The patient was placed supine on the fluoroscopic table and prepped and draped in the usual sterile fash ion. Utilizing a 21 gauge needle and sonographic and fluoroscopic guidance, access in the left basi lic vein was achieved and there is placement of a 0.018 guidewire. The vein is patent. A 5-Fr sheat h was placed over the guidewire. The guidewire and dilator were removed and a 5-F. Double lumen PICC line was placed through the sheath with the tip at the level of the SVC. The sheath was removed, th e catheter was flushed and sutured into position. The patient was stable throughout the procedure an d remained stable upon discharge from the Department of Radiology. The vein puncture was patent under ultrasound. A chu scale image was obtained to document patency of the vein punctured. All elements of the maximal barrier technique were utilized. FLUOROSCOPY TIME: 2.2 minutes of fluoroscopy and one images submitted. IMPRESSION: Successful PICC double lumen line placement under ultrasound and fluoroscopic guidance.
[2022-08-23] MEDS: ACETAMINOPHEN IV (For NPO) 650 MG in EMPTY BAG 1 BAG IVPB SCH ×2 (15:19→20:20)
[2022-08-24] MEDS: PIPERACILLIN-TAZOBACTAM 3.375 GM in SODIUM CHLORIDE 0.9% 100 ML IVPB SCH ×2 (00:28→08:43)
[2022-08-24] MEDS: SODIUM CHLORIDE 0.9% 1,000 ML IV SCH (02:14)
[2022-08-24] MEDS: ACETAMINOPHEN IV (For NPO) 650 MG in EMPTY BAG 1 BAG IVPB SCH ×2 (03:34→08:41)
[2022-08-24] MEDS: HEPARIN SODIUM,PORCINE/PF 5,000 UNIT/0.5 ML SYRINGE SQ SCH ×2 (08:42→21:52)
[2022-08-24] MEDS: PANTOPRAZOLE 40 MG/10 ML VIAL IV SCH ×2 (08:42→21:52)
--- NOTE | 2022-08-24 09:32 | PN ---
PROGRESS NOTE SUBJECTIVE: This 87-year-old woman is admitted with abdominal ileus, is being closely monitored. The patient had minimal output from the NG. The patient also complaining of abdominal symptoms. Dr. España is following the patient closely. The abdominal x-ray showed abdominal ileus. No chest pain. No palpitation. OBJECTIVE: VITAL SIGNS: Pulse 93, blood pressure nrespirations 16. HEENT: Conjunctivae normal. NECK: No JVD. CARDIOVASCULAR: S1, S2. RESPIRATION: Breath sounds diminished at the bases. ABDOMEN: Soft. Mild diffuse distention especially in the lower part. NERVOUS SYSTEM: Nonfocal. LABORATORY DATA: Reviewed. WBC 9.5. The rest of the labs are reviewed. ASSESSMENT: 1. Acute partial small bowel obstruction. 2. Hyperlipidemia. 3. History of previous abdominal surgeries. 4. Multiple medical issues. RECOMMENDATIONS: In this 87-year-old woman, who presented with multiple complex medical issues, we will monitor the patient closely. Continue NG tube. Continue empiric antibiotics. Otherwise, closely follow with Surgery. Discussed with Dr. España. Discussed with family and daughter at the bedside. Prognosis guarded. Further recommendations to follow. MMODL / IJN: [id number] / MTDD
[2022-08-24 09:42] LABS: Magnesium 1.6 mg/dL (1.6-2.3); Phosphorus 4.3 mg/dL (2.5-4.5)
[2022-08-24 10:04] LABS: Basophils # (A) 0.03 X 10*3/uL (0.00-0.10); Basophils % (A) 0.5 %; Eosinophils # (A) 0.04 X 10*3/uL (0.04-0.35); Eosinophils % (A) 0.7 %; HCT 31.7 % (37.2-46.3); HGB 9.9 g/dL (12.0-15.0); Immature Grans, Automated 0.2 %; Lymphocytes # (A) 0.96 X 10*3/uL (0.90-5.00); MCH 32.2 pg (27.0-32.0); MCHC 31.2 g/dL (32.0-37.0); MCV 103.3 fL (80.0-97.0); Monocytes # (A) 0.58 X 10*3/uL (0.20-1.00); Monocytes % (A) 10.3 %; NRBC Per 100 WBC 0 /100 WBCS (0.0-0.0); Neutrophils # (A) 4.03 X 10*3/uL (1.80-7.70); Neutrophils % (A) 71.3 %; Platelet Count 147 X 10*3/uL (140-440); RBC 3.07 X 10*6/uL (4.10-5.20); RDW 13.6 % (11.5-14.5); WBC 5.65 X 10*3/uL (4.50-10.00)
[2022-08-24 10:26] LABS: African American GFR (CKD) 93.7 (60.0-200.0); Anion Gap 17.5 mmol/L (10.00-18.00); BUN/Creat Ratio 34.5 Ratio (12.00-20.00); Blood Urea Nitrogen 20.7 mg/dL (9.0-27.0); Calcium 8.6 mg/dL (8.7-10.3); Carbon Dioxide 19.5 mmol/L (20.0-27.5); Non-African American GFR(CKD) 80.8 (60.0-200.0); Potassium 3.7 mmol/L (3.5-5.5)
--- NOTE | 2022-08-24 12:19 | P.PN ---
Subjective Progress Note Date: 08/24/22 CHIEF COMPLAINT: Small bowel obstruction HISTORY OF PRESENT ILLNESS: Patient is sitting up at bedside chair. He needs to have abdominal distention. She does report some pain mostly on the right lower abdomen but it has shown improvement. No bowel activity. She did get her PICC line for TPN. TPN will be started this morning. The patient has about 200 mL bilious output through the NG tube this morning. Afebrile. WBC is 5.65 to be is down from 11.1-9.9 platelets 147 sodium 140 potassium 3.7 creatinine 0.6 magnesium 1.6 Patient seen and examined with Dr. eduardo PHYSICAL EXAM: VITAL SIGNS: Reviewed. GENERAL: Well-developed in no acute distress. HEENT: No sclera icterus. Extraocular movements grossly intact. Moist buccal mucosa. Head is atraumatic, normocephalic. ABDOMEN: Soft. Distended with mild diffuse tenderness NEUROLOGIC: Alert and oriented. Hard of hearing . Cranial nerves II through XII grossly intact. ASSESSMENT: 1. Mechanical small bowel obstruction 2. Prior history of abdominal surgeries PLAN: -continue NG tube for decompression -Keep patient nothing by mouth except for ice chips -Continue IV fluids -Start TPN per dietitian recommendations -Encouraged patient to increase activity and get up to bedside chair -Continue pain medication and antiemetics as needed -Continue antibiotics -Computed tomography scan abdomen and pelvis ordered for this Saturday for follow- up on SBO -Incentive spirometer ordered for pulmonary prophylaxis -GI prophylaxis Protonix and DVT prophylaxis subcu heparin Physician Paraprofessional Education Assistant note has been reviewed by physician. Signing provider agrees with the documented findings, assessment, and plan of care. Objective - Vital Signs Vital signs: Vital Signs Temp 98.1 F 08/24/22 08:00 Pulse 86 08/24/22 08:00 Resp 16 08/24/22 08:00 BP 151/65 08/24/22 08:00 Pulse Ox 98 08/24/22 08:00 FiO2 Intake & Output 08/23/22 08/24/22 08/24/22 18:59 06:59 18:59 Output Total 600 Balance -600 Weight 43.091 kg Output: Gastric Drainage 600 Other: Voiding Method Bedside Commode Bedside Commode # Voids 4 1 - Labs CBC & Chem 7: 08/24/22 06:03 08/24/22 06:03 Labs: Abnormal Lab Results - Last 24 Hours (Table) 08/24/22 08/24/22 Range/Units 06:03 06:03 RBC 3.07 L (4.10-5.20) X 10*6/uL Hgb 9.9 L (12.0-15.0) g/dL Hct 31.7 L (37.2-46.3) % MCV 103.3 H (80.0-97.0) fL MCH 32.2 H (27.0-32.0) pg MCHC 31.2 L (32.0-37.0) g/dL Carbon Dioxide 19.5 L (20.0-27.5) mmol/L BUN/Creatinine Ratio 34.50 H (12.00-20.00) Ratio Glucose 57 L (70-110) mg/dL Calcium 8.6 L (8.7-10.3) mg/dL Microbiology - Last 24 Hours (Table) 08/22/22 00:50 Blood Culture - Preliminary Blood No Growth after 48 hours 08/22/22 00:35 Blood Culture - Preliminary Blood No Growth after 48 hours
[2022-08-24] MEDS ORDERED: MVI, ADULT NO.4 WITH VIT K 10 ML, TRACE (CONC-1ML/DOSE) 1 ML, SODIUM ACETATE 30 MEQ, PO... IV ONE ×7 (13:00)
[2022-08-24] MEDS: FAT EMULSION 20% 500 ML IV SCH (13:43)
[2022-08-24] MEDS: MAGNESIUM SULFATE-D5W PMX 1 GM in DEXTROSE/WATER 1 100ML.BAG IVPB SCH ×2 (15:51→18:31)
[2022-08-24] MEDS: POTASSIUM CHLORIDE 10 MEQ in WATER FOR INJECTION 1 100ML.BAG IVPB SCH (21:56)
[2022-08-25 06:49] LABS: ALT 12 U/L (4-34); AST 32 U/L (14-36); African American GFR (CKD) >90 (>60 ml/min/1.73 sqM); Albumin 3.6 g/dL (3.5-5.0); Albumin/Globulin Ratio 1.4; Alkaline Phosphatase 59 U/L (38-126); Anion Gap 9 mmol/L; Blood Urea Nitrogen 12 mg/dL (7-17); Calcium 8.5 mg/dL (8.4-10.2); Carbon Dioxide 23 mmol/L (22-30); Chloride 104 mmol/L (98-107); Globulin 2.5 g/dL; Glucose 136 mg/dL (74-99); Non-African American GFR(CKD) >90 (>60 ml/min/1.73 sqM); Potassium 3.2 mmol/L (3.5-5.1); Sodium 136 mmol/L (137-145); Total Bilirubin 0.3 mg/dL (0.2-1.3); Total Protein 6.1 g/dL (6.3-8.2)
[2022-08-25 07:20] LABS: Magnesium 1.9 mg/dL (1.6-2.3)
[2022-08-25] MEDS: SODIUM CHLORIDE 0.9% 1,000 ML IV SCH ×2 (07:25→17:57)
[2022-08-25] MEDS: POTASSIUM CHLORIDE 10 MEQ in WATER FOR INJECTION 1 100ML.BAG IVPB SCH (07:25)
[2022-08-25] MEDS: PIPERACILLIN-TAZOBACTAM 3.375 GM in SODIUM CHLORIDE 0.9% 100 ML IVPB SCH ×4 (07:25→17:56)
[2022-08-25] MEDS ORDERED: POTASSIUM CHLORIDE 20 MEQ in WATER FOR INJECTION 1 100ML.BAG IVPB SCH (07:30)
[2022-08-25] MEDS: PANTOPRAZOLE 40 MG/10 ML VIAL IV SCH ×2 (08:01→21:19)
[2022-08-25] MEDS: HEPARIN SODIUM,PORCINE/PF 5,000 UNIT/0.5 ML SYRINGE SQ SCH ×2 (08:01→21:19)
--- NOTE | 2022-08-25 10:54 | P.PN ---
Subjective Progress Note Date: 08/24/22 87-year-old female who presented to the hospital with complaints of abdominal pain with nausea and vomiting. Patient had abdominal distention and poor oral intake yesterday. Her emesis yesterday was mostly bile in color. She did reportedly normal bowel movement yesterday. Her past abdominal surgeries include cholecystectomy and hysterectomy. Patient had computed tomography scan abdomen bowel list completed and found to have evidence of mechanical small bowel obstruction. Patient had NG tube placed in the ER. Patient reports since NG tube placement improvement in her abdominal pain. She denies any fevers chills or sweats. Objective - Vital Signs Vital signs: Vital Signs Temp 98.1 F 08/24/22 08:00 Pulse 86 08/24/22 08:00 Resp 16 08/24/22 08:00 BP 151/65 08/24/22 08:00 Pulse Ox 98 08/24/22 08:00 FiO2 Intake & Output 08/23/22 08/24/22 08/24/22 18:59 06:59 18:59 Output Total 600 Balance -600 Weight 43.091 kg Output: Gastric Drainage 600 Other: Voiding Method Bedside Commode # Voids 4 1 - Exam PHYSICAL EXAMINATION: GENERAL: The patient is alert and oriented x3, not in any acute distress. Well developed, well nourished. HEENT: Pupils are round and equally reacting to light. EOMI. No scleral icterus. No conjunctival pallor. Normocephalic, atraumatic. No pharyngeal erythema. No t hyromegaly. CARDIOVASCULAR: S1 and S2 present. No murmurs, rubs, or gallops. PULMONARY: Chest is clear to auscultation, no wheezing or crackles. ABDOMEN: Soft, nontender, nondistended, normoactive bowel sounds. No palpable organomegaly. MUSCULOSKELETAL: No joint swelling or deformity. EXTREMITIES: No cyanosis, clubbing, or pedal edema. NEUROLOGICAL: Gross neurological examination did not reveal any focal deficits. SKIN: No rashes. - Labs CBC & Chem 7: 08/24/22 06:03 08/25/22 04:47 Labs: Microbiology - Last 24 Hours (Table) 08/22/22 00:50 Blood Culture - Preliminary Blood No Growth after 48 hours 08/22/22 00:35 Blood Culture - Preliminary Blood No Growth after 48 hours Assessment and Plan Assessment: 1. Mechanical small bowel obstruction - Surgery on board and recommending to continue with conservative management with NG tube for decompression; patient remains nothing by mouth; recommending to continue with IV fluids, IV antibiotics and continue with current pain control 2. UTI; patient remains on IV antibiotic therapy; we will monitor urine and blood cultures; monitor CBC; make adjustments and IV antibiotics once final culture results are available 3. Anemia; hemoglobin is down to 9.9 from 11.1 upon admission; likely dilut ional; we will monitor CBC; continue with Protonix; further recommendations if hemoglobin continues to drop 4. Electrolyte imbalance; hyponatremia; continue with IV fluid hydration; we will monitor electrolytes closely and adjustments as needed 5. Hyperlipidemia; currently not on any statin therapy DVT prophylaxis; SCDs CODE STATUS; full code
[2022-08-25] MEDS: POTASSIUM PHOSPHATE 10 MMOL in SODIUM CHLORIDE 0.9% 100 ML IV SCH ×3 (13:43→16:39)
[2022-08-25] MEDS ORDERED: 1: MVI, ADULT NO.4 WITH VIT K 10 ML, TRACE (CONC-1ML/DOSE) 1 ML, SODIUM ACETATE 30 MEQ, IV SCH ×7 (14:00)
--- NOTE | 2022-08-25 16:06 | P.PN ---
Subjective Progress Note Date: 08/25/22 CHIEF COMPLAINT: Bowel obstruction HISTORY OF PRESENT ILLNESS: The patient is a 87-year-old female presents for small bowel obstruction. Daughter at bedside reports that her mother's has been ill for at least 1 week. Her mother is now passing flatus. No active bowel movement. She has a nasogastric tube. She denies abdominal pain. Daughter and patient does not want surgery. Patient feels she is doing better. ROS: No reports of nausea and vomiting. No bowel movements. No fevers or chills. No new chest pain. No productive sputum. Under weight, BMI 17.9 PHYSICAL EXAM: VITAL SIGNS: Reviewed CONSTITUTIONAL: Well developed and in no acute distress. EYES: Conjuctivae without sclera icterus. Extraocular movements grossly intact. HEAD, EARS, NOSE, THROAT: Moist buccal mucosa. Head is atraumatic, normocephalic. Hears conversational speech. No nasal drainage. RESPIRATORY: Non-labored respirations and equal bilateral excursions. CARDIOVASCULAR: Palpable 2+ radial pulses. ABDOMEN: Distended. Nontender. MUSCULOSKELETAL: No gross deformity of the lower extremities noted. No clubbing. No cyanosis. SKIN: Good skin turgor. Well perfused. NEUROLOGIC: Cranial nerves II through XII grossly intact. No focal or lateralizing signs. PSYCH: Appropriate affect. Alert and oriented to person, place and time. CLINICAL LABS: Reviewed. STUDIES: CT of the abdomen and pelvis reviewed on this admission demonstrates multiple small dilated loops questionable for ileus versus distal small bowel obstruction. This is my independent interpretation. ASSESSMENT: 1. Bowel obstruction. 2. Protein malnutrition. 3. Under weight, BMI 17.9 PLAN: 1. Ambulation encouraged 2. May have popsicles 3. Continue nasogastric tube 4. May benefit from repeat imaging due to clinical improvement 5. Continue TPN for moderate protein malnutrition Objective - Vital Signs Vital signs: Vital Signs Temp 99.0 F 08/25/22 14:00 Pulse 91 08/25/22 14:00 Resp 17 08/25/22 14:00 BP 148/79 08/25/22 14:00 Pulse Ox 97 08/25/22 14:00 FiO2 Intake & Output 08/24/22 08/25/22 08/25/22 18:59 06:59 18:59 Intake Total 1100 Balance 1100 Weight 43.091 kg Intake: Intake, IV Titration 650 Amount Fat Emulsion 20% 500 ml @ 240 41.667 mls/hr IV Fr@1300 [facility] Rx#:[id number] Magnesium Sulfate-D5w Pmx 50 1 gm In Dextrose/Water 1 100ml.bag @ 100 mls/hr IVPB Q1H [facility] Rx#: [id number] Sodium Acetate 30 meq 180 Potassium Chloride 20 meq Calcium Gluconate 1 gm Magnesium Sulfate gm 1 gm In Amino Acid 5%-D15w 1, 000 ml @ 60 mls/hr IV .BY DURATION [facility] Rx#: [id number] Sodium Chloride 0.9% 1, 180 000 ml @ 60 mls/hr IV . [id number] [facility] Rx#:[id number] Oral 450 Other: Voiding Method Bedside Commode Bedside Commode Bedside Commode # Voids 2 - Labs CBC & Chem 7: 08/24/22 06:03 08/25/22 04:47 Labs: Abnormal Lab Results - Last 24 Hours (Table) 08/25/22 08/25/22 Range/Units 04:47 04:47 Sodium 136 L (137-145) mmol/L Potassium 3.2 L (3.5-5.1) mmol/L Creatinine 0.36 L (0.52-1.04) mg/dL Glucose 136 H (74-99) mg/dL Phosphorus 1.0 L* (2.5-4.5) mg/dL Total Protein 6.1 L (6.3-8.2) g/dL Microbiology - Last 24 Hours (Table) 08/22/22 00:50 Blood Culture - Preliminary Blood No Growth after 72 hours 08/22/22 00:35 Blood Culture - Preliminary Blood No Growth after 72 hours
[2022-08-26] MEDS: PIPERACILLIN-TAZOBACTAM 3.375 GM in SODIUM CHLORIDE 0.9% 100 ML IVPB SCH ×4 (01:15→23:02)
[2022-08-26 05:04] LABS: ALT 14 U/L (4-34); AST 29 U/L (14-36); African American GFR (CKD) >90 (>60 ml/min/1.73 sqM); Albumin 3.6 g/dL (3.5-5.0); Albumin/Globulin Ratio 1.5; Alkaline Phosphatase 47 U/L (38-126); Anion Gap 9 mmol/L; Blood Urea Nitrogen 11 mg/dL (7-17); Calcium 8.3 mg/dL (8.4-10.2); Carbon Dioxide 29 mmol/L (22-30); Chloride 96 mmol/L (98-107); Globulin 2.4 g/dL; Glucose 145 mg/dL (74-99); Magnesium 1.7 mg/dL (1.6-2.3); Non-African American GFR(CKD) >90 (>60 ml/min/1.73 sqM); Phosphorus 1.7 mg/dL (2.5-4.5); Potassium 3.1 mmol/L (3.5-5.1); Sodium 134 mmol/L (137-145); Total Bilirubin 0.4 mg/dL (0.2-1.3)
[2022-08-26] MEDS ORDERED: POTASSIUM CHLORIDE 10 MEQ in WATER FOR INJECTION 1 100ML.BAG IVPB STA (06:37)
[2022-08-26] MEDS: MAGNESIUM SULFATE-D5W PMX 1 GM in DEXTROSE/WATER 1 100ML.BAG IVPB SCH ×2 (07:19→08:53)
[2022-08-26] MEDS: SODIUM CHLORIDE 0.9% 1,000 ML IV SCH ×2 (09:01→23:04)
[2022-08-26] MEDS: HEPARIN SODIUM,PORCINE/PF 5,000 UNIT/0.5 ML SYRINGE SQ SCH ×2 (09:15→22:07)
--- NOTE | 2022-08-26 09:52 | P.PN ---
Subjective Progress Note Date: 08/25/22 Principal diagnosis: Bowel obstruction Protein calorie malnutrition/TPN 87-year-old female who presented to the hospital with complaints of abdominal pain with nausea and vomiting. Patient had abdominal distention and poor oral intake yesterday. Her emesis yesterday was mostly bile in color. She did reportedly normal bowel movement yesterday. Her past abdominal surgeries include cholecystectomy and hysterectomy. Patient had computed tomography scan abdomen bowel list completed and found to have evidence of mechanical small bowel obstruction. Patient had NG tube placed in the ER. Patient reports since NG tube placement improvement in her abdominal pain. She denies any fevers chills or sweats. 08/25/2022 Patient is seen and evaluated with [id number] at bedside; patient reports she did pass flatus when she sat on bedside commode Vital signs are reviewed and are stable Patient continues to have NG tube; surgery on board and recommending increase activity; patient may have popsicles - Patient has been started on TPN for moderate protein malnutrition Surgery planning possible repeat CT abdomen Objective - Vital Signs Vital signs: Vital Signs Temp 97.9 F 08/25/22 08:00 Pulse 96 08/25/22 08:00 Resp 16 08/25/22 08:00 BP 154/76 08/25/22 08:00 Pulse Ox 96 08/25/22 08:00 FiO2 Intake & Output 08/24/22 08/25/22 08/25/22 18:59 06:59 18:59 Intake Total 1100 Balance 1100 Weight 43.091 kg Intake: Intake, IV Titration 650 Amount Fat Emulsion 20% 500 ml @ 240 41.667 mls/hr IV Fr@1300 [facility] Rx#:[id number] Magnesium Sulfate-D5w Pmx 50 1 gm In Dextrose/Water 1 100ml.bag @ 100 mls/hr IVPB Q1H [facility] Rx#: [id number] Sodium Acetate 30 meq 180 Potassium Chloride 20 meq Calcium Gluconate 1 gm Magnesium Sulfate gm 1 gm In Amino Acid 5%-D15w 1, 000 ml @ 60 mls/hr IV .BY DURATION [facility] Rx#: [id number] Sodium Chloride 0.9% 1, 180 000 ml @ 60 mls/hr IV . [id number] [facility] Rx#:[id number] Oral 450 Other: Voiding Method Bedside Commode Bedside Commode # Voids 2 - Exam PHYSICAL EXAMINATION: GENERAL: The patient is alert and oriented x3, not in any acute distress. Well developed, well nourished. HEENT: Pupils are round and equally reacting to light. EOMI. No scleral icterus. No conjunctival pallor. Normocephalic, atraumatic. No pharyngeal erythema. No thyromegaly. CARDIOVASCULAR: S1 and S2 present. No murmurs, rubs, or gallops. PULMONARY: Chest is clear to auscultation, no wheezing or crackles. ABDOMEN: Soft, nontender, nondistended, normoactive bowel sounds. No palpable organomegaly. MUSCULOSKELETAL: No joint swelling or deformity. EXTREMITIES: No cyanosis, clubbing, or pedal edema. NEUROLOGICAL: Gross neurological examination did not reveal any focal deficits. SKIN: No rashes. - Labs CBC & Chem 7: 08/24/22 06:03 08/26/22 04:23 Labs: Abnormal Lab Results - Last 24 Hours (Table) 08/25/22 08/25/22 Range/Units 04:47 04:47 Sodium 136 L (137-145) mmol/L Potassium 3.2 L (3.5-5.1) mmol/L Creatinine 0.36 L (0.52-1.04) mg/dL Glucose 136 H (74-99) mg/dL Phosphorus 1.0 L* (2.5-4.5) mg/dL Total Protein 6.1 L (6.3-8.2) g/dL Microbiology - Last 24 Hours (Table) 08/22/22 00:50 Blood Culture - Preliminary Blood No Growth after 72 hours 08/22/22 00:35 Blood Culture - Preliminary Blood No Growth after 72 hours Assessment and Plan Assessment: 1. Mechanical small bowel obstruction - Surgery on board and recommending to continue with conservative management with NG tube for decompression; patient remains nothing by mouth; recommending to continue with IV fluids, IV antibiotics and continue with current pain control 2. UTI; patient remains on IV antibiotic therapy; we will monitor urine and blood cultures; monitor CBC; make adjustments and IV antibiotics once final culture results are available 3. Anemia; hemoglobin is down to 9.9 from 11.1 upon admission; likely dilutional; we will monitor CBC; continue with Protonix; further recommendations if hemoglobin continues to drop 4. Electrolyte imbalance; hyponatremia; continue with IV fluid hydration; we will monitor electrolytes closely and adjustments as needed 5. Hyperlipidemia; currently not on any statin therapy DVT prophylaxis; SCDs CODE STATUS; full code
[2022-08-26] MEDS: IOPAMIDOL CONTRAST (ORAL USE) VIAL PO PRN ×2 (10:07→11:28)
[2022-08-26] MEDS: POTASSIUM PHOSPHATE 10 MMOL in SODIUM CHLORIDE 0.9% 100 ML IV SCH ×2 (10:13→13:52)
[2022-08-26] MEDS: PANTOPRAZOLE 40 MG/10 ML VIAL IV SCH ×2 (10:30→22:06)
[2022-08-26] MEDS: ONDANSETRON 4 MG/2 ML VIAL IVP PRN (12:10)
--- NOTE | 2022-08-26 13:22 | CT ---
EXAMINATION TYPE: CT abdomen pelvis w con CT DLP: 597.3 mGycm, Automated exposure control for dose reduction was used. DATE OF EXAM: 08/26/2022 1:01 PM COMPARISON: CT abdomen pelvis most recent from 08/21/2022. CLINICAL INDICATION:Female, 87 years old with history of small bowel obstruction; TECHNIQUE: Axial CT of the abdomen and pelvis. Sagittal and coronal reformats were created on a [employer] workstation. Contrast used:100ML mL of Isovue 300 with IV Contrast, Oral contrast used: with Oral Contrast FINDINGS: LOWER CHEST: Unremarkable ABDOMEN LIVER: Unremarkable GALLBLADDER AND BILE DUCTS: Mild extrahepatic and intrahepatic biliary dilatation similar to prior. PANCREAS: Unremarkable. SPLEEN: Unremarkable. ADRENAL GLANDS: Unremarkable. KIDNEYS AND URETERS: No evidence of hydronephrosis or renal calculus. The lumbar parapelvic renal cys ts. PELVIS BLADDER: Unremarkable REPRODUCTIVE: Unremarkable. ABDOMEN & PELVIS STOMACH AND BOWEL: Interval decrease in small bowel dilation with persistent dilation seen throughout the small bowel measuring up to 3.4 cm looping in the pelvis. Overall there is a transition point fe lt to be on series 201 image 35-43 with some twisting of the mesentery. The ribs compress the abdomen at this level. There is relative nondistention of the bowel after this. Nasogastric tube with tip in appropriate position. PERITONEUM: No evidence of pneumoperitoneum or free fluid. VASCULATURE: No evidence of aortic aneurysm. MUSCULOSKELETAL: No acute osseous abnormalities, multilevel disc degeneration changes with wedge comp ression deformity of L1. Overall the rib cage has a deviation deep into the abdomen in the upper abdo men. Compressing multiple intra-abdominal vessels. Fixation hardware within the right femur. LYMPH NODES: No gross evidence for lymphadenopathy. SOFT TISSUE/ABDOMINAL WALL: Unremarkable IMPRESSION: Small bowel obstruction is persistent without oral contrast within the colon. Patient's ribs deviate deep within the upper abdomen and may be the etiology of patient's obstruction, transition point felt to be on series 201 image 43 with some twisting of the mesentery and nondistention of the small ana luisa l in the right abdomen after this point.
--- NOTE | 2022-08-26 13:49 | P.PN ---
Subjective Progress Note Date: 08/26/22 Principal diagnosis: Bowel obstruction Protein calorie malnutrition/TPN 87-year-old female who presented to the hospital with complaints of abdominal pain with nausea and vomiting. Patient had abdominal distention and poor oral intake yesterday. Her emesis yesterday was mostly bile in color. She did reportedly normal bowel movement yesterday. Her past abdominal surgeries include cholecystectomy and hysterectomy. Patient had computed tomography scan abdomen bowel list completed and found to have evidence of mechanical small bowel obstruction. Patient had NG tube placed in the ER. Patient reports since NG tube placement improvement in her abdominal pain. She denies any fevers chills or sweats. 08/25/2022 Patient is seen and evaluated with [id number] at bedside; patient reports she did pass flatus when she sat on bedside commode Vital signs are reviewed and are stable Patient continues to have NG tube; surgery on board and recommending increase activity; patient may have popsicles - Patient has been started on TPN for moderate protein malnutrition Surgery planning possible repeat CT abdomen 08/26/2022 Patient is seen and evaluated with at bedside; has been scheduled for CT abdomen; complains of severe nausea due to oral contrast; does report a small bowel movement Vital signs are reviewed and stable; remains on TPN; NG tube in place Lab review shows potassium 3.1 along with phosphorus of 1.7; K-Phos has been ordered; we will continue to monitor electrolytes Further recommendations pending CT results Objective - Vital Signs Vital signs: Vital Signs Temp 98.0 F 08/26/22 08:00 Pulse 85 08/26/22 08:00 Resp 18 08/26/22 08:00 BP 162/70 08/26/22 08:00 Pulse Ox 96 08/26/22 08:00 FiO2 Intake & Output 08/25/22 08/26/22 08/26/22 18:59 06:59 18:59 Intake Total 820 Output Total 150 600 150 Balance -150 220 -150 Intake: Intake, IV Titration 820 Amount Piperacillin-Tazobactam 3 100 .375 gm In Sodium Chloride 0.9% 100 ml @ 25 mls/hr IVPB Q8HR [facility] Rx# :[id number] Sodium Chloride 0.9% 1, 720 000 ml @ 60 mls/hr IV . [id number] [facility] Rx#:[id number] Output: Gastric Drainage 150 600 150 Other: Voiding Method Bedside Commode Bedside Commode # Voids 3 - Exam PHYSICAL EXAMINATION: GENERAL: The patient is alert and oriented x3, not in any acute distress. Well developed, well nourished. HEENT: Pupils are round and equally reacting to light. EOMI. No scleral icterus. No conjunctival pallor. Normocephalic, atraumatic. No pharyngeal erythema. No thyromegaly. CARDIOVASCULAR: S1 and S2 present. No murmurs, rubs, or gallops. PULMONARY: Chest is clear to auscultation, no wheezing or crackles. ABDOMEN: Soft, nontender, nondistended, normoactive bowel sounds. No palpable organomegaly. MUSCULOSKELETAL: No joint swelling or deformity. EXTREMITIES: No cyanosis, clubbing, or pedal edema. NEUROLOGICAL: Gross neurological examination did not reveal any focal deficits. SKIN: No rashes. - Labs CBC & Chem 7: 08/24/22 06:03 08/26/22 04:23 Labs: Abnormal Lab Results - Last 24 Hours (Table) 08/26/22 Range/Units 04:23 Sodium 134 L (137-145) mmol/L Potassium 3.1 L (3.5-5.1) mmol/L Chloride 96 L (98-107) mmol/L Creatinine 0.31 L (0.52-1.04) mg/dL Glucose 145 H (74-99) mg/dL Calcium 8.3 L (8.4-10.2) mg/dL Phosphorus 1.7 L (2.5-4.5) mg/dL Total Protein 6.0 L (6.3-8.2) g/dL Microbiology - Last 24 Hours (Table) 08/22/22 00:50 Blood Culture - Preliminary Blood No Growth after 96 hours 08/22/22 00:35 Blood Culture - Preliminary Blood No Growth after 96 hours Assessment and Plan Assessment: 1. Mechanical small bowel obstruction - Surgery on board and recommending to continue with conservative management with NG tube for decompression; patient remains nothing by mouth; recommending to continue with IV fluids, IV antibiotics and continue with current pain control 2. UTI; patient remains on IV antibiotic therapy; we will monitor urine and blood cultures; monitor CBC; make adjustments and IV antibiotics once final culture results are available 3. Anemia; hemoglobin is down to 9.9 from 11.1 upon admission; likely dilutional; we will monitor CBC; continue with Protonix; further recommendations if hemoglobin continues to drop 4. Electrolyte imbalance; hyponatremia; continue with IV fluid hydration; we will monitor electrolytes closely and adjustments as needed 5. Hyperlipidemia; currently not on any statin therapy DVT prophylaxis; SCDs CODE STATUS; full code
[2022-08-26] MEDS: 1: MVI, ADULT NO.4 WITH VIT K 10 ML, TRACE (CONC-1ML/DOSE) 1 ML, SODIUM CHLORIDE 4MEQ/ML IV SCH ×8 (13:52)
[2022-08-26 14:11] LABS: Basophils % (A) 0 %; Eosinophils # (A) 0.1 k/uL (0-0.7); Eosinophils % (A) 2 %; HCT 33.2 % (34.0-46.0); Lymphocytes # (A) 1.1 k/uL (1.0-4.8); Lymphocytes % (A) 15 %; MCH 32.4 pg (25.0-35.0); MCHC 33.2 g/dL (31.0-37.0); MCV 97.5 fL (80.0-100.0); Mean Platelet Volume 7.7; Monocytes # (A) 0.5 k/uL (0-1.0); Monocytes % (A) 7 %; Neutrophils # (A) 5.1 k/uL (1.3-7.7); Neutrophils % (A) 73 %; Platelet Count 171 k/uL (150-450); RDW 13.3 % (11.5-15.5)
--- NOTE | 2022-08-26 14:18 | P.PN ---
Subjective Progress Note Date: 08/26/22 CHIEF COMPLAINT: Bowel obstruction HISTORY OF PRESENT ILLNESS: The patient is a 87-year-old female presents for small bowel obstruction. Per discussion with nurse, daughter and patient, she had a bowel movement. She is passing flatus and witnessed by daughter. Clinically patient reports feeling better today. She had nausea with her CT contrast. Additionally, patient's family seeking additional consultation/second opinion regarding surgical care. She is sitting up in a chair. ROS: No fevers or chills. No new chest pain. No productive sputum. Under weight, BMI 17.9 PHYSICAL EXAM: VITAL SIGNS: Reviewed CONSTITUTIONAL: Well developed and in no acute distress. EYES: Conjuctivae without sclera icterus. Extraocular movements grossly intact. HEAD, EARS, NOSE, THROAT: Moist buccal mucosa. Head is atraumatic, normocephalic. Hears conversational speech. No nasal drainage. RESPIRATORY: Non-labored respirations and equal bilateral excursions. CARDIOVASCULAR: Palpable 2+ radial pulses. ABDOMEN: Nontender. Present distention. No peritonitis. MUSCULOSKELETAL: No gross deformity of the lower extremities noted. No clubbing. No cyanosis. SKIN: Good skin turgor. Well perfused. NEUROLOGIC: Cranial nerves II through XII grossly intact. No focal or lateralizing signs. PSYCH: Appropriate affect. Alert and oriented to person, place and time. CLINICAL LABS: Reviewed. Potassium low at 3.1 Albumin normal at 3.6. EKG: Abnormal with first-degree AV block, right ventricular conduction delay, left ventricular hypertrophy, possible septal infarction ASSESSMENT: 1. Bowel obstruction. 2. Protein malnutrition. 3. Under weight, BMI 17.9 4. Abnormal EKG PLAN: 1. Clinically, the patient and daughter reports that she is feeling better. I had immediately attached her nasogastric tube to suction when she returned from the computed tomography scan with over 200 mL aspirated from the stomach. I discussed with the family these are findings consistent with persistent bowel obstruction. 2. Per family request, they were 1 additional testing prior to surgical intervention. The patient has abnormal EKG and I have ordered an echo including cardiac risk assessment. 3. Continue ice chips Popsicles including nasogastric tube 4. With her current presentation, patient is elevated risk for surgical complications. Continue TPN. 5. Care plan reviewed with the patient and family who were agreeable with care ADDENDUM: Imaging studies were not available at the time of my assessment of the patient. STUDIES: Repeat computed tomography scan from 08/26/2022 independent review demonstrates right inguinal hernia with small bowel decompression likely cause for bowel obstruction. This is my independent interpretation. RADIOLOGY: CT report reviewed demonstrates persistent bowel obstruction although improved with questionable twisting of the mesentery. With above findings, recommending cardiac risk assessment prior to surgical intervention. Objective - Vital Signs Vital signs: Vital Signs Temp 98.0 F 08/26/22 08:00 Pulse 85 08/26/22 08:00 Resp 18 08/26/22 08:00 BP 162/70 08/26/22 08:00 Pulse Ox 96 08/26/22 08:00 FiO2 Intake & Output 08/25/22 08/26/22 08/26/22 18:59 06:59 18:59 Intake Total 820 Output Total 150 600 150 Balance -150 220 -150 Intake: Intake, IV Titration 820 Amount Piperacillin-Tazobactam 3 100 .375 gm In Sodium Chloride 0.9% 100 ml @ 25 mls/hr IVPB Q8HR [facility] Rx# :[id number] Sodium Chloride 0.9% 1, 720 000 ml @ 60 mls/hr IV . [id number] [facility] Rx#:[id number] Output: Gastric Drainage 150 600 150 Other: Voiding Method Bedside Commode Bedside Commode Bedside Commode # Voids 3 # Bowel Movements 1 - Labs CBC & Chem 7: 08/24/22 06:03 08/26/22 04:23 Labs: Abnormal Lab Results - Last 24 Hours (Table) 08/26/22 Range/Units 04:23 Sodium 134 L (137-145) mmol/L Potassium 3.1 L (3.5-5.1) mmol/L Chloride 96 L (98-107) mmol/L Creatinine 0.31 L (0.52-1.04) mg/dL Glucose 145 H (74-99) mg/dL Calcium 8.3 L (8.4-10.2) mg/dL Phosphorus 1.7 L (2.5-4.5) mg/dL Total Protein 6.0 L (6.3-8.2) g/dL Microbiology - Last 24 Hours (Table) 08/22/22 00:50 Blood Culture - Preliminary Blood No Growth after 96 hours 09/28/22 00:35 Blood Culture - Preliminary Blood No Growth after 96 hours
[2022-08-27 05:08] LABS: ALT 16 U/L (4-34); AST 32 U/L (14-36); African American GFR (CKD) >90 (>60 ml/min/1.73 sqM); Albumin 3.3 g/dL (3.5-5.0); Albumin/Globulin Ratio 1.4; Alkaline Phosphatase 40 U/L (38-126); Anion Gap 7 mmol/L; Blood Urea Nitrogen 16 mg/dL (7-17); Calcium 8.4 mg/dL (8.4-10.2); Carbon Dioxide 31 mmol/L (22-30); Chloride 94 mmol/L (98-107); Globulin 2.3 g/dL; Glucose 121 mg/dL (74-99); Magnesium 2.1 mg/dL (1.6-2.3); Non-African American GFR(CKD) >90 (>60 ml/min/1.73 sqM); Phosphorus 2.9 mg/dL (2.5-4.5); Potassium 3.4 mmol/L (3.5-5.1); Sodium 132 mmol/L (137-145); Total Bilirubin 0.4 mg/dL (0.2-1.3); Total Protein 5.6 g/dL (6.3-8.2)
[2022-08-27] MEDS: HEPARIN SODIUM,PORCINE/PF 5,000 UNIT/0.5 ML SYRINGE SQ SCH ×2 (08:39→22:08)
[2022-08-27] MEDS: PANTOPRAZOLE 40 MG/10 ML VIAL IV SCH ×2 (08:39→22:08)
[2022-08-27] MEDS ORDERED: POTASSIUM CHLORIDE 20 MEQ in WATER FOR INJECTION 1 100ML.BAG IVPB STA (08:39)
[2022-08-27] MEDS: PIPERACILLIN-TAZOBACTAM 3.375 GM in SODIUM CHLORIDE 0.9% 100 ML IVPB SCH ×3 (08:40→23:43)
--- NOTE | 2022-08-27 09:06 | P.CRDCN ---
History of Present Illness History of present illness: HISTORY OF PRESENTING ILLNESS This is a pleasant 87-year-old female past medical history significant for hyperlipidemia, rheumatic fever age 10, history of back surgeries, cholecystectomy, hysterectomy. She denies any history of cardiac disease. 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 We have been asked to see in consultation for cardiac risk assessment. Patient presented to the emergency department on 08/21/2022 with complaints of abdominal pain, nausea or vomiting. She was found to have a small bowel obstruction. She has been followed by general surgery. Cardiology was consulted for cardiac risk assessment for possible surgery if indicated. Patient denies any chest pain, shortness of breath, lightheadedness, dizziness, syncope or near syncope. She denies any symptoms of orthopnea or PND. Her abdominal pain has improved. She denies any nausea or vomiting. She did have a bowel movement yesterday. She denies any history of CAD, MS, stroke, seizures or diabetes. Family monitors blood pressure at home currently not on any antihypertensive medications. She is a non-smoker. DIAGNOSTICS * EKG reveals sinus rhythm, first-degree AV block, heart rate 97, nonspecific ST T wave abnormalities, LVH. * CT abdomen and pelvis reported small bowel obstruction is persistent without oral contrast within the colon. Patient's ribs deviate deep within the upper abdomen and may be the etiology of patient's obstruction. 7% of mesentery and nondistention of the small bowel in the right abdomen after this point. * Laboratory reviewed, WBC 7.0, hemoglobin 11, platelets 171, sodium 132, potassium 3.4, BUN 16, serum creatinine 0.3, magnesium 2.1 * Current home medications include Celexa,, multivitamin, Claritin, probiotic, Caltrate, aspirin 81 mg daily, vitamin C, when necessary Tylenol. REVIEW OF SYSTEMS At the time of my exam: CONSTITUTIONAL: Denies fever or chills. CARDIOVASCULAR: Denies chest pain, shortness of breath, orthopnea, PND or palpitations. RESPIRATORY: Denies cough. GASTROINTESTINAL: Denies abdominal pain, diarrhea, constipation, nausea or vomiting. MUSCULOSKELETAL: Denies myalgias. NEUROLOGIC: Denies numbness, tingling, headacbe or weakness. ENDOCRINE: Denies fatigue, weight change, polydipsia or polyurina. GENITOURINARY: Denies burning, hematuria or urgency with micturation. HEMATOLOGIC: +history of anemia Denies bleeding. PHYSICAL EXAMINATION Blood pressure 106/63, heart 81, afebrile, saturations 96% on room air CONSTITUTIONAL: No apparent distress. HEENT: Head is normocephalic. Pupils are equal, round. Sclerae anicteric. Mucous membranes of the mouth are moist. No JVD. No carotid bruit. CHEST EXAMINATION: Lungs are clear to auscultation. No chest wall tenderness is noted on palpation or with deep breathing. HEART EXAMINATION: Regular rate and rhythm. S1, S2 heard. Systolic ejection murmur at apex. Diastolic murmur at right sternal border ABDOMEN: Soft, some distention noted. Positive bowel sounds. EXTREMITIES: 2+ peripheral pulses, no lower extremity edema and no calf tenderness. NEUROLOGIC EXAMINATION: Patient is awake, alert and oriented x3. ASSESSMENT Small bowel obstruction Abdominal pain, nausea, vomiting History of hyperlipidemia Hypokalemia PLAN Obtain 2D echocardiogram and doppler study to assess cardiac structure and function.Replace potassium per protocol Patient is at acceptable risk for surgery. Patient is not able to perform >4 METs levels of activity, however, does not have any chest pain or shortness of breath with activity. She is at higher risk secondary to her age. She does not have any history of cardiac disease. She does have a murmur and we will evaluate on 2D echocardiogram. No absolute contraindication to undergo surgery at this time. Nurse practitioner note has been reviewed by physician. Signing provider agrees with the documented findings, assessment, and plan of care. Past Medical History Past Medical History: Hyperlipidemia Additional Past Medical History / Comment(s): Rheumatic fever age 10, osteop orosis, back fractures. pt states she fell in 2018 and had a back fracture. History of Any Multi-Drug Resistant Organisms: None Reported Past Surgical History: Cholecystectomy, Hysterectomy, Orthopedic Surgery, Tonsillectomy Additional Past Surgical History / Comment(s): hip Past Anesthesia/Blood Transfusion Reactions: No Reported Reaction Past Psychological History: No Psychological Hx Reported Additional Psychological History / Comment(s): patient is a , lives home alone and family lives aroud corner from patient. Smoking Status: Never smoker Past Alcohol Use History: Rare Past Drug Use History: None Reported - Past Family History Mother Family Medical History: Myocardial Infarction (MS) Medications and Allergies Home Medications Medication Instructions Recorded Confirmed Type Alfredo/D3/Mag11/Zinc/Printing Press Operator/Randolph/Bor 2 tab PO DAILY 09/05/16 08/22/22 History [Caltrate 600+D Plus Tablet] Glucosam/Patricio-Msm1/C/Randolph/Bosw 2 tab PO DAILY 09/05/16 08/22/22 History [Glucosamine-Chondroitin Tablet] Multivitamins, Thera [Multivitamin 1 tab PO DAILY 09/05/16 08/22/22 History (formulary)] Acetaminophen Tab [Tylenol] 325 mg PO Q4H PRN 11/09/19 08/22/22 History Ascorbic Acid [Vitamin C] 500 mg PO DAILY 11/09/19 08/22/22 History Aspirin EC [Ecotrin Low Dose] 81 mg PO DAILY 11/09/19 08/22/22 History L.acidoph,Paracasei, B.lactis 1 cap PO DAILY 11/09/19 08/22/22 History [Probiotic] Loratadine [Claritin] 10 mg PO DAILY 11/09/19 08/22/22 History Simethicone Chew [Mylicon Chew] 80 mg PO QID PRN #60 chew 11/12/19 08/22/22 Rx Allergies Allergy/AdvReac Type Severity Reaction Status Date / Time Sulfa (Sulfonamide Allergy Swelling Verified 08/21/22 17:24 Antibiotics) venom-honey bee Allergy Anaphylaxis Verified 08/21/22 17:24 [bee venom (honey bee)] tramadol AdvReac Unknown Verified 08/21/22 17:24 Physical Exam Vitals: Vital Signs Temp Pulse Resp BP Pulse Ox 08/27/22 07:51 97.9 F 81 17 106/63 96 08/27/22 02:00 97.2 F L 80 116/74 95 08/26/22 20:00 98.1 F 78 16 119/70 95 08/26/22 14:00 97.8 F 86 17 131/81 98 Intake and Output 08/26/22 08/27/22 08/27/22 22:59 06:59 14:59 Output Total 1000 Balance -1000 Output: Gastric Drainage 1000 Other: Voiding Method External Catheter # Voids 4 Results 08/26/22 13:40 08/27/22 04:17 Cardiac Enzymes 08/27/22 Range/Units 04:17 AST 32 (14-36) U/L CBC 08/26/22 Range/Units 13:40 WBC 7.0 (3.8-10.6) k/uL RBC 3.40 L (3.80-5.40) m/uL Hgb 11.0 L (11.4-16.0) gm/dL Hct 33.2 L (34.0-46.0) % Plt Count 171 (150-450) k/uL Comprehensive Metabolic Panel 08/27/22 Range/Units 04:17 Sodium 132 L (137-145) mmol/L Potassium 3.4 L (3.5-5.1) mmol/L Chloride 94 L (98-107) mmol/L Carbon Dioxide 31 H (22-30) mmol/L BUN 16 (7-17) mg/dL Creatinine 0.33 L (0.52-1.04) mg/dL Glucose 121 H (74-99) mg/dL Calcium 8.4 (8.4-10.2) mg/dL AST 32 (14-36) U/L ALT 16 (4-34) U/L Alkaline Phosphatase 40 (38-126) U/L Total Protein 5.6 L (6.3-8.2) g/dL Albumin 3.3 L (3.5-5.0) g/dL Current Medications Generic Name Dose Route Start Last Admin Trade Name Freq PRN Reason Stop Dose Admin Heparin Sodium (Porcine) 5,000 unit 08/22/22 09:00 08/26/22 22:07 Heparin Sodium,Porcine/Pf 5,000 Unit/0.5 Ml Syringe SQ 5,000 unit Q12HR FARNAZ Administration Sodium Chloride 1,000 mls @ 60 mls/hr 08/21/22 23:15 08/26/22 23:04 Saline 0.9% IV 60 mls/hr .[id number] FARNAZ Administration Piperacillin Sod/Tazobactam 100 mls @ 25 mls/hr 08/22/22 00:00 08/26/22 23:02 Sod 3.375 gm/ Sodium Chloride IVPB 25 mls/hr Q8HR FARNAZ Administration Protocol Fat Emulsion Intravenous 500 mls @ 41.667 mls/hr 08/24/22 13:00 08/24/22 13:43 Lipids 20% IV 41.667 mls/hr Fr@1300 FARNAZ Administration Parenteral Vitamin Supplement 1,053.5 mls @ 60 mls/hr 08/26/22 12:00 10 ml/ Zinc/Copper/Manganese/ IV Selenium 1 ml/ Sodium Chloride .BY DURATION FARNAZ 30 meq/ Potassium Chloride 36 meq/ Calcium Gluconate 1 gm/ Magnesium Sulfate 1 gm/ Sodium Phosphate 15 mmol/ Amino Acids/Dextrose Sodium Chloride 30 meq/ 1,042.5 mls @ 60 mls/hr 08/26/22 12:00 08/26/22 13:52 Potassium Chloride 36 meq/ IV 60 mls/hr Calcium Gluconate 1 gm/ .BY DURATION FARNAZ Administration Magnesium Sulfate 1 gm/ Sodium Phosphate 15 mmol/ Amino Acids/Dextrose Morphine Sulfate 4 mg 08/21/22 23:11 08/23/22 14:26 Morphine Sulfate 4 Mg/Ml Syringe IV 4 mg Q4HR PRN Administration Severe Pain (Scale 7 to 10) Naloxone HCl 0.2 mg 08/21/22 23:11 Naloxone 0.4 Mg/Ml 1 Ml Vial IV Q2M PRN Opioid Reversal Ondansetron HCl 4 mg 08/21/22 23:11 08/26/22 12:10 Ondansetron 4 Mg/2 Ml Vial IVP 4 mg Q8HR PRN Administration Nausea And Vomiting Pantoprazole Sodium 40 mg 08/22/22 21:00 08/26/22 22:06 Pantoprazole 40 Mg/10 Ml Vial IV 40 mg BID FARNAZ Administration Intake and Output 08/26/22 08/27/22 08/27/22 22:59 06:59 14:59 Output Total 1000 Balance -1000 Output: Gastric Drainage 1000 Other: Voiding Method External Catheter # Voids 4 08/26/22 13:40 08/27/22 04:17
[2022-08-27] MEDS ORDERED: POTASSIUM CHLORIDE 10 MEQ in WATER FOR INJECTION 1 100ML.BAG IVPB ONE (11:00)
[2022-08-27] MEDS: 1: MVI, ADULT NO.4 WITH VIT K 10 ML, TRACE (CONC-1ML/DOSE) 1 ML, SODIUM CHLORIDE 4MEQ/ML IV SCH ×8 (12:27)
--- NOTE | 2022-08-27 12:41 | CDI ---
Documentation Clarification Form Date: 08/27/2022 From: Queta Siegel RN, CCDS Admit Date: 08/21/2022 11:11:00 PM Patient Name: Tonja Greenberg Visit Number: [id number] Discharge Date: ATTENTION: The Clinical Documentation Specialists (CDI) and [facility] Coding Staff appreciate your assistance in clarifying documentation. Please respond to the clarification below the line at the bottom and electronically sign. The CDI & [facility] Coding staff will review the response and follow-up if needed. Please note: Queries are made part of the Legal Health Record. If you have any questions, please contact the author of this message via ITS. Dr. Enedina James Malnutrition is documented on 08/25 and subsequent progress notes. Additional clarification regarding the severity of malnutrition is requested. History/Risk Factors: Hyperlipidemia, Rheumatic fever age 10, Osteoporosis Clinical Indicators: 87-year-old female present with nausea/vomiting/diarrhea with abdominal distention and poor oral intake. She was ruled in for small bowel obstruction Current BMI: 17.9 Insufficient energy intake: Poor Weight Loss: Underweight, Wt. loss over multiple years Loss of subcutaneous fat: RD Consult Assessment: Yes Treatment: Dietary Consult: NPO NGT LIS (per orders) TPN: @ 60 MLS/HR Lab monitoring per orders ZOFRAN 4 MG IVP Q8 HRS PRN Please clarify the type of malnutrition, if known: [ ] Mild Protein-Calorie Malnutrition [ ] Moderate Protein-Calorie Malnutrition [ ] Severe Protein-Calorie Malnutrition [ ] Other condition, please specify [ ] Unable to Determine (Template Last Revised: January 2021) Moderate Protein-Calorie Malnutrition MTDD
[2022-08-27] MEDS ORDERED: Potassium Replacement Protocol 1 EACH MISC MISCELLANE PRN (12:56)
[2022-08-27] MEDS ORDERED: Magnesium Replacement Protocol 1 EACH MISC MISCELLANE PRN (12:56)
[2022-08-27] MEDS ORDERED: ACETAMINOPHEN IV (For NPO) 650 MG in EMPTY BAG 1 BAG IVPB SCH (14:00)
--- NOTE | 2022-08-27 14:01 | P.PN ---
Subjective Progress Note Date: 08/27/22 CHIEF COMPLAINT: Small bowel obstruction HISTORY OF PRESENT ILLNESS: Patient is sitting up in bed. She reports improvement in her abdominal distention. Her abdominal discomfort also has shown improvement. She did have a small bowel movement yesterday. She has had some flatus. Computed tomography scan abdomen and pelvis showing small bowel obstruction persistent without oral contrast within the colon. Patient's ribs deviate deep within the upper abdomen and may be the etiology of patient's obstr uction, transition point is noted. There is some twisting of the mesentery and nondistention of the small bowel in the right abdomen after this point. Patient is afebrile. NG tube output is bilious with thousand mL output throughout yesterday. She is nothing by mouth except for ice chips and popsicles. Sodium 132 potassium 3.4 creatinine 0.33. Her potassium is being replaced. Phosphorus 2.9 magnesium 2.1 Patient evaluated by cardiology and per cardiology no absolute contraindication to undergo surgery. PHYSICAL EXAM: VITAL SIGNS: Reviewed CONSTITUTIONAL: Well developed and in no acute distress. EYES: Conjuctivae without sclera icterus. Extraocular movements grossly intact. HEAD, EARS, NOSE, THROAT: Moist buccal mucosa. Head is atraumatic, normocephalic. Hears conversational speech. No nasal drainage. RESPIRATORY: Non-labored respirations and equal bilateral excursions. CARDIOVASCULAR: Palpable 2+ radial pulses. ABDOMEN: Nontender. Decreased abdominal distention MUSCULOSKELETAL: No gross deformity of the lower extremities noted. No clubbing. No cyanosis. SKIN: Good skin turgor. Well perfused. NEUROLOGIC: Cranial nerves II through XII grossly intact. No focal or lateralizing signs. PSYCH: Appropriate affect. Alert and oriented to person, place and time. ASSESSMENT: 1. Mechanical small bowel obstruction 2. Prior history of abdominal surgeries 3. Mild Protein calorie malnutrition PLAN: -Check abdominal x-ray to follow-up on small bowel obstruction -continue NG tube for decompression -Keep patient nothing by mouth except for ice chips and popsicles -Continue IV fluids -Continue TPN for nutrition support -IV Tylenol added for back pain -Potassium being replaced -Encouraged patient to increase activity level -Incentive spirometer ordered for pulmonary prophylaxis -GI prophylaxis Protonix and DVT prophylaxis subcu heparin Physician Register Of Wills note has been reviewed by physician. Signing provider agrees with the documented findings, assessment, and plan of care. CHIEF COMPLAINT: Bowel obstruction HISTORY OF PRESENT ILLNESS: The patient is a 87-year-old female presents for small bowel obstruction. She reports passing flatus and having bowel movements. She still has moderate output of her NG tube. ROS: No fevers or chills. No new chest pain. No productive sputum. Under weight, BMI 17.9 PHYSICAL EXAM: VITAL SIGNS: Reviewed CONSTITUTIONAL: Well developed and in no acute distress. EYES: Conjuctivae without sclera icterus. Extraocular movements grossly intact. HEAD, EARS, NOSE, THROAT: Moist buccal mucosa. Head is atraumatic, normocephalic. No nasal drainage. NG tube bilious RESPIRATORY: Non-labored respirations and equal bilateral excursions. CARDIOVASCULAR: Palpable 2+ radial pulses. ABDOMEN: Nontender. No peritonitis. Decreased distention. MUSCULOSKELETAL: No gross deformity of the lower extremities noted. No clubbing. No cyanosis. SKIN: Good skin turgor. Well perfused. NEUROLOGIC: Cranial nerves II through XII grossly intact. No focal or lateralizing signs. PSYCH: Appropriate affect. Alert and oriented to person, place and time. CLINICAL LABS: Reviewed. WBC normal. ASSESSMENT: 1. Bowel obstruction due to incarcerated right inguinal hernia 2. Protein malnutrition. 3. Under weight, BMI 17.9 4. Abnormal EKG PLAN: 1. She is pending completion of her echo report. 2. Recommend continue nasogastric tube 3. May need surgical intervention. Objective - Vital Signs Vital signs: Vital Signs Temp 97.9 F 08/27/22 07:51 Pulse 81 08/27/22 07:51 Resp 17 08/27/22 07:51 BP 106/63 08/27/22 07:51 Pulse Ox 96 08/27/22 07:51 FiO2 Intake & Output 08/26/22 08/27/22 08/27/22 18:59 06:59 18:59 Output Total 150 1000 Balance -150 -1000 Output: Gastric Drainage 150 1000 Other: Voiding Method Bedside Commode External Catheter # Voids 4 # Bowel Movements 1 - Labs CBC & Chem 7: 08/29/22 07:11 08/29/22 07:11 Labs: Abnormal Lab Results - Last 24 Hours (Table) 08/26/22 08/27/22 Range/Units 13:40 04:17 RBC 3.40 L (3.80-5.40) m/uL Hgb 11.0 L (11.4-16.0) gm/dL Hct 33.2 L (34.0-46.0) % Sodium 132 L (137-145) mmol/L Potassium 3.4 L (3.5-5.1) mmol/L Chloride 94 L (98-107) mmol/L Carbon Dioxide 31 H (22-30) mmol/L Creatinine 0.33 L (0.52-1.04) mg/dL Glucose 121 H (74-99) mg/dL Total Protein 5.6 L (6.3-8.2) g/dL Albumin 3.3 L (3.5-5.0) g/dL Microbiology - Last 24 Hours (Table) 08/22/22 00:50 Blood Culture - Preliminary Blood No Growth after 120 hours 08/22/22 00:35 Blood Culture - Preliminary Blood No Growth after 120 hours
--- NOTE | 2022-08-27 14:51 | XR ---
EXAMINATION TYPE: XR abdomen 2V DATE OF EXAM: 08/27/2022 2:41 PM INDICATION: Patient age:Female; 87 years old; Reason for study: follow up on SBO; [facility]. COMPARISON: CT abdomen pelvis 08/26/2022 TECHNIQUE: Two views of the abdomen were obtained. FINDINGS: Nasogastric tube in appropriate position with side-port and its tip projecting over the sto mach. There is fixation hardware of the right proximal femur which appears intact. There is moderate to severe degeneration changes of the spine with some scoliosis. Atherosclerosis of the arterial vasc ulature. There is dilation of loops of small bowel seen most pronounced in the pelvis measuring up to 5.1 cm. There is air-fluid level seen on upright imaging. Oral contrast extends to the cecum into the splenic flexure. IMPRESSION: Persistent dilation of small bowel loops most pronounced air-fluid levels and gas in the pelvis. Oral contrast does extend to the cecum and splenic flexure. Findings most compatible with partial obstruc tion which may be secondary to patient's rib morphology.
[2022-08-27] MEDS ORDERED: ACETAMINOPHEN IV (For NPO) 650 MG in EMPTY BAG 1 BAG IVPB PRN (15:03)
--- NOTE | 2022-08-27 15:03 | P.PN ---
Progress Note - Text Progress Note Date: 08/27/22 Review of computed tomography scan consistent with incarcerated right inguinal hernia with small bowel. Repeat abdominal x-ray still demonstrates persistent small bowel obstruction despite patient's clinical improvement. I personally called the patient's daughter Raysa regarding findings and persistent bowel obstruction. Recommend right inguinal hernia repair. 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 We'll proceed with robotic right inguinal hernia repair. Benefits and risks described to the patient's daughter whose power of tax associate attorney.
--- NOTE | 2022-08-27 17:13 | P.PN ---
Progress Note - Text Progress Note Date: 08/27/22 Patient's family at bedside including daughter and son. Due to long surgical day on clears operative time, case delayed/deferred. Trials of clear liquid diet in the interim.
[2022-08-27] MEDS: 0.9% NACL WITH KCL 20 MEQ/L 1,000 ML IV SCH (18:59)
[2022-08-28] MEDS ORDERED: 1: MVI, ADULT NO.4 WITH VIT K 10 ML, TRACE (CONC-1ML/DOSE) 1 ML, SODIUM CHLORIDE 4MEQ/ML IV SCH ×8 (03:00)
[2022-08-28] MEDS: 1: MVI, ADULT NO.4 WITH VIT K 10 ML, TRACE (CONC-1ML/DOSE) 1 ML, SODIUM CHLORIDE 4MEQ/ML IV SCH ×16 (07:39→08:38)
[2022-08-28 07:40] LABS: ALT 18 U/L (4-34); AST 34 U/L (14-36); African American GFR (CKD) >90 (>60 ml/min/1.73 sqM); Albumin 3.2 g/dL (3.5-5.0); Albumin/Globulin Ratio 1.3; Alkaline Phosphatase 40 U/L (38-126); Anion Gap 6 mmol/L; Blood Urea Nitrogen 17 mg/dL (7-17); Calcium 8.3 mg/dL (8.4-10.2); Carbon Dioxide 29 mmol/L (22-30); Chloride 99 mmol/L (98-107); Globulin 2.4 g/dL; Glucose 111 mg/dL (74-99); Magnesium 1.8 mg/dL (1.6-2.3); Non-African American GFR(CKD) >90 (>60 ml/min/1.73 sqM); Potassium 4.3 mmol/L (3.5-5.1); Sodium 134 mmol/L (137-145); Total Bilirubin 0.5 mg/dL (0.2-1.3); Total Protein 5.6 g/dL (6.3-8.2)
[2022-08-28] MEDS: 0.9% NACL WITH KCL 20 MEQ/L 1,000 ML IV SCH (07:44)
[2022-08-28] MEDS: PANTOPRAZOLE 40 MG/10 ML VIAL IV SCH ×2 (07:48→22:09)
[2022-08-28] MEDS: HEPARIN SODIUM,PORCINE/PF 5,000 UNIT/0.5 ML SYRINGE SQ SCH ×2 (07:48→22:10)
[2022-08-28] MEDS: PIPERACILLIN-TAZOBACTAM 3.375 GM in SODIUM CHLORIDE 0.9% 100 ML IVPB SCH ×2 (07:48→15:55)
--- NOTE | 2022-08-28 09:07 | CA ---
Transthoracic Echo Report Name: Tonja Greenberg Age: 87 Gender: F : 1935 Exam Date: 08/27/2022 13:34 Exam Location: [facility] Ht (in): 61 Wt (lb): 95 Ordering Physician: Meagan Ramachandran MD Attending/Referring Phys: Duarte GRAY Song Writer Ale Bloom RDCS Procedure CPT: Indications: abnormal ekg Cardiac Hx: Technical Quality: Good Contrast 1: Total Dose (mL): Contrast 2: Total Dose (mL): MEASUREMENTS (Male / Female) Normal Values 2D ECHO LV Diastolic Diameter PLAX 4.5 cm 4.2 - 5.9 / 3.9 - 5.3 cm LV Systolic Diameter PLAX 2.9 cm IVS Diastolic Thickness 1.0 cm 0.6 - 1.0 / 0.6 - 0.9 cm LVPW Diastolic Thickness 1.0 cm 0.6 - 1.0 / 0.6 - 0.9 cm LV Relative Wall Thickness 0.5 RV Internal Dim ED PLAX 2.5 cm LA Systolic Diameter LX 3.5 cm 3.0 - 4.0 / 2.7 - 3.8 cm LA Volume 57.4 cm??? 18 - 58 / 22 - 52 cm??? M-MODE Aortic Root Diameter MM 2.9 cm MV E Point Septal Separation 0.6 cm AV Cusp Separation MM 2.0 cm DOPPLER AV Peak Velocity 242.3 cm/s AV Peak Gradient 23.5 mmHg AI Peak Velocity 431.2 cm/s AI Peak Gradient 74.4 mmHg AI Pressure Half Time 359.7 ms MV Area PHT 4.3 cm??? Mitral E Point Velocity 99.3 cm/s Mitral A Point Velocity 84.8 cm/s Mitral E to A Ratio 1.2 MV Deceleration Time 176.3 ms MV E' Velocity 6.9 cm/s Mitral E to MV E' Ratio 14.3 TR Peak Velocity 275.0 cm/s TR Peak Gradient 30.2 mmHg Right Ventricular Systolic Press 34.8 mmHg FINDINGS Left Ventricle Left ventricular ejection fraction is estimated at 60-65 %. Left ventricular cavity size normal. Left ventricular wall thickness normal. Right Ventricle Normal right ventricular size and function. Right ventricular systolic pressure within normal limits. Right Atrium Normal right atrial size. Left Atrium Mildly increased left atrial volume. Mildly increased left atrial area. No evidence for an atrial septal defect. Mitral Valve Mitral valve thickened. Moderate mitral annular calcification. Moderate to Severe mitral regurgitation. Aortic Valve Trileaflet aortic valve. Aortic valve sclerosis. Mild aortic regurgitation. Tricuspid Valve Structurally normal tricuspid valve. No tricuspid stenosis. Mild to moderate tricuspid regurgitation. Pulmonic Valve [id number] pulmonic regurgitation. Pericardium Normal pericardium. No pericardial effusion. Aorta Normal size aortic root and proximal ascending aorta. CONCLUSIONS 1. Normal size and systolic function 2. Moderate to severe mitral regurgitation 3. [id number] tricuspid regurgitation with mild aortic regurgitation 4. No pericardial effusion Previewed by: Dr. Camron Peres MD (Electronically Signed) Final Date: 28 August 2022 09:07
--- NOTE | 2022-08-28 09:39 | P.PN ---
Subjective This is a pleasant 87-year-old female past medical history significant for hyperlipidemia, rheumatic fever age 10, history of back surgeries, cholecy stectomy, hysterectomy. She denies any history of cardiac disease. 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 We have been asked to see in consultation for cardiac risk assessment. Patient presented to the emergency department on 08/21/2022 with complaints of abdominal pain, nausea or vomiting. She was found to have a small bowel obstruction. She has been followed by general surgery. Cardiology was consulted for cardiac risk assessment for possible surgery if indicated. She denies any history of CAD, NM, stroke, seizures or diabetes. Family monitors blood pressure at home currently not on any antihypertensive medications. She is a non-smoker. Patient seen and examined at bedside, no acute distress. Denies any abdominal pain. She denies passing gas or any further bowel movements. Continues to be NPO. General surgery following. Patient denies any chest pain, shortness of breath, lightheadedness, dizziness. She denies any symptoms of orthopnea or PND. She denies any nausea or vomiting. Echocardiogram revealed an EF of 6065%, moderate to severe mitral regurgitation, mild to moderate tricuspid regurgitation with mild aortic regurgitation. PHYSICAL EXAMINATION Blood pressure 106/63, heart 81, afebrile, saturations 96% on room air CONSTITUTIONAL: No apparent distress. HEENT: Head is normocephalic. Pupils are equal, round. Sclerae anicteric. Mucous membranes of the mouth are moist. No JVD. No carotid bruit. CHEST EXAMINATION: Lungs are clear to auscultation. No chest wall tenderness is noted on palpation or with deep breathing. HEART EXAMINATION: Regular rate and rhythm. S1, S2 heard. Systolic ejection murmur at apex. Diastolic murmur at right sternal border ABDOMEN: Soft, some distention noted. Positive bowel sounds. EXTREMITIES: 2+ peripheral pulses, no lower extremity edema and no calf tenderness. NEUROLOGIC EXAMINATION: Patient is awake, alert and oriented x3. ASSESSMENT Small bowel obstruction Abdominal pain, nausea, vomiting History of hyperlipidemia Hypokalemia Moderate to severe mitral regurgitation Mild to moderate tricuspid regurgitation Mild aortic regurgitation PLAN Patient is at acceptable risk for surgery. Patient is not able to perform >4 METs levels of activity, however, does not have any chest pain or shortness of breath with activity. She is at higher risk secondary to her age. She does not have any history of cardiac disease. She does not have any acute cardiac conditions at this time. No absolute contraindication to undergo surgery at this time. We will follow the patient as needed. Please re-consult if needed Nurse practitioner note has been reviewed by physician. Signing provider agrees with the documented findings, assessment, and plan of care. Objective - Vital Signs Vital signs: Vital Signs Temp 98.5 F 08/28/22 07:46 Pulse 77 08/28/22 07:46 Resp 17 08/28/22 07:46 BP 96/66 08/28/22 07:46 Pulse Ox 97 08/28/22 07:46 FiO2 Intake & Output 08/27/22 08/28/22 08/28/22 18:59 06:59 18:59 Output Total 50 Balance -50 Weight 43.091 kg Output: Urine 50 Other: Voiding Method Bedside Commode # Voids 4 # Bowel Movements 0 - Labs CBC & Chem 7: 08/26/22 13:40 08/28/22 06:44 Labs: Abnormal Lab Results - Last 24 Hours (Table) 08/28/22 Range/Units 06:44 Sodium 134 L (137-145) mmol/L Creatinine 0.38 L (0.52-1.04) mg/dL Glucose 111 H (74-99) mg/dL Calcium 8.3 L (8.4-10.2) mg/dL Total Protein 5.6 L (6.3-8.2) g/dL Albumin 3.2 L (3.5-5.0) g/dL Microbiology - Last 24 Hours (Table) 08/22/22 00:35 Blood Culture - Final Blood No Growth after 144 hours 08/22/22 00:50 Blood Culture - Final Blood No Growth after 144 hours
--- NOTE | 2022-08-28 10:37 | PN ---
PROGRESS NOTE SUBJECTIVE: This 87-year-old woman, who was admitted with bowel obstruction, had apparently had a bowel movement, but CT scan still shows some mechanical obstruction. Surgery is following the patient. No chest pain. No palpitation. NG tube in situ. OBJECTIVE: VITAL SIGNS: Pulse is 80, blood pressure 116/74, respirations 17. NECK: No JVD. CARDIOVASCULAR: S1, S2. RESPIRATION: Few scattered rhonchi. ABDOMEN: Soft, distended. LEGS: No edema. NERVOUS SYSTEM: Nonfocal. LABORATORY DATA: Reviewed. Sodium 132. ASSESSMENT: 1. Acute small bowel obstruction, possibly mechanical. 2. Urinary tract infection. 3. Anemia. 4. Multiple medical issues. RECOMMENDATIONS: I recommend to continue current medications and symptomatic treatment. Cardiology evaluation is in progress including 2D echo. Otherwise, I would recommend repeat labs. Supplement lytes closely, and closely follow with Surgery. Further recommendations to follow. Prognosis guarded. MMODL / IJN: [id number] /
[2022-08-28 10:39] LABS: Basophils # (A) 0.03 X 10*3/uL (0.00-0.10); Basophils % (A) 0.4 %; Eosinophils # (A) 0.27 X 10*3/uL (0.04-0.35); HCT 28.9 % (37.2-46.3); HGB 9.6 g/dL (12.0-15.0); Immature Grans, Automated 0.3 %; Lymphocytes # (A) 1.19 X 10*3/uL (0.90-5.00); Lymphocytes % (A) 17.8 %; MCH 32.3 pg (27.0-32.0); MCHC 33.2 g/dL (32.0-37.0); MCV 97.3 fL (80.0-97.0); Mean Platelet Volume 9.6 fL (9.5-12.2); Monocytes # (A) 0.76 X 10*3/uL (0.20-1.00); Monocytes % (A) 11.3 %; NRBC Per 100 WBC 0 /100 WBCS (0.0-0.0); Neutrophils # (A) 4.43 X 10*3/uL (1.80-7.70); Neutrophils % (A) 66.2 %; Platelet Count 180 X 10*3/uL (140-440); RBC 2.97 X 10*6/uL (4.10-5.20); RDW 13.6 % (11.5-14.5)
--- NOTE | 2022-08-28 11:32 | P.PN ---
Subjective Progress Note Date: 08/28/22 CHIEF COMPLAINT: Small bowel obstruction HISTORY OF PRESENT ILLNESS: Patient is lying in bed comfortably. She does complain of some mild right-sided abdominal pain. Denies any nausea. She has not had any further flatus or bowel movement since yesterday. Echo normal size and systolic function. Moderate to severe mitral regurgitation. Mild to moderate tricuspid regurgitation with mild aortic regurgitation. No pericardial effusion. Patient seen by cardiology and there is no absolute contraindication to undergo surgery. Abdominal x-ray showing persistent dilation of small bowel loops most pronounced air-fluid levels and gas in the pelvis. Oral contrast does not extend to the cecum and splenic flexure. Findings most compatible with partial obstruction which may be secondary to patient's rib morphology per radiologist. Afebrile. WBC is 6.7H she be is down from 11-9.6 platelets 180 sodium is 134 potassium is 4.3 creatinine 0.38 PHYSICAL EXAM: VITAL SIGNS: Reviewed CONSTITUTIONAL: Well developed and in no acute distress. EYES: Conjuctivae without sclera icterus. Extraocular movements grossly intact. HEAD, EARS, NOSE, THROAT: Moist buccal mucosa. Head is atraumatic, normocep halic. Hears conversational speech. No nasal drainage. RESPIRATORY: Non-labored respirations and equal bilateral excursions. CARDIOVASCULAR: Palpable 2+ radial pulses. ABDOMEN: Soft. Decreased abdominal distention. Mild tenderness to palpation of the right lower MUSCULOSKELETAL: No gross deformity of the lower extremities noted. No clubbing. No cyanosis. SKIN: Good skin turgor. Well perfused. NEUROLOGIC: Cranial nerves II through XII grossly intact. No focal or lateralizing signs. PSYCH: Appropriate affect. Alert and oriented to person, place and time. ASSESSMENT: 1. Incarcerated right inguinal hernia with small bowel causing mechanical small bowel obstruction 2. Prior history of abdominal surgeries 3. Mild Protein calorie malnutrition 4. Hypokalemia improved PLAN: -Patient scheduled for Robotic right inguinal hernia repair with Dr. Ramachandran tomorrow, 08/29/2022 -Nothing by mouth after midnight -continue NG tube for decompression -Continue IV fluids -Continue TPN for nutrition support -IV Tylenol added for pain -Encouraged patient to increase activity level -Incentive spirometer ordered for pulmonary prophylaxis -GI prophylaxis Protonix and DVT prophylaxis subcu heparin Physician Power Plant Operators Supervisor note has been reviewed by physician. Signing provider agrees with the documented findings, assessment, and plan of care. CHIEF COMPLAINT: Bowel obstruction HISTORY OF PRESENT ILLNESS: The patient is a 87-year-old female presents for small bowel obstruction. No reports of emesis. No reports of abdominal pain. She is passing flatus. She is having bowel movements. She has completed cardiac risk assessment. She is on TPN. ROS: No fevers or chills. No new chest pain. No productive sputum. Under weight, BMI 17.9 PHYSICAL EXAM: VITAL SIGNS: Reviewed CONSTITUTIONAL: Well developed and in no acute distress. EYES: Conjuctivae without sclera icterus. Extraocular movements grossly intact. HEAD, EARS, NOSE, THROAT: Moist buccal mucosa. Head is atraumatic, normocephalic. No nasal drainage. NG tube bilious RESPIRATORY: Non-labored respirations and equal bilateral excursions. CARDIOVASCULAR: Palpable 2+ radial pulses. ABDOMEN: Nontender. No peritonitis. Decreased distention. MUSCULOSKELETAL: No gross deformity of the lower extremities noted. No clubbing. No cyanosis. SKIN: Good skin turgor. Well perfused. NEUROLOGIC: Cranial nerves II through XII grossly intact. No focal or lateralizing signs. PSYCH: Appropriate affect. Alert and oriented to person, place and time. CLINICAL LABS: Reviewed. WBC normal. ECHO: Reviewed with ejection fraction of 55%. No cardiac wall abnormalities. STUDIES: Abdominal x-ray obtained demonstrated persistent small bowel obstruction. This is my independent interpretation. ASSESSMENT: 1. Bowel obstruction due to incarcerated right inguinal hernia 2. Protein malnutrition. 3. Under weight, BMI 17.9 4. Abnormal EKG PLAN: 1. Overall, she is elevated risk due to under weight and age. 2. She has persistent small bowel obstruction. Recommend surgical intervention. Objective - Vital Signs Vital signs: Vital Signs Temp 98.5 F 08/28/22 07:46 Pulse 77 08/28/22 07:46 Resp 17 08/28/22 07:46 BP 96/66 08/28/22 07:46 Pulse Ox 97 08/28/22 07:46 FiO2 Intake & Output 08/27/22 08/28/22 08/28/22 18:59 06:59 18:59 Output Total 50 Balance -50 Weight 43.091 kg Output: Urine 50 Other: Voiding Method Bedside Commode # Voids 4 # Bowel Movements 0 - Labs CBC & Chem 7: 08/29/22 07:11 08/29/22 07:11 Labs: Abnormal Lab Results - Last 24 Hours (Table) 08/28/22 08/28/22 Range/Units 06:44 06:44 RBC 2.97 L (4.10-5.20) X 10*6/uL Hgb 9.6 L (12.0-15.0) g/dL Hct 28.9 L (37.2-46.3) % MCV 97.3 H (80.0-97.0) fL MCH 32.3 H (27.0-32.0) pg Sodium 134 L (137-145) mmol/L Creatinine 0.38 L (0.52-1.04) mg/dL Glucose 111 H (74-99) mg/dL Calcium 8.3 L (8.4-10.2) mg/dL Total Protein 5.6 L (6.3-8.2) g/dL Albumin 3.2 L (3.5-5.0) g/dL Microbiology - Last 24 Hours (Table) 08/22/22 00:35 Blood Culture - Final Blood No Growth after 144 hours 08/22/22 00:50 Blood Culture - Final Blood No Growth after 144 hours
[2022-08-29] MEDS: 0.9% NACL WITH KCL 20 MEQ/L 1,000 ML IV SCH
[2022-08-29] MEDS: PIPERACILLIN-TAZOBACTAM 3.375 GM in SODIUM CHLORIDE 0.9% 100 ML IVPB SCH ×4 (00:35→23:26)
[2022-08-29] MEDS: 1: MVI, ADULT NO.4 WITH VIT K 10 ML, TRACE (CONC-1ML/DOSE) 1 ML, SODIUM CHLORIDE 4MEQ/ML IV SCH ×8 (00:36)
[2022-08-29 07:40] LABS: African American GFR (CKD) >90 (>60 ml/min/1.73 sqM); Anion Gap 6 mmol/L; Blood Urea Nitrogen 14 mg/dL (7-17); Calcium 8.4 mg/dL (8.4-10.2); Carbon Dioxide 29 mmol/L (22-30); Chloride 98 mmol/L (98-107); Glucose 108 mg/dL (74-99); Magnesium 1.8 mg/dL (1.6-2.3); Non-African American GFR(CKD) >90 (>60 ml/min/1.73 sqM); Phosphorus 3.3 mg/dL (2.5-4.5); Potassium 4.4 mmol/L (3.5-5.1); Sodium 133 mmol/L (137-145)
[2022-08-29] MEDS ORDERED: MIDAZOLAM 2 MG/2 ML VIAL IV PRN (07:43)
[2022-08-29] MEDS ORDERED: DEXAMETHASONE SOD PHOSPHATE 4 MG/ML 1 ML VIAL IV ONE (07:43)
[2022-08-29] MEDS ORDERED: HYDROmorphone 0.5 MG/0.5 ML SYRINGE IVP PRN (07:43)
[2022-08-29] MEDS ORDERED: ONDANSETRON 4 MG/2 ML VIAL IVP ONE (07:43)
[2022-08-29] MEDS ORDERED: LIDOCAINE 1% (10MG/ML) FOR IV START INTRADERMA PRN (07:43)
[2022-08-29] MEDS: HEPARIN SODIUM,PORCINE/PF 5,000 UNIT/0.5 ML SYRINGE SQ SCH ×2 (08:34→23:27)
[2022-08-29] MEDS ORDERED: .ACETAMINOPHEN IV (PEDS) 650 MG in EMPTY BAG 1 BAG IVPB PRN (08:53)
[2022-08-29] MEDS: PANTOPRAZOLE 40 MG/10 ML VIAL IV SCH ×2 (09:51→23:19)
[2022-08-29 10:41] LABS: HCT 28.5 % (37.2-46.3); HGB 9.4 g/dL (12.0-15.0); MCH 32.5 pg (27.0-32.0); MCV 98.6 fL (80.0-97.0); Mean Platelet Volume 10.1 fL (9.5-12.2); NRBC Per 100 WBC 0 /100 WBCS (0.0-0.0); Platelet Count 200 X 10*3/uL (140-440); RBC 2.89 X 10*6/uL (4.10-5.20); RDW 13.7 % (11.5-14.5); WBC 4.37 X 10*3/uL (4.50-10.00)
--- NOTE | 2022-08-29 11:57 | P.PN ---
Subjective Progress Note Date: 08/29/22 CHIEF COMPLAINT: Bowel obstruction HISTORY OF PRESENT ILLNESS: The patient is a 87-year-old female presents for small bowel obstruction. She is passing flatus having bowel movements. ROS: No fevers or chills. No new chest pain. No productive sputum. Under weight, BMI 17.9 PHYSICAL EXAM: VITAL SIGNS: Reviewed CONSTITUTIONAL: Well developed and in no acute distress. EYES: Conjuctivae without sclera icterus. Extraocular movements grossly intact. HEAD, EARS, NOSE, THROAT: Moist buccal mucosa. Head is atraumatic, normocephalic. No nasal drainage. NG tube bilious RESPIRATORY: Non-labored respirations and equal bilateral excursions. CARDIOVASCULAR: Palpable 2+ radial pulses. ABDOMEN: Nontender. Resolved distention. No peritonitis. MUSCULOSKELETAL: No gross deformity of the lower extremities noted. No clubbing. No cyanosis. SKIN: Good skin turgor. Well perfused. NEUROLOGIC: Cranial nerves II through XII grossly intact. No focal or lateralizing signs. PSYCH: Appropriate affect. Alert and oriented to person, place and time. CLINICAL LABS: Reviewed. Although then 3.2. ASSESSMENT: 1. Bowel obstruction due to incarcerated right inguinal hernia 2. Protein malnutrition. 3. Under weight, BMI 17.9 4. Abnormal EKG PLAN: 1. She has cardiac clearance. Robotic right inguinal hernia repair described. She is elevated risk due to comorbidities. Objective - Vital Signs Vital signs: Vital Signs Temp 98.1 F 08/29/22 08:00 Pulse 84 08/29/22 08:00 Resp 18 08/29/22 08:00 BP 122/74 08/29/22 08:00 Pulse Ox 97 08/29/22 08:00 FiO2 Intake & Output 08/28/22 08/29/22 08/29/22 18:59 06:59 18:59 Output Total 5 Balance -5 Output: Stool 5 Other: Voiding Method Bedside Commode # Voids 5 1 # Bowel Movements 1 - Labs CBC & Chem 7: 08/29/22 07:11 08/29/22 07:11 Labs: Abnormal Lab Results - Last 24 Hours (Table) 08/29/22 08/29/22 Range/Units 07:11 07:11 WBC 4.37 L (4.50-10.00) X 10*3/uL RBC 2.89 L (4.10-5.20) X 10*6/uL Hgb 9.4 L (12.0-15.0) g/dL Hct 28.5 L (37.2-46.3) % MCV 98.6 H (80.0-97.0) fL MCH 32.5 H (27.0-32.0) pg Sodium 133 L (137-145) mmol/L Creatinine 0.39 L (0.52-1.04) mg/dL Glucose 108 H (74-99) mg/dL
[2022-08-29] MEDS: LACTATED RINGERS 1,000 ML IV SCH (14:31)
[2022-08-29] MEDS ORDERED: HEPARIN SODIUM,PORCINE 5,000 UNIT/ML 1 ML VIAL SQ ONE (14:40)
[2022-08-29] MEDS ORDERED: BUPIVACAINE (PF) 0.25% 30 ML VIAL SQ ONE ×2 (16:15→16:52)
[2022-08-29] MEDS ORDERED: LIDOCAINE 2% INJ 20 MG/ML (2 ML VIAL) ONE (16:16)
[2022-08-29] MEDS ORDERED: PHENYLEPHRINE-0.9% NACL SYG 1,000 MCG/10 ML SYRINGE ONE (16:16)
[2022-08-29] MEDS ORDERED: PROPOFOL 10 MG/ML 20 ML VIAL IV ONE (16:16)
[2022-08-29] MEDS ORDERED: fentaNYL (PF) 50 MCG/ML 2 ML AMP ONE (16:16)
[2022-08-29] MEDS ORDERED: GLYCOPYRROLATE 0.2 MG/ML 2 ML VIAL ONE (16:16)
[2022-08-29] MEDS ORDERED: ROCURONIUM 10 MG/ML (5 ML VIAL) IV ONE (16:16)
[2022-08-29] MEDS ORDERED: ESMOLOL 100 MG/10 ML VIAL ONE (16:16)
[2022-08-29] MEDS ORDERED: SUCCINYLCHOLINE CHLORIDE 200 MG/10 ML VIAL IV ONE (16:16)
[2022-08-29] MEDS ORDERED: NEOSTIGMINE 1 MG/ML 10 ML VIAL ONE (16:16)
[2022-08-29] MEDS ORDERED: SODIUM CHLORIDE 0.9% 50 ML with ceFAZolin 1,000 MG IV ONE ×2 (16:47)
--- NOTE | 2022-08-29 20:07 | PN ---
PROGRESS NOTE SUBJECTIVE: This is an 87-year-old woman, who was admitted with acute bowel obstruction and is being closely monitored. The patient had UTI also. The patient is on empiric antibiotics. Cultures are negative. Surgery is following the patient closely. No chest pain. No palpitation. OBJECTIVE: VITAL SIGNS: Pulse is 76, blood pressure 149/74, respirations 18. CHEST: Clear to auscultation. CARDIOVASCULAR: S1 and S2. ABDOMEN: Soft and distended. Bowel sounds diminished. LABORATORY DATA: Sodium 134. The rest of the labs noted. ASSESSMENT: 1. Acute small bowel obstruction, possibly mechanical. 2. Possible incarcerated right inguinal hernia. 3. Urinary tract infection. 4. Anemia. 5. Multiple medical issues. RECOMMENDATIONS: Recommend to continue current management and symptomatic treatment. Otherwise, closely follow with Surgery. Further recommendations to follow. MMODL / IJN: [id number] /
--- NOTE | 2022-08-29 20:29 | P.OP ---
Date of Procedure: 08/29/22 Description of Procedure: SURGEON: EUNICE SCHREIBER MD PREOPERATIVE DIAGNOSES: 1. Small bowel obstruction due to right inguinal hernia 2. Underweight, BMI 17.9 3. Hyperlipidemia 4. Osteoporosis 5. History of rheumatic fever 6. Severe kyphosis with generalized debility 7. Abnormal EKG with conduction delay POSTOPERATIVE DIAGNOSES: 1. Small bowel obstruction due to right inguinal hernia 2. Underweight, BMI 17.9 3. Hyperlipidemia 4. Osteoporosis 5. History of rheumatic fever 6. Severe kyphosis with generalized debility 7. Abnormal EKG with conduction delay 8. Incarcerated right inguinal hernia, direct, initial 9. Incarcerated left inguinal hernia, direct, initial with large follow-up obstruction 10. Internal hernia, right lower quadrant small bowel mesentery 11. Pelvic adhesions from prior hysterectomy 12. Upper abdominal adhesions from prior open cholecystectomy 13. Left inguinal lipoma OPERATION: 1. Robotic-assisted da Radha Xi laparoscopic repair of initial incarcerated with small bowel obstruction right direct inguinal hernia with mesh, 11.[address] 2. Robotic-assisted da Radha Xi laparoscopic repair of initial incarcerated with large bowel obstruction left direct inguinal hernia with mesh, 11.[address] 3. Resection of incarcerated left inguinal subfascial lipoma, 4 cm by 3 cm 4. Robotic-assisted da Radha Xi laparoscopic lysis of adhesion with takedown of internal hernia, right pelvis ANESTHESIA: General with local anesthetic ESTIMATED BLOOD LOSS: 20 mL. SPECIMENS: 1. Right inguinal hernia sac 2. Left inguinal hernia lipoma COMPLICATIONS: None. FINDINGS: 1. Reduced right inguinal hernia, direct, involving small bowel and weak posterior floor 2. Incarcerated left direct inguinal hernia involving sigmoid colon with large bowel obstruction, reduced 3. Internal hernia right pelvis, ileal small bowel mesentery reduced and lysed 4. Interloop adhesions right pelvis involving mid ileum lysed 5. Adhesions right upper quadrant from prior cholecystectomy undisturbed 6. Reduced bowel obstructions upon completion of case 7. Incarcerated subfascial left inguinal direct hernia INDICATIONS: The patient is a 87-year-old female who presented acutely with bowel obstruction. She was placed on TPN for protein malnutrition. Diagnostic studies demonstrated right inguinal hernia as transition point for bowel obstruction. Surgical intervention with reduction and repair of inguinal hernia was described. Placement of mesh reviewed. Informed consent obtained. DESCRIPTION: In the preoperative area, the patient was marked with indelible marker along the inguinal hernia. The patient was brought to the operating room and initially laid in supine position. The abdomen had been prepped and draped in standard sterile fashion. Ioban draping was also placed. Prior to incision, a timeout protocol was confirmed with surgical team regarding patient's name including procedures to be performed and location along the right groin. Initial positioning for the robotic assisted ports were selected whereby 20 cm superior to the target anatomy, 0 degree 5 mm laparoscopic trocar entry was performed at the left upper quadrant. The abdomen was insufflated to 15 mmHg which was tolerated well. Diagnostic laparoscopy demonstrated no injury to bowel, viscera or mesentery. Adhesions was found of the right upper quadrant. Due to severe kyphosis of the spine, minimal upper abdominal space was obtained during the case. Placement trochars were 13 cm superior to the pubis. Next, along the epigastrium, 8 mm robot trocar was placed. An 8-mm robotic trocar was placed under direct visualization at the right upper quadrant. An 8 mm port was placed at the left upper quadrant. All trocars were positioned between 8-cm apart from each other. A laparoscopic 12-mm trochar was placed at the right lateral abdominal wall. The [employer] Cryoocyte XI robot was primed, draped, prepared for docking along upper abdomen of the patient. The patient was positioned 14 steep Trendelenburg position I then went to the [employer] Xi console. The children's nursery assistant was at bedside for exchange of the robot arms and equipment. The right direct inguinal hernia sac was evaginated whereby the peritoneum was scored using Endo scissors with cautery. Once completely reduced into the abdominal cavity, the peritoneal sac of the hernia was stripped. The sac was resected and then passed off for further pathological analysis. The size of the hernia defect was 3 cm with intraoperative films obtained. Using a nonabsorbable 2-0 VLOC, the peritoneal defect of the right inguinal hernia sites was closed using a pursestring suture. The defect was found to be completely closed with complete reduction of the right direct inguinal hernia were confirmed. As an onlay, an 11.[address] mesh by [employer] was initially cut in half and entered into the abdominal cavity via the 8 mm trocar. The mesh was tacked to the pelvis using 2-0 VLOC absorbable sutures. Next, careful attention along the left groin demonstrated incarcerated direct left inguinal hernia involving sigmoid colon. Adhesions were lysed with reduction of the left inguinal hernia causing large bowel obstruction involving sigmoid colon. The left inguinal hernia sac was evaginated whereby the peritoneum was scored using Endo scissors with cautery. Once completely reduced into the abdominal cavity, the peritoneal sac of the hernia was stripped including an incarcerated inguinal hernia involving a large 4-cm by 3 cm inguinal subfascial lipoma. The lipoma and sac was resected and then passed off for further pathological analysis. The size of the hernia defect was 4 cm with intraoperative films obtained. Using a nonabsorbable 2-0 VLOC, the peritoneal defect of the left inguinal hernia site was closed using a running suture. The defect was found to be completely closed with complete reduction of the left direct inguinal hernia was confirmed. As an onlay, an 11.[address] mesh by [employer] was initially cut in half and entered into the abdominal cavity via the 8 mm trocar. The mesh was tacked to the pelvis using absorbable 2-0 VLOC 9-inch length sutures. Next, the small bowel was investigated from the terminal ileum proximally where along the right pelvis, internal hernia involving the distal ileum mesentery was found. Internal hernia was reduced and lysed using vessel sealer. Interloop adhesions involving the mid ileum was lysed using vessel sealer and blunt dissection without enterotomy. No residual small bowel dilation or bowel obstruction was identified. Adhesions involving the right upper quadrant and distal jejunum was identified and undisturbed due to the severe kyphosis of the spine and elderly to release from the abdominal wall. This concluded the procedure. The robot was undocked from the patient's bedside. I then rescrubbed into the case. Insufflation was released from the abdominal cavity and all instruments were removed from the abdominal cavity. The rest of incisions were reapproximated using 4-0 Monocryl in a running subcuticular fashion. Incisions were cleansed using dilute hydrogen peroxide. Liquid glue was applied to the skin. At the end of the procedure, the needle, sponge and instrument counts had been verified correct by the windows server support technician. The patient had tolerated the procedure well and was taken to the postanesthesia care unit in stable condition.
[2022-08-29] MEDS: ACETAMINOPHEN TAB 325 MG TAB PO SCH (23:57)
[2022-08-30] MEDS: PIPERACILLIN-TAZOBACTAM 3.375 GM in SODIUM CHLORIDE 0.9% 100 ML IVPB SCH ×3 (00:08→16:36)
--- NOTE | 2022-08-30 05:59 | PN ---
PROGRESS NOTE SUBJECTIVE: This is an 87-year-old woman who was admitted with acute small-bowel obstruction, possibly mechanical, also had right inguinal hernia. Dr. Ramachandran is planning surgery today. No chest pain. No palpitations. No fever. PHYSICAL EXAMINATION: VITAL SIGNS: Pulse 84, blood pressure 120/74, respirations 18. CHEST: Clear to auscultation CARDIOVASCULAR: S1 and S2. ABDOMEN: Soft, mildly diffuse distention. NERVOUS SYSTEM: No focal deficits. LABS: Hemoglobin 9.4. The rest of labs are noted. ASSESSMENT: 1. Acute small-bowel obstruction, possibly incarcerated inguinal hernia. 2. Urinary tract infection. 3. Anemia. 4. Multiple medical issues. RECOMMENDATIONS AND DISCUSSION: Recommend to continue current management and symptomatic treatment. Otherwise at this time repeat labs. Closely follow with Surgery. Symptomatic treatment. The patient still has NG tube stable, but overall prognosis guarded. Further recommendations to follow. MMODL / IJN: [id number] /
[2022-08-30] MEDS: 0.9% NACL WITH KCL 20 MEQ/L 1,000 ML IV SCH ×2 (06:02→18:44)
[2022-08-30] MEDS: 1: MVI, ADULT NO.4 WITH VIT K 10 ML, TRACE (CONC-1ML/DOSE) 1 ML, SODIUM CHLORIDE 4MEQ/ML IV SCH ×16 (06:06→06:15)
[2022-08-30] MEDS: ACETAMINOPHEN TAB 325 MG TAB PO SCH ×3 (07:16→20:13)
[2022-08-30 07:32] LABS: ALT 20 U/L (4-34); AST 38 U/L (14-36); African American GFR (CKD) >90 (>60 ml/min/1.73 sqM); Albumin/Globulin Ratio 1.3; Alkaline Phosphatase 53 U/L (38-126); Anion Gap 5 mmol/L; Blood Urea Nitrogen 14 mg/dL (7-17); Calcium 8.4 mg/dL (8.4-10.2); Carbon Dioxide 29 mmol/L (22-30); Chloride 98 mmol/L (98-107); Globulin 2.3 g/dL; Glucose 118 mg/dL (74-99); Magnesium 1.6 mg/dL (1.6-2.3); Non-African American GFR(CKD) 87 (>60 ml/min/1.73 sqM); Phosphorus 3.7 mg/dL (2.5-4.5); Potassium 4.2 mmol/L (3.5-5.1); Sodium 132 mmol/L (137-145); Total Bilirubin 0.5 mg/dL (0.2-1.3); Total Protein 5.3 g/dL (6.3-8.2)
[2022-08-30] MEDS: PANTOPRAZOLE 40 MG/10 ML VIAL IV SCH ×2 (08:57→20:15)
[2022-08-30] MEDS: HEPARIN SODIUM,PORCINE/PF 5,000 UNIT/0.5 ML SYRINGE SQ SCH ×2 (08:57→20:13)
[2022-08-30 10:37] LABS: Basophils # (A) 0.04 X 10*3/uL (0.00-0.10); Basophils % (A) 0.4 %; Eosinophils # (A) 0.21 X 10*3/uL (0.04-0.35); Eosinophils % (A) 2.3 %; HCT 28.4 % (37.2-46.3); HGB 8.9 g/dL (12.0-15.0); Immature Grans, Automated 0.6 %; Lymphocytes # (A) 1.16 X 10*3/uL (0.90-5.00); Lymphocytes % (A) 12.8 %; MCH 32.1 pg (27.0-32.0); MCHC 31.3 g/dL (32.0-37.0); MCV 102.5 fL (80.0-97.0); Mean Platelet Volume 10.1 fL (9.5-12.2); Monocytes # (A) 0.82 X 10*3/uL (0.20-1.00); Monocytes % (A) 9.1 %; NRBC Per 100 WBC 0 /100 WBCS (0.0-0.0); Neutrophils # (A) 6.75 X 10*3/uL (1.80-7.70); Neutrophils % (A) 74.8 %; Platelet Count 201 X 10*3/uL (140-440); RBC 2.77 X 10*6/uL (4.10-5.20); RDW 13.8 % (11.5-14.5); WBC 9.03 X 10*3/uL (4.50-10.00)
[2022-08-30] MEDS: LACTATED RINGERS 1,000 ML IV SCH (11:06)
[2022-08-30] MEDS: MAGNESIUM SULFATE-D5W PMX 1 GM in DEXTROSE/WATER 1 100ML.BAG IVPB SCH ×2 (14:16→16:34)
--- NOTE | 2022-08-30 16:06 | P.PN ---
Subjective Progress Note Date: 08/30/22 CHIEF COMPLAINT: Small bowel obstruction HISTORY OF PRESENT ILLNESS: Patient is postop day #1 status post robotic laparoscopic repair of initial incarcerated with small bowel obstruction right direct inguinal hernia with mesh, repair of initial incarcerated with large bowel obstruction left direct inguinal hernia with mesh, resection of incarcerated left inguinal subfascial lipoma and lysis of adhesions with takedown of internal hernia in the right pelvis. Patient tolerated surgery well. She does report some pain but it is controlled. Denies any nausea or vomiting. Denies any flatus. Currently on a clear liquid diet. Afebrile. WBC is 9.03 hemoglobin 8.9 platelets 201 sodium is 132 potassium is 4.2 creatinine 0.49 glucose 118 magnesium 1.6 PHYSICAL EXAM: VITAL SIGNS: Reviewed CONSTITUTIONAL: Well developed and in no acute distress. EYES: Conjuctivae without sclera icterus. Extraocular movements grossly intact. HEAD, EARS, NOSE, THROAT: Moist buccal mucosa. Head is atraumatic, normocephalic. Hears conversational speech. No nasal drainage. RESPIRATORY: Non-labored respirations and equal bilateral excursions. CARDIOVASCULAR: Palpable 2+ radial pulses. ABDOMEN: Soft. Decreased abdominal distention. Tenderness with palpation. Incision sites clean dry and intact MUSCULOSKELETAL: No gross deformity of the lower extremities noted. No clubbing. No cyanosis. SKIN: Good skin turgor. Well perfused. NEUROLOGIC: Cranial nerves II through XII grossly intact. No focal or lateralizing signs. PSYCH: Appropriate affect. Alert and oriented to person, place and time. ASSESSMENT: 1. Small bowel obstruction due to right inguinal hernia 2. Underweight, BMI 17.9 3. Hyperlipidemia 4. Osteoporosis 5. History of rheumatic fever 6. Severe kyphosis with generalized debility 7. Abnormal EKG with conduction delay 8. Incarcerated right inguinal hernia, direct, initial 9. Incarcerated left inguinal hernia, direct, initial with large follow-up obstruction 10. Internal hernia, right lower quadrant small bowel mesentery 11. Pelvic adhesions from prior hysterectomy 12. Upper abdominal adhesions from prior open cholecystectomy 13. Left inguinal lipoma 14. Hypomagnesemia PLAN: -Advance diet to full liquids and then as tolerated -We will wean patient off of TPN as oral intake increases -Replace magnesium -Continue pain management -Continue supportive care -Encouraged patient to increase activity level -Consult PT OT -Incentive spirometer ordered for pulmonary prophylaxis -Anticipate possible discharge tomorrow -GI prophylaxis Protonix and DVT prophylaxis subcu heparin Physician Production Machine Operator note has been reviewed by physician. Signing provider agrees with the documented findings, assessment, and plan of care. Objective - Vital Signs Vital signs: Vital Signs Temp 98.3 F 08/30/22 08:00 Pulse 77 08/30/22 08:00 Resp 14 08/30/22 08:00 BP 119/63 08/30/22 08:00 Pulse Ox 98 08/30/22 08:00 FiO2 Intake & Output 08/29/22 08/30/22 08/30/22 18:59 06:59 18:59 Intake Total 1250 Output Total 20 Balance 1230 Weight 43.091 kg 43.091 kg Intake: IV 1250 Output: Estimated Blood Loss 20 Other: Voiding Method Bedside Commode Bedside Commode # Voids 2 1 - Labs CBC & Chem 7: 08/30/22 07:10 08/30/22 07:10 Labs: Abnormal Lab Results - Last 24 Hours (Table) 08/30/22 08/30/22 Range/Units 07:10 07:10 RBC 2.77 L (4.10-5.20) X 10*6/uL Hgb 8.9 L (12.0-15.0) g/dL Hct 28.4 L (37.2-46.3) % MCV 102.5 H (80.0-97.0) fL MCH 32.1 H (27.0-32.0) pg MCHC 31.3 L (32.0-37.0) g/dL Immature Gran # 0.05 H (0.00-0.04) X 10*3/uL Sodium 132 L (137-145) mmol/L Creatinine 0.49 L (0.52-1.04) mg/dL Glucose 118 H (74-99) mg/dL AST 38 H (14-36) U/L Total Protein 5.3 L (6.3-8.2) g/dL Albumin 3.0 L (3.5-5.0) g/dL
[2022-08-31] MEDS: PIPERACILLIN-TAZOBACTAM 3.375 GM in SODIUM CHLORIDE 0.9% 100 ML IVPB SCH ×3 (00:26→16:49)
[2022-08-31] MEDS: LACTATED RINGERS 1,000 ML IV SCH (00:33)
[2022-08-31] MEDS: ACETAMINOPHEN TAB 325 MG TAB PO SCH ×6 (01:31→18:29)
[2022-08-31] MEDS: 1: MVI, ADULT NO.4 WITH VIT K 10 ML, TRACE (CONC-1ML/DOSE) 1 ML, SODIUM CHLORIDE 4MEQ/ML IV SCH ×24 (01:37→20:55)
--- NOTE | 2022-08-31 04:30 | PN ---
PROGRESS NOTE DATE OF SERVICE: 08/30/2022 SUBJECTIVE: This 87-year-old woman was admitted with small bowel obstruction, had surgery by Dr. Ramachandran. The patient underwent robotic-assisted repair of the incarcerated hernia with small-bowel obstruction with right direct inguinal hernia. No chest pain. No palpitations. No fever. PHYSICAL EXAMINATION: VITAL SIGNS: Pulse is 89, blood pressure 130/70, respirations 16. CHEST: A few scattered rhonchi. CARDIOVASCULAR: S1, S2. ABDOMEN: Soft, status post surgery. NERVOUS SYSTEM: No focal deficits. LABS: Hemoglobin 8.9. Other labs are noted. ASSESSMENT: 1. Small bowel obstruction secondary to incarcerated inguinal hernia, status post laparoscopic repair. 2. Urinary tract infection. 3. Anemia. 4. Multiple medical issues. RECOMMENDATIONS AND DISCUSSION: Recommend to continue current management and symptomatic treatment. Diet advancement per surgery. Repeat labs. Otherwise, I would recommend PT, OT evaluation, possible ECF rehab. Prognosis stable, but overall prognosis guarded. Discussed with the family and patient. Further recommendations to follow. MMODL / IJN: [id number] /
[2022-08-31 08:00] LABS: ALT 17 U/L (4-34); AST 35 U/L (14-36); African American GFR (CKD) >90 (>60 ml/min/1.73 sqM); Albumin 3.5 g/dL (3.5-5.0); Albumin/Globulin Ratio 1.3; Alkaline Phosphatase 54 U/L (38-126); Anion Gap 6 mmol/L; Blood Urea Nitrogen 15 mg/dL (7-17); Calcium 8.5 mg/dL (8.4-10.2); Carbon Dioxide 29 mmol/L (22-30); Chloride 99 mmol/L (98-107); Globulin 2.6 g/dL; Glucose 112 mg/dL (74-99); Non-African American GFR(CKD) >90 (>60 ml/min/1.73 sqM); Phosphorus 3.2 mg/dL (2.5-4.5); Potassium 4.6 mmol/L (3.5-5.1); Sodium 134 mmol/L (137-145); Total Bilirubin 0.5 mg/dL (0.2-1.3); Total Protein 6.1 g/dL (6.3-8.2)
[2022-08-31] MEDS: 0.9% NACL WITH KCL 20 MEQ/L 1,000 ML IV SCH ×2 (08:08→20:56)
[2022-08-31] MEDS: HEPARIN SODIUM,PORCINE/PF 5,000 UNIT/0.5 ML SYRINGE SQ SCH ×2 (08:10→21:03)
[2022-08-31] MEDS: PANTOPRAZOLE 40 MG/10 ML VIAL IV SCH ×2 (08:10→21:09)
[2022-08-31 10:35] LABS: Basophils # (A) 0.04 X 10*3/uL (0.00-0.10); Basophils % (A) 0.6 %; Eosinophils # (A) 0.21 X 10*3/uL (0.04-0.35); HCT 29.5 % (37.2-46.3); HGB 9.7 g/dL (12.0-15.0); Immature Grans, Automated 0.4 %; Lymphocytes % (A) 15.9 %; MCH 32.9 pg (27.0-32.0); MCHC 32.9 g/dL (32.0-37.0); Monocytes # (A) 0.74 X 10*3/uL (0.20-1.00); Monocytes % (A) 10.7 %; NRBC Per 100 WBC 0 /100 WBCS (0.0-0.0); Neutrophils # (A) 4.79 X 10*3/uL (1.80-7.70); Neutrophils % (A) 69.4 %; Platelet Count 254 X 10*3/uL (140-440); RBC 2.95 X 10*6/uL (4.10-5.20); RDW 13.8 % (11.5-14.5); WBC 6.91 X 10*3/uL (4.50-10.00)
[2022-08-31] MEDS: ONDANSETRON 4 MG/2 ML VIAL IVP PRN (10:39)
[2022-08-31] MEDS: FAT EMULSION 20% 500 ML IV SCH (13:46)
[2022-08-31] MEDS: MORPHINE SULFATE 4 MG/ML SYRINGE IV PRN (13:59)
[2022-08-31] MEDS: SIMETHICONE 40 MG/0.6 ML DROPS 2,000 MG/30 ML BOTTLE PO SCH ×3 (15:32→21:45)
--- NOTE | 2022-08-31 15:44 | P.PN ---
Subjective Progress Note Date: 08/31/22 CHIEF COMPLAINT: Small bowel obstruction HISTORY OF PRESENT ILLNESS: Patient is postop day #2 status post robotic laparoscopic repair of initial incarcerated with small bowel obstruction right direct inguinal hernia with mesh, repair of initial incarcerated with large bowel obstruction left direct inguinal hernia with mesh, resection of incarcerated left inguinal subfascial lipoma and lysis of adhesions with takedown of internal hernia in the right pelvis. Patient does report abdominal pain on the right side. She is a little more bloated today. She did complain of some mild nausea. Patient has developed an ileus. She may have passed a small amount of flatus. Denies any vomiting. Afebrile. WBC is 6.91 hgb 9.7 platelet 254 sodium 134 potassium is 4.6 creatinine 0.40 PHYSICAL EXAM: VITAL SIGNS: Reviewed CONSTITUTIONAL: Well developed and in no acute distress. EYES: Conjuctivae without sclera icterus. Extraocular movements grossly intact. HEAD, EARS, NOSE, THROAT: Moist buccal mucosa. Head is atraumatic, normocephalic. Hears conversational speech. No nasal drainage. RESPIRATORY: Non-labored respirations and equal bilateral excursions. CARDIOVASCULAR: Palpable 2+ radial pulses. ABDOMEN: distended. Tenderness with palpation. Incision sites clean dry and intact MUSCULOSKELETAL: No gross deformity of the lower extremities noted. No clubbing. No cyanosis. SKIN: Good skin turgor. Well perfused. NEUROLOGIC: Cranial nerves II through XII grossly intact. No focal or l ateralizing signs. PSYCH: Appropriate affect. Alert and oriented to person, place and time. ASSESSMENT: 1. Small bowel obstruction due to right inguinal hernia 2. Underweight, BMI 17.9 3. Hyperlipidemia 4. Osteoporosis 5. History of rheumatic fever 6. Severe kyphosis with generalized debility 7. Abnormal EKG with conduction delay 8. Incarcerated right inguinal hernia, direct, initial 9. Incarcerated left inguinal hernia, direct, initial with large follow-up obstruction 10. Internal hernia, right lower quadrant small bowel mesentery 11. Pelvic adhesions from prior hysterectomy 12. Upper abdominal adhesions from prior open cholecystectomy 13. Left inguinal lipoma 14. Hypomagnesemia 15. Ileus PLAN: -Add simethicone gas drops -Continue full liquids -Wean patient off TPN -Continue pain management -Continue supportive care -Encouraged patient to increase activity level -Continue to work with PT OT -Incentive spirometer ordered for pulmonary prophylaxis -GI prophylaxis Protonix and DVT prophylaxis subcu heparin Physician Product Marketing Executive note has been reviewed by physician. Signing provider agrees with the documented findings, assessment, and plan of care. Objective - Vital Signs Vital signs: Vital Signs Temp 97.7 F 08/31/22 08:00 Pulse 73 08/31/22 08:00 Resp 18 08/31/22 08:00 BP 152/71 08/31/22 08:00 Pulse Ox 98 08/31/22 08:00 FiO2 Intake & Output 08/30/22 08/31/22 08/31/22 18:59 06:59 18:59 Intake Total 740 537 Balance 740 537 Weight 43.091 kg Intake: Intake, IV Titration 537 Amount Mvi, Adult No.4 with Vit 537 K 10 ml Trace (Conc-1Ml/ Dose) 1 ml Sodium Chloride 4Meq/ml Vial 56 meq Potassium Chloride 40 meq Calcium Gluconate 1 gm Magnesium Sulfate gm 1 gm Sodium Phosphate 12 mmol In Amino Acid 5%- D15w 1,000 ml @ 60 mls/hr IV .BY DURATION [facility] Rx#: [id number] Oral 740 Other: Voiding Method Bedside Commode # Voids 3 3 1 - Labs CBC & Chem 7: 08/31/22 06:59 08/31/22 06:59 Labs: Abnormal Lab Results - Last 24 Hours (Table) 08/31/22 08/31/22 Range/Units 06:59 06:59 RBC 2.95 L (4.10-5.20) X 10*6/uL Hgb 9.7 L (12.0-15.0) g/dL Hct 29.5 L (37.2-46.3) % MCV 100.0 H (80.0-97.0) fL MCH 32.9 H (27.0-32.0) pg Sodium 134 L (137-145) mmol/L Creatinine 0.40 L (0.52-1.04) mg/dL Glucose 112 H (74-99) mg/dL Total Protein 6.1 L (6.3-8.2) g/dL
[2022-08-31] MEDS: KETOROLAC 15 MG/ML 1 ML VIAL IVP SCH (18:32)
[2022-09-01] MEDS: ACETAMINOPHEN TAB 325 MG TAB PO SCH ×4 (00:26→18:01)
[2022-09-01] MEDS: PIPERACILLIN-TAZOBACTAM 3.375 GM in SODIUM CHLORIDE 0.9% 100 ML IVPB SCH ×3 (00:27→15:21)
[2022-09-01] MEDS: KETOROLAC 15 MG/ML 1 ML VIAL IVP SCH ×4 (00:27→18:01)
--- NOTE | 2022-09-01 03:26 | PN ---
PROGRESS NOTE SUBJECTIVE: This is an 87-year-old woman who was admitted with small bowel obstruction, had surgery. The patient is complaining of some abdominal distention at this time. No chest pain. No palpitations. No fever. PHYSICAL EXAMINATION: VITAL SIGNS: Pulse is 73, blood pressure 152/71, respirations 18. HEENT: Conjunctivae normal. NECK: No JVD. CARDIOVASCULAR: S1, S2 muffled. RESPIRATIONS: Breath sounds diminished at the bases. No rhonchi. No crackles. ABDOMEN: Soft, mild diffuse distention. LEGS: No edema. NERVOUS SYSTEM: No focal deficits. LABS: Hemoglobin 9.7. The rest of the labs are noted. ASSESSMENT: 1. Small bowel obstruction secondary to incarcerated inguinal hernia, status post laparoscopic repair. 2. Urinary tract infection. 3. Anemia. 4. Multiple medical issues. RECOMMENDATIONS AND DISCUSSION: Recommend to continue current medications, symptomatic treatment. Otherwise, closely follow with Surgery. Prognosis guarded because of multiple complex medical issues and further recommendations to follow. See orders for details. MMODL / IJN: [id number] /
[2022-09-01 08:24] LABS: African American GFR (CKD) >90 (>60 ml/min/1.73 sqM); Anion Gap 5 mmol/L; Blood Urea Nitrogen 13 mg/dL (7-17); Calcium 8.6 mg/dL (8.4-10.2); Carbon Dioxide 28 mmol/L (22-30); Chloride 99 mmol/L (98-107); Glucose 98 mg/dL (74-99); Magnesium 1.7 mg/dL (1.6-2.3); Non-African American GFR(CKD) >90 (>60 ml/min/1.73 sqM); Phosphorus 3.7 mg/dL (2.5-4.5); Potassium 4.8 mmol/L (3.5-5.1); Sodium 132 mmol/L (137-145)
[2022-09-01] MEDS: PANTOPRAZOLE 40 MG/10 ML VIAL IV SCH ×2 (08:42→21:55)
[2022-09-01] MEDS: HEPARIN SODIUM,PORCINE/PF 5,000 UNIT/0.5 ML SYRINGE SQ SCH ×2 (08:42→21:55)
[2022-09-01] MEDS: SIMETHICONE 40 MG/0.6 ML DROPS 2,000 MG/30 ML BOTTLE PO SCH ×5 (08:54→21:55)
--- NOTE | 2022-09-01 10:50 | P.PN ---
Progress Note - Text Progress Note Date: 09/01/22 Patient feels a better today. She has had several bowel movements. On exam vitals are stable. Abdomen soft. Incision sites are clean and intact. Status post lyse adhesions. Patient will K receive supportive care.
[2022-09-01 11:47] LABS: Basophils # (A) 0.06 X 10*3/uL (0.00-0.10); Basophils % (A) 0.8 %; Eosinophils # (A) 0.24 X 10*3/uL (0.04-0.35); Eosinophils % (A) 3.2 %; HCT 29.5 % (37.2-46.3); HGB 9.5 g/dL (12.0-15.0); Immature Grans, Automated 0.4 %; Lymphocytes # (A) 0.93 X 10*3/uL (0.90-5.00); Lymphocytes % (A) 12.5 %; MCH 32.3 pg (27.0-32.0); MCHC 32.2 g/dL (32.0-37.0); MCV 100.3 fL (80.0-97.0); Mean Platelet Volume 9.8 fL (9.5-12.2); Monocytes # (A) 0.66 X 10*3/uL (0.20-1.00); Monocytes % (A) 8.9 %; NRBC Per 100 WBC 0 /100 WBCS (0.0-0.0); Neutrophils # (A) 5.51 X 10*3/uL (1.80-7.70); Neutrophils % (A) 74.2 %; Platelet Count 243 X 10*3/uL (140-440); RBC 2.94 X 10*6/uL (4.10-5.20); RDW 13.7 % (11.5-14.5); WBC 7.43 X 10*3/uL (4.50-10.00)
[2022-09-01] MEDS: 1: MVI, ADULT NO.4 WITH VIT K 10 ML, TRACE (CONC-1ML/DOSE) 1 ML, SODIUM CHLORIDE 4MEQ/ML IV SCH ×8 (13:17)
[2022-09-01] MEDS: LACTATED RINGERS 1,000 ML IV SCH (22:05)
[2022-09-02] MEDS: KETOROLAC 15 MG/ML 1 ML VIAL IVP SCH ×4 (00:04→17:07)
[2022-09-02] MEDS: PIPERACILLIN-TAZOBACTAM 3.375 GM in SODIUM CHLORIDE 0.9% 100 ML IVPB SCH ×2 (00:04→08:53)
[2022-09-02] MEDS: ACETAMINOPHEN TAB 325 MG TAB PO SCH ×5 (00:05→23:41)
[2022-09-02] MEDS: 1: MVI, ADULT NO.4 WITH VIT K 10 ML, TRACE (CONC-1ML/DOSE) 1 ML, SODIUM CHLORIDE 4MEQ/ML IV SCH ×8 (05:57)
[2022-09-02 08:20] LABS: African American GFR (CKD) >90 (>60 ml/min/1.73 sqM); Anion Gap 6 mmol/L; Blood Urea Nitrogen 13 mg/dL (7-17); Calcium 8.6 mg/dL (8.4-10.2); Carbon Dioxide 28 mmol/L (22-30); Chloride 98 mmol/L (98-107); Glucose 82 mg/dL (74-99); Magnesium 1.6 mg/dL (1.6-2.3); Non-African American GFR(CKD) 88 (>60 ml/min/1.73 sqM); Phosphorus 4.2 mg/dL (2.5-4.5); Potassium 4.2 mmol/L (3.5-5.1); Sodium 132 mmol/L (137-145)
[2022-09-02] MEDS: LACTATED RINGERS 1,000 ML IV SCH (08:52)
[2022-09-02] MEDS: SIMETHICONE 40 MG/0.6 ML DROPS 2,000 MG/30 ML BOTTLE PO SCH ×4 (08:53→22:45)
[2022-09-02] MEDS: PANTOPRAZOLE 40 MG/10 ML VIAL IV SCH ×2 (08:53→22:45)
[2022-09-02] MEDS: HEPARIN SODIUM,PORCINE/PF 5,000 UNIT/0.5 ML SYRINGE SQ SCH ×2 (08:53→21:53)
--- NOTE | 2022-09-02 12:57 | P.PN ---
Progress Note - Text Progress Note Date: 09/02/22 Patient feels slightly better today. She is having bowel movement. On exam vital signs are stable. Incision sites are clean dry tach. Status post posts lyse adhesions for bowel obstruction. Patient will mostly gallbladder 24-48 hours.
--- NOTE | 2022-09-02 20:50 | PN ---
PROGRESS NOTE This 87-year-old woman is admitted with acute small bowel obstruction, had surgery. The patient has some abdominal distention, but able to eat at this time. No chest pain. No palpitations. No fever. PHYSICAL EXAMINATION: VITAL SIGNS: Pulse 71, blood pressure , respirations 18. CHEST: Clear to auscultation. NECK: No JVD. CARDIOVASCULAR: S1, S2. ABDOMEN: Soft, mild distention, not much of tenderness or guarding or rigidity. LABS: Hemoglobin 9.5. Other labs are noted. ASSESSMENT: 1. Acute small bowel obstruction secondary to incarcerated inguinal hernia, status post laparoscopic repair. 2. Urinary tract infection. 3. Anemia. 4. Multiple medical issues. RECOMMENDATIONS: Recommend to continue current medications, continue symptomatic treatment. Closely follow with surgery. Advance diet. Continue the rest of medications. Prognosis guarded. Further recommendations to follow. MMODL / IJN: [id number] /
[2022-09-03] MEDS: KETOROLAC 15 MG/ML 1 ML VIAL IVP SCH ×3 (00:20→12:04)
[2022-09-03] MEDS: ACETAMINOPHEN TAB 325 MG TAB PO SCH ×4 (05:30→18:08)
[2022-09-03 06:23] LABS: African American GFR (CKD) >90 (>60 ml/min/1.73 sqM); Anion Gap 5 mmol/L; Blood Urea Nitrogen 16 mg/dL (7-17); Calcium 8.6 mg/dL (8.4-10.2); Carbon Dioxide 29 mmol/L (22-30); Chloride 98 mmol/L (98-107); Glucose 79 mg/dL (74-99); Magnesium 1.5 mg/dL (1.6-2.3); Non-African American GFR(CKD) >90 (>60 ml/min/1.73 sqM); Phosphorus 3.9 mg/dL (2.5-4.5); Potassium 3.9 mmol/L (3.5-5.1); Sodium 132 mmol/L (137-145)
[2022-09-03] MEDS: PANTOPRAZOLE 40 MG/10 ML VIAL IV SCH ×2 (08:50→22:45)
[2022-09-03] MEDS: HEPARIN SODIUM,PORCINE/PF 5,000 UNIT/0.5 ML SYRINGE SQ SCH ×2 (08:50→22:44)
[2022-09-03] MEDS: SIMETHICONE 40 MG/0.6 ML DROPS 2,000 MG/30 ML BOTTLE PO SCH ×4 (08:50→22:45)
[2022-09-03 08:57] LABS: Basophils # (A) 0.05 X 10*3/uL (0.00-0.10); Basophils % (A) 1.1 %; Eosinophils # (A) 0.21 X 10*3/uL (0.04-0.35); Eosinophils % (A) 4.8 %; HCT 26.8 % (37.2-46.3); HGB 8.7 g/dL (12.0-15.0); Immature Grans, Automated 0.2 %; Lymphocytes # (A) 1.18 X 10*3/uL (0.90-5.00); Lymphocytes % (A) 26.7 %; MCH 32.5 pg (27.0-32.0); MCHC 32.5 g/dL (32.0-37.0); Mean Platelet Volume 10.1 fL (9.5-12.2); Monocytes % (A) 13.6 %; NRBC Per 100 WBC 0 /100 WBCS (0.0-0.0); Neutrophils # (A) 2.37 X 10*3/uL (1.80-7.70); Neutrophils % (A) 53.6 %; Platelet Count 271 X 10*3/uL (140-440); RBC 2.68 X 10*6/uL (4.10-5.20); WBC 4.42 X 10*3/uL (4.50-10.00)
[2022-09-03] MEDS: LACTATED RINGERS 1,000 ML IV SCH (12:03)
[2022-09-03] MEDS: MAGNESIUM SULFATE-D5W PMX 1 GM in DEXTROSE/WATER 1 100ML.BAG IVPB SCH ×2 (12:08→14:26)
--- NOTE | 2022-09-03 12:34 | P.PN ---
Subjective Progress Note Date: 09/03/22 CHIEF COMPLAINT: Small bowel obstruction HISTORY OF PRESENT ILLNESS: Patient is postop day #5 status post robotic laparoscopic repair of initial incarcerated with small bowel obstruction right direct inguinal hernia with mesh, repair of initial incarcerated with large bowel obstruction left direct inguinal hernia with mesh, resection of incarcerated left inguinal subfascial lipoma and lysis of adhesions with takedown of internal hernia in the right pelvis. Patient is feeling better today. She does have some mild discomfort in the right side of her abdomen. She denies any nausea or vomiting. She is tolerating diet. However she does have dentures and unable to wear them on the top portion of her mouth. Diet will be changed to ground diet. She is having bowel movements. She has been up and ambulating. Denies any nausea or vomiting. Afebrile. WBC is 4.42H GB 8.7 platelets 271 sodium 132 potassium 3.9 creatinine 0.44 magnesium 1.5 and being replaced PHYSICAL EXAM: VITAL SIGNS: Reviewed CONSTITUTIONAL: Well developed and in no acute distress. EYES: Conjuctivae without sclera icterus. Extraocular movements grossly intact. HEAD, EARS, NOSE, THROAT: Moist buccal mucosa. Head is atraumatic, normocephalic. Hears conversational speech. No nasal drainage. RESPIRATORY: Non-labored respirations and equal bilateral excursions. CARDIOVASCULAR: Palpable 2+ radial pulses. ABDOMEN: distended. Tenderness with palpation. Incision sites clean dry and intact MUSCULOSKELETAL: No gross deformity of the lower extremities noted. No clubbing. No cyanosis. SKIN: Good skin turgor. Well perfused. NEUROLOGIC: Cranial nerves II through XII grossly intact. No focal or lateralizing signs. PSYCH: Appropriate affect. Alert and oriented to person, place and time. ASSESSMENT: 1. Small bowel obstruction due to right inguinal hernia 2. Underweight, BMI 17.9 3. Hyperlipidemia 4. Osteoporosis 5. History of rheumatic fever 6. Severe kyphosis with generalized debility 7. Abnormal EKG with conduction delay 8. Incarcerated right inguinal hernia, direct, initial 9. Incarcerated left inguinal hernia, direct, initial with large follow-up obstruction 10. Internal hernia, right lower quadrant small bowel mesentery 11. Pelvic adhesions from prior hysterectomy 12. Upper abdominal adhesions from prior open cholecystectomy 13. Left inguinal lipoma 14. Hypomagnesemia 15. Ileus PLAN: -Change diet to ground diet -Patient can be discharged from surgical standpoint when medically cleared -Continue current pain medication regimen -Encouraged patient to increase activity level -Encouraged Incentive spirometer -GI prophylaxis Protonix and DVT prophylaxis subcu heparin Physician Hall Tender note has been reviewed by physician. Signing provider agrees with the documented findings, assessment, and plan of care. Objective - Vital Signs Vital signs: Vital Signs Temp 97.3 F L 09/03/22 07:38 Pulse 75 09/03/22 07:38 Resp 18 09/03/22 07:38 BP 126/72 09/03/22 07:38 Pulse Ox 96 09/03/22 07:38 FiO2 Intake & Output 09/02/22 09/03/22 09/03/22 18:59 06:59 18:59 Intake Total 100 Output Total 5 Balance 95 Intake: IV 100 zosyn 100 Output: Stool 5 Other: Voiding Method Bedside Commode Bedside Commode # Voids 2 2 # Bowel Movements 2 1 - Labs CBC & Chem 7: 09/03/22 05:18 09/03/22 05:18 Labs: Abnormal Lab Results - Last 24 Hours (Table) 09/03/22 09/03/22 Range/Units 05:18 05:18 WBC 4.42 L (4.50-10.00) X 10*3/uL RBC 2.68 L (4.10-5.20) X 10*6/uL Hgb 8.7 L (12.0-15.0) g/dL Hct 26.8 L (37.2-46.3) % MCV 100.0 H (80.0-97.0) fL MCH 32.5 H (27.0-32.0) pg Sodium 132 L (137-145) mmol/L Creatinine 0.44 L (0.52-1.04) mg/dL Magnesium 1.5 L (1.6-2.3) mg/dL
--- NOTE | 2022-09-03 13:47 | PN ---
PROGRESS NOTE SUBJECTIVE: This is an 87-year-old woman who was admitted with small-bowel obstruction, had incarcerated inguinal hernia. No chest pain. No palpitations. No fever. PHYSICAL EXAMINATION: VITAL SIGNS: Pulse is 79, blood pressure 130/70, respirations 16. CHEST: Clear to auscultation. CARDIOVASCULAR: S1, S2. ABDOMEN: Soft, mild diffuse distention. LEGS: No edema. No swelling. LABS: Reviewed. ASSESSMENT: 1. Small-bowel obstruction secondary to incarcerated inguinal hernia, status post laparoscopic repair. 2. Urinary tract infection. 3. Anemia. 4. Multiple medical issues. RECOMMENDATIONS AND DISCUSSION: Recommend to continue current medications, and symptomatic treatment. Otherwise, at this time, I would recommend continue the current medications and the cultures are negative. We will stop antibiotics and repeat labs in the morning. Further recommendations to follow. MMTRENTL / BOZENAN: [id number] /
--- NOTE | 2022-09-03 15:58 | P.PN ---
Subjective Progress Note Date: 09/03/22 This is an 87-year-old female presents to the hospital with small bowel obstruction she is status post operative day #5 robotic laparoscopic repair of initial incarcerated with small bowel obstruction right direct inguinal hernia with mesh, repair of initial incarcerated with large bowel obstruction left d irect inguinal hernia with mesh, resection of incarcerated left inguinal subfascial lipoma, lysis of adhesions and take down of internal hernia in the right pelvis. Patient reports some mild right sided abdominal discomfort mostly she feels is gas. She has had a large loose BM, no blood noted. She is tolerating diet today, reports no nausea. She has been increasing her activity level and ambulating to the bathroom. Her abdomen is soft. She does have some chronic right lumbar back pain with L1 compression deformity noted on CT which is not new. She sees orthopedics and does have specialty support braces. Discussed with family continue tylenol and wear brace as tolerated. Patient will be discharged with home PT. Family and patient requesting one more overnight as this is the first day she has tolerated diet without nausea and plan will be for discharge home tomorrow. White count 4.42, hgb today 8.7, sodium 132 stable. Afebrile. Review of Systems Constitutional: Denied any fatigue denied any fever. Cardio vascular: denied any chest pain, palpitations Gastrointestinal: denied any nausea, vomiting, diarrhea Pulmonary: Denied any shortness of breath cough Neurologic denied any new focal deficits All inpatient medications were reviewed and appropriate changes in these medications as dictated in the interval history and assessment and plan. PHYSICAL EXAMINATION: GENERAL: The patient is alert and oriented x3, not in any acute distress. Well developed, well nourished. HEENT: Pupils are round and equally reacting to light. EOMI. No scleral icterus. No conjunctival pallor. Normocephalic, atraumatic. No pharyngeal erythema. No thyromegaly. CARDIOVASCULAR: S1 and S2 present. No murmurs, rubs, or gallops. PULMONARY: Chest is clear to auscultation, no wheezing or crackles. ABDOMEN: Soft, nontender, nondistended, normoactive bowel sounds. No palpable organomegaly. Post surgical abdomen laproscopic incisions clean and intact. MUSCULOSKELETAL: No joint swelling or deformity. EXTREMITIES: No cyanosis, clubbing, or pedal edema. NEUROLOGICAL: Gross neurological examination did not reveal any focal deficits. SKIN: No rashes. Assessment and Plan Assessment Small bowel obstruction secondary to incarcerated inguinal hernia status post laparoscopic repair Urinary tract infection Anemia Hyperlipidemia History of back fractures History of chronic back pain GI Prophylaxis DVT Prophyalxis Full Code Plan Continue current medications Increase diet, increase activity level Patient cleared medically for discharge Patient and family would like 1 more day, plan for discharge home tomorrow AM The impression and plan of care has been dictated by Jolene Encarnacion, Nurse Practitioner as directed. Dr. Wood MD I have performed a history and physical examination and medical decision making of this patient, discussed the same with the dictator, and agree with the dictators assessment and plan as written, documented as a scribe. Based on total visit time, I have performed more than 50% of this visit. Objective - Vital Signs Vital signs: Vital Signs Temp 97.9 F 09/03/22 14:33 Pulse 83 09/03/22 14:33 Resp 18 09/03/22 14:33 BP 127/70 09/03/22 14:33 Pulse Ox 97 09/03/22 14:33 FiO2 Intake & Output 09/02/22 09/03/22 09/03/22 18:59 06:59 18:59 Intake Total 100 Output Total 5 Balance 95 Weight 43.091 kg Intake: IV 100 zosyn 100 Output: Stool 5 Other: Voiding Method Bedside Commode Bedside Commode # Voids 2 2 # Bowel Movements 2 1 - Labs CBC & Chem 7: 09/03/22 05:18 09/03/22 05:18 Labs: Abnormal Lab Results - Last 24 Hours (Table) 09/03/22 09/03/22 Range/Units 05:18 05:18 WBC 4.42 L (4.50-10.00) X 10*3/uL RBC 2.68 L (4.10-5.20) X 10*6/uL Hgb 8.7 L (12.0-15.0) g/dL Hct 26.8 L (37.2-46.3) % MCV 100.0 H (80.0-97.0) fL MCH 32.5 H (27.0-32.0) pg Sodium 132 L (137-145) mmol/L Creatinine 0.44 L (0.52-1.04) mg/dL Magnesium 1.5 L (1.6-2.3) mg/dL Assessment and Plan Time with Patient: Less than 30
[2022-09-04] MEDS: ACETAMINOPHEN TAB 325 MG TAB PO SCH ×3 (00:33→12:15)
[2022-09-04] MEDS: LACTATED RINGERS 1,000 ML IV SCH (07:05)
[2022-09-04] MEDS: PANTOPRAZOLE 40 MG/10 ML VIAL IV SCH (07:37)
[2022-09-04] MEDS: HEPARIN SODIUM,PORCINE/PF 5,000 UNIT/0.5 ML SYRINGE SQ SCH (07:37)
[2022-09-04] MEDS: SIMETHICONE 40 MG/0.6 ML DROPS 2,000 MG/30 ML BOTTLE PO SCH ×2 (07:39→12:17)
[2022-09-04 10:49] VITALS: BP 151/76; PULSE 70; RESP 15; TEMP 98.1
--- NOTE | 2022-09-04 14:48 | P.PN ---
Subjective Progress Note Date: 09/04/22 CHIEF COMPLAINT: Small bowel obstruction HISTORY OF PRESENT ILLNESS: Patient is postop day #6 status post robotic laparoscopic repair of initial incarcerated with small bowel obstruction right direct inguinal hernia with mesh, repair of initial incarcerated with large bowel obstruction left direct inguinal hernia with mesh, resection of incarcerated left inguinal subfascial lipoma and lysis of adhesions with takedown of internal hernia in the right pelvis. Patient is sitting up at bedside chair. She reports very minimal pain is controlled. Denies any nausea or vomiting. She ate eggs this morning. She is having flatus. She did have a bowel movement. Afebrile. Magnesium has improved from 1.5-1.9 PHYSICAL EXAM: VITAL SIGNS: Reviewed CONSTITUTIONAL: Well developed and in no acute distress. EYES: Conjuctivae without sclera icterus. Extraocular movements grossly intact. HEAD, EARS, NOSE, THROAT: Moist buccal mucosa. Head is atraumatic, normocephalic. Hears conversational speech. No nasal drainage. RESPIRATORY: Non-labored respirations and equal bilateral excursions. CARDIOVASCULAR: Palpable 2+ radial pulses. ABDOMEN: distended. Tenderness with palpation. Incision sites clean dry and intact MUSCULOSKELETAL: No gross deformity of the lower extremities noted. No clubbing. No cyanosis. SKIN: Good skin turgor. Well perfused. NEUROLOGIC: Cranial nerves II through XII grossly intact. No focal or lateralizing signs. PSYCH: Appropriate affect. Alert and oriented to person, place and time. ASSESSMENT: 1. Small bowel obstruction due to right inguinal hernia 2. Underweight, BMI 17.9 3. Hyperlipidemia 4. Osteoporosis 5. History of rheumatic fever 6. Severe kyphosis with generalized debility 7. Abnormal EKG with conduction delay 8. Incarcerated right inguinal hernia, direct, initial 9. Incarcerated left inguinal hernia, direct, initial with large follow-up obstruction 10. Internal hernia, right lower quadrant small bowel mesentery 11. Pelvic adhesions from prior hysterectomy 12. Upper abdominal adhesions from prior open cholecystectomy 13. Left inguinal lipoma 14. Hypomagnesemia 15. Ileus PLAN: -Patient can be discharged from surgical standpoint -Continue ground diet -Encouraged patient to increase activity level -Encouraged Incentive spirometer -GI prophylaxis Protonix and DVT prophylaxis subcu heparin Physician Senior Asp Net Developer note has been reviewed by physician. Signing provider agrees with the documented findings, assessment, and plan of care. Objective - Vital Signs Vital signs: Vital Signs Temp 98.1 F 09/04/22 08:00 Pulse 70 09/04/22 08:00 Resp 15 09/04/22 08:00 BP 151/76 09/04/22 08:00 Pulse Ox 96 09/04/22 08:00 FiO2 Intake & Output 09/03/22 09/04/22 09/04/22 18:59 06:59 18:59 Intake Total 240 180 Balance 240 180 Weight 43.091 kg Intake: IV 240 Lactated Ringers 1,000 ml 240 @ 20 mls/hr IV .Q24H [facility] Rx#:[id number] Oral 180 Other: Voiding Method Bedside Commode Bedside Commode Bedside Commode # Voids 2 - Labs CBC & Chem 7: 09/03/22 05:18 09/03/22 05:18
--- NOTE | 2022-09-05 23:21 | P.DS ---
Providers Date of admission: 08/21/22 23:11 Attending physician: Ronaldo Odom MD Consults: 08/22/22 03:39 Consult Physician Urgent Consulting Provider: Enedina James Consult Reason/Comments: medical management Do you want consulting provider notified?: Yes, Notify in am 08/25/22 16:30 Consult Physician Routine Consulting Provider: Meagan Ramachandran Consult Reason/Comments: SBO Do you want consulting provider notified?: Already Contacted 08/26/22 14:19 Consult Physician Urgent Consulting Provider: Fermin Frye Consult Reason/Comments: Cardiac risk assessment Do you want consulting provider notified?: Yes 08/27/22 15:04 Consult Physician Routine Consulting Provider: [facility] Consult Reason/Comments: [facility] Do you want consulting provider notified?: Yes Primary care physician: Stated None Hospital Course: Final Diagnosis Small bowel obstruction secondary to incarcerated inguinal hernia status post laparoscopic repair Urinary tract infection Anemia Hyperlipidemia History of back fractures History of chronic back pain Previous history of abdominal surgeries Full Code Discharge Disposition Patient is stable for discharge. Plan to return home with home care services. Patient has a follow up appointment with Dr. Ramachandran on 09/11/2022. Repeat BMP and CBC scripts are given. Patient is also advised to follow up with primary care in 1 to 2 days. Hospital Course This is an 87-year-old female presents to the hospital with complaints of abdominal pain and associated nausea and vomiting. Patient had abdominal distention and poor oral intake with emesis appearing as bile. Medical history significant for hyperlipidemia, osteoporosis, back fracturues, rheumatic fever, rip hip surgery, cholecystectomy. Patient had abdominal pelvis CT completed which shows mechanical small bowel obstruction. NG tube was placed and patient was admitted to hospital with consult placed to general surgery. Patient was monitored with NG tube and repeat imaging continues to demonstrate bowel obstruction. She had echocardiogram completed for prepoerative clearance which shows an EF of 60 to 65% with moderate to severe MR, mild to moderate TR and mild aortic regurgitation. Patient was taken for surgery on 08/29/[address] Ramachandran for small bowel obstruction due to right inguinal hernia. Patient underwent robotic assisted laproscopic repair of initial incarcerated with small bowel obstruction right direct inguinal hernia with mesh, repair of initial incarcerated with large bowel obstruction left direct inguinal hernia with mesh, resection of incarcerated left inguinal subfascial lipoma, lysis of adhesions and take down of internal hernia in the right pelvis. Patient did present with hyponatremia and despite IV hydration she continues with sodium level of 132. There was also concern for possible UTI and patient received empiric antibiotic coverage which was adequate during hospital stay. She will not require antibiotics on discharge. Patient was started on TPN preoperatively due to nausea and poor oral intake. TPN was discontinued on 09/01/2022. Nausea had improved and patient began having bowel movements and increased flatus. She was then cleared for discharge by surgery team. Evaluation completed by physical therapy cleared patient for discharged home with home physical therapy, which patient and family are agreeable with discharge plan. 09/04/2022 Patient evaluated today sitting up on edge of bed after working with physical therapy. Patient reports no abdominal pain, passing gas. Has had bowel movement this morning. She denies dysuria, denies urgency or frequency. Patient denies shortness of breath or chest pain. Laproscopic incisions are clean, approximated with no drainage or erythema. Bowel sounds are normoactive. Focal neurological exam is negative. She is tolerating diet and reports her nausea has improved. Cleared for discharged by general surgery. Patient and family discussed chronic back pain, which patient has seen orthopedics in the past and dose have special back braces to wear while ambulating. Advised can follow up with orthopedics as needed on discharge. Images reviewed showing compression deformity fracture which is also evident in imaging for 2019. No new changes noted. Family and patient are agreeable and would like discharge home today. Most recent labs showing white count 4.42, hgb 8.7, sodium 132, potassium 3.9, BUN 16, creatinine 0.44, magnesium 1.9. Vital signs today showing temp 98.1, heart rate 70, blood pressure 151/76, 96% room air. Please see medication reconciliation for a list of current medication. Thank you for allowing us to participate in the care of this patient. Total time taken in discharge planning greater than 35 minutes. The impression and plan of care has been dictated by Jolene Encarnacion Nurse Practitioner as directed. Dr. Wood MD I have performed a history and physical examination and medical decision making of this patient, discussed the same with the dictator, and agree with the dictators assessment and plan as written, documented as a scribe. Based on total visit time, I have performed more than 50% of this visit. Patient Condition at Discharge: Stable Plan - Discharge Summary Discharge Rx Participant: Yes New Discharge Prescriptions: New Acetaminophen Tab [Tylenol Tab] 650 mg PO Q4H PRN #30 tablet PRN Reason: Pain Omeprazole [PriLOSEC] 20 mg PO AC-BRKFST #30 cap Continue Multivitamins, Thera [Multivitamin (formulary)] 1 tab PO DAILY Glucosam/Patricio-Msm1/C/Randolph/Bosw [Glucosamine-Chondroitin Tablet] 2 tab PO DAILY Alfredo/D3/Mag11/Zinc/Personnel Worker/Randolph/Bor [Caltrate 600+D Plus Tablet] 2 tab PO DAILY Aspirin EC [Ecotrin Low Dose] 81 mg PO DAILY Loratadine [Claritin] 10 mg PO DAILY L.acidoph,Paracasei, B.lactis [Probiotic] 1 cap PO DAILY Ascorbic Acid [Vitamin C] 500 mg PO DAILY Simethicone Chew [Mylicon Chew] 80 mg PO QID PRN #60 chew PRN Reason: gas pains Discontinued Acetaminophen Tab [Tylenol] 325 mg PO Q4H PRN PRN Reason: Pain Discharge Medication List Alfredo/D3/Mag11/Zinc/Personnel Worker/Randolph/Bor [Caltrate 600+D Plus Tablet] 2 tab PO DAILY 09/05/16 [History] Glucosam/Patricio-Msm1/C/Randolph/Bosw [Glucosamine-Chondroitin Tablet] 2 tab PO DAILY 09/05/16 [History] Multivitamins, Thera [Multivitamin (formulary)] 1 tab PO DAILY 09/05/16 [History] Ascorbic Acid [Vitamin C] 500 mg PO DAILY 11/09/19 [History] Aspirin EC [Ecotrin Low Dose] 81 mg PO DAILY 11/09/19 [History] L.acidoph,Paracasei, B.lactis [Probiotic] 1 cap PO DAILY 11/09/19 [History] Loratadine [Claritin] 10 mg PO DAILY 11/09/19 [History] Simethicone Chew [Mylicon Chew] 80 mg PO QID PRN #60 chew 11/12/19 [Rx] Acetaminophen Tab [Tylenol Tab] 650 mg PO Q4H PRN #30 tablet 09/03/22 [Rx] Omeprazole [PriLOSEC] 20 mg PO AC-BRKFST #30 cap 09/04/22 [Rx] Follow up Appointment(s)/Referral(s): Neha Belle MD [STAFF PHYSICIAN] - 1-2 Days [facility] [NON-STAFF] - As Needed Meagan Ramachandran MD [STAFF PHYSICIAN] - 09/11/22 1:15 pm Zaina Jewell, [REFERRING] - 1-2 Days None,Stated [Primary Care Provider] - 1-2 days Ambulatory/Diagnostic Orders: Basic Metabolic Panel [LAB.AMB] Time Frame: 2 Days, Location: None Selected Patient Instructions/Handouts: Bowel Obstruction (DC), Inguinal Hernia Repair (DC) Activity/Diet/Wound Care/Special Instructions: Patient would like to see either Dr Belle or Dr Jewell please assist with making a follow up appointment at either office for discharge tomorrow. Schedule a follow up appointment YAMILE with whichever primary care provider that you prefer. You must see them before [facility] can see you No lifting over 4 pounds in 4 weeks May shower. No bath tub soaks for two weeks Avoid steak, tough meats and seeds such as raspberry seeds. Use Tylenol as needed for best pain relief. Discharge Disposition: HOME WITH HOME HEALTH SERVICES
[2022-09-07] MEDS ORDERED: FAT EMULSION 20% 500 ML IV SCH (13:00)
== END 2022-09-04 13:40 | disposition home health service (06) | DRG 335 ==
LOC: EC 15:52 → 4SSUR 23:11
PROVIDERS: ADMIT Internal Medicine; ATTEND Internal Medicine
PROC: 0D9670Z Drainage of Stomach with Drainage Device, Via Natural or Artificial Opening (ICD-10-PCS; 2022-08-21)
PROC: 02HV33Z Insertion of Infusion Device into Superior Vena Cava, Percutaneous Approach (ICD-10-PCS; 2022-08-23)
PROC: 3E0436Z Introduction of Nutritional Substance into Central Vein, Percutaneous Approach (ICD-10-PCS; 2022-08-24)
PROC: 0DNV4ZZ Release Mesentery, Percutaneous Endoscopic Approach (ICD-10-PCS; 2022-08-29)
PROC: 8E0W4CZ Robotic Assisted Procedure of Trunk Region, Percutaneous Endoscopic Approach (ICD-10-PCS; 2022-08-29)
PROC: 0JBB3ZZ Excision of Perineum Subcutaneous Tissue and Fascia, Percutaneous Approach (ICD-10-PCS; 2022-08-29)
PROC: 0YUA4JZ Supplement Bilateral Inguinal Region with Synthetic Substitute, Percutaneous Endoscopic Approach (ICD-10-PCS; principal; 2022-08-29 14:30)
DX: K40.00 Bilateral inguinal hernia, with obstruction, without gangrene, not specified as recurrent (principal); K56.2 Volvulus; E44.0 Moderate protein-calorie malnutrition; K56.51 Intestinal adhesions [bands], with partial obstruction; E87.1 Hypo-osmolality and hyponatremia; Z68.1 Body mass index [BMI] 19.9 or less, adult; N39.0 Urinary tract infection, site not specified; I08.3 Combined rheumatic disorders of mitral, aortic and tricuspid valves; M48.56XS Collapsed vertebra, not elsewhere classified, lumbar region, sequela of fracture; D64.89 Other specified anemias; E78.5 Hyperlipidemia, unspecified; M81.0 Age-related osteoporosis without current pathological fracture; M40.209 Unspecified kyphosis, site unspecified; D17.79 Benign lipomatous neoplasm of other sites; R53.81 Other malaise; I44.0 Atrioventricular block, first degree; E87.6 Hypokalemia; E83.42 Hypomagnesemia; G89.29 Other chronic pain; M54.9 Dorsalgia, unspecified; R11.14 Bilious vomiting; M54.50 Low back pain, unspecified; N73.6 Female pelvic peritoneal adhesions (postinfective); Z20.822 Contact with and (suspected) exposure to COVID-19; Z90.710 Acquired absence of both cervix and uterus; Z90.49 Acquired absence of other specified parts of digestive tract; Z79.82 Long term (current) use of aspirin; Z79.899 Other long term (current) drug therapy; Z88.2 Allergy status to sulfonamides; Z91.030 Bee allergy status; Z88.5 Allergy status to narcotic agent; Z28.310 Unvaccinated for COVID-19
CPT/HCPCS: 36415; 36573; 71045; 71046; 74018; 74019; 74177; 80048; 80053; 81001; 82150; 82330; 83605; 83690; 83735; 84100; 84478; 84484; 85025; 85027; 87040; 87502; 87635; 88302; 88304; 93005; 93306; 96374; 96375; 99285

== ENCOUNTER 2022-09-06 10:44 | Inpatient (IN) | payer MEDICARE, BC ==
[2022-09-06] MEDS ORDERED: SODIUM CHLORIDE 0.9% 500 ML 500 ML IV STA (11:17)
[2022-09-06 12:04] LABS: Basophils % (A) 0 %; Eosinophils # (A) 0.1 k/uL (0-0.7); Eosinophils % (A) 1 %; HCT 31.9 % (34.0-46.0); HGB 10.5 gm/dL (11.4-16.0); Lymphocytes # (A) 0.8 k/uL (1.0-4.8); Lymphocytes % (A) 7 %; MCH 32.8 pg (25.0-35.0); MCHC 32.8 g/dL (31.0-37.0); MCV 100.1 fL (80.0-100.0); Macrocytosis Slight; Mean Platelet Volume 8.4; Monocytes # (A) 0.3 k/uL (0-1.0); Monocytes % (A) 3 %; Neutrophils # (A) 10.3 k/uL (1.3-7.7); Neutrophils % (A) 89 %; Platelet Count 290 k/uL (150-450); RBC 3.19 m/uL (3.80-5.40); RDW 14.2 % (11.5-15.5); WBC 11.6 k/uL (3.8-10.6)
[2022-09-06 12:15] LABS: Prothrombin Time 10.6 sec (9.0-12.0)
[2022-09-06 12:16] LABS: ALT 16 U/L (4-34); AST 40 U/L (14-36); African American GFR (CKD) >90 (>60 ml/min/1.73 sqM); Albumin 3.9 g/dL (3.5-5.0); Alkaline Phosphatase 79 U/L (38-126); Amylase 44 U/L (30-110); Anion Gap 11 mmol/L; Blood Urea Nitrogen 20 mg/dL (7-17); Calcium 9.2 mg/dL (8.4-10.2); Carbon Dioxide 29 mmol/L (22-30); Chloride 95 mmol/L (98-107); Glucose 123 mg/dL (74-99); Lipase 79 U/L (23-300); Non-African American GFR(CKD) 87 (>60 ml/min/1.73 sqM); Sodium 135 mmol/L (137-145); Total Bilirubin 0.8 mg/dL (0.2-1.3); Total Protein 6.5 g/dL (6.3-8.2)
--- NOTE | 2022-09-06 12:18 | CT ---
EXAMINATION TYPE: CT abdomen pelvis wo con DATE OF EXAM: 09/06/2022 COMPARISON: 08/26/2022 HISTORY: Abdominal pain, recent SBO surgery CT DLP: 360.7 mGycm Automated exposure control for dose reduction was used. TECHNIQUE: Helical acquisition of images was performed from the lung bases through the pelvis. FINDINGS: LUNG BASES: Bilateral pleural effusion and consolidation with annular calcification and coronary mei ry calcification. LIVER/GB: Mild intrahepatic biliary dilation likely secondary to postcholecystectomy findings.. PANCREAS: No significant abnormality is seen. SPLEEN: No significant abnormality is seen. ADRENALS: No significant abnormality is seen. KIDNEYS: Bilateral parapelvic renal cysts. Nonobstructing punctate left renal calculus measuring 2 mm ADENOPATHY: None visualized. OSSEOUS STRUCTURES: Severe multilevel degenerative disc disease with stable appearing compression fr actures. BOWEL: There is severe marked distention of virtually all loops of small bowel progressed from prior exam. Decompression of the colon. OTHER: Use anasarca and there is a few bubbles of air in cutaneous soft tissues which could be relate d to recent surgery. Atherosclerotic change aorta. Postsurgical change right hip arthropathy. IMPRESSION: 1. Severe small bowel distention correlate for high-grade obstruction or severe ileus. 2. Bilateral lower lobe infiltrate and small effusion. 3. Nonobstructing punctate left renal calculus measuring 3 mm. 4. Anasarca. There couple small bubbles of air in the subcutaneous tissues right abdomen which are no nspecific correlate clinically.
--- NOTE | 2022-09-06 12:24 | XR ---
EXAMINATION TYPE: XR chest 2V DATE OF EXAM: 09/06/2022 COMPARISON: 08/22/2022 HISTORY: 87-year-old female with cough, nausea, vomiting TECHNIQUE: AP and lateral views FINDINGS: Hyperinflation. Heart mildly enlarged. There is blunting of the bilateral costophrenic angles. Mild i nterstitial prominence. IMPRESSION: COPD, mild cardiomegaly, and trace pleural effusions. Given interstitial prominence, correlate for CH F with pulmonary vascular congestion.
--- NOTE | 2022-09-06 12:53 | ED ---
General Adult HPI - General Chief complaint: Nausea/Vomiting/Diarrhea Stated complaint: Nausea/Vomiting Time Seen by Provider: 09/06/22 10:56 Source: patient, EMS, RN notes reviewed Mode of arrival: EMS Limitations: no limitations - History of Present Illness Initial comments: 87-year-old female presents emergency Department chief complaint abdominal pain, nausea vomiting. Patient recent hospitalization and surgery for inguinal hernia repair, bowel obstruction. Patient home feeling fine but has developed nausea and vomiting increased abdominal distention, pain mild cough. No fevers. Patient had no stool output. Denies any chest pain no headache or dizziness. - Related Data Home Medications Medication Instructions Recorded Confirmed Alfredo/D3/Mag11/Zinc/Manager Research/Randolph/Bor 2 tab PO DAILY 09/05/16 08/22/22 [Caltrate 600+D Plus Tablet] Glucosam/Patricio-Msm1/C/Randolph/Bosw 2 tab PO DAILY 09/05/16 08/22/22 [Glucosamine-Chondroitin Tablet] Multivitamins, Thera [Multivitamin 1 tab PO DAILY 09/05/16 08/22/22 (formulary)] Ascorbic Acid [Vitamin C] 500 mg PO DAILY 11/09/19 08/22/22 Aspirin EC [Ecotrin Low Dose] 81 mg PO DAILY 11/09/19 08/22/22 L.acidoph,Paracasei, B.lactis 1 cap PO DAILY 11/09/19 08/22/22 [Probiotic] Loratadine [Claritin] 10 mg PO DAILY 11/09/19 08/22/22 Previous Rx's Medication Instructions Recorded Simethicone Chew [Mylicon Chew] 80 mg PO QID PRN #60 chew 11/12/19 Acetaminophen Tab [Tylenol Tab] 650 mg PO Q4H PRN #30 tablet 09/03/22 Omeprazole [PriLOSEC] 20 mg PO AC-BRKFST #30 cap 09/04/22 Allergies Allergy/AdvReac Type Severity Reaction Status Date / Time Sulfa (Sulfonamide Allergy Swelling Verified 09/06/22 10:54 Antibiotics) venom-honey bee Allergy Anaphylaxis Verified 09/06/22 10:54 [bee venom (honey bee)] tramadol AdvReac Unknown Verified 09/06/22 10:54 Review of Systems ROS Statement: Those systems with pertinent positive or pertinent negative responses have been documented in the HPI. ROS Other: All systems not noted in ROS Statement are negative. Past Medical History Past Medical History: Hyperlipidemia Additional Past Medical History / Comment(s): Rheumatic fever age 10, osteoporosis, back fractures. pt states she fell in 2018 and had a back fracture. History of Any Multi-Drug Resistant Organisms: None Reported Past Surgical History: Cholecystectomy, Hysterectomy, Orthopedic Surgery, Tonsillectomy Additional Past Surgical History / Comment(s): hip Past Anesthesia/Blood Transfusion Reactions: No Reported Reaction Past Psychological History: No Psychological Hx Reported Smoking Status: Never smoker Past Alcohol Use History: Rare Past Drug Use History: None Reported - Past Family History Mother Family Medical History: Myocardial Infarction ([place]) General Exam Limitations: no limitations General appearance: alert, in no apparent distress Head exam: Present: atraumatic, normocephalic, normal inspection Eye exam: Present: normal appearance, PERRL, EOMI. Absent: scleral icterus, conjunctival injection, periorbital swelling ENT exam: Present: normal exam, mucous membranes moist Respiratory exam: Present: normal lung sounds bilaterally. Absent: respiratory distress, wheezes, rales, rhonchi, stridor Cardiovascular Exam: Present: regular rate, normal rhythm, normal heart sounds. Absent: systolic murmur, diastolic murmur, rubs, gallop, clicks GI/Abdominal exam: Present: soft, distended, tenderness, rigid, normal bowel sounds. Absent: guarding, rebound Course Vital Signs 09/06/22 10:47 Temperature 98.4 F Pulse Rate 110 H Respiratory 16 Rate Blood Pressure 133/61 O2 Sat by Pulse 98 Oximetry Medical Decision Making - Medical Decision Making CT shows evidence of bowel obstruction versus severe ileus. I discussed case with Dr. Ramachandran who accepts the case. Patient will have NG tube placed. - Lab Data Result diagrams: 09/06/22 11:37 09/06/22 11:37 Lab Results 09/06/22 09/06/22 09/06/22 Range/Units 11:37 11:37 11:37 WBC 11.6 H (3.8-10.6) k/uL RBC 3.19 L (3.80-5.40) m/uL Hgb 10.5 L (11.4-16.0) gm/dL Hct 31.9 L (34.0-46.0) % MCV 100.1 H (80.0-100.0) fL MCH 32.8 (25.0-35.0) pg MCHC 32.8 (31.0-37.0) g/dL RDW 14.2 (11.5-15.5) % Plt Count 290 (150-450) k/uL MPV 8.4 Neutrophils % 89 % Lymphocytes % 7 % Monocytes % 3 % Eosinophils % 1 % Basophils % 0 % Neutrophils # 10.3 H (1.3-7.7) k/uL Lymphocytes # 0.8 L (1.0-4.8) k/uL Monocytes # 0.3 (0-1.0) k/uL Eosinophils # 0.1 (0-0.7) k/uL Basophils # 0.0 (0-0.2) k/uL Macrocytosis Slight PT 10.6 (9.0-12.0) sec INR 1.0 (<1.2) APTT 22.0 (22.0-30.0) sec Sodium 135 L (137-145) mmol/L Potassium 4.0 (3.5-5.1) mmol/L Chloride 95 L (98-107) mmol/L Carbon Dioxide 29 (22-30) mmol/L Anion Gap 11 mmol/L BUN 20 H (7-17) mg/dL Creatinine 0.48 L (0.52-1.04) mg/dL Est GFR (CKD-EPI)AfAm >90 (>60 ml/min/1.73 sqM) Est GFR (CKD-EPI)NonAf 87 (>60 ml/min/1.73 sqM) Glucose 123 H (74-99) mg/dL Plasma Lactic Acid Yosi (0.7-2.0) mmol/L Calcium 9.2 (8.4-10.2) mg/dL Total Bilirubin 0.8 (0.2-1.3) mg/dL AST 40 H (14-36) U/L ALT 16 (4-34) U/L Alkaline Phosphatase 79 (38-126) U/L Total Protein 6.5 (6.3-8.2) g/dL Albumin 3.9 (3.5-5.0) g/dL Amylase 44 (30-110) U/L Lipase 79 (23-300) U/L 09/06/22 Range/Units 11:37 WBC (3.8-10.6) k/uL RBC (3.80-5.40) m/uL Hgb (11.4-16.0) gm/dL Hct (34.0-46.0) % MCV (80.0-100.0) fL MCH (25.0-35.0) pg MCHC (31.0-37.0) g/dL RDW (11.5-15.5) % Plt Count (150-450) k/uL MPV Neutrophils % % Lymphocytes % % Monocytes % % Eosinophils % % Basophils % % Neutrophils # (1.3-7.7) k/uL Lymphocytes # (1.0-4.8) k/uL Monocytes # (0-1.0) k/uL Eosinophils # (0-0.7) k/uL Basophils # (0-0.2) k/uL Macrocytosis PT (9.0-12.0) sec INR (<1.2) APTT (22.0-30.0) sec Sodium (137-145) mmol/L Potassium (3.5-5.1) mmol/L Chloride (98-107) mmol/L Carbon Dioxide (22-30) mmol/L Anion Gap mmol/L BUN (7-17) mg/dL Creatinine (0.52-1.04) mg/dL Est GFR (CKD-EPI)AfAm (>60 ml/min/1.73 sqM) Est GFR (CKD-EPI)NonAf (>60 ml/min/1.73 sqM) Glucose (74-99) mg/dL Plasma Lactic Acid Yosi 1.4 (0.7-2.0) mmol/L Calcium (8.4-10.2) mg/dL Total Bilirubin (0.2-1.3) mg/dL AST (14-36) U/L ALT (4-34) U/L Alkaline Phosphatase (38-126) U/L Total Protein (6.3-8.2) g/dL Albumin (3.5-5.0) g/dL Amylase (30-110) U/L Lipase (23-300) U/L Disposition Clinical Impression: Small bowel obstruction, Nausea and vomiting Disposition: ADMITTED IP TO THIS HOSP Condition: Fair Referrals: Zaina Jewell DO [Primary Care Provider] - 1-2 days Time of Disposition: 12:30
[2022-09-06] MEDS ORDERED: LORazepam 2 MG/ML INJ IV STA (13:17)
--- NOTE | 2022-09-06 14:18 | XR ---
EXAMINATION TYPE: XR chest 1V confirm line [facility] DATE OF EXAM: 09/06/2022 2:13 PM COMPARISON: Chest radiographs from 09/06/2022 TECHNIQUE: XR chest 1V confirm line plcri Frontal view of the chest. CLINICAL INDICATION:Female, 87 years old with history of Verify NG tube placement; FINDINGS: Lungs/Pleura: There is flattening of the diaphragm with increased lucency of the lungs. No evidence o f pneumothorax. Blunting of the left costophrenic angle with left basilar patchy airspace disease. Th e patient left hemidiaphragm. Pulmonary vascularity: Unremarkable. Heart/mediastinum: Cardiomediastinal silhouette is prominent in size. Atherosclerotic calcifications are seen in the aorta. Musculoskeletal: No acute osseous pathology. Other findings: None Lines/Tubes: Nasogastric tube courses below the diaphragm with distal tip in the left upper quadrant appropriate p osition. IMPRESSION: 1. NG tube is in appropriate position. 2. Small left pleural effusion with left basilar patchy airspace opacity which may represent atelect asis or infiltrate. 3. COPD changes.
[2022-09-06] MEDS ORDERED: NALOXONE 0.4 MG/ML 1 ML VIAL IV PRN (14:25)
[2022-09-06] MEDS ORDERED: ONDANSETRON 4 MG/2 ML VIAL IVP PRN (14:25)
--- NOTE | 2022-09-06 14:28 | P.GSHP ---
History of Present Illness H&P Date: 09/06/22 CHIEF COMPLAINT: Nausea and vomiting HISTORY OF PRESENT ILLNESS: This is a 87-year-old female presented to the emergency room with complaints of vomiting that started yesterday. Patient was just recently discharged 2 days ago from the hospital after being admitted to the hospital with a small bowel obstruction due to a right inguinal hernia. Patient isstatus post robotic-assisted laparoscopic Repair of initial incarcerated small bowel obstruction right direct inguinal hernia with mesh and initial incarcerated large bowel obstruction with repair of left direct inguinal hernia with mesh. She also had lysis of adhesions and takedown of internal hernia on 08/29/[address] Khan. Patient had been tolerating diet at discharge and having bowel movements. Patient reports that she continued to have bowel movements and flatus at home. However, yesterday she started to have diminished appetite only eating a few bites of food. More abdominal distention and then started vomiting bile. Patient's abdomen remains distended and tender. She is no longer vomiting but is receiving antiemetics. Computed tomography scan of abdomen and pelvis show severe small bowel distention correlate for high-grade obstruction versus ileus. Patient will receive NG tube in the emergency room. She denies any fevers chills or sweats. She also admits to having a cough and did have some lower extremity edema that has improved. She denies shortness of breath. PAST MEDICAL HISTORY: See list. PAST SURGICAL HISTORY: See list. MEDICATIONS: See list. ALLERGIES: See list. SOCIAL HISTORY: No illicit drug use. REVIEW OF SYSTEMS: CONSTITUTIONAL: Denies fever or chills. HEENT: Denies blurred vision, vision changes, or eye pain. Denies hemoptysis ENDOCRINE: Denies heat or cold intolerance. CARDIOVASCULAR: Denies chest pain or pressure. RESPIRATORY: No shortness of breath. GASTROINTESTINAL: Please refer to HPI otherwise unremarkable NEURO: Denies history of seizures. PSYCH: No depression or suicidal ideation HEMATOLOGIC: Denies bleeding disorders. LYMPHATIC: The patient denies any lumps and bumps around the neck. GENITOURINARY: Denies any blood in urine or increased urinary frequency. MUSCULOSKELETAL: Denies myalgias. Denies joint swelling. Denies decreased range of motion beyond patients baseline. SKIN: Denies pruitis. Denies rash. PHYSICAL EXAM: VITAL SIGNS: Reviewed GENERAL: Well-developed in no acute distress. HEENT: No sclera icterus. Extraocular movements grossly intact. Moist buccal mucosa. Head is atraumatic, normocephalic. Hears conversational speech. No nasal drainage. NECK: Supple without lymphadenopathy. CHEST: Non-labored respirations and equal bilateral excursions. CARDIOVASCULAR: Palpable 2+ radial pulses. ABDOMEN: Distended with diffuse tenderness. More tenderness in the lower abdomen and on the right side MUSCULOSKELETAL: No clubbing or cyanosis. NEUROLOGIC: No focal or lateralizing signs. Cranial nerves II through XII grossly intact. PSYCH: Appropriate affect. Alert and oriented to person, place and time. SKIN: Well perfused. Good skin turgor. Extremities: No edema LABORATORY DATA: WBC 11.6 Hgb 10.5 platelets 290 Sodium 135 potassium 4.0 creatinine 0.48 Glucose 123 Lactic acid 1.4 AST 48 ALT 16 Lipase 79 IMAGING: Computed tomography scan abdomen and pelvis severe small bowel distention correlate for high-grade obstruction or severe ileus. Bilateral lower lobe infiltrate and small effusion. Nonobstructing left renal calculus measuring 3 mm. Anasarca. There are couple small bubbles of air in the subcutaneous tissue right abdomen which are nonspecific correlate clinically. Chest x-ray COPD, mild cardiomegaly, trace pleural effusions. Given interstitial prominence correlate for CHF with pulmonary vascular congestion ASSESSMENT: 1. Abdominal pain and abdominal distention 2. High-grade small bowel obstruction versus ileus 3. Recent small bowel obstruction status post right direct inguinal hernia with mesh and initial incarcerated large bowel obstruction with repair of left direct inguinal hernia with mesh. She also had lysis of adhesions and takedown of internal hernia on 08/29/2022 PLAN: -NG tube placed for decompression -Keep patient nothing by mouth -Ativan 0.5 mg IV 1 given for anxiety regarding NG tube placement -Continue supportive care -Continue antiemetics -Continue pain medication as needed -Continue small dose of IV fluids Physician Natural Resources Instructor note has been reviewed by physician. Signing provider agrees with the documented findings, assessment, and plan of care. Past Medical History Past Medical History: Hyperlipidemia Additional Past Medical History / Comment(s): Rheumatic fever age 10, osteoporosis, back fractures. pt states she fell in 2018 and had a back fracture. History of Any Multi-Drug Resistant Organisms: None Reported Past Surgical History: Cholecystectomy, Hysterectomy, Orthopedic Surgery, Tonsillectomy Additional Past Surgical History / Comment(s): hip Past Anesthesia/Blood Transfusion Reactions: No Reported Reaction Past Psychological History: No Psychological Hx Reported Smoking Status: Never smoker Past Alcohol Use History: Rare Past Drug Use History: None Reported - Past Family History Mother Family Medical History: Myocardial Infarction ([place]) Medications and Allergies Home Medications Medication Instructions Recorded Confirmed Type Alfredo/D3/Mag11/Zinc/Coating Engineer/Randolph/Bor 2 tab PO DAILY 09/05/16 09/06/22 History [Caltrate 600+D Plus Tablet] Glucosam/Patricio-Msm1/C/Randolph/Bosw 2 tab PO DAILY 09/05/16 09/06/22 History [Glucosamine-Chondroitin Tablet] Multivitamins, Thera [Multivitamin 1 tab PO DAILY 09/05/16 09/06/22 History (formulary)] Ascorbic Acid [Vitamin C] 500 mg PO DAILY 11/09/19 09/06/22 History Aspirin EC [Ecotrin Low Dose] 81 mg PO DAILY 11/09/19 09/06/22 History L.acidoph,Paracasei, B.lactis 1 cap PO DAILY 11/09/19 09/06/22 History [Probiotic] Loratadine [Claritin] 10 mg PO DAILY 11/09/19 09/06/22 History Simethicone Chew [Mylicon Chew] 80 mg PO QID PRN #60 chew 11/12/19 09/06/22 Rx Acetaminophen Tab [Tylenol Tab] 650 mg PO Q4H PRN #30 tablet 09/03/22 09/06/22 Rx Omeprazole [PriLOSEC] 20 mg PO AC-BRKFST #30 cap 09/04/22 09/06/22 Rx Allergies Allergy/AdvReac Type Severity Reaction Status Date / Time Sulfa (Sulfonamide Allergy Swelling Verified 09/06/22 13:07 Antibiotics) tramadol Allergy Unknown Verified 09/06/22 13:07 venom-honey bee Allergy Anaphylaxis Verified 09/06/22 13:07 [bee venom (honey bee)] Surgical - Exam Vital Signs Temp Pulse Resp BP Pulse Ox 98.4 F 110 H 16 133/61 98 09/06/22 10:47 09/06/22 10:47 09/06/22 10:47 09/06/22 10:47 09/06/22 10:47 Results - Labs 09/06/22 11:37 09/06/22 11:37 Abnormal Lab Results - Last 24 Hours (Table) 09/06/22 09/06/22 Range/Units 11:37 11:37 WBC 11.6 H (3.8-10.6) k/uL RBC 3.19 L (3.80-5.40) m/uL Hgb 10.5 L (11.4-16.0) gm/dL Hct 31.9 L (34.0-46.0) % MCV 100.1 H (80.0-100.0) fL Neutrophils # 10.3 H (1.3-7.7) k/uL Lymphocytes # 0.8 L (1.0-4.8) k/uL Sodium 135 L (137-145) mmol/L Chloride 95 L (98-107) mmol/L BUN 20 H (7-17) mg/dL Creatinine 0.48 L (0.52-1.04) mg/dL Glucose 123 H (74-99) mg/dL AST 40 H (14-36) U/L Diabetes panel 09/06/22 Range/Units 11:37 Sodium 135 L (137-145) mmol/L Potassium 4.0 (3.5-5.1) mmol/L Chloride 95 L (98-107) mmol/L Carbon Dioxide 29 (22-30) mmol/L BUN 20 H (7-17) mg/dL Creatinine 0.48 L (0.52-1.04) mg/dL Glucose 123 H (74-99) mg/dL Calcium 9.2 (8.4-10.2) mg/dL AST 40 H (14-36) U/L ALT 16 (4-34) U/L Alkaline Phosphatase 79 (38-126) U/L Total Protein 6.5 (6.3-8.2) g/dL Albumin 3.9 (3.5-5.0) g/dL Calcium panel 09/06/22 Range/Units 11:37 Calcium 9.2 (8.4-10.2) mg/dL Albumin 3.9 (3.5-5.0) g/dL Pituitary panel 09/06/22 Range/Units 11:37 Sodium 135 L (137-145) mmol/L Potassium 4.0 (3.5-5.1) mmol/L Chloride 95 L (98-107) mmol/L Carbon Dioxide 29 (22-30) mmol/L BUN 20 H (7-17) mg/dL Creatinine 0.48 L (0.52-1.04) mg/dL Glucose 123 H (74-99) mg/dL Calcium 9.2 (8.4-10.2) mg/dL Adrenal panel 09/06/22 Range/Units 11:37 Sodium 135 L (137-145) mmol/L Potassium 4.0 (3.5-5.1) mmol/L Chloride 95 L (98-107) mmol/L Carbon Dioxide 29 (22-30) mmol/L BUN 20 H (7-17) mg/dL Creatinine 0.48 L (0.52-1.04) mg/dL Glucose 123 H (74-99) mg/dL Calcium 9.2 (8.4-10.2) mg/dL Total Bilirubin 0.8 (0.2-1.3) mg/dL AST 40 H (14-36) U/L ALT 16 (4-34) U/L Alkaline Phosphatase 79 (38-126) U/L Total Protein 6.5 (6.3-8.2) g/dL Albumin 3.9 (3.5-5.0) g/dL
[2022-09-06 16:24] LABS: African American GFR (CKD) >90 (>60 ml/min/1.73 sqM); Anion Gap 10 mmol/L; Blood Urea Nitrogen 20 mg/dL (7-17); Calcium 8.8 mg/dL (8.4-10.2); Carbon Dioxide 30 mmol/L (22-30); Chloride 96 mmol/L (98-107); Glucose 106 mg/dL (74-99); Non-African American GFR(CKD) 87 (>60 ml/min/1.73 sqM); Sodium 136 mmol/L (137-145)
[2022-09-06] MEDS: ACETAMINOPHEN IV (For NPO) 700 MG in EMPTY BAG 1 BAG IVPB SCH ×2 (16:27→22:04)
[2022-09-06] MEDS: SODIUM CHLORIDE 0.9% 1,000 ML IV SCH (16:27)
[2022-09-06 16:39] LABS: HCT 30.1 % (34.0-46.0); HGB 9.7 gm/dL (11.4-16.0); MCH 32.8 pg (25.0-35.0); MCHC 32.3 g/dL (31.0-37.0); MCV 101.6 fL (80.0-100.0); Macrocytosis Slight; Mean Platelet Volume 8.2; Platelet Count 277 k/uL (150-450); RBC 2.97 m/uL (3.80-5.40); RDW 14.2 % (11.5-15.5); WBC 9.8 k/uL (3.8-10.6)
[2022-09-06 17:06] LABS: Lymphocytes # (M) 0.59 k/uL (1.0-4.8); Monocytes # (M) 0.69 k/uL (0-1.0); Neutrophils # (M) 8.53 k/uL (1.3-7.7); Neutrophils % (M) 87 %; Nucleated Red Blood Cells 0 /100 WBC (0-0); Total Cells Counted 100
[2022-09-07] MEDS: ACETAMINOPHEN IV (For NPO) 700 MG in EMPTY BAG 1 BAG IVPB SCH ×2 (08:09→12:55)
[2022-09-07 10:36] LABS: Basophils # (A) 0.04 X 10*3/uL (0.00-0.10); Basophils % (A) 0.4 %; Eosinophils # (A) 0.11 X 10*3/uL (0.04-0.35); Eosinophils % (A) 1.2 %; HCT 26.4 % (37.2-46.3); HGB 8.7 g/dL (12.0-15.0); Immature Grans, Automated 0.4 %; Lymphocytes # (A) 0.94 X 10*3/uL (0.90-5.00); Lymphocytes % (A) 10.5 %; MCH 33.3 pg (27.0-32.0); MCV 101.1 fL (80.0-97.0); Mean Platelet Volume 9.7 fL (9.5-12.2); Monocytes # (A) 0.47 X 10*3/uL (0.20-1.00); Monocytes % (A) 5.3 %; NRBC Per 100 WBC 0 /100 WBCS (0.0-0.0); Neutrophils # (A) 7.33 X 10*3/uL (1.80-7.70); Neutrophils % (A) 82.2 %; Platelet Count 269 X 10*3/uL (140-440); RBC 2.61 X 10*6/uL (4.10-5.20); RDW 14.7 % (11.5-14.5); WBC 8.93 X 10*3/uL (4.50-10.00)
[2022-09-07 10:53] LABS: Anion Gap 10.8 mmol/L (10.00-18.00); BUN/Creat Ratio 50.75 Ratio (12.00-20.00); Blood Urea Nitrogen 20.3 mg/dL (9.0-27.0); Calcium 8.7 mg/dL (8.7-10.3); Carbon Dioxide 26.2 mmol/L (20.0-27.5); Non-African American GFR(CKD) 92.3 (60.0-200.0); Potassium 3.7 mmol/L (3.5-5.5)
[2022-09-07] MEDS ORDERED: BENZOCAINE SPRAY 1 CAN MUCOUS MEM PRN (11:19)
[2022-09-07 14:10] VITALS: BMI 18.3
--- NOTE | 2022-09-07 15:04 | P.PN ---
Subjective Progress Note Date: 09/07/22 CHIEF COMPLAINT: Severe Ileus HISTORY OF PRESENT ILLNESS: Patient presents to the ER with severe nausea, vomiting abdominal pain and abdominal distention. Patient was just recently discharged 2 days ago from the hospital after being admitted to the hospital with a small bowel obstruction due to a right inguinal hernia. Patient is status post robotic-assisted laparoscopic Repair of initial incarcerated small bowel obstruction right direct inguinal hernia with mesh and initial incarcerated large bowel obstruction with repair of left direct inguinal hernia with mesh. She also had lysis of adhesions and takedown of internal hernia on 08/29/[address] Ramachandran. Patient had NG tube placed in ER yesterday with 200 mL of ileus output. She's had minimal output through the NG tube today. She is complaining of sore throat from the NG tube. No flatus or bowel movement. She reports improvement in her abdominal pain and decrease in abdominal distention. Afebrile. WBC normal at 8.93 Hgb 8.7 plt 269 sodium improved from 136-138 potassium is 3.7 creatinine is 0.4 PHYSICAL EXAM: VITAL SIGNS: Reviewed GENERAL: Well-developed in no acute distress. HEENT: No sclera icterus. Extraocular movements grossly intact. Moist buccal mucosa. Head is atraumatic, normocephalic. Hears conversational speech. No nasal drainage. NECK: Supple without lymphadenopathy. CHEST: Non-labored respirations and equal bilateral excursions. CARDIOVASCULAR: Palpable 2+ radial pulses. ABDOMEN: Patient's abdomen is slightly softer and decrease in distention. Mild tenderness with palpation MUSCULOSKELETAL: No clubbing or cyanosis. NEUROLOGIC: No focal or lateralizing signs. Cranial nerves II through XII grossly intact. PSYCH: Appropriate affect. Alert and oriented to person, place and time. SKIN: Well perfused. Good skin turgor. ASSESSMENT: 1. Severe ileus with abdominal pain and distention 2. Hyponatremia 3. Recent small bowel obstruction status post right direct inguinal hernia with mesh and initial incarcerated large bowel obstruction with repair of left direct inguinal hernia with mesh. She also had lysis of adhesions and takedown of internal hernia on 08/29/2022 PLAN: -Check phosphorus level and correct if low -Consult PT OT and encouraged patient to increase activity level -Continue NG tube for decompression. -Nothing by mouth except for ice chips and popsicles -Hurricaine spray added for throat irritation from NG tube -Continue IV fluid -IV Tylenol for pain -GI prophylaxis Protonix and DVT prophylaxis subcu heparin Physician Pmo Project Manager note has been reviewed by physician. Signing provider agrees with the documented findings, assessment, and plan of care. Objective - Vital Signs Vital signs: Vital Signs Temp 97.7 F 09/07/22 08:00 Pulse 91 09/07/22 08:00 Resp 18 09/07/22 02:00 BP 133/71 09/07/22 08:00 Pulse Ox 96 09/07/22 08:00 FiO2 Intake & Output 09/06/22 09/07/22 09/07/22 18:59 06:59 18:59 Intake Total 1000 Balance 1000 Weight 46.811 kg 46.811 kg Intake: Intake, IV Titration 1000 Amount Sodium Chloride 0.9% 1, 1000 000 ml @ 75 mls/hr IV . [id number] FARNAZ Rx#:[id number] Oral 0 Other: Voiding Method Bedside Commode # Voids 1 - Labs CBC & Chem 7: 09/07/22 07:03 09/07/22 07:03 Labs: Abnormal Lab Results - Last 24 Hours (Table) 09/06/22 09/06/22 09/07/22 Range/Units 16:04 16:04 07:03 RBC 2.97 L 2.61 L (3.80-5.40) m/uL Hgb 9.7 L 8.7 L (11.4-16.0) gm/dL Hct 30.1 L 26.4 L (34.0-46.0) % MCV 101.6 H 101.1 H (80.0-100.0) fL MCH 33.3 H (27.0-32.0) pg RDW 14.7 H (11.5-14.5) % Neutrophils # (Manual) 8.53 H (1.3-7.7) k/uL Lymphocytes # (Manual) 0.59 L (1.0-4.8) k/uL Sodium 136 L (137-145) mmol/L Chloride 96 L (98-107) mmol/L BUN 20 H (7-17) mg/dL Creatinine 0.49 L (0.52-1.04) mg/dL BUN/Creatinine Ratio (12.00-20.00) Ratio Glucose 106 H (74-99) mg/dL 10/14/22 Range/Units 07:03 RBC (3.80-5.40) m/uL Hgb (11.4-16.0) gm/dL Hct (34.0-46.0) % MCV (80.0-100.0) fL MCH (27.0-32.0) pg RDW (11.5-14.5) % Neutrophils # (Manual) (1.3-7.7) k/uL Lymphocytes # (Manual) (1.0-4.8) k/uL Sodium (137-145) mmol/L Chloride (98-107) mmol/L BUN (7-17) mg/dL Creatinine 0.4 L (0.52-1.04) mg/dL BUN/Creatinine Ratio 50.75 H (12.00-20.00) Ratio Glucose (74-99) mg/dL
[2022-09-07] MEDS: ACETAMINOPHEN IV (For NPO) 1,000 MG in EMPTY BAG 1 BAG IVPB PRN ×2 (15:06→22:50)
[2022-09-07] MEDS: SODIUM CHLORIDE 0.9% 1,000 ML IV SCH ×2 (15:33→21:45)
[2022-09-07] MEDS: PANTOPRAZOLE 40 MG/10 ML VIAL IVP SCH (19:08)
[2022-09-07] MEDS ORDERED: METHYL SALICYLATE-MENTHOL OINT (3 OZ TUBE) TOPICAL PRN (22:00)
[2022-09-07] MEDS: HEPARIN SODIUM,PORCINE/PF 5,000 UNIT/0.5 ML SYRINGE SQ SCH (22:44)
[2022-09-08] MEDS: SODIUM CHLORIDE 0.9% 1,000 ML IV SCH ×2 (00:18→12:34)
[2022-09-08] MEDS: PANTOPRAZOLE 40 MG/10 ML VIAL IVP SCH (08:47)
[2022-09-08] MEDS: HEPARIN SODIUM,PORCINE/PF 5,000 UNIT/0.5 ML SYRINGE SQ SCH ×2 (08:47→20:53)
[2022-09-08 08:53] LABS: HGB 8.6 g/dL (12.0-15.0); MCH 32.5 pg (27.0-32.0); MCHC 30.7 g/dL (32.0-37.0); MCV 105.7 fL (80.0-97.0); Mean Platelet Volume 9.7 fL (9.5-12.2); NRBC Per 100 WBC 0 /100 WBCS (0.0-0.0); Platelet Count 246 X 10*3/uL (140-440); RBC 2.65 X 10*6/uL (4.10-5.20); RDW 14.8 % (11.5-14.5); WBC 6.69 X 10*3/uL (4.50-10.00)
[2022-09-08 09:05] LABS: Anion Gap 13.3 mmol/L (10.00-18.00); BUN/Creat Ratio 45.75 Ratio (12.00-20.00); Blood Urea Nitrogen 18.3 mg/dL (9.0-27.0); Calcium 8.4 mg/dL (8.7-10.3); Carbon Dioxide 22.7 mmol/L (20.0-27.5); Magnesium 1.6 mg/dL (1.5-2.4); Non-African American GFR(CKD) 92.3 (60.0-200.0); Phosphorus 2.3 mg/dL (2.4-5.1); Potassium 3.7 mmol/L (3.5-5.5)
--- NOTE | 2022-09-08 11:18 | P.PN ---
Subjective Progress Note Date: 09/08/22 Principal diagnosis: Ileus 87-year-old female underwent laparoscopic lysis of adhesions one week ago and then came back to the hospital with recurrent abdominal bloating nausea and vomiting. Doing better today. Nasogastric tube remains in place. Mild abdominal bloating. No significant pain. She did pass flatus and had a small bowel movement. Objective - Vital Signs Vital signs: Vital Signs Temp 97.7 F 09/08/22 08:51 Pulse 83 09/08/22 08:51 Resp 18 09/08/22 08:51 BP 158/99 09/08/22 08:51 Pulse Ox 92 L 09/08/22 08:51 FiO2 Intake & Output 09/07/22 09/08/22 09/08/22 18:59 06:59 18:59 Intake Total 1000 1300 Balance 1000 1300 Weight 46.811 kg Intake: Intake, IV Titration 1000 1300 Amount ACETAMINOPHEN IV (For NPO 100 400 ) 1,000 mg In Empty Bag 1 bag @ 400 mls/hr IVPB Q6HR PRN Rx#:[id number] Sodium Chloride 0.9% 1, 900 900 000 ml @ 75 mls/hr IV . [id number] FARNAZ Rx#:[id number] Other: Voiding Method Bedside Commode # Voids 3 - Exam Abdomen: Soft, mild distention, nontender - Labs CBC & Chem 7: 09/08/22 06:10 09/08/22 06:10 Labs: Abnormal Lab Results - Last 24 Hours (Table) 09/08/22 09/08/22 Range/Units 06:10 06:10 RBC 2.65 L (4.10-5.20) X 10*6/uL Hgb 8.6 L (12.0-15.0) g/dL Hct 28.0 L (37.2-46.3) % MCV 105.7 H (80.0-97.0) fL MCH 32.5 H (27.0-32.0) pg MCHC 30.7 L (32.0-37.0) g/dL RDW 14.8 H (11.5-14.5) % Creatinine 0.4 L (0.6-1.5) mg/dL BUN/Creatinine Ratio 45.75 H (12.00-20.00) Ratio Glucose 60 L (70-110) mg/dL Calcium 8.4 L (8.7-10.3) mg/dL Phosphorus 2.3 L (2.4-5.1) mg/dL Assessment and Plan (1) Ileus Narrative/Plan: 87-year-old female with abdominal ileus after recent surgery. Continue nasogastric tube to suction. Increase activity level. Will follow. Current Visit: Yes Status: Acute Code(s): K56.7 - ILEUS, UNSPECIFIED SNOMED Code(s): 879824602
--- NOTE | 2022-09-09 10:10 | P.PN ---
Subjective Progress Note Date: 09/09/22 Principal diagnosis: Ileus Patient is doing better today. She is up in the chair. She has had multiple loose stools. She feels less bloated. There has been nothing coming out of the nasogastric tube. Objective - Vital Signs Vital signs: Vital Signs Temp 97.6 F 09/09/22 07:23 Pulse 91 09/09/22 07:23 Resp 18 09/09/22 07:23 BP 132/57 09/09/22 07:23 Pulse Ox 95 09/09/22 07:23 FiO2 Intake & Output 09/08/22 09/09/22 09/09/22 18:59 06:59 18:59 Intake Total 0 Output Total 160 Balance 0 -160 Intake: Oral 0 Output: Gastric Drainage 160 Other: Voiding Method Bedside Commode Bedside Commode # Voids 2 1 # Bowel Movements 3 - Exam Abdomen: Soft, mild distention, nontender - Labs CBC & Chem 7: 09/08/22 06:10 09/08/22 06:10 Assessment and Plan (1) Ileus Narrative/Plan: Patient doing well at this time. We'll remove nasogastric tube. Continue with ice chips only for now. Increase activity. Current Visit: Yes Status: Acute Code(s): K56.7 - ILEUS, UNSPECIFIED SNOMED Code(s): 514320373
[2022-09-09] MEDS: HEPARIN SODIUM,PORCINE/PF 5,000 UNIT/0.5 ML SYRINGE SQ SCH ×2 (10:46→19:26)
[2022-09-09] MEDS: SODIUM CHLORIDE 0.9% 1,000 ML IV SCH ×2 (10:46→19:27)
[2022-09-09] MEDS: PANTOPRAZOLE 40 MG/10 ML VIAL IVP SCH (11:38)
[2022-09-09] MEDS: ACETAMINOPHEN IV (For NPO) 1,000 MG in EMPTY BAG 1 BAG IVPB PRN ×2 (11:39→19:26)
[2022-09-10] MEDS: PANTOPRAZOLE 40 MG/10 ML VIAL IVP SCH (08:00)
[2022-09-10] MEDS: HEPARIN SODIUM,PORCINE/PF 5,000 UNIT/0.5 ML SYRINGE SQ SCH ×2 (08:00→21:10)
[2022-09-10 09:32] LABS: African American GFR (CKD) >90 (>60 ml/min/1.73 sqM); Anion Gap 13 mmol/L; Blood Urea Nitrogen 5 mg/dL (7-17); Calcium 7.8 mg/dL (8.4-10.2); Carbon Dioxide 20 mmol/L (22-30); Chloride 109 mmol/L (98-107); Glucose 63 mg/dL (74-99); Magnesium 1.4 mg/dL (1.6-2.3); Non-African American GFR(CKD) >90 (>60 ml/min/1.73 sqM); Sodium 142 mmol/L (137-145)
[2022-09-10 09:37] LABS: HCT 28.8 % (34.0-46.0); HGB 9.1 gm/dL (11.4-16.0); Hypochromasia Moderate; MCH 33.2 pg (25.0-35.0); MCHC 31.7 g/dL (31.0-37.0); MCV 104.5 fL (80.0-100.0); Macrocytosis Moderate; Mean Platelet Volume 8.1; Platelet Count 250 k/uL (150-450); RBC 2.76 m/uL (3.80-5.40); RDW 14.6 % (11.5-15.5); WBC 3.9 k/uL (3.8-10.6)
[2022-09-10] MEDS: SODIUM CHLORIDE 0.9% 1,000 ML IV SCH (11:06)
--- NOTE | 2022-09-10 13:39 | P.PN ---
Subjective Progress Note Date: 09/10/22 CHIEF COMPLAINT: Severe Ileus HISTORY OF PRESENT ILLNESS: Patient presents to the ER with severe nausea, vomiting abdominal pain and abdominal distention. She is being treated for severe ileus. Patient did have bowel movements yesterday with flatus. NG tube was removed. She is currently tolerating ice chips and popsicles. She denies abdominal pain. Her abdominal distention has improved. Denies any nausea or vomiting. Afebrile. WBC is 3.9 Hgb 9.1 platelets are 250 sodium is 142 potassium is 3.0 creatinine 0.37 magnesium is 1.4 PHYSICAL EXAM: VITAL SIGNS: Reviewed GENERAL: Well-developed in no acute distress. HEENT: No sclera icterus. Extraocular movements grossly intact. Moist buccal mucosa. Head is atraumatic, normocephalic. Hears conversational speech. No nasal drainage. NECK: Supple without lymphadenopathy. CHEST: Non-labored respirations and equal bilateral excursions. CARDIOVASCULAR: Palpable 2+ radial pulses. ABDOMEN: Patient's abdomen is slightly softer and decrease in distention. Mild tenderness with palpation MUSCULOSKELETAL: No clubbing or cyanosis. NEUROLOGIC: No focal or lateralizing signs. Cranial nerves II through XII grossly intact. PSYCH: Appropriate affect. Alert and oriented to person, place and time. SKIN: Well perfused. Good skin turgor. ASSESSMENT: 1. Severe ileus with abdominal pain and distention 2. Hyponatremia 3. Hypomagnesemia and hypokalemia 4. Recent small bowel obstruction status post right direct inguinal hernia with mesh and initial incarcerated large bowel obstruction with repair of left direct inguinal hernia with mesh. She also had lysis of adhesions and takedown of internal hernia on 08/29/2022 PLAN: -Advance diet to clear liquids -Continue to replace electrolytes -Repeat labs in a.m. -Encourage patient to ambulate -Continue supportive care -GI prophylaxis Protonix and DVT prophylaxis subcu heparin Physician Data Entry Email Processor note has been reviewed by physician. Signing provider agrees with the documented findings, assessment, and plan of care. Please see additional documentation below CHIEF COMPLAINT: Ileus HISTORY OF PRESENT ILLNESS: The patient is a 87-year-old female readmitted to the hospital due to ileus. At this time, she is passing flatus and moderate stools today and over the weekend. Daughter is at bedside. Patient tolerated liquid diet. At the time of my assessment, patient was using the restroom and having bowel movements. She is ambulating. Daughter reports her mother's doing better. NG tube discontinued over the weekend. ROS: No reports of nausea and vomiting. No fevers or chills. No new chest pain. PHYSICAL EXAM: VITAL SIGNS: Reviewed CONSTITUTIONAL: Well developed and in no acute distress. EYES: Conjuctivae without sclera icterus. Extraocular movements grossly intact. HEAD, EARS, NOSE, THROAT: Moist buccal mucosa. Head is atraumatic, normocephalic. Hears conversational speech. No nasal drainage. RESPIRATORY: Non-labored respirations and equal bilateral excursions. CARDIOVASCULAR: Palpable 2+ radial pulses. ABDOMEN: Nontender MUSCULOSKELETAL: No gross deformity of the lower extremities noted. No clubbing. No cyanosis. SKIN: Good skin turgor. Well perfused. NEUROLOGIC: Cranial nerves II through XII grossly intact. No focal or lateralizing signs. PSYCH: Appropriate affect. Alert and oriented to person, place and time. CLINICAL LABS: Reviewed. Low potassium. Low sodium. ASSESSMENT: 1. Ileus 2. History of bowel obstruction PLAN: 1. We'll advance diet slowly to full liquid diet for dinner. 2. If tolerates, advance diet to ground dysphagia diet in 24 hours 3. Disposition in 48 hours pending diet Objective - Vital Signs Vital signs: Vital Signs Temp 97.9 F 09/10/22 08:00 Pulse 89 09/10/22 08:00 Resp 16 09/10/22 08:00 BP 133/73 09/10/22 08:00 Pulse Ox 97 09/10/22 08:00 FiO2 Intake & Output 09/09/22 09/10/22 09/10/22 18:59 06:59 18:59 Output Total 50 Balance -50 Output: Gastric Drainage 50 Other: Voiding Method Bedside Commode # Voids 1 1 # Bowel Movements 1 - Labs CBC & Chem 7: 09/10/22 09:00 09/10/22 09:00 Labs: Abnormal Lab Results - Last 24 Hours (Table) 09/10/22 09/10/22 Range/Units 09:00 09:00 RBC 2.76 L (3.80-5.40) m/uL Hgb 9.1 L (11.4-16.0) gm/dL Hct 28.8 L (34.0-46.0) % MCV 104.5 H (80.0-100.0) fL Potassium 3.0 L (3.5-5.1) mmol/L Chloride 109 H (98-107) mmol/L Carbon Dioxide 20 L (22-30) mmol/L BUN 5 L (7-17) mg/dL Creatinine 0.37 L (0.52-1.04) mg/dL Glucose 63 L (74-99) mg/dL Calcium 7.8 L (8.4-10.2) mg/dL Magnesium 1.4 L (1.6-2.3) mg/dL
[2022-09-10] MEDS: MAGNESIUM SULFATE-D5W PMX 1 GM in DEXTROSE/WATER 1 100ML.BAG IVPB SCH ×2 (14:13→15:46)
[2022-09-10] MEDS: POTASSIUM CHLORIDE ER 20 MEQ TAB.ER PO SCH ×3 (14:14→16:35)
[2022-09-10] MEDS ORDERED: SENNOSIDES 8.6 MG TAB PO PRN (19:34)
[2022-09-10] MEDS: ACETAMINOPHEN IV (For NPO) 700 MG in EMPTY BAG 1 BAG IVPB PRN (21:10)
[2022-09-11] MEDS: SODIUM CHLORIDE 0.9% 1,000 ML IV SCH ×2 (02:14→15:52)
[2022-09-11] MEDS: HEPARIN SODIUM,PORCINE/PF 5,000 UNIT/0.5 ML SYRINGE SQ SCH ×2 (07:05→20:36)
[2022-09-11] MEDS: LORATADINE 10 MG TAB PO SCH (07:05)
[2022-09-11] MEDS: PANTOPRAZOLE 40 MG/10 ML VIAL IVP SCH (07:14)
[2022-09-11] MEDS ORDERED: NON FORMULARY DRUG (Omeprazole 20 MG Capsule.Dr) PO SCH (07:30)
[2022-09-11] MEDS: ACETAMINOPHEN IV (For NPO) 700 MG in EMPTY BAG 1 BAG IVPB PRN ×2 (07:44→16:25)
[2022-09-11 10:51] LABS: Magnesium 1.7 mg/dL (1.5-2.4); Phosphorus 1.4 mg/dL (2.4-5.1)
[2022-09-11 11:01] LABS: Anion Gap 11.9 mmol/L (10.00-18.00); BUN/Creat Ratio 8.5 Ratio (12.00-20.00); Blood Urea Nitrogen 3.4 mg/dL (9.0-27.0); Carbon Dioxide 21.1 mmol/L (20.0-27.5); Non-African American GFR(CKD) 92.3 (60.0-200.0); Potassium 3.6 mmol/L (3.5-5.5)
[2022-09-11] MEDS ORDERED: Phosphorus Replacement Protoco 1 EACH MISC MISCELLANE PRN ×2 (12:24→14:46)
[2022-09-11] MEDS ORDERED: MAGNESIUM SULFATE-D5W PMX 1 GM in DEXTROSE/WATER 1 100ML.BAG IVPB ONE (14:24)
--- NOTE | 2022-09-11 14:26 | P.PN ---
Subjective Progress Note Date: 09/11/22 CHIEF COMPLAINT: Severe Ileus HISTORY OF PRESENT ILLNESS: Patient presents to the ER with severe nausea, vomiting abdominal pain and abdominal distention. She is being treated for severe ileus. Patient is reporting having bowel movements and flatus. She denies any abdominal pain. Denies any nausea or vomiting. She is tolerating the ground diet. She has been up and ambulating. afebrile. Her Na 141, phosphorus is low at 1.4 potassium is 3.6 magnesium is 1.7 PHYSICAL EXAM: VITAL SIGNS: Reviewed GENERAL: Well-developed in no acute distress. HEENT: No sclera icterus. Extraocular movements grossly intact. Moist buccal mucosa. Head is atraumatic, normocephalic. Hears conversational speech. No nasal drainage. NECK: Supple without lymphadenopathy. CHEST: Non-labored respirations and equal bilateral excursions. CARDIOVASCULAR: Palpable 2+ radial pulses. ABDOMEN: Soft and nontender nondistended MUSCULOSKELETAL: No clubbing or cyanosis. NEUROLOGIC: No focal or lateralizing signs. Cranial nerves II through XII grossly intact. PSYCH: Appropriate affect. Alert and oriented to person, place and time. SKIN: Well perfused. Good skin turgor. ASSESSMENT: 1. Severe ileus with abdominal pain and distention 2. Hyponatremia 3. Hypomagnesemia and hypokalemia 4. Recent small bowel obstruction status post right direct inguinal hernia with mesh and initial incarcerated large bowel obstruction with repair of left direct inguinal hernia with mesh. She also had lysis of adhesions and takedown of internal hernia on 08/29/2022 5. Hypophosphatemia PLAN: -Continue ground diet -Continue to replace electrolytes -Repeat labs in a.m. -Encourage patient to ambulate -Continue supportive care -Anticipate discharge possibly tomorrow -GI prophylaxis Protonix and DVT prophylaxis subcu heparin Physician Casino Floorperson note has been reviewed by physician. Signing provider agrees with the documented findings, assessment, and plan of care. Objective - Vital Signs Vital signs: Vital Signs Temp 97.6 F 09/11/22 13:58 Pulse 82 09/11/22 13:58 Resp 15 09/11/22 13:58 BP 151/77 09/11/22 13:58 Pulse Ox 98 09/11/22 13:58 FiO2 Intake & Output 09/10/22 09/11/22 09/11/22 18:59 06:59 18:59 Intake Total 10 Balance 10 Weight 46.811 kg Intake: IV 10 Invasive Line 2 10 Other: Voiding Method Toilet # Voids 2 1 # Bowel Movements 1 - Labs CBC & Chem 7: 09/10/22 09:00 09/11/22 06:36 Labs: Abnormal Lab Results - Last 24 Hours (Table) 09/11/22 Range/Units 06:36 BUN 3.4 L (9.0-27.0) mg/dL Creatinine 0.4 L (0.6-1.5) mg/dL BUN/Creatinine Ratio 8.50 L (12.00-20.00) Ratio Calcium 8.0 L (8.7-10.3) mg/dL Phosphorus 1.4 L (2.4-5.1) mg/dL
[2022-09-11] MEDS: POTASSIUM PHOSPHATE 10 MMOL in SODIUM CHLORIDE 0.9% 250 ML IV SCH ×3 (17:03→23:17)
[2022-09-11] MEDS ORDERED: POTASSIUM PHOSPHATE 10 MMOL in SODIUM CHLORIDE 0.9% 250 ML IV ONE (23:01)
[2022-09-12] MEDS: MAGNESIUM SULFATE-D5W PMX 1 GM in DEXTROSE/WATER 1 100ML.BAG IVPB SCH ×2 (01:50→02:49)
[2022-09-12 03:21] VITALS: RESP 16; TEMP 97.8
[2022-09-12] MEDS: ACETAMINOPHEN IV (For NPO) 700 MG in EMPTY BAG 1 BAG IVPB PRN (03:53)
[2022-09-12 08:10] VITALS: BP 125/71; PULSE 72
[2022-09-12] MEDS: SODIUM CHLORIDE 0.9% 1,000 ML IV SCH (10:37)
[2022-09-12] MEDS: PANTOPRAZOLE 40 MG/10 ML VIAL IVP SCH (10:40)
[2022-09-12] MEDS: HEPARIN SODIUM,PORCINE/PF 5,000 UNIT/0.5 ML SYRINGE SQ SCH (10:40)
[2022-09-12] MEDS: LORATADINE 10 MG TAB PO SCH (10:40)
[2022-09-12 11:13] LABS: Anion Gap 6.6 mmol/L (10.00-18.00); BUN/Creat Ratio 6.84 Ratio (12.00-20.00); Blood Urea Nitrogen 2.3 mg/dL (9.0-27.0); Carbon Dioxide 26.5 mmol/L (20.0-27.5); Magnesium 2.2 mg/dL (1.5-2.4); Non-African American GFR(CKD) 97.5 (60.0-200.0)
[2022-09-12 11:14] LABS: Phosphorus 3.5 mg/dL (2.4-5.1)
--- NOTE | 2022-09-12 14:55 | P.DS ---
Providers Date of admission: 09/06/22 13:39 Expected date of discharge: 09/12/22 Attending physician: Meagan Ramachandran Primary care physician: Zaina Jewell Hospital Course: Discharge diagnosis 1. Severe ileus with abdominal pain and distention 2. Hyponatremia 3. Hypomagnesemia and hypokalemia 4. Recent small bowel obstruction status post right direct inguinal hernia with mesh and initial incarcerated large bowel obstruction with repair of left direct inguinal hernia with mesh. She also had lysis of adhesions and takedown of internal hernia on 08/29/2022 5. Hypophosphatemia Hospital course This 87-year-old female presented with abdominal pain and vomiting. She was found have evidence of ileus. She did require NG tube to be placed. Patient started to have flatus and bowel movements. NG tube was removed. She tolerated advancement of diet. Her electrolytes have been corrected. Her abdominal pain has resolved. She is afebrile. She is up and ambulating. She is stable for discharge. Physician Chemical Waste Management Technician note has been reviewed by physician. Signing provider agrees with the documented findings, assessment, and plan of care. Patient Condition at Discharge: Stable Plan - Discharge Summary Discharge Rx Participant: Yes New Discharge Prescriptions: Continue Multivitamins, Thera [Multivitamin (formulary)] 1 tab PO DAILY Glucosam/Patricio-Msm1/C/Randolph/Bosw [Glucosamine-Chondroitin Tablet] 2 tab PO DAILY Alfredo/D3/Mag11/Zinc/Filing Writer/Randolph/Bor [Caltrate 600+D Plus Tablet] 2 tab PO DAILY Aspirin EC [Ecotrin Low Dose] 81 mg PO DAILY Loratadine [Claritin] 10 mg PO DAILY L.acidoph,Paracasei, B.lactis [Probiotic] 1 cap PO DAILY Ascorbic Acid [Vitamin C] 500 mg PO DAILY Simethicone Chew [Mylicon Chew] 80 mg PO QID PRN #60 chew PRN Reason: gas pains Acetaminophen Tab [Tylenol] 650 mg PO Q4H PRN #30 tablet PRN Reason: Pain Omeprazole [PriLOSEC] 20 mg PO AC-BRKFST #30 cap Discharge Medication List Alfredo/D3/Mag11/Zinc/Filing Writer/Randolph/Bor [Caltrate 600+D Plus Tablet] 2 tab PO DAILY 09/05/16 [History] Glucosam/Patricio-Msm1/C/Randolph/Bosw [Glucosamine-Chondroitin Tablet] 2 tab PO DAILY 09/05/16 [History] Multivitamins, Thera [Multivitamin (formulary)] 1 tab PO DAILY 09/05/16 [History] Ascorbic Acid [Vitamin C] 500 mg PO DAILY 11/09/19 [History] Aspirin EC [Ecotrin Low Dose] 81 mg PO DAILY 11/09/19 [History] L.acidoph,Paracasei, B.lactis [Probiotic] 1 cap PO DAILY 11/09/19 [History] Loratadine [Claritin] 10 mg PO DAILY 11/09/19 [History] Simethicone Chew [Mylicon Chew] 80 mg PO QID PRN #60 chew 11/12/19 [Rx] Acetaminophen Tab [Tylenol] 650 mg PO Q4H PRN #30 tablet 09/03/22 [Rx] Omeprazole [PriLOSEC] 20 mg PO AC-BRKFST #30 cap 09/04/22 [Rx] Follow up Appointment(s)/Referral(s): [facility] [NON-STAFF] - As Needed (Home care aware of newly scheduled appointment with on 09/17 at 2p and will follow with you after appointment next week.) Meagan Ramachandran MD [STAFF PHYSICIAN] - 09/18/22 Zaina Jewell DO [Primary Care Provider] - 09/17/22 2:00 pm Activity/Diet/Wound Care/Special Instructions: Patient/family to call [facility] to notify them once patient has been established with Dr. Jewell so they can begin home care services - [phone] Continue ground diet Encourage patient to ambulate Discharge Disposition: HOME SELF-CARE
--- NOTE | 2022-09-14 08:30 | CDI ---
Documentation Clarification Form Date: 09/14/2022 08:14:00 AM From: Angle Coffey Admit Date: 09/06/2022 01:39:00 PM Patient Name: Tonja Greenberg Visit Number: [id number] Discharge Date: 09/12/2022 04:48:00 PM ATTENTION: The Clinical Documentation Specialists (CDI) and [facility] Coding Staff appreciate your assistance in clarifying documentation. Please respond to the clarification below the line at the bottom and electronically sign. The CDI & [facility] Coding staff will review the response and follow-up if needed. Please note: Queries are made part of the Legal Health Record. If you have any questions, please contact the author of this message via ITS. Dr. Meagan Ramachandran Ileus is documentedin H and P, DCS and PN's and patient had Right Direct inguinal hernia with mesh and initial incarcerated large bowel obstruction with repair of left direct inguinal hernia with mesh. She had lysis of adhesions and takedown of internal hernia on 08/29/2022. Additional clarification is requested regarding the relationship, if any, that exists between the ileus and the hernia repair with mesh and lysis of adhesions. Patients Admitting Diagnosis: ileus History/Risk Factors: nausea and vomiting abdominal pain with ileus status post hernia repair and lysis of adhesions. Clinical Indicators: Treatment: NG tube for decompression What relationship, if any, exists between the diagnosis of ileus and the hernia repair with mesh. [ ] Ileus is a complication of surgical procedure [X ] There is no relationship between the ileus and hernia repair [ ] Other please specify ____ [ ] Unable to determine Ileus due to multiple electrolyte abnormalities that resolved with correction of electrolytes. BING 09/14/22 @ 0929 MTDShahida
== END 2022-09-12 16:48 | disposition home health service (06) | DRG 389 ==
LOC: EC 10:44 → 4SSUR 13:39
PROVIDERS: ADMIT Surgery Plastic and Reconstructive Surgery; ATTEND Surgery Plastic and Reconstructive Surgery
PROC: 0D9670Z Drainage of Stomach with Drainage Device, Via Natural or Artificial Opening (ICD-10-PCS; principal; 2022-09-06)
DX: K56.7 Ileus, unspecified (principal); E87.1 Hypo-osmolality and hyponatremia; E87.6 Hypokalemia; F41.9 Anxiety disorder, unspecified; M81.0 Age-related osteoporosis without current pathological fracture; Z79.82 Long term (current) use of aspirin; K56.609 Unspecified intestinal obstruction, unspecified as to partial versus complete obstruction; Z91.81 History of falling; Z71.3 Dietary counseling and surveillance; N20.0 Calculus of kidney; E83.42 Hypomagnesemia; E83.39 Other disorders of phosphorus metabolism; E78.5 Hyperlipidemia, unspecified; Z88.5 Allergy status to narcotic agent; Z88.2 Allergy status to sulfonamides; Z91.030 Bee allergy status
CPT/HCPCS: 36415; 71046; 74176; 80048; 80053; 82150; 83605; 83690; 83735; 84100; 85025; 85027; 85610; 85730; 96361; 96365; 96366; 96375; 99285